=== PATIENT | female | born 1940 | race Caucasian/White ===

== ENCOUNTER → 2016-03-21 13:58 | Outpatient (CLI) | payer MEDICARE ==
[2016-02-14 12:13] VITALS: BMI 45.6
[~2016-03-21 13:58] MED LIST: ACETAMINOPHEN PO; ACTOS15 MG PO; AUGMENTIN 875-11 TAB PO; AVANDIA2 MG PO; BOUDREAUXS113 GM TP; BUMEX2 MG PO; CALTRATE-600600 MG PO; CARDIZEM CD240 MG PO; CELEBREX200 MG PO; CIPRO500 MG PO; COLACE100 MG PO; DIOVAN320 MG PO; DIOVAN80 MG PO; FLUTICASONE PRO16 GM NASAL; FLUTICASONE PRO16 GM NS; GARLIC1 CAP PO; GLIPIZIDE10 MG PO; GLUCOTROL XL 1010 MG PO; HUMALOG 30100 UNITS/ SC; K-TAB10 MEQ PO; LANOXIN250 MCG PO; LASIX40 MG PO; LEVAQUIN750 MG PO; LORTAB 7.5/5001 TA1 PO; MICRO-K10 MEQ PO; MIRALAX17 GM PO; NEURONTIN 300300 MG PO; NORCO 7.5-3251 EACH PO; NORCO 7.5/325 T1 TA1 PO; OMNICEF300 MG PO; PRADAXA150 MG PO; ROBAXIN500 MG PO; ROCEPHIN 2 GM/D52 G1 IV; SALINE NASAL SP45 ML NASAL; SALINE NASAL SP45 ML NS; TUMS500 MG PO; VOLTAREN100 GM TOPICAL; ZOCOR20 MG PO
[2016-03-21 14:11] LABS: APPEARANCE CLEAR (CLEAR); BILIRUBIN NEGATIVE (NEGATIVE); COLOR YELLOW (YELLOW); GLUCOSE NEGATIVE (NEGATIVE); KETONE NEGATIVE (NEGATIVE); LEUKOCYTE ESTERASE NEGATIVE (NEGATIVE); NITRITE NEGATIVE (NEGATIVE); PROTEIN NEGATIVE (NEGATIVE); UROBILINOGEN NORMAL (NORMAL)
== END | disposition home or self-care (01) ==
LOC: D.LABREF 13:58
PROVIDERS: Family Medicine
DX: N39.0 Urinary tract infection, site not specified (principal)

== ENCOUNTER → 2016-07-11 20:51 | Outpatient (CLI) | payer MEDICARE ==
[2016-02-14 12:13] VITALS: BMI 45.6
[~2016-07-11 20:51] MED LIST changes: +BACTRIM 400-801 TAB PO; +NYSTATIN ORAL SU5 ML PO
[2016-07-11 20:59] LABS: BASOPHILS 0.4 % (0-2); EOSINOPHILS 0.9 % (0-7); HEMOGLOBIN 13.3 g/dL (12-16); IMMATURE GRANULOCYTES 0.1 % (0-5); MCH 29.9 pg (26.0-34.0); MCHC 32.4 g/dL (31.0-37.0); MCV 92.1 fL (80.0-100.0); MEAN PLATELET VOLUME 10.5 fL (7.4-10.4); MONOCYTES 5.9 % (2-11); NEUTROPHILS 78.7 % (40-80); PLATELET COUNT 231 10x3/uL (130-400); RBC 4.45 10x6/uL (4.00-5.40); RDW 15.7 % (11.5-14.5); WBC 8.1 10x3/uL (4.8-10.8)
[2016-07-11 21:19] LABS: ALBUMIN 2.9 g/dL (3.4-5.0); ANION GAP 16.2 mmol/L (8-16); BILIRUBIN - TOTAL 0.59 mg/dL (0.2-1.3); CALCIUM 9.3 mg/dL (8.5-10.1); CARBON DIOXIDE 21.8 mmol/L (21.0-32.0)
[2016-07-11 21:27] LABS: CREATININE - SERUM 2.2 mg/dL (0.6-1.3)
== END | disposition home or self-care (01) ==
LOC: D.LABREF 20:51
PROVIDERS: Family Medicine
DX: I50.9 Heart failure, unspecified (principal)

== ENCOUNTER 2016-07-12 10:07 | Inpatient (IN) | payer MEDICARE ==
[~2016-07-12] VITALS: Ht 167.6 cm; Wt 120.8 kg
[~2016-07-12 10:07] MED LIST changes: -BACTRIM 400-801 TAB PO; -NYSTATIN ORAL SU5 ML PO
[2016-07-12 10:49] LABS: BASOPHILS 0.1 % (0-2); EOSINOPHILS 0.5 % (0-7); HEMATOCRIT 42.8 % (36.0-48.0); HEMOGLOBIN 13.7 g/dL (12-16); IMMATURE GRANULOCYTES 0.3 % (0-5); LYMPHOCYTES 10.6 % (15-50); MCH 29.3 pg (26.0-34.0); MCV 91.5 fL (80.0-100.0); MEAN PLATELET VOLUME 10.1 fL (7.4-10.4); MONOCYTES 6.7 % (2-11); NEUTROPHILS 81.8 % (40-80); PLATELET COUNT 205 10x3/uL (130-400); RBC 4.68 10x6/uL (4.00-5.40); RDW 15.7 % (11.5-14.5); WBC 7.7 10x3/uL (4.8-10.8)
[2016-07-12 11:26] LABS: BILIRUBIN - TOTAL 0.77 mg/dL (0.2-1.3); CALCIUM 8.9 mg/dL (8.5-10.1); CARBON DIOXIDE 20.6 mmol/L (21.0-32.0); PROTEIN - SERUM 8.6 g/dL (6.4-8.2)
[2016-07-12 11:35] LABS: CREATININE - SERUM 3.7 mg/dL (0.6-1.3)
[2016-07-12 11:36] LABS: ANION GAP 16.5 mmol/L (8-16); POTASSIUM - SERUM 7.1 mmol/L (3.5-5.1)
--- NOTE | 2016-07-12 14:10 | NUR ---
ARRIVE TO ROOM VIA STRETCHER FROM ER. ALERT AND ORIENTED X4. ACCOMPANIED BY FAMILY AND ER STAFF. LT FA IV INFUSING NS @ 50mL/HR PER ORDER. BILATERAL DIABETIC ULCERS LOWER EXTREMITIES. TRANSFER TO BED FROM STRETCHER MINIMAL ASSIST/STANDBY ASSIST. CONTINUE PLAN OF CARE AND ADMISSION PROCESS. REFUSE SCDs.
[2016-07-12] MEDS ORDERED: NYSTATIN ORAL SU5 ML PO (14:25)
[2016-07-12] MEDS ORDERED: BACTRIM 400-801 TAB PO (14:26)
[2016-07-12 16:00] VITALS: BP 112/57
[2016-07-12 17:52] VITALS: BP 112/57; BMI 43.2
--- NOTE | 2016-07-12 20:20 | NUR ---
DR. RAVI CALLED TO CHECK ON PTS K+. I HAVE ENTERED AN ORDER TO RECHECK PER DR. RAVI. IF K+ IS > THAN 5.5, I AM TO ADMINISTER ANOTHER 30GRAMS OF KAYEXELATE AND NOTIFY THE NURSE PRACTITIONER FEDERAL APPELLATE LAW CLERK. WILL CONTINUE TO MONITOR CLOSELY.
[2016-07-12 20:28] VITALS: BP 121/59
[2016-07-12 23:54] VITALS: BP 145/68
--- NOTE | 2016-07-13 00:10 | NUR ---
PT FINALLY DID HAVE A SMALL WATERY BM. WILL CONTINUE TO MONITOR CLOSELY.
--- NOTE | 2016-07-13 00:18 | NUR ---
NURSING ROUNDS 21:00 - PT LYING IN BED, EYES CLOSED, RESPIRATIONS EVEN AND UNLABORED. PT EASILY ROUSABLE TO VERBAL STIMULI, BUT REMAINED GROGGY AND IMMEDIATELY WENT BACK TO SLEEP. APPROXIMATELY 1 1/2-2 HOURS LATER, PT DID WAKE, NEEDING BEDSIDE COMMODE AND ASSISTANCE TRANSFERRING. PT DID HAVE A WATERY BM. PT STATED SHE HAD NOT EATEN ANYTHING FOR THE LAST DAY AND A HALF, SO AFTER ENCOURAGEMENT, SHE DID AGREE TO EAT SOME CHICKEN NOODLE SOUP. PT DENIES ANY OTHER NEEDS. CONTINUE TO MONITOR CLOSELY.
[2016-07-13 04:05] VITALS: BP 118/50
--- NOTE | 2016-07-13 05:12 | NUR ---
PT HAS NOT SLEPT WELL AGAIN THIS SHIFT. PT STATES SHE IS RESTLESS AND CANNOT GET COMFORTABLE. PT EATING CHOCOLATE PUDDING FOR HOOKER LASTER SNACK, PRN TRAMADOL GIVEN PER PT REQUEST. CONTINUE TO MONITOR CLOSELY. BED LOW, CALL LIGHT IN REACH, SIDE RAILS X 2, HOB 30 DEGREES.
--- NOTE | 2016-07-13 05:16 | NUR ---
PT LYING IN BED, EYES CLOSED, LOUD SNORING. PT IS EASILY ROUSABLE TO VERBAL STIMULI. CONTINUE TO MONITOR CLOSELY. BED LOW, CALL LIGHT IN REACH, SIDE RAILS X 2, HOB 30 DEGREES.
--- NOTE | 2016-07-13 07:00 | NUR ---
RECEIVED REPORT FROM PHLEBOTOMY SUPPORT TECH NURSE, BASHIR CARRERA. PT IN BED, SLEEPING, EASY TO AROUSE. CALL LIGHT IN REACH, NAD NOTED, WILL CONTINUE TO MONITOR.
[2016-07-13 07:35] LABS: BASOPHILS 0.3 % (0-2); EOSINOPHILS 0.6 % (0-7); HEMATOCRIT 38.9 % (36.0-48.0); HEMOGLOBIN 12.6 g/dL (12-16); IMMATURE GRANULOCYTES 0.9 % (0-5); LYMPHOCYTES 9.5 % (15-50); MCH 29.4 pg (26.0-34.0); MCHC 32.4 g/dL (31.0-37.0); MCV 90.7 fL (80.0-100.0); MEAN PLATELET VOLUME 10.1 fL (7.4-10.4); MONOCYTES 9.8 % (2-11); NEUTROPHILS 78.9 % (40-80); PLATELET COUNT 178 10x3/uL (130-400); RBC 4.29 10x6/uL (4.00-5.40); RDW 15.4 % (11.5-14.5)
[2016-07-13 08:12] LABS: ANION GAP 12.9 mmol/L (8-16); CALCIUM 8.8 mg/dL (8.5-10.1); CARBON DIOXIDE 24.3 mmol/L (21.0-32.0)
[2016-07-13 08:16] VITALS: BP 143/59
[2016-07-13 08:16] LABS: CREATININE - SERUM 2.4 mg/dL (0.6-1.3); POTASSIUM - SERUM 5.2 mmol/L (3.5-5.1)
--- NOTE | 2016-07-13 09:08 | NUR ---
CALLED PHARMACY AND SPOKE WITH CARMEN LIANG HIM THAT I NEED ANOTHER BOTTLE OF KAYEXELATE.
--- NOTE | 2016-07-13 09:38 | NUR ---
ADMINISTERED MORNING MEDICATIONS, HELPED SYRUP BLENDER TO GIVE PT A BED BATH, BED LINEN CHANGED. PT DENIES ANY NEEDS AT THIS TIME. FAMILY AT BEDSIDE, CALL LIGHT IN REACH, NAD NOTED, WILL CONTINUE TO MONITOR.
[2016-07-13 11:51] VITALS: BP 156/75
--- NOTE | 2016-07-13 11:55 | NUR ---
BLOOD SUGAR OF 171, GAVE 2 UNITS OF HUMALOG PER SLIDING SCALE. PT ALSO CLEANED UP FROM INCONT EPISODE. PT DENIES ANY NEEDS AT THIS TIME. CALL LIGHT IN REACH, NAD NOTED, WILL CONTINUE TO MONITOR.
[2016-07-13 14:23] VITALS: Ht 167.6 cm; Wt 120.8 kg
--- NOTE | 2016-07-13 16:10 | NUR ---
BLOOD SUGAR OF 148, NO COVERAGE NEEDED PER SLIDING SCALE. PT DENIES ANY NEEDS AT THIS TIME. CALL LIGHT IN REACH, NAD NOTED, WILL CONTINUE TO MONITOR.
[2016-07-13 16:42] VITALS: BP 142/61
--- NOTE | 2016-07-13 20:20 | NUR ---
RESTING IN BED WITH NO DISTRESS. NS @ 50ML/HR INFUSING TO LFA. SR PER TELEMETRY. CLEAN AND DRY. CHECKED FREQUENTLY DUE TO INCONTINENCE.CPOC. CALL LIGHT IN REACH.
[2016-07-13 20:29] VITALS: BP 120/59
--- NOTE | 2016-07-13 22:52 | NUR ---
PT RESTING. C/O LEG PAIN, BOTH LEGS HAVE DRESSINGS FROM BELOW KNEE TO ANKLE. PT STATES HOME HEALTH PROVIDES WOUND CARE EVERY 3RD DAY. DAY NURSE HAS PUT IN CONSULT FOR ART INSTRUCTOR TO SEE PATIENT IN AM. HS MEDS GIVEN. FSBS 165, 2UNITS OF HUMALOG GIVEN. PT WANTING PAIN MEDS, BUT DID NOT CONTINUE IT ON ADMIT. WILL MONITOR.
[2016-07-14] VITALS (7 sets, daily range): BP systolic 136–155; BP diastolic 57–76
[2016-07-14 06:49] LABS: BASOPHILS 0.3 % (0-2); EOSINOPHILS 1.1 % (0-7); HEMATOCRIT 38.6 % (36.0-48.0); HEMOGLOBIN 12.4 g/dL (12-16); IMMATURE GRANULOCYTES 0.3 % (0-5); LYMPHOCYTES 14.2 % (15-50); MCH 29.5 pg (26.0-34.0); MCHC 32.1 g/dL (31.0-37.0); MCV 91.7 fL (80.0-100.0); MEAN PLATELET VOLUME 9.9 fL (7.4-10.4); MONOCYTES 11.1 % (2-11); PLATELET COUNT 198 10x3/uL (130-400); RBC 4.21 10x6/uL (4.00-5.40); RDW 15.5 % (11.5-14.5); WBC 6.5 10x3/uL (4.8-10.8)
[2016-07-14 07:12] LABS: ANION GAP 11.9 mmol/L (8-16); CALCIUM 8.6 mg/dL (8.5-10.1); CARBON DIOXIDE 26.7 mmol/L (21.0-32.0)
[2016-07-14 07:18] LABS: CREATININE - SERUM 1.1 mg/dL (0.6-1.3); POTASSIUM - SERUM 3.6 mmol/L (3.5-5.1)
--- NOTE | 2016-07-14 07:50 | NUR ---
AM ROUNDS - PT APPEARS TO BE SLEEPING ON BACK WITH EQUAL AND NON LABORED BREATHS. LEFT FA, NS AT 50CC/HR. MONITOR SHOWS CONTROLLED AFIB, HR 71. WILL CONTINUE TO MONITOR
--- NOTE | 2016-07-14 10:20 | NUR ---
Wound Care consult: Pt has long history of venous stasis ulcers. Currently she is being treated at the wound clinic in [place] (once/month) and by home health for dressing changes. Bilateral lower extremities are red and edematous with open areas. Mild odor noted. Cleansed well and patted dry. Covered open areas with Adaptic, covered with ABD pads and secured with kerlix. Recommend daily dressing changes at this time. Will continue to monitor.
--- NOTE | 2016-07-14 14:59 | NUR ---
Rehab Note- Acute Rehab Prescreen order received. Awaiting Physical therapy order & screen. Spoke with JASSON Ramirez. Will follow the patient at this time. Thank you for this referral! Yadira Ball RN Clinical Liaison, [facility] Rehab/[place]
--- NOTE | 2016-07-14 16:32 | NUR ---
SCD - DUE TO PT HAVING BLE WOUNDS WITH DRESSINGS, SCDs NOT APPROPRIATE AT THIS TIME.
--- NOTE | 2016-07-14 20:22 | NUR ---
RESTING IN BED. ALERT/ORIENTED. NS @ 50ML/HR INFUSING TO LFA. O2 @ 2L/NC WITH NONLABORED RESPIRATIONS. CAF PER TELEMETRY. 4+ PITTING EDEMA TO BILATERAL LOWER EXTREMITIES WITH NEW DRESSINGS TO BOTH LEGS PER WOUND CARE NURSE. SEE COMPLETED SHIFT ASSESSMENT. CPOC.
--- NOTE | 2016-07-14 21:06 | NUR ---
HS MEDS GIVEN. PAIN MED GIVEN PER REQUEST. FSBS 210, SLIDING SCALE ADMINISTERED. CPOC.
[2016-07-15] VITALS: BP 189/74
[2016-07-15 04:00] VITALS: BP 145/72
[2016-07-15 06:26] LABS: BASOPHILS 0.5 % (0-2); EOSINOPHILS 2.9 % (0-7); HEMATOCRIT 36.4 % (36.0-48.0); HEMOGLOBIN 11.8 g/dL (12-16); IMMATURE GRANULOCYTES 0.4 % (0-5); LYMPHOCYTES 21.1 % (15-50); MCH 29.6 pg (26.0-34.0); MCHC 32.4 g/dL (31.0-37.0); MCV 91.2 fL (80.0-100.0); MEAN PLATELET VOLUME 9.3 fL (7.4-10.4); MONOCYTES 10.2 % (2-11); NEUTROPHILS 64.9 % (40-80); PLATELET COUNT 165 10x3/uL (130-400); RBC 3.99 10x6/uL (4.00-5.40); RDW 15.6 % (11.5-14.5); WBC 5.6 10x3/uL (4.8-10.8)
[2016-07-15 06:46] LABS: ANION GAP 12.6 mmol/L (8-16); CALCIUM 8.2 mg/dL (8.5-10.1); CARBON DIOXIDE 25.7 mmol/L (21.0-32.0); CREATININE - SERUM 0.8 mg/dL (0.6-1.3); POTASSIUM - SERUM 3.3 mmol/L (3.5-5.1)
[2016-07-15 08:26] VITALS: BP 182/74
--- NOTE | 2016-07-15 10:01 | NUR ---
PT SITTING UP IN BEDSIDE CHAIR RESTING QUIELTLY. PT C/O GENERALIZED ACHING ALL OVER REQUESTING AND PROVIDED WITH PRN PAIN MEDICATION. PT DENIES ANY FURTHER NEEDS AT THIS TIME. CL IN REACH. WILL CTM.
--- NOTE | 2016-07-15 11:03 | NUR ---
Visited with the patient and she feels she will benefit from continued therapy in the IRF. She meets criteria and will be accepted today if the physician agrees. The CM James Oliveros has been made aware. Rosio Brown RN Clinical Liaison, Rehab
--- NOTE | 2016-07-15 11:24 | NUR ---
Patient Name: SOFIA PEREZ Admission Status: ER Accout number: [id number] Admission Date: 07-12-2016 : 1940 Admission Diagnosis:ACUTE KIDNEY FAILURE, UNSPECIFIED Attending: LG Current LOS: 3 Anticipated DC Date: 07-15-2016 Planned Disposition: Inpatient Rehab Primary Insurance: MEDICARE A & B PLANNED EXTERNAL PROVIDER: [facility] Discharge Planning Comments: * Is the patient Alert and Oriented? Yes 0 * How many steps to enter\exit or inside your home? RAMP 0 * PCP DR. REYNA 0 * Pharmacy [facility]. 0 * Preadmission Environment Home Alone 0 * ADLs Independent 0 * Equipment Bedside Commode Oxygen Shower Chair Walker Wheelchair 0 * Other Equipment HOME AND PORTABLE OXYGEN UNKNOWN MEDICAL EQUIPMENT PROVIDER 0 * List name and contact numbers for known caregivers / representatives who currently or will assist patient after discharge: BRYON STEEL, DTR, LUCI STEEL, SON, 0 * Community resources currently utilized Home Health 0 * Please name any agencies selected above. [employer] 0 * Additional services required to return to the preadmission environment? Yes * Can the patient safely return to the preadmission environment? Yes 0 * Has this patient been hospitalized within the prior 30 days at any hospital? No 0 CM RECEIVED ORDER FOR INPATIENT REHAB PRESCREENING, MET WITH PT IN ROOM TO DISCUSS DISCHARGE PLANNING AND NEEDS. PT REPORTS LIVING AT HOME INDEPENDENTLY AND ALONE, HER SON LIVES NEXT DOOR ON THE PROPERTY. PT HAS REPORTS HAVING ALL NEEDED MEDICAL EQUIPMENT AND CANNOT REMEMBER THE NAME OF HER PROVIDER. PT HAS [employer]. CM DISCUSSED AVAILABILITY OF HOME HEALTH, REHAB SERVICES AND MEDICAL EQUIPMENT. PT REPORTS BEING WEAK AND WANTS REHAB AT [place], IS FAMILIAR SHE HAS BEEN THERE IN THE PAST. PT REPORTS HER SON WILL PICK HER UP FOR DISCHARGE HOME. IMPORTANT MESSAGE FROM MEDICARE PROVIDED AND EXPLAINED. CM SPOKE TO EMELI OF [facility] WHO HAS EVALUATED PT AND WILL ACCEPT PT TODAY IF MEDICALLY STABLE. PT NOTIFIED WHO IS IN AGREEMENT WITH DISCHARGE PLAN TO INPATIENT REHAB. FOR DISCHARGE TO INPATIENT REHAB, NOTIFY [facility]. Manager Concrete: Nestor Oliveros
--- NOTE | 2016-07-15 11:56 | NUR ---
FSBS 382 PT STATES "IM NEVER THAT HIGH" RECHECKED R/T PT CONCERNS AND FS ON SAME HAND BUT DIFFERENT FINGER 197. WILL COVER WITH SS INSULIN PER THE LOWER NUMBER R/T PTS TRENDS NEVER THAT HIGH. PT REC'D 2 UNITS. PT SITTING UP IN BEDSIDE CHAIR RESTING QUIETLY. DENIES ANY CURRENT PAIN OR FURTHER NEEDS. CL IN REACH. WILL CPOC.
[2016-07-15 12:38] VITALS: BP 156/69
--- NOTE | 2016-07-15 14:59 | NUR ---
CALLED REPORT TO NEIL CASAS FROM INPATIENT REHAB. PT IS COLLECTING BELONGINGS AND READY TO GO DOWN TO REHAB UNIT. WILL BE TRANSFERRED TO [facility] SHORTLY. NO FURTHER NEEDS AT THIS TIME.
--- NOTE | 2016-07-15 15:16 | NUR ---
Patient Name: SOFIA PEREZ Encounter No: [id number] : 1940 Primary Insurance: MEDICARE A & B Anticipated DC Date: 07-15-2016 Planned Disposition: Inpatient Rehab External Planned Provider: [facility] DCP follow-up note: CM SPOKE TO EMELI OF INPATIENT REHAB, THEY PLAN TO ACCEPT PT TODAY, ROOM 1114-A, FOR REHAB. PT NOTIFIED, IN AGREEMENT WITH DISCHARGE TO INPATIENT REHAB. SOLAR RESOURCE ASSESSOR NURSE NOTIFIED. NURSE REPORT TO BE CALLED TO INPATIENT REHAB FOR DISCHARGE. Nestor Oliveros, CASE MANAGEMENT
--- NOTE | 2016-07-15 15:55 | NUR ---
DISCHARGE PAPERS SIGNED AND BELONGINGS COLLECTED. TANK REFINISHER ASSISTING TO TRANSFER TO REHAB. NO FURTHER NEEDS AT THIS TIME.
== END 2016-07-15 16:16 | DRG 683 ==
LOC: D.ER 10:07 → D.M2 13:12
PROVIDERS: Emergency Medicine; ADMIT Family Medicine
DX: N17.9 Acute kidney failure, unspecified (principal); Z68.41 Body mass index [BMI] 40.0-44.9, adult; E87.5 Hyperkalemia; E11.9 Type 2 diabetes mellitus without complications; I10 Essential (primary) hypertension; E78.5 Hyperlipidemia, unspecified; K21.9 Gastro-esophageal reflux disease without esophagitis; R06.81 Apnea, not elsewhere classified; I48.91 Unspecified atrial fibrillation; E66.01 Morbid (severe) obesity due to excess calories; M19.90 Unspecified osteoarthritis, unspecified site; Z86.718 Personal history of other venous thrombosis and embolism

== ENCOUNTER 2016-07-15 16:23 | Inpatient (IN) | payer MEDICARE ==
[~2016-07-15] VITALS: Ht 167.6 cm; Wt 122.5 kg
[~2016-07-15 16:23] MED LIST changes: +BACTRIM 400-801 TAB PO; +NYSTATIN ORAL SU5 ML PO
--- NOTE | 2016-07-15 16:30 | NUR ---
PT ARRIVED TO UNIT VIA ACCOMPANIED BY HOSPITAL STAFF AND FAMILY. PT IS A&OX4. PT HAS DRESSING TO BILAT LE'S DUE TO WEEPING EDEMA. PT IS ON O2@2. PT IS A MIN TRANSFER FROM TO BED. PT DENIES NEEDS.
[2016-07-15 18:05] VITALS: BP 122/58; BMI 43.7
--- NOTE | 2016-07-15 18:15 | NUR ---
PT EATING DINNER, DENIES NEEDS.
--- NOTE | 2016-07-15 19:25 | NUR ---
PT SITTING ON SIDE OF BED. ALERT & ORIENTED. LEFT FA FLUSHES EASILY, SALINE LOC. O2 @ 2L VIA N/C. MIN. ASSIST. WEEPING EDEMA LE. BED IN LOWES TPOSITION AND CALL LIGHT WITHIN REACH.
--- NOTE | 2016-07-15 19:30 | NUR ---
REMOVED OLD DRESSING FROM LE. CLEANSE BILATERAL LOWER LEGS WITH WOUND CLEANSER AND PATTED DRY WITH 4X4'S. COVERED ALL OPEN AREAS WITH ADAPTIC THEN WITH ABD PADS. SECURED WITH KERLIX AND PAPER TAPE. PT TOLERATED PROCEDURE WELL.
[2016-07-15 22:11] VITALS: BP 122/68
--- NOTE | 2016-07-15 23:30 | NUR ---
PT IN BED WITH HOB UP FOR COMFORT. EYES CLOSED. CHEST RISING AND FALLING. 02 @ 2L VIA N/C. BED IN LOWEST POSITION AND CALL LIGHT WITHIN REACH.
--- NOTE | 2016-07-16 04:10 | NUR ---
RESTING IN BED, EYES CLOSED.
[2016-07-16 07:15] LABS: BASOPHILS 0.5 % (0-2); EOSINOPHILS 3.7 % (0-7); HEMATOCRIT 38.2 % (36.0-48.0); HEMOGLOBIN 12.3 g/dL (12-16); IMMATURE GRANULOCYTES 0.3 % (0-5); LYMPHOCYTES 16.1 % (15-50); MCH 29.9 pg (26.0-34.0); MCHC 32.2 g/dL (31.0-37.0); MCV 92.7 fL (80.0-100.0); MEAN PLATELET VOLUME 10.4 fL (7.4-10.4); MONOCYTES 9.2 % (2-11); NEUTROPHILS 70.2 % (40-80); PLATELET COUNT 170 10x3/uL (130-400); RBC 4.12 10x6/uL (4.00-5.40); RDW 15.7 % (11.5-14.5); WBC 6.5 10x3/uL (4.8-10.8)
[2016-07-16 07:50] LABS: ANION GAP 8.5 mmol/L (8-16); CALCIUM 8.4 mg/dL (8.5-10.1); CARBON DIOXIDE 29.1 mmol/L (21.0-32.0); CREATININE - SERUM 0.9 mg/dL (0.6-1.3); POTASSIUM - SERUM 3.6 mmol/L (3.5-5.1)
--- NOTE | 2016-07-16 08:13 | NUR ---
SITTING UP EATING BREAKFAST CALL LIGHT IN REACH
--- NOTE | 2016-07-16 08:29 | NUR ---
PT RESTING IN BED WITH EYES OPEN CALL LIGHT IN REACH NO PROBLEMS WILL MONITER
[2016-07-16 08:59] VITALS: BP 123/56
[2016-07-16 14:02] VITALS: Ht 167.6 cm; Wt 122.5 kg
--- NOTE | 2016-07-16 16:35 | NUR ---
PATIENT ADMITTED TO REHAB FROM ACUTE FLOOR. IS HER PCP. SHE USES [facility] ON [address]. DME AT HOME IS BSC, O2, WALKER, WHEELCHAIR. SHE IS WITH [facility]. SHE IS OF [place]. WILL CONTINUE TO FOLLOW WITH PATIENT UNTIL DISCHARGED.
--- NOTE | 2016-07-16 18:07 | NUR ---
PT RESTING IN BED WITH EYES OPEN CALL LIGHT IN REACH NO PROBLEMS WILL MONITER
[2016-07-16 19:00] VITALS: BP 132/53
--- NOTE | 2016-07-16 20:00 | NUR ---
PT IN BED WITH HOB UP FOR COMFORT. WATCHING TV. ALERT & ORIENTED. LEFT FA SALINE LOC. O2 @ 2L VIA N/C. MIN. ASSIST. WEEPING EDEMA BILATERAL LOWER LEGS. FSBS. BED IN LOWEST POSITION AND CALL LIGHT WITHIN REACH.
--- NOTE | 2016-07-16 21:17 | NUR ---
LEFT FA INFILTRATED. DC'D IV. PT TOLERATED PROCEDURE WELL.
--- NOTE | 2016-07-17 00:55 | NUR ---
RESTING IN BED, EYES CLOSED. AUDIBLE RESPIRATIONS ARE UNLABORED.
--- NOTE | 2016-07-17 04:53 | NUR ---
PT LYING IN BED. EYES CLOSED. BED IN LOWEST POSITION AND CALL LIGHT WITHIN REACH.
--- NOTE | 2016-07-17 08:15 | NUR ---
PT IN BED EATING BREAKFAST TOLERATING WELL WILL MONITER
--- NOTE | 2016-07-17 15:00 | NUR ---
IN BED WITH FEET UP.CL IN REACH.
--- NOTE | 2016-07-17 17:11 | NUR ---
PT RESTING IN BED WITH EYES OPEN CALL LIGHT IN REACH NO PROBLEMS WILL MONITER
[2016-07-17 20:00] VITALS: BP 154/49
--- NOTE | 2016-07-17 20:00 | NUR ---
PT SITTING ON SIDE OF BED. ALERT & ORIENTED. O2 @ 2L VIA N/C. STAND BY ASSIST. W/C. WEEPING EDEMA BILATERAL LOWER LEGS. FSBS BIDAC. PT HAS NO COMPLAINTS AT THIS TIME. BED IN LOWEST POSITION AND CALL LIGHT WITHIN REACH.
--- NOTE | 2016-07-18 | NUR ---
PT LYING IN BED. EYES CLOSED. CHEST RISNING AND FALLING. BED IN LOWEST POSITION AND CALL LIGHT WITHIN REACH.
--- NOTE | 2016-07-18 00:40 | NUR ---
RESTING QUIETLY IN BED, EYES CLOSED.
--- NOTE | 2016-07-18 01:00 | NUR ---
PT FINISHED WITH LUNCH, DENIES NEEDS.
--- NOTE | 2016-07-18 02:50 | NUR ---
PT ASSISTED TO BR. PT BACK IN BED AND DENIES NEEDS. WCTM.
--- NOTE | 2016-07-18 08:59 | NUR ---
PT AM MEDS ADMINISTERED. PT EATING BREAKFAST, DENIES NEEDS.
[2016-07-18 09:01] VITALS: BP 132/53
--- NOTE | 2016-07-18 11:00 | NUR ---
PT SHOWER GIVEN. NEW DRESSINGS APPLIED TO BILAT LE'S. PT RESTING IN BED WAITING FOR LUNCH.
--- NOTE | 2016-07-18 13:00 | NUR ---
PT FINISHED WITH LUNCH, DENIES NEEDS.
--- NOTE | 2016-07-18 14:50 | NUR ---
PT ASSISTED TO BR. PT BACK IN BED AND DENIES NEEDS. WCTM.
[2016-07-18 20:00] VITALS: BP 128/86
--- NOTE | 2016-07-18 20:00 | NUR ---
PT LYING IN BED. WATCHING TV. BED IN LOWEST POSITION AND CALL LIGHT WITHIN REACH.
--- NOTE | 2016-07-19 | NUR ---
PT LYING IN BED. EYES CLOSED. CHEST RISING AND FALLING. 02 @ 2L. BED IN LOWEST POSITION AND CALL LIGHT WITHINREACH.
--- NOTE | 2016-07-19 02:20 | NUR ---
PT LYING IN BED. WATCHING TV. BED IN LOWEST POSITION AND CALL LIGHT WITHIN REACH.
[2016-07-19 06:40] LABS: BASOPHILS 0.5 % (0-2); EOSINOPHILS 4.4 % (0-7); HEMATOCRIT 35.6 % (36.0-48.0); HEMOGLOBIN 11.3 g/dL (12-16); IMMATURE GRANULOCYTES 0.2 % (0-5); LYMPHOCYTES 23.7 % (15-50); MCH 29.2 pg (26.0-34.0); MCHC 31.7 g/dL (31.0-37.0); MEAN PLATELET VOLUME 9.5 fL (7.4-10.4); MONOCYTES 11.2 % (2-11); PLATELET COUNT 161 10x3/uL (130-400); RBC 3.87 10x6/uL (4.00-5.40); RDW 15.6 % (11.5-14.5); WBC 4.1 10x3/uL (4.8-10.8)
[2016-07-19 06:55] LABS: CALC OSMOLALITY 285 mosm/kg (275-300); CALCIUM 8.5 mg/dL (8.5-10.1); CARBON DIOXIDE 27.9 mmol/L (21.0-32.0); CHLORIDE - SERUM 106 mmol/L (98-107); CREATININE - SERUM 0.6 mg/dL (0.6-1.3); GLUCOSE 144 mg/dL (74-106); POTASSIUM - SERUM 3.5 mmol/L (3.5-5.1); SODIUM 142 mmol/L (136-145); UREA NITROGEN 13 mg/dL (7-18); eGFR NON AFRICAN AMERICAN > 90 mL/min (90-120)
[2016-07-19 09:09] VITALS: BP 134/71
--- NOTE | 2016-07-19 10:25 | NUR ---
MORNING MEDICATION GIVEN, PT TOLERATED WELL, WILL CONTINUE TO MONITOR, PT IN THERAPY.
--- NOTE | 2016-07-19 15:43 | NUR ---
PT SITTING UP IN WHEELCHAIR WATCHING TV, PT STATES NO NEEDS AT THIS TIME, WILL CONTINUE TO MONITOR, CALL LIGHT WITHIN REACH.
--- NOTE | 2016-07-19 17:29 | NUR ---
PT SITTING UP AT BEDSIDE, WATCHING TV, VISITING WITH OTHER PT IN ROOM. PT STATES NO NEEDS AT THIS TIME, WILL CONTINUE TO MONITOR, CALL LIGHT WITHIN REACH.
--- NOTE | 2016-07-19 19:40 | NUR ---
PT SIT IN BED AND WATCH TV.
--- NOTE | 2016-07-19 19:50 | NUR ---
PT LYING SUPINE POSITION IN BED, DENIES ANY NEEDS, RESPIRATIONS REGULAR AND UNLABORED.
[2016-07-19 20:08] VITALS: BP 130/78
--- NOTE | 2016-07-19 21:10 | NUR ---
NEW DRESSINGS APPLIED TO BILAT LEGS.
--- NOTE | 2016-07-19 22:32 | NUR ---
ASSISTED PT TO BATHROOM.
--- NOTE | 2016-07-20 04:29 | NUR ---
ASSISTED PT TO BATHROOM.
[2016-07-20 08:00] VITALS: BP 132/62
--- NOTE | 2016-07-20 08:15 | NUR ---
PT RESTING IN BED WITH EYES OPEN CALL LIGHT IN REACH NO PROBLEMS WILL MONITER
--- NOTE | 2016-07-20 13:25 | NUR ---
Nutrition Follow Up: Chart reviewed. Pt is eating 100% meal avg on a diabetic [employer] soft diet. +BM 07/19/16. Wt stable. Labs reviewed - Glucose elevated. Meds noted inlcuding Glipizide. Pt with excellent po intake at this time. Rec continue current diet. RD following.
--- NOTE | 2016-07-20 14:28 | NUR ---
PT UP IN WHEELCHAIR IN ROOM WATCHING TV CALL LIGHT IN REACH WILL ANIRUDH
--- NOTE | 2016-07-20 18:48 | NUR ---
RESTING QUIETLY IN BED CALL LIGHT IN REACH
--- NOTE | 2016-07-20 19:43 | NUR ---
PT RECEIVED UP IN WHEELCHAIR NEEDING ASSISTANCE TO BATHROOM. DRESSINGS TO BILATERAL LOWER EXTREMETIES. NO CONCERNS MADE KNOWN AT THIS TIME. CALL LIGHT IN REACH. WILL CONTINUE TO OBSERVE.
[2016-07-20 21:39] VITALS: BP 141/60
--- NOTE | 2016-07-20 22:54 | NUR ---
PT IN BED WITH EYES CLOSED AND CHEST RISING. RECEIVED MEDICATIONS PER MAR WITHOUT DIFFICULTY. DRESSINGS CHANGED PER ORDERS TO BILATERAL LOWER EXTREMITIES, TOLERATED WELL. NO OTHER NEEDS OR CONCERNS MADE KNOWN. CALL LIGHT IN REACH. WILL CONTINUE TO OBSERVE.
--- NOTE | 2016-07-21 02:08 | NUR ---
PT IN BED WITH EYES CLOSED AND CHEST RISING. NO CONCERNS NOTED AT THIS TIME. CALL LIGHT IN REACH. WILL CONTINUE TO OBSERVE.
--- NOTE | 2016-07-21 04:51 | NUR ---
PT IN BED WITH EYES CLOSED AND CHEST RISING. NO SIGN/SYMPTOMS OF DISTRESS NOTED. CALL LIGHT IN REACH. WILL CONTINUE TO OBSERVE.
[2016-07-21 06:10] LABS: BASOPHILS 0.5 % (0-2); EOSINOPHILS 3.5 % (0-7); HEMATOCRIT 34.6 % (36.0-48.0); IMMATURE GRANULOCYTES 0.2 % (0-5); LYMPHOCYTES 23.7 % (15-50); MCH 29.3 pg (26.0-34.0); MCHC 31.8 g/dL (31.0-37.0); MEAN PLATELET VOLUME 9.6 fL (7.4-10.4); MONOCYTES 10.5 % (2-11); NEUTROPHILS 61.6 % (40-80); PLATELET COUNT 143 10x3/uL (130-400); RBC 3.76 10x6/uL (4.00-5.40); RDW 15.8 % (11.5-14.5); WBC 4.3 10x3/uL (4.8-10.8)
[2016-07-21 06:32] LABS: CALC OSMOLALITY 281 mosm/kg (275-300); CALCIUM 8.6 mg/dL (8.5-10.1); CARBON DIOXIDE 28.4 mmol/L (21.0-32.0); CHLORIDE - SERUM 104 mmol/L (98-107); CREATININE - SERUM 0.7 mg/dL (0.6-1.3); GLUCOSE 147 mg/dL (74-106); POTASSIUM - SERUM 3.6 mmol/L (3.5-5.1); SODIUM 139 mmol/L (136-145); UREA NITROGEN 14 mg/dL (7-18); eGFR NON AFRICAN AMERICAN 86 mL/min (90-120)
--- NOTE | 2016-07-21 07:26 | NUR ---
PT RESTING IN BED WITH EYES OPEN CALL LIGHT IN REACH NO PROBLEMS WILL MONITER
[2016-07-21 08:17] VITALS: BP 134/60
--- NOTE | 2016-07-21 11:34 | NUR ---
IN THERAPY.DENIES NEEDS.
--- NOTE | 2016-07-21 13:33 | NUR ---
PT RESTING IN BED WITH EYES OPEN CALL LIGHT IN REACH NO PROBLEMS WILL MONITER
--- NOTE | 2016-07-21 16:58 | NUR ---
CARE TEAM MEETING: TENATIVE DISCHARGE DATE IS 07/28/16. PLANS ARE FOR HER TO RETURN HOME. DR. REYNA IS HER PCP, SHE USES [facility] [address] AND IS PHARMACY OF CHOICE. SHE HAS O2, SHOWER CHAIR, WALKER AND WHEELCHAIR AT HOME. WILL CONTINUE TO FOLLOW WITH PATIENT
--- NOTE | 2016-07-21 17:39 | NUR ---
PT RESTING IN BED WITH EYES OPEN CALL LIGHT IN REACH NO PROBLEMS WILL MONITER
[2016-07-21 19:07] VITALS: BP 131/59
--- NOTE | 2016-07-21 19:31 | NUR ---
PT RECEIVED IN ROOM UP IN WHEELCHAIR AT BEDSIDE VISITING WITH FAMILY. DRESSINGS INTACT WITH DRAINAGE NOTED. SCHEDULED TO BE CHANGED THIS SHIFT. NO OTHER NEEDS MADE KNOWN. CALL LIGHT IN REACH. WILL CONTINUE TO OBSERVE.
--- NOTE | 2016-07-21 22:50 | NUR ---
PT IN BED WITH EYE OPEN. RECEIVED MEDICATIONS PER MAR WITHOUT DIFFICULTY. DRESSINGS TO BILATERAL LOWER LEGS CHANGED PER ORDER. NO OTHER NEEDS OR CONCERNS NOTED AT THIS TIME. CALL LIGHT IN REACH.
--- NOTE | 2016-07-22 02:20 | NUR ---
PT IN BED WITH EYES CLOSED AND CHEST RISING. NO SIGN/SYMPTOMS OF DISTRESS NOTED. CALL LIGHT IN REACH.
--- NOTE | 2016-07-22 07:25 | NUR ---
AWAKE.ASSESSMENT COMPLETED,NO SIGNS OF ACUTE DISTRESS.DRESSING INTACT TO LOWER EXTREMITIES BILAT.CL IN EASY REACH,BED IN LOW POSITION.
[2016-07-22 11:36] VITALS: BP 133/74
--- NOTE | 2016-07-22 12:07 | RHP ---
PATIENT: SOFIA PEREZ MEDICAL RECORD: [id number] ACCOUNT: [id number] LOCATION:[id number] : [birth year] ADMISSION DATE: 07/15/16 REHABILITATION HISTORY AND PHYSICAL EXAMINATION POST ADMISSION PHYSICIAN EXAMINATION DATE OF ADMISSION: 07/15/2016 ADMITTING DIAGNOSES: Uremic myopathy. HISTORY OF PRESENT ILLNESS: The patient is an elderly female who presents secondary to uremic myopathy. She was admitted to the hospital on July 12. She has a history of hypertension, diabetes, AFib, peripheral vascular disease, and CHF. She is being treated for UTI. Labs showed hyperkalemia, so she was sent to the ED for further evaluation. Her potassium was 7.1, BUN and creatinine of 76 and 3.7. She reports that she was just not eating much. She had vomited once and had been falling a lot due to weakness in her legs. She was sleepy and lethargic on admission. She has venous stasis ulcers on both lower extremities, 4+ weeping edema. She has been receiving H&H for dressing changes and was seen in wound care clinic monthly. Prior to the admit, she was living alone. She was able to perform most of her ADLs and ambulate without assistance until recently, she began to have falls. Currently, she is [id number] assist for ADLs and mobility. She has weakness in her legs and increased pain due to stasis ulcer. She was fatigued. 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 She is wearing her O2 at 2 L continuously. She usually wears it only at bedtime, definitely needs inpatient rehab if she has any hope of returning back to her home or to her prior level of functioning. COMORBIDITIES: In this patient include hyperkalemia, renal failure, hypertension, chronic kidney disease, diabetes, morbid obesity, CHF, sleep apnea, fatigue, dizziness, acute mental status changes, UTI, frequent falls and venous stasis ulcers. PAST MEDICAL HISTORY: Significant for diabetes, hypertension, morbid obesity, DVT, AFib, cellulitis, venous insufficiency, hyperlipidemia, sleep apnea, osteoarthritis, gastroesophageal reflux disease, cataracts, CHF, peripheral vascular disease and O2 dependence. PAST SURGICAL HISTORY: Includes hysterectomy, bilateral tubal ligation, IVC filter, right foot surgery, stents in bilateral lower extremities and rectal surgery. ALLERGIES: ASPIRIN, AMLODIPINE, ADHESIVE TAPE, LIPITOR, INVOKANA, METFORMIN, JANUMET, AND ACTOS. CURRENT MEDICATIONS: Include glipizide 10 mg b.i.d., Colace 100 mg daily, diltiazem 240 mg daily, nystatin 5 cc q.a.c. and q.h.s., [place] 7.5/325 as needed, Neurontin 300 q.h.s., Pradaxa 150 mg b.i.d., Tylenol 325 mg q.4 hours p.r.n., Tums 1000 mg q.4 hours as needed, polyethylene glycol 17 g in 8 ounces of water daily. HABITS: No alcohol or tobacco use. FAMILY HISTORY: Noncontributory. HISTORY AND PHYSICAL [id number] SOFIA PEREZ SOCIAL HISTORY: The patient plans to return back home at her prior level of functioning or better if possible. REVIEW OF SYSTEMS: GENERAL: Does complain of weakness and fatigue. HEENT: Denies cold, cough, or congestion. CARDIOVASCULAR: Denies any chest pain. LUNGS: Does complain of shortness of breath especially with activity. PHYSICAL EXAMINATION: VITAL SIGNS: Stable. She is afebrile. GENERAL: A morbidly-obese female, in no acute distress, alert upon exam. HEENT: Normocephalic, atraumatic. Mucosa moist. NECK: Supple. No lymphadenopathy. LUNGS: Clear at this time. HEART: Irregular rate and rhythm. ABDOMEN: Benign. EXTREMITIES: Does have numerous changes consistent with stasis dermatitis/ulcers with discoloration of the skin and skin changes noted. NEUROLOGIC: Seems intact. LABORATORY DATA: Her white count 6.5, H&H of 12 and 38 and platelet count was noted to be 170. Her sodium is 141, potassium 3.6, BUN and creatinine of 20 and 0.9, blood sugar is noted to be 161. ASSESSMENT: This is a 76-year-old female patient admitted to rehab with a working diagnosis of uremic myopathy complicated by numerous other medical problems. The patient has potential to make improvement. We instituted the following multidisciplinary therapies including, but not limited to physical, occupational, respiratory, speech, nutritional services, prosthetics and orthotics. Given her complex condition and risk for more complications, rehabilitation services cannot be provided at a lower level of care such as a senior care facility. PLAN: 1. Admit to [facility] rehab for intensive inpatient therapy to include the following disciplines: A. Physical therapy to improve gait, all transfer skills and bed mobility to a modified independent level. B. Occupational therapy to improve activities of daily living to a modified independent level. C. Case management to assist with discharge planning and placement options. D. Nutrition to assist with nutritional needs. E. Rehabilitation nursing to assist in monitoring the patient's underlying medical conditions and to assist with any type of bowel or bladder management. 2. The patient's current medication and medical care will be continued. 3. The patient will be placed on standard fall precautions. 4. The patient's estimated length of stay is approximately 7-10 days. 5. Discuss this patient during care team staff meeting this week. TRANSINT:[id number] Voice Confirmation ID: [id number] DOCUMENT ID: [id number] RAAD notes whether there has been none or any medical/functional change since admission: HISTORY AND PHYSICAL [id number] SOFIA PEREZ attests patient continues to be appropriate for IRF: - POLLY HERNANDEZ MD at 1207 CC: [id number] DICTATION DATE: 07/16/16 0844 ELECTRIC LOCOMOTIVE FIRER/FIREMAN: 07/16/16 1012 ADM IN [facility] [address] [id number]
[2016-07-22 20:10] VITALS: BP 132/52
--- NOTE | 2016-07-22 23:05 | NUR ---
PT. IN BED WITH HOB UP FOR COMFORT LYING ON HER RIGHT SIDE. EYES CLOSED AND RESP. DEEP AND EVEN. CALL LIGHT WITHIN REACH.
--- NOTE | 2016-07-23 03:02 | NUR ---
PT. IN BED WITH HOB UP FOR COMFORT WITH EYES CLOSED AND RESP. EVEN. CALL LIGHT WITHIN REACH.
[2016-07-23 07:13] LABS: BASOPHILS 0.5 % (0-2); EOSINOPHILS 2.8 % (0-7); HEMATOCRIT 36.3 % (36.0-48.0); HEMOGLOBIN 11.4 g/dL (12-16); IMMATURE GRANULOCYTES 0.2 % (0-5); LYMPHOCYTES 20.6 % (15-50); MCH 29.2 pg (26.0-34.0); MCHC 31.4 g/dL (31.0-37.0); MCV 92.8 fL (80.0-100.0); MEAN PLATELET VOLUME 9.7 fL (7.4-10.4); MONOCYTES 9.6 % (2-11); NEUTROPHILS 66.3 % (40-80); PLATELET COUNT 137 10x3/uL (130-400); RBC 3.91 10x6/uL (4.00-5.40); RDW 15.9 % (11.5-14.5); WBC 4.3 10x3/uL (4.8-10.8)
[2016-07-23 07:28] LABS: CALC OSMOLALITY 281 mosm/kg (275-300); CALCIUM 8.9 mg/dL (8.5-10.1); CARBON DIOXIDE 29.4 mmol/L (21.0-32.0); CHLORIDE - SERUM 104 mmol/L (98-107); CREATININE - SERUM 0.7 mg/dL (0.6-1.3); GLUCOSE 134 mg/dL (74-106); POTASSIUM - SERUM 3.9 mmol/L (3.5-5.1); SODIUM 140 mmol/L (136-145); UREA NITROGEN 14 mg/dL (7-18); eGFR NON AFRICAN AMERICAN 86 mL/min (90-120)
--- NOTE | 2016-07-23 07:43 | NUR ---
RESTING QUIETLY IN BED CALL LIGHT IN REACH
--- NOTE | 2016-07-23 10:00 | NUR ---
DRESSING CHANGED TO RIGHT LOWER LEG. LARGE AMOUNT OF CLEAR DRAINAGE.
[2016-07-23 11:17] VITALS: BP 130/45
--- NOTE | 2016-07-23 12:00 | NUR ---
PATIENT SITTING UP IN WHEELCHAIR AT BEDSIDE TO EAT LUNCH. VOICES NO NEEDS AT THIS TIME
--- NOTE | 2016-07-23 14:32 | NUR ---
PATIENT IS ALERT/ORIENT X4. OXYGEN ON AT 2L PER N/C. STAND BY ASST WITH TRANSFERS. USING CALL LIGHT FOR NEEDS
--- NOTE | 2016-07-23 17:00 | NUR ---
GLUCOSE LEVEL 231. ORAL GLIPIZED GIVEN
--- NOTE | 2016-07-23 19:23 | NUR ---
PT RECIEVED IN WHEELCHAIR WATCHING TV. COMPLAINS OF PAIN TO BILATERAL LOWER EXTREMITIES 6/10 WITH PRN UNAVAILABLE AT THIS TIME. NO OTHER NEEDS MADE KNOWN. CALL LIGHT IN REACH. WILL CONTINUE TO OBSERVE.
--- NOTE | 2016-07-24 01:26 | NUR ---
PT IN BED WITH EYES CLOSED AND CHEST RISING. NO CONCERNS NOTED AT THIS TIME. CALL LIGHT IN REACH. WILL CONTINUE TO OBSERVE.
[2016-07-24 02:42] VITALS: BP 128/55
--- NOTE | 2016-07-24 03:30 | NUR ---
PT IN BED WITH EYES CLOSED AND CHEST RISING. NO CONCERNS NOTED. CALL LIGHT IN REACH. WILL CONTINUE TO OBSERVE.
--- NOTE | 2016-07-24 08:10 | NUR ---
PT UP EATING BREAKFAST. DENIES NEEDS.
--- NOTE | 2016-07-24 10:00 | NUR ---
PT IN THERAPY. TOLERATING WELL.
--- NOTE | 2016-07-24 12:15 | NUR ---
PT UP IN WC EATING LUNCH. DENIES NEEDS.
[2016-07-24 14:38] VITALS: BP 134/69
--- NOTE | 2016-07-24 15:39 | NUR ---
PT SHOWERED. BED LINENS CHANGED. DRESSINGS TO BILAT LE'S CHANGED. WCTM.
--- NOTE | 2016-07-24 17:08 | NUR ---
PT FSBS 179. GLUCOTROL GIVEN. FAMILY AT BEDSIDE. WCTM.
--- NOTE | 2016-07-24 18:32 | NUR ---
RESTING QUIETLY IN BED CALL LIGHT IN REACH
[2016-07-24 19:00] VITALS: BP 128/63
--- NOTE | 2016-07-24 19:15 | NUR ---
PT RECEIVED UP IN WHEELCHAIR WITH COMPLAINTS OF PAIN TO BILATERAL LOWER EXTREMITIES. PRN PAIN MEDICATION GIVEN. NO OTHER CONCERNS OR NEEDS MADE KNOWN AT THIS TIME. CALL IN REACH.
--- NOTE | 2016-07-25 00:38 | NUR ---
PT IN BED WITH EYES CLOSED AND CHEST RISING AT THIS TIME. HS MEDICATIONS RECEIVED WITHOUT DIFFICULTY. DRESSING CHANGED TO LEGS. RIGHT SIDE SATURATED. NO OTHER CONCERNS MADE KNOWN. CALL LIGHT IN REACH. WILL CONTINUE TO OBSERVE.
--- NOTE | 2016-07-25 04:34 | NUR ---
PT IN BED WITH EYES CLOSED AND CHEST RISING. NO SIGN/SYMPTOMS OF DISTRESS NOTED. CALL LIGHT IN REACH.
[2016-07-25 08:00] VITALS: BP 133/53
--- NOTE | 2016-07-25 08:32 | NUR ---
SITTING UP EATING BREAKFAST DENIES NEEDS CALL LIGHT IN REACH
--- NOTE | 2016-07-25 09:02 | NUR ---
PATIENT ALERT/OREINT X4. HELPED INTO BATHROOM STANDBY ASST WITH WHEELCHAIR. CALL LIGHT WITHIN REACH. VOICES NO NEEDS AT THIS TIME. OXYGEN ON AT 3L PER N/C
--- NOTE | 2016-07-25 12:25 | NUR ---
BILATETERAL LOWER EXTREMIEITY DRESSING CHANGED. STASIS ULCER. THREE PLUS PITTING EDEMA. LARGE AMOUNT OF WEEPING FROM RIGHT LEG
--- NOTE | 2016-07-25 15:22 | NUR ---
DAUGHTER INTO VISIT. REQUESTED TO COME TO CARE PLAN MEETING ON NDS. REQUESTED TO TALK WITH CIGARETTE EXAMINER. NOTE LEFT WITH Thais JOHANSEN CIGARETTE EXAMINER.
--- NOTE | 2016-07-25 15:31 | NUR ---
PATIENT RESTING IN BED AFTER SITTING UP IN WHEELCHAIR MOST OF THE MORNING.
--- NOTE | 2016-07-25 17:00 | NUR ---
GLUCOSE LEVEL 182. ORAL MEDICATION GIVEN
--- NOTE | 2016-07-25 19:30 | NUR ---
PT RECEIVED IN WHEELCHAIR AT BEDSIDE. NO CONCERNS OR COMPLAINTS NOTED AT THIS TIME. STANDBY ASSIST OFFERED TO RESTROOM AND TO BED. CALL LIGHT IN REACH. WILL CONTINUE TO OBSERVE.
--- NOTE | 2016-07-25 23:39 | NUR ---
PT IN BED WITH EYES CLOSED AND CHEST RISING. RECEIVED HS MEDICATIONS WITH PRN PAIN MEDICATION PER MAR WITHOUT DIFFICULTY. DRESSINGS TO BILATERAL LOWER LEGS CHANGED PER ORDERS, RIGHT SIDE BANDAGING SATURATED WITH SEROSANGUINEOUS DRAINAGE. MODERATE DRAINAGE NOTED TO LEFT SIDE. NO BLEEDING NOTED. CALL LIGHT IN REACH. WILL CONTINUE TO OBSERVE.
[2016-07-26 01:31] VITALS: BP 138/74
--- NOTE | 2016-07-26 03:42 | NUR ---
PT IN BED WITH EYES CLOSED AND CHEST RISING. NO CONCERNS NOTED AT THIS TIME. CALL LIGHT IN REACH.
--- NOTE | 2016-07-26 06:40 | NUR ---
PT IN BED WITH EYES OPEN. RECEIVED AM MEDICATION WITHOUT DIFFICULTY. NO CONCERNS NOTED AT THIS TIME. CALL LIGHT IN REACH.
[2016-07-26 07:34] LABS: BASOPHILS 0.4 % (0-2); EOSINOPHILS 2.6 % (0-7); HEMATOCRIT 36.7 % (36.0-48.0); HEMOGLOBIN 11.6 g/dL (12-16); IMMATURE GRANULOCYTES 0.2 % (0-5); LYMPHOCYTES 22.7 % (15-50); MCH 29.7 pg (26.0-34.0); MCHC 31.6 g/dL (31.0-37.0); MCV 94.1 fL (80.0-100.0); MEAN PLATELET VOLUME 9.9 fL (7.4-10.4); MONOCYTES 8.3 % (2-11); NEUTROPHILS 65.8 % (40-80); PLATELET COUNT 141 10x3/uL (130-400); RDW 16.3 % (11.5-14.5); WBC 4.6 10x3/uL (4.8-10.8)
[2016-07-26 07:50] LABS: CALC OSMOLALITY 280 mosm/kg (275-300); CALCIUM 9.1 mg/dL (8.5-10.1); CARBON DIOXIDE 31.4 mmol/L (21.0-32.0); CHLORIDE - SERUM 103 mmol/L (98-107); CREATININE - SERUM 0.7 mg/dL (0.6-1.3); GLUCOSE 133 mg/dL (74-106); POTASSIUM - SERUM 3.8 mmol/L (3.5-5.1); SODIUM 140 mmol/L (136-145); UREA NITROGEN 12 mg/dL (7-18); eGFR NON AFRICAN AMERICAN 86 mL/min (90-120)
--- NOTE | 2016-07-26 08:16 | NUR ---
SITTING UP EATING BREAKFAST DENIES NEEDS CALL LIGHT IN REACH
--- NOTE | 2016-07-26 09:57 | NUR ---
PATIENT HELPED IN SHOWER BY CHILD CARE TEACHER. DRESSINGS TO BILATERAL LEGS DONE BY THIS NURSE. WOUND NURSE CALLED IN REGARDS TO RIGHT LOWER LEG DRESSING.
[2016-07-26 12:20] VITALS: BP 138/69
--- NOTE | 2016-07-26 13:12 | NUR ---
PATIENT HELPED INTO BATHROOM. STAFF WHEELS WHEELCHAIR INTO BATHROOM. PATIENT IS A STANDBY ASST FROM WHEELCHAIR ONTO TOILET.
--- NOTE | 2016-07-26 16:43 | NUR ---
PT RECEIVED UP IN WHEELCHAIR AT BEDSIDE WATCHING TV. REQUEST PRN PAIN MEDICATION FOR 6/10 PAIN TO BILATERAL LOWER EXTREMITIES WHEN AVAILABLE. RIGHT LOWER EXTREMITY BANDAGING MOIST FROM LEG WEEPING WITH 2100 DRESSING CHANGE SCHEDULED. NO OTHER CONCERNS NOTED. CALL LIGHT IN REACH.
--- NOTE | 2016-07-26 17:43 | NUR ---
GLUCOSE LEVEL 228. ORAL MEDICATIONS GIVEN
[2016-07-26 19:24] VITALS: BP 133/56
--- NOTE | 2016-07-27 00:08 | NUR ---
PT IN BED WITH EYES CLOSED AND CHEST RISING. NO CONCERNS NOTED. CALL LIGHT IN REACH.
--- NOTE | 2016-07-27 03:28 | NUR ---
PT IN BED WITH EYES CLOSED AND CHEST RISING. NO CONCERNS NOTED AT THIS TIME. CALL LIGHT IN REACH.
--- NOTE | 2016-07-27 08:10 | NUR ---
INTRODUCED SELF TO PT, PT STATES NO NEW NEEDS AT THIS TIME, WILL CONTINUE TO MONITOR, CALL LIGHT WITHIN REACH.
--- NOTE | 2016-07-27 10:14 | NUR ---
PT SITTING AT BEDSIDE, PT STATES NO NEW NEEDS AT THIS TIME, WILL CONTINUE TO MONITOR, CALL LIGHT WITHIN REACH.
[2016-07-27 10:33] VITALS: BP 110/64
--- NOTE | 2016-07-27 11:47 | NUR ---
PT IN PT.
--- NOTE | 2016-07-27 13:52 | NUR ---
PT IN PT.
--- NOTE | 2016-07-27 15:26 | NUR ---
NUTRITION MONITORING & EVAL CHART REVIEWED. TOLERATING [facility] SOFT ADA DIET. 100% INTAKE MEALS. RD FOLLOWING
--- NOTE | 2016-07-27 16:54 | NUR ---
CHANGED DRSG ON RIGHT LEG, WEEPING, SATURATED GAUZE, PT TOLERATED WELL, WILL CONTINUE TO MONITOR, CALL LIGHT WITHIN REACH.
--- NOTE | 2016-07-27 17:49 | NUR ---
SITTING UP IN WC.DENIES NEEDS.
--- NOTE | 2016-07-27 20:00 | NUR ---
PT IN W/C. WATCHING TV. ALERT & ORIENTED. NO IV. 02 @2L WHEN IN BED. FSBS BIDAC. PT STATES SHE HAS PAIN LEVEL OF 5/10 IN HER LEGS. CALL LIGHT WITHIN REACH.
[2016-07-27 20:09] VITALS: BP 136/58
--- NOTE | 2016-07-28 | NUR ---
PT LYING IN BED. EYES CLOSED. CHEST RISING AND FALLING. BED IN LOWEST POSITION AND CALL LIGHT WITHIN REACH.
--- NOTE | 2016-07-28 00:20 | NUR ---
RESTING IN BED, EYES CLOSED. NO APPARENT DISTRESS.
--- NOTE | 2016-07-28 04:00 | NUR ---
PT LYING IN BED. RESTING QUIETLY. BED IN LOWEST POSITION AND CALL LIGHT WITHIN REACH.
--- NOTE | 2016-07-28 05:24 | NUR ---
PT RIGHT LOWER LEG DRESSING CHANGED. WEEPED THROUGH DREESSING. NEW DRESSING DONE ORDERED.
--- NOTE | 2016-07-28 08:00 | NUR ---
SITTING UP ON SIDE OF BED WITH BREAKFAST.CL IN REACH.
[2016-07-28 09:27] VITALS: BP 156/72
--- NOTE | 2016-07-28 09:28 | NUR ---
PATIENT IS ALERT/ORIENT X4. CALL LIGHT WITHIN REACH. VOICES NO NEEDS AT THIS TIME. OXYGEN ON AT 2L PER N/C. DR Doe HERNANDEZ INTO SEE PATIENT. NEW ORDERS RECEIVED FOR DISCHARGE TODAY.
--- NOTE | 2016-07-28 12:32 | NUR ---
DISCHARGE INSTRUCTIONS GONE OVER WITH PATIENT. PATIENT STATES SHE HAS ALL MEDICATIONS ORDERED AT DISCHARGE AT HOME.
--- NOTE | 2016-07-28 13:19 | NUR ---
PATIENTS DAUGHTER HERE TO TAKE PATIENT HOME. PATIENTS BELONGINGS GIVEN TO DAUGHTER PUT IN CAR. [facility]
--- NOTE | 2016-07-28 15:29 | NUR ---
PATIENT DISCHARGING HOME TODAY, [facility] WILL RESUME CARE OF PATIENT , PATIENT HAS BSC, WALKER, WHEELCHAIR AT HOME. NO NEW DME NEEDED AT THIS TIME. SR. REYNA 08/06/16 @ 11:00. PATIENT CHOICE FORM FOR HOME HEALTH AND [facility] FORM SIGNED, EXPLAINED AND FILED IN CHART. ORDERS HAVE BEEN FAXED WITH CONFORMATION RECIEVED
== END 2016-07-28 13:24 | disposition home health service (06) | DRG 92 ==
LOC: D.REHAB 16:23
PROVIDERS: ADMIT Emergency Medicine
DX: G72.89 Other specified myopathies (principal); I13.0 Hypertensive heart and chronic kidney disease with heart failure and stage 1 through stage 4 chronic kidney disease, or unspecified chronic kidney disease; N39.0 Urinary tract infection, site not specified; Z68.41 Body mass index [BMI] 40.0-44.9, adult; N17.9 Acute kidney failure, unspecified; E87.5 Hyperkalemia; E11.22 Type 2 diabetes mellitus with diabetic chronic kidney disease; N18.9 Chronic kidney disease, unspecified; I50.9 Heart failure, unspecified; E66.01 Morbid (severe) obesity due to excess calories; I48.2 Chronic atrial fibrillation; G47.30 Sleep apnea, unspecified; R53.83 Other fatigue; R42 Dizziness and giddiness; R41.82 Altered mental status, unspecified; I83.009 Varicose veins of unspecified lower extremity with ulcer of unspecified site; K21.9 Gastro-esophageal reflux disease without esophagitis

== ENCOUNTER 2016-08-23 11:14 | Inpatient (IN) | payer MEDICARE ==
[~2016-08-23] VITALS: Ht 167.6 cm; Wt 116.1 kg
--- NOTE | ~2016-08-23 | EC ---
PATIENT:SOFIA PEREZ DATE OF SERVICE: 08/23/16 SEX: F MEDICAL RECORD: [id number] DATE OF : [birth year] LOCATION:D.M2 D.210 AGE OF PATIENT: 76 ADMISSION DATE: 08/23/16 REFERRING PHYSICIAN: INTERPRETING PHYSICIAN: RAMIRO EGAN MD ECHOCARDIOGRAM REPORT ECHO CHARGES 4 ECHO COMPLETE CLINICAL DIAGNOSIS: ELEVATED ENZYMES ECHOCARDIOGRAPHIC MEASUREMENTS (adult normal given) AC root (d.<3.7cm) 2.7 LV Septum d (<1.2 cm> 1.2 Valve Excursion 1.9 LV Septum (systole) 1.6 Left Atria (s.<4.0cm> 4.0 LVPW d(<1.2cm) 1.2 RV (d.<2.3cm) 3.1 LVPW (sytole) 1.9 LV diastole(<5.6CM) 4.8 MV E-F(>70mm/sec) LV systole 2.8 LVOT Diameter 1.6 MV exc.(>10mm) Est.ejection fraction (50-75%) Pericardial Effusion N DOPPLER: LVIT A E 152 LA RVSP 48.0 LVOT 108 AOP1/2T Asc. Ao 212 RVOT 55.0 RA PA 135 AV Gradient Peak 18.0 AV Mean 7.6 AV Area 1.1 MV Gradient Peak 13.0 MV Mean 3.5 MV Area COMMENTS: Assembler Gold Frame: Pearl MONTIELOE Meat Molder:2 Dr. Goodrich TAPE# PACS TWO-DIMENSIONAL ECHOCARDIOGRAM WITH DOPPLER 1. Left ventricular chamber size is within normal limits. Left ventricular systolic function is normal. Overall ejection fraction is estimated at 45-50 percent. 2. Left atrium is within normal limits at 4.0 centimeters. Right atrium and right ventricular chamber sizes are moderately dilated. 3. Valvular structures have normal structure and motion. 4. Doppler interrogation reveals moderate mitral regurgitation, moderate tricuspid regurgitation; no other valvular insufficiency or stenosis. Pulmonary artery systolic pressure is elevated estimated at 45 millimeters of mercury. ECHOCARDIOGRAM REPORT [id number] SOFIA PEREZ 5. No evidence of pericardial effusion or left ventricular thrombus. RAMIRO EGAN MD CC: [id number] DICTATION DATE: 08/27/162345 HEDIS COORDINATOR: JELLI 08/27/16 234 ADM IN [address] [address]
[2016-08-23 12:15] LABS: HEMATOCRIT 44.5 % (36.0-48.0); HEMOGLOBIN 14.8 g/dL (12-16); MCH 30.5 pg (26.0-34.0); MCHC 33.3 g/dL (31.0-37.0); MCV 91.6 fL (80.0-100.0); MEAN PLATELET VOLUME 10.5 fL (7.4-10.4); PLATELET COUNT 237 10x3/uL (130-400); RBC 4.86 10x6/uL (4.00-5.40); RDW 15.2 % (11.5-14.5); WBC 26.4 10x3/uL (4.8-10.8)
[2016-08-23 12:35] LABS: INR 2.76 (0.85-1.17); PROTIME 29.3 SECONDS (11.6-15.0)
[2016-08-23 12:36] LABS: APTT 79.7 SECONDS (22.8-39.4); LYMPHOCYTES 6 % (15-50); MONOCYTES 2 % (2-11); NEUTROPHILS 88 % (40-80); PLATELET ESTIMATE NORMAL
[2016-08-23 12:42] LABS: APPEARANCE TURBID (CLEAR); BILIRUBIN NEGATIVE (NEGATIVE); COLOR DK YELLOW (YELLOW); GLUCOSE NEGATIVE (NEGATIVE); KETONE NEGATIVE (NEGATIVE); LEUKOCYTE ESTERASE 2+ (NEGATIVE); NITRITE NEGATIVE (NEGATIVE); PROTEIN 2+ mg/dL (NEGATIVE); SPECIFIC GRAVITY 1.025 (1.005-1.020); UROBILINOGEN NORMAL (NORMAL)
[2016-08-23 12:45] LABS: UDS - AMPHET NEGATIVE QUAL (NEGATIVE); UDS - BARB NEGATIVE QUAL (NEGATIVE); UDS - BENZO NEGATIVE QUAL (NEGATIVE); UDS - COCAINE NEGATIVE QUAL (NEGATIVE); UDS - METH NEGATIVE QUAL (NEGATIVE); UDS - OPIATE POSITIVE QUAL (NEGATIVE); UDS - PCP NEGATIVE QUAL (NEGATIVE); UDS - THC NEGATIVE QUAL (NEGATIVE)
[2016-08-23 12:47] LABS: BACTERIA MANY /hpf (NONE SEEN); RED CELLS - URINE 0-5 /hpf (0-5); WHITE CELLS - URINE >50 /hpf (0-5)
[2016-08-23 12:49] LABS: ALBUMIN 2.5 g/dL (3.4-5.0); ALKALINE PHOSPHATASE 219 U/L (46-116); ALT (SGPT) 40 U/L (10-68); CALCIUM 9.7 mg/dL (8.5-10.1); CARBON DIOXIDE 22.2 mmol/L (21.0-32.0); CHLORIDE - SERUM 94 mmol/L (98-107); CREATININE - SERUM 2.5 mg/dL (0.6-1.3); MAGNESIUM - SERUM 2.3 mg/dL (1.8-2.4); PROTEIN - SERUM 8.9 g/dL (6.4-8.2); SODIUM 123 mmol/L (136-145); TROPONIN-I < 0.017 ng/mL (0.000-0.060); UREA NITROGEN 59 mg/dL (7-18); eGFR NON AFRICAN AMERICAN 20 mL/min (90-120)
[2016-08-23 12:51] LABS: CALC OSMOLALITY 275 mosm/kg (275-300); CREATINE KINASE 1694 UL (21-215); GLUCOSE 304 mg/dL (74-106)
[2016-08-23 12:52] LABS: CKMB 4.6 U/L (0.0-3.6)
[2016-08-23 12:56] LABS: KETONE - SERUM NEGATIVE (NEGATIVE)
[2016-08-23] MEDS ORDERED: NYSTATIN ORAL SU5 ML PO (16:20)
[2016-08-23] MEDS ORDERED: VOLTAREN100 GM (16:21)
[2016-08-23 16:22] VITALS: BP 112/59; BMI 43.6
--- NOTE | 2016-08-23 16:22 | NUR ---
WOUND CARE CONSULT: RIGHT LE. VENOUS ULCERS SURROUNDING RLE. CLEANSED WITH WOUND SILK SCREENER AND APPLIED ADAPTIC THEN MAXOR[employer] AG. COVERED WITH 4X4S AND SECURED WITH KERLIX. WOUND IS RED, BUMPY, WET. LARGE SEROUS DRAINAGE WITH MUSTY ODOR. WOUND CARE WILL MONITOR.
[2016-08-23 17:11] VITALS: BP 112/59
--- NOTE | 2016-08-23 18:54 | NUR ---
PT IS IN BED AND APPEARS TO BE SLEEPING WITH EQUAL AND NON LABORED BREATHING. WILL CONTINUE TO MONITOR
--- NOTE | 2016-08-23 20:10 | NUR ---
PT REST IN BED EYE OPEN, DENIES NEEDS.
[2016-08-23 21:25] VITALS: BP 107/83
--- NOTE | 2016-08-24 00:40 | NUR ---
BLUEPRINT ENGINEER AT BEDSIDE FOR VS. NEEDS ADDRESSED AT THIS TIME. CALL LIGHT IN REACH. WILL CONT TO MONITOR.
[2016-08-24 01:00] VITALS: BP 108/52
--- NOTE | 2016-08-24 02:05 | NUR ---
PT REST IN BED WITH EYE CLOSE, CALL LIGHT WITHIN REACH.
[2016-08-24 04:00] VITALS: BP 114/54
[2016-08-24 05:57] LABS: BASOPHILS 0.1 % (0-2); EOSINOPHILS 0 % (0-7); HEMATOCRIT 38.7 % (36.0-48.0); HEMOGLOBIN 12.7 g/dL (12-16); IMMATURE GRANULOCYTES 0.4 % (0-5); LYMPHOCYTES 3.4 % (15-50); MCHC 32.8 g/dL (31.0-37.0); MCV 91.5 fL (80.0-100.0); MONOCYTES 6.1 % (2-11); RBC 4.23 10x6/uL (4.00-5.40); RDW 15.6 % (11.5-14.5)
[2016-08-24 06:57] LABS: PLATELET COUNT 183 10x3/uL (130-400); WBC 18.7 10x3/uL (4.8-10.8)
[2016-08-24 07:17] LABS: ALBUMIN 1.9 g/dL (3.4-5.0); ALKALINE PHOSPHATASE 159 U/L (46-116); ALT (SGPT) 38 U/L (10-68); CALC OSMOLALITY 276 mosm/kg (275-300); CALCIUM 8.9 mg/dL (8.5-10.1); CARBON DIOXIDE 21.7 mmol/L (21.0-32.0); CHLORIDE - SERUM 103 mmol/L (98-107); CKMB 9.2 U/L (0.0-3.6); CREATININE - SERUM 1.3 mg/dL (0.6-1.3); GLUCOSE 84 mg/dL (74-106); POTASSIUM - SERUM 5.4 mmol/L (3.5-5.1); PROTEIN - SERUM 7.2 g/dL (6.4-8.2); SODIUM 133 mmol/L (136-145); THYROID STIMULATING HORMONE 1.63 uIU/mL (0.36-3.74); TROPONIN-I < 0.017 ng/mL (0.000-0.060); UREA NITROGEN 46 mg/dL (7-18); eGFR NON AFRICAN AMERICAN 42 mL/min (90-120)
[2016-08-24 07:55] LABS: CREATINE KINASE 2588 UL (21-215)
[2016-08-24 08:00] VITALS: BP 122/46
--- NOTE | 2016-08-24 08:30 | NUR ---
PATIENT RESTING QUIETLY WITH EYES CLOSED. RESPIRATIONS ARE DEEP AND EVEN, NO SIGNS OF RESPIRATORY DIFFICULTY.
--- NOTE | 2016-08-24 10:15 | NUR ---
DAUGHTER BRYON CALLED TO ENQUIRE OF PATIENT'S WELL BEING. REPORTED HER RESTING AND LIMITED INTERACTION. SHE REQUESTS PHONE CALL WITH ANY SIGNIFICANT CHANGES OF CONDITION. CELL #[phone]
--- NOTE | 2016-08-24 11:14 | NUR ---
PATIENT IS RESTING QIETLY WITH EYES CLOSED. RESPIRATIONS ARE DEEP AND EVEN. NO SIGNS OF DIFFICULTY.
--- NOTE | 2016-08-24 11:25 | NUR ---
IVF CHANGED. SHE IS AWAKE AND INTERACTIVE. SEEMS ORIENTED AT THIS TIME AND ANXIOUS FOR HER HOME MEDICATIONS.
[2016-08-24 12:00] VITALS: BP 120/53
[2016-08-24 12:23] VITALS: Ht 167.6 cm; Wt 116.1 kg
[2016-08-24 16:00] VITALS: BP 133/62
--- NOTE | 2016-08-24 17:25 | NUR ---
Patient Name: SOFIA PEREZ Admission Status: ER Accout number: [id number] Admission Date: 08-23-2016 : 1940 Admission Diagnosis: Attending: HAYLEE Current LOS: 1 Anticipated DC Date: Planned Disposition: Home Primary Insurance: MEDICARE A & B Discharge Planning Comments: CM MET WITH PATIENT TO DISCUSS DISCHARGE PLANNING/NEEDS. PATIENT STATED THAT SHE LIVES ALONE BUT HER DAUGHTER CHECKS ON HER. SHE STATED SHE WAS INDEPENDENT WITH HER ADL'S, BUT DOES HAVE A NURSE FROM [facility] THAT COMES TO SEE HER 1-2 TIMES A WEEK. SHE STATED THAT HER DAUGHTER BRYON LOVING, [phone], WILL BE HER TRANSPORTATION HOME AT DISCHARGE. SHE HAS MULTIPLE PIECES OF MEDICAL EQUIPMENT AT HOME AND DENIES NEED FOR ANY ADDITIONAL. HER PLAND IS TO RETURN HOME AND RESUME [facility]. CM WILL CONTINUE TO FOLLOW AND ASSIST NEEDED. Box Truck Owner Operator: Mady Altman Is the patient Alert and Oriented? Yes * How many steps to enter\exit or inside your home? 0 * PCP DR REYNA * Pharmacy [facility] [address] [facility] * Preadmission Environment Home Alone * ADLs Independent * Equipment Cane Glucom[facility] Hospital Bed Oxygen Rolling Walker Shower Chair Wheelchair * List name and contact numbers for known caregivers / representatives who currently or will assist patient after discharge: BRYON STEEL, DAUGHTER, * Community resources currently utilized Home Health * Please name any agencies selected above. [facility] NEED[facility] * Additional services required to return to the preadmission environment? No * Can the patient safely return to the preadmission environment? Yes * Has this patient been hospitalized within the prior 30 days at any hospital? Yes
--- NOTE | 2016-08-24 19:05 | NUR ---
ALERT/AWAKE DENIES PAIN OR ANY NEEDS. IV IN L FA INTACT WITH NS INFUSING AT 100ML/HR. TELEMETRY LEADS IN PLACE. HAS CALL LIGHT IN REACH.
[2016-08-24 20:47] VITALS: BP 110/50
--- NOTE | 2016-08-24 22:00 | NUR ---
ADMIN NORCO PO PER REQUEST FOR C/O PAIN LEVEL 8 ON NUMBER SCALE OF NECK, SHOULDER, BACK AND COCCYX. REPOSITIONED TO RIGHT SIDE WITH PILLOW TO HER BACK.
--- NOTE | 2016-08-25 00:30 | NUR ---
DID NOT WANT HER BLOOD SUGAR CHECKED. DENIES ANY NEEDS. RATES PAIN LEVEL AT 4.
[2016-08-25 01:13] VITALS: BP 100/42
--- NOTE | 2016-08-25 03:39 | NUR ---
FORM SETTER STEEL PAN FORMS'S PRESENT IN ROOM GIVING A BATH. NO OTHER NEEDS VOICED.
[2016-08-25 05:14] LABS: BASOPHILS 0.1 % (0-2); EOSINOPHILS 0.6 % (0-7); HEMATOCRIT 37.8 % (36.0-48.0); HEMOGLOBIN 12.3 g/dL (12-16); IMMATURE GRANULOCYTES 0.3 % (0-5); LYMPHOCYTES 6.9 % (15-50); MCH 29.7 pg (26.0-34.0); MCHC 32.5 g/dL (31.0-37.0); MCV 91.3 fL (80.0-100.0); MEAN PLATELET VOLUME 9.8 fL (7.4-10.4); MONOCYTES 5.4 % (2-11); NEUTROPHILS 86.7 % (40-80); PLATELET COUNT 176 10x3/uL (130-400); RBC 4.14 10x6/uL (4.00-5.40); RDW 15.7 % (11.5-14.5)
[2016-08-25 05:16] LABS: WBC 11.8 10x3/uL (4.8-10.8)
[2016-08-25 05:40] LABS: ALBUMIN 1.7 g/dL (3.4-5.0); BILIRUBIN - TOTAL 0.44 mg/dL (0.2-1.3); CARBON DIOXIDE 21.5 mmol/L (21.0-32.0); PROTEIN - SERUM 6.6 g/dL (6.4-8.2)
[2016-08-25 05:49] VITALS: BP 104/48
[2016-08-25 05:56] LABS: ANION GAP 12.6 mmol/L (8-16); CALCIUM 8.5 mg/dL (8.5-10.1); CREATININE - SERUM 0.8 mg/dL (0.6-1.3); POTASSIUM - SERUM 4.1 mmol/L (3.5-5.1)
--- NOTE | 2016-08-25 07:57 | NUR ---
AM ROUNDS - PT IS AWAKE IN BED. IV TO LEFT FA, NS AT 100CC/HR. 3L O2 VIA NC. MONITOR SHOWING CONT. AF, HR 84. PT HAS A YELLOW BAND ON. BED AT LOWEST POSITION, SIDE RAILS UP X2, CALL PRIEST IN USE/REACH. PT HAS NO FUTHER NEEDS AT THIS TIME. WILL CONTINUE TO MONITOR
[2016-08-25 08:00] VITALS: BP 108/58
--- NOTE | 2016-08-25 09:37 | NUR ---
Patient Name: SOFIA PEREZ Encounter No: [id number] : 1940 Primary Insurance: MEDICARE A & B Anticipated DC Date: Planned Disposition: Home WITH HOME HEALTH External [facility] Provider[facility] DCP follow-up note: CM CALLED [facility], , SPOKE TO PAYTON WHO VERFIED PT IS ACTIVE WITH HOME HEALTH AND ON HOLD. FOR DISCHARGE, NOTIFY [facility] FOR RESUMPTION OF CARE AT [phone], FAX DISCHARGE INFORMATION TO [phone]. Nestor Oliveros, CASE MANAGEMENT
[2016-08-25 12:46] VITALS: BP 104/54
--- NOTE | 2016-08-25 12:58 | NUR ---
ROCEPHIN FOUND HANGING AND NOT INFUSED OR SPIKED FROM POSSIBLE AM DOSE. HUNG AND CALLED PHARMACY TO ADJUST TIME.
[2016-08-25 15:58] VITALS: BP 110/55
--- NOTE | 2016-08-25 18:17 | NUR ---
PT IN BED. DINNER COMPLETE. NO NEEDS AT THIS TIME. WILL CONTINUE TO MONITOR
[2016-08-25 19:00] VITALS: BP 115/53
--- NOTE | 2016-08-25 19:49 | NUR ---
PT LAYING IN BED WATVHING TV. HOB 10. NS AT 100ML INFUSING TO LEFT WRIST IV. NO REDNESS DRESSING CLEAN DRY AND PATENT. OXYGEN 2.5L NC. PT DENIES ANY NEEDS. NO S/S OF DISTRESS. PT ASKS WHEN PAIN PILL IS DUE. WILL CHECK ON THAT HORACIO. NO OTHER NEEDS WILL CONTINUE TO MONITOR
--- NOTE | 2016-08-25 19:54 | NUR ---
PT C/O IV BURNING. SWELLING IS NOTED ON DISTAL SIDE OF WRIST. . INFUSION STOPPED TO CHECK IV. WILL CONTINUE TO MONITOR
[2016-08-26] VITALS: BP 114/61
--- NOTE | 2016-08-26 00:59 | NUR ---
PT IN BED RESTING. RESPIRATIONS EVEN AND UNLABORED. NO S/S OF DISTRESS. WILL CONTINUE TO MONITOR
--- NOTE | 2016-08-26 02:56 | NUR ---
PT ASLEEP LAYING ON BACK HOB 20. RESPIRATIONS EVEN AND UNLABORED. NO S/S OF DISTRESS. WILL CONTINUE TO MONITOR
[2016-08-26 04:00] VITALS: BP 130/60
[2016-08-26 05:14] LABS: BASOPHILS 0.5 % (0-2); EOSINOPHILS 1.6 % (0-7); HEMATOCRIT 35.4 % (36.0-48.0); HEMOGLOBIN 11.2 g/dL (12-16); IMMATURE GRANULOCYTES 0.7 % (0-5); LYMPHOCYTES 12.5 % (15-50); MCH 29.2 pg (26.0-34.0); MCHC 31.6 g/dL (31.0-37.0); MCV 92.4 fL (80.0-100.0); MEAN PLATELET VOLUME 10.1 fL (7.4-10.4); MONOCYTES 6.3 % (2-11); NEUTROPHILS 78.4 % (40-80); PLATELET COUNT 174 10x3/uL (130-400); RBC 3.83 10x6/uL (4.00-5.40); RDW 15.9 % (11.5-14.5); WBC 8.3 10x3/uL (4.8-10.8)
--- NOTE | 2016-08-26 05:27 | NUR ---
PT RESTING IN BED C/O PAIN IN LEGS 09/06. NORCO GIVEN. PT DENIES ANY OTHER NEEDS. NO S/S OF DISTRESS WILL CONTINUE TO MONITOR
[2016-08-26 05:44] LABS: ALBUMIN 1.9 g/dL (3.4-5.0); ALKALINE PHOSPHATASE 134 U/L (46-116); ALT (SGPT) 44 U/L (10-68); CALC OSMOLALITY 270 mosm/kg (275-300); CALCIUM 8.2 mg/dL (8.5-10.1); CARBON DIOXIDE 23.3 mmol/L (21.0-32.0); CHLORIDE - SERUM 104 mmol/L (98-107); CREATININE - SERUM 0.7 mg/dL (0.6-1.3); GLUCOSE 91 mg/dL (74-106); POTASSIUM - SERUM 4.3 mmol/L (3.5-5.1); PROTEIN - SERUM 6.2 g/dL (6.4-8.2); SODIUM 135 mmol/L (136-145); eGFR NON AFRICAN AMERICAN 86 mL/min (90-120)
[2016-08-26 05:45] LABS: UREA NITROGEN 16 mg/dL (7-18)
[2016-08-26 07:54] VITALS: BP 138/59
--- NOTE | 2016-08-26 08:34 | NUR ---
ASSESSMENT DONE. DEIES NEEDS.
--- NOTE | 2016-08-26 09:31 | NUR ---
RESP UL ON . IV PATENT. TITUS NEEDS AT THIS TIME. WILL MONITOR.
[2016-08-26 12:20] VITALS: BP 134/65
--- NOTE | 2016-08-26 14:02 | NUR ---
Nutrition follow-up: Diet: ADA consistent CHO PO intake ~50% of meals Labs reviewed +BM Wt: 223# RDN following.
[2016-08-26 15:50] VITALS: BP 124/52
[2016-08-26 16:20] LABS: CKMB 1.5 U/L (0.0-3.6); CREATINE KINASE 378 UL (21-215)
[2016-08-26 16:21] LABS: TROPONIN-I < 0.017 ng/mL (0.000-0.060)
--- NOTE | 2016-08-26 16:56 | NUR ---
WITHOUT CHANGES OR DISTRESS NOTED AT THIS TIME. DENIES NEEDS.
--- NOTE | 2016-08-26 19:39 | NUR ---
AWAKE ALERT ORIENTED X 4. DENIES PAIN OR ANY NEEDS. ON 02 AT 3L/NC. RR SHALLOW EVEN U/L. IV IN RT FA INTACT WITH NS INFUSING AT 50ML/HR. BILATERAL LOWER LEGS RED WITH SWELLING NOTED. DRSG ON RT LOWER LEG C/D/I. PLAN OF CARE NOTED.
[2016-08-26 20:09] LABS: CKMB 1.4 U/L (0.0-3.6); CREATINE KINASE 343 UL (21-215)
[2016-08-26 20:14] LABS: TROPONIN-I < 0.017 ng/mL (0.000-0.060)
[2016-08-26 20:40] VITALS: BP 112/49
--- NOTE | 2016-08-26 20:40 | NUR ---
ADMIN SCHED MEDS AND NORCO PO FOR C/O RT LEG PAIN LEVEL 8 ON NUMBER SCALE, DESCRIBED THROBBING/BURNING. REPOSITIONED UP IN BED WITH CHIEF FISHERY DIVISION ASSISTING. NO OTHER NEEDS VOICED.
[2016-08-27 00:03] VITALS: BP 119/56
--- NOTE | 2016-08-27 00:30 | NUR ---
ADMIN NORCO PO PER REQUEST FOR C/O LOWER LEG PAIN.
[2016-08-27 02:05] LABS: CREATINE KINASE 299 UL (21-215); TROPONIN-I < 0.017 ng/mL (0.000-0.060)
--- NOTE | 2016-08-27 03:50 | NUR ---
SKELP PROCESSOR TAKING VS. REQUESTED BEDPAN TO VOID. NO OTHER NEEDS VOICED.
[2016-08-27 04:17] VITALS: BP 120/56
[2016-08-27 06:25] LABS: BASOPHILS 0.5 % (0-2); EOSINOPHILS 2.3 % (0-7); HEMATOCRIT 37.5 % (36.0-48.0); IMMATURE GRANULOCYTES 0.2 % (0-5); LYMPHOCYTES 14.4 % (15-50); MCH 29.6 pg (26.0-34.0); MCV 92.4 fL (80.0-100.0); MEAN PLATELET VOLUME 9.4 fL (7.4-10.4); MONOCYTES 7.7 % (2-11); NEUTROPHILS 74.9 % (40-80); PLATELET COUNT 181 10x3/uL (130-400); RBC 4.06 10x6/uL (4.00-5.40); RDW 15.6 % (11.5-14.5)
[2016-08-27 06:29] LABS: WBC 6.1 10x3/uL (4.8-10.8)
[2016-08-27 06:51] LABS: ALBUMIN 1.9 g/dL (3.4-5.0); ANION GAP 11.5 mmol/L (8-16); BILIRUBIN - TOTAL 0.48 mg/dL (0.2-1.3); CALCIUM 8.8 mg/dL (8.5-10.1); CREATININE - SERUM 0.8 mg/dL (0.6-1.3); POTASSIUM - SERUM 4.5 mmol/L (3.5-5.1); PROTEIN - SERUM 7.1 g/dL (6.4-8.2)
--- NOTE | 2016-08-27 07:39 | NUR ---
AM ROUNDS - PT IS AWAKE IN BED. YELLOW BAND ON. IV TO RIGHT FA, NS @ 50CC/HR. O2 AT 3L VIA NC. PT C/O 09/06 PAIN TO BLE. SIDE RAILS UP X3. BED AT LOWEST POSITION. CALL BEL IN USE/REACH. WILL CONTINUE TO MONITOR
[2016-08-27 08:20] VITALS: BP 139/66
--- NOTE | 2016-08-27 09:50 | NUR ---
MORNING MEDICATION GIVEN. PT TOLERATED WELL. NO NEEDS AT THIS TIME. WILL CONTINUE TO MONITOR
[2016-08-27 12:31] VITALS: BP 122/53
[2016-08-27 16:40] VITALS: BP 132/69; BP 133/46
--- NOTE | 2016-08-27 17:01 | NUR ---
Patient Name: SOFIA PEREZ Encounter No: [id number] : 1940 Primary Insurance: MEDICARE A & B Anticipated DC Date: 08-28-2016 Planned Disposition: Home WITH HOME HEALTH External Planned Provider: [facility] DCP follow-up note: CM SPOKE TO PT IN ROOM WHO REPORTS PLAN TO DISCHARGE HOME WITH [facility] RESUMPT[facility]. IMPORTANT MESSAGE FROM [employer]IC[employer] PROVIDED AND EXPLAINED. CM CALLED [facility], NOTIFIED PAYTON THAT PT MAY DISCHARGE HOME OVER WEEKEND. [facility] CAN RESUME HOME HEALTH OVER WEEKEND IF NEEDED. FOR DISCHARGE, NOTIFY [facility] FOR RESUMPTION OF CARE AT [phone], FAX DISCHARGE INFORMATION TO [phone]. Nestor Oliveros, CASE MANAGEMENT
--- NOTE | 2016-08-27 17:05 | NUR ---
IV TO RIGHT FA IS SORE AND SWOLLEN. IV FLUIDS STOPED AND TRYING TO GET A NEW IV PLACED.
--- NOTE | 2016-08-27 17:27 | NUR ---
IV REMOVED TO RIGHT FA, CATH TIP INTACT. NEW IV PLACED IN LOWER RIGHT FA.
[2016-08-27 20:00] VITALS: BP 155/83
--- NOTE | 2016-08-28 03:34 | NUR ---
REST QUIETLY IN BED WITH EYE CLOSE, CALL LIGHT WITHIN REACH.
[2016-08-28 04:00] VITALS: BP 164/78
[2016-08-28 05:19] LABS: BASOPHILS 1.3 % (0-2); EOSINOPHILS 2.2 % (0-7); HEMATOCRIT 38.5 % (36.0-48.0); HEMOGLOBIN 12.1 g/dL (12-16); IMMATURE GRANULOCYTES 0.4 % (0-5); LYMPHOCYTES 17.4 % (15-50); MCHC 31.4 g/dL (31.0-37.0); MEAN PLATELET VOLUME 10.7 fL (7.4-10.4); MONOCYTES 10.6 % (2-11); NEUTROPHILS 68.1 % (40-80); PLATELET COUNT 151 10x3/uL (130-400); RBC 4.04 10x6/uL (4.00-5.40); RDW 16.1 % (11.5-14.5); WBC 5.4 10x3/uL (4.8-10.8)
[2016-08-28 05:22] LABS: MCV 95.3 fL (80.0-100.0)
[2016-08-28 06:35] LABS: ALBUMIN 1.9 g/dL (3.4-5.0); ALKALINE PHOSPHATASE 124 U/L (46-116); ALT (SGPT) 37 U/L (10-68); CALC OSMOLALITY 276 mosm/kg (275-300); CALCIUM 8.1 mg/dL (8.5-10.1); CARBON DIOXIDE 24.9 mmol/L (21.0-32.0); CHLORIDE - SERUM 106 mmol/L (98-107); CREATININE - SERUM 0.6 mg/dL (0.6-1.3); GLUCOSE 129 mg/dL (74-106); PROTEIN - SERUM 6.1 g/dL (6.4-8.2); SODIUM 138 mmol/L (136-145); UREA NITROGEN 10 mg/dL (7-18); eGFR NON AFRICAN AMERICAN > 90 mL/min (90-120)
--- NOTE | 2016-08-28 07:19 | NUR ---
AM ROUNDS- PT IN BED, EYES CLOSED, O2 OFF NOSE, REPOSITIONED NC ON NOSE. BED LOW AND LOCKED, BED RAILS X2, CALL LIGHT IN REACH, NAD NOTED, WILL CONTINUE TO MONITOR.
[2016-08-28 08:00] VITALS: BP 115/63
--- NOTE | 2016-08-28 09:33 | NUR ---
ADMINISTERED AM MEDS. AND PROVIDED DRESSING CHANGE TO RT LOWER LEG. PT TOLERATED PROCEDURE WELL. DENIES ANY NEEDS AT THIS TIME. CALL LIGHT IN REACH, NAD NOTED, WILL CONTINUE TO MONITOR.
--- NOTE | 2016-08-28 10:54 | NUR ---
NORCO 7.5MG GIVEN FOR PAIN LEVELO F8/10. PT UP TO CHAIR AT THIS TIME. DENIES ANY OTHER NEEDS. CALL LIGHT IN REACH, NAD NOTED, WILL CONTINUE TO MONITOR.
[2016-08-28 12:00] VITALS: BP 153/82
--- NOTE | 2016-08-28 15:19 | NUR ---
CALLED PHARMACY AND SPOKE WITH AFSANEH INFORMED HER THAT I NEED DOXYCLICINE FOR PT.
--- NOTE | 2016-08-28 15:26 | NUR ---
ADMINISTERED NORCO 7.5MG FOR PAIN LEVEL OF 8/10. DOXYCICLINE HUNG AT THIS TIME. REMOVED BEDPAN. PT IN BED, DENIES ANY OTHER NEEDS AT THIS TIME. CALL LIGHT IN REACH, NAD NOTED, WILL CONTINUE TO MONITOR.
[2016-08-28 15:43] VITALS: BP 115/44
--- NOTE | 2016-08-28 16:15 | NUR ---
BLOOD SUGAR OF 161, 4 UNITS OF HUMULIN GIVEN PER S/S. PT IN BED, DENIES ANY NEEDS AT THIS TIME. CALL LIGHT IN REACH, NAD NOTED, WILL CONTINUE TO MONITOR.
[2016-08-28 20:00] VITALS: BP 118/57
[2016-08-29 04:00] VITALS: BP 123/65
[2016-08-29 06:27] LABS: BASOPHILS 0.7 % (0-2); EOSINOPHILS 2.6 % (0-7); HEMATOCRIT 34.1 % (36.0-48.0); HEMOGLOBIN 10.8 g/dL (12-16); IMMATURE GRANULOCYTES 0.7 % (0-5); LYMPHOCYTES 17.7 % (15-50); MCH 29.3 pg (26.0-34.0); MCHC 31.7 g/dL (31.0-37.0); MEAN PLATELET VOLUME 9.4 fL (7.4-10.4); MONOCYTES 9.7 % (2-11); NEUTROPHILS 68.6 % (40-80); RBC 3.68 10x6/uL (4.00-5.40); RDW 15.9 % (11.5-14.5); WBC 5.4 10x3/uL (4.8-10.8)
[2016-08-29 06:34] LABS: MCV 92.7 fL (80.0-100.0); PLATELET COUNT 191 10x3/uL (130-400)
[2016-08-29 06:48] LABS: ALBUMIN 1.7 g/dL (3.4-5.0); ALKALINE PHOSPHATASE 110 U/L (46-116); ALT (SGPT) 35 U/L (10-68); BILIRUBIN - TOTAL 0.58 mg/dL (0.2-1.3); CALC OSMOLALITY 274 mosm/kg (275-300); CALCIUM 8.3 mg/dL (8.5-10.1); CARBON DIOXIDE 25.5 mmol/L (21.0-32.0); CHLORIDE - SERUM 106 mmol/L (98-107); CREATININE - SERUM 0.5 mg/dL (0.6-1.3); GLUCOSE 119 mg/dL (74-106); POTASSIUM - SERUM 3.9 mmol/L (3.5-5.1); PROTEIN - SERUM 6.3 g/dL (6.4-8.2); SODIUM 138 mmol/L (136-145); UREA NITROGEN 8 mg/dL (7-18); eGFR NON AFRICAN AMERICAN > 90 mL/min (90-120)
--- NOTE | 2016-08-29 07:31 | NUR ---
AM ROUNDING DONE. PATIENT AROUSES EASILY WHEN WALKING INTO THE ROOM. ON 3L PER NC. RIGHT INNER FA SEEN WITH NS INFUSING AT 50 CC/HR. ON HEART MONITOR SHOWING CAR, HR 81. BILATERAL LOWER LEGS ARE UP ON PILLOWS, RIGHT LOWER LEG IS SEEN WITH A DRY SKYE DRESSING. ON EP, LAB VALUES ARE WNL. PATIENT REPORTS THAT SHE USES THE BEDPAN TO VOID. WILL MONITOR.
[2016-08-29 08:09] VITALS: BP 151/74
--- NOTE | 2016-08-29 08:46 | NUR ---
AM MEDS GIVEN ALONG WITH A PAIN PILL FOR LEG PAIN 09/06. DRESSING CHANGED ORDERED. TOELRATED WELL.
--- NOTE | 2016-08-29 11:56 | NUR ---
Rehab Prescreening Consult recieved and the chart has been reviewed. She is an excellent IRF candidate with history of living alone and being independent prior to admit to the hospital. The PT notes indicate she has only sat up and there has been no attempt to ambulate. If she is able to ambulate and feels she can tolerate 3 hrs of therapy 5 days a week she will be accepted to rehab when the physician feels she is medically stable for discharge to rehab. Thank you for the referral. Rosio Brown RN Clinical Liaison, Rehab
[2016-08-29 12:00] VITALS: BP 111/50
--- NOTE | 2016-08-29 13:53 | NUR ---
PATIENT WANTING RIGHT FOOT WRAPPED FOR COMFORT. WRAPPED IN SKYE. NORCO GIVEN FOR LEG PAIN 09/06.
--- NOTE | 2016-08-29 14:36 | NUR ---
IF IS STARTING TO LEAK. WILL ATTEMPT AT RE-SITING. IV REMOVED WITH CATH TIP INTACT.
--- NOTE | 2016-08-29 15:06 | NUR ---
IV RE-SITED TO RIGHT HAND PER Analia ALARCON RN X 1 STICK WITH 22 G.
--- NOTE | 2016-08-29 16:57 | NUR ---
IV INFUSING TO RIGHT HAND WITHOUT ANY PROBLEMS AT THIS TIME OF INFILTRATION OR LEAKING. NO INSULIN GIVEN PER SLIDING SCALE OF BLOOD SUGAR OF 141. WILL CONTINUE TO MONITOR IV SITE AND NEEDS.
--- NOTE | 2016-08-29 18:39 | NUR ---
COMPLAINTS OF LEG PAIN 09/06, NORCO GIVEN ORDERED.
[2016-08-29 20:00] VITALS: BP 125/57
--- NOTE | 2016-08-29 20:50 | NUR ---
REC'D. IN BED. SUPINE POSITION HOB UP 30 DEGREES.02 3L NC.MONITOR SHOWING CAF. DRSG DRY AND INTACT WITH GROSS EXTERNAL ROTATION OBSERVED.4+ EDEMA.RT.FOOT,BROWNINISH DISCOLORATION WILL CONTINUE TO MONITOR FOR ANY CHGES NEUROVASCULAR STATUS AND FOLLOW CURRENT PLAN OF CARE. C/O RT. FOOT BEING HYPERSENSITIVE WHEN TOUCHED .
[2016-08-30 04:00] VITALS: BP 114/611
[2016-08-30 06:36] LABS: MAGNESIUM - SERUM 1.3 mg/dL (1.8-2.4); PHOSPHOROUS 2.9 mg/dL (2.5-4.9); POTASSIUM - SERUM 3.6 mmol/L (3.5-5.1)
--- NOTE | 2016-08-30 07:22 | NUR ---
AM ROUNDS- PT IN BED, REPOSITIONED PT IN BED, SHOW HOST AT BEDSIDE TO DO VITALS. BED LOW AND WHEELS LOCKED. BEDSIDE RAILS X2, CALL LIGHT IN REACH, RT HAND INFUISING NS AT 100. CALL LIGHT IN REACH, NAD NOTED, WILL CONTINUE TO MONITOR.
--- NOTE | 2016-08-30 09:02 | NUR ---
ADMINISTERED MORNING MEDS, ALSO GAVE NORCO 7.5MG FOR PAIN LEVEL OF 8/10. PT IN BED, DENIES ANY OTHER NEEDS AT THIS TIME. CALL LIGHT IN REACH, CLARENCE GOMEZOEWilly, WILL CONTINUE TO MONITOR.
[2016-08-30 09:13] VITALS: BP 147/72
--- NOTE | 2016-08-30 10:55 | NUR ---
BLOOD SUGAR OF 138, NO COVERAGE NEEDED PER S/S. PT UP TO CHAIR, DENIES ANY NEEDS AT THIS TIME. CALL LIGHT IN REACH, NAD NOTED, WILL CONTINUE TO MONITOR.
[2016-08-30 11:59] VITALS: BP 132/66
[2016-08-30] MEDS ORDERED: HUMULIN R100 U/ML SC (12:24)
[2016-08-30] MEDS ORDERED: VIBRAMYCIN 100100 M1 IV (12:28)
--- NOTE | 2016-08-30 13:23 | NUR ---
AMINISTERED NORCO 7.5MG FOR PAIN LEVEL OF 7/10. PT UP TO CHAIR, READY TO GET BACK IN BED, WILL LET TRUONG WITH PHYSICAL THERAPY KNOW. PT DENIES ANY NEEDS AT THIS TIME.C ALL LIGHT IN REACH, NAD NOTED, WILL CONTINUE TO MONITOR.
--- NOTE | 2016-08-30 13:36 | NUR ---
Patient Name: SOFIA PEREZ Encounter No: [id number] : 1940 Primary Insurance: MEDICARE A & B Anticipated DC Date: 08-30-2016 Planned Disposition: INPATIENT REHAB External Planned Provider: [facility] INPATIENT REHAB DCP follow-up note: CM SPOKE TO EMELI OF INPATIENT REHAB, THEY PLAN TO ACCEPT PT TODAY FOR REHAB. CM MET WITH PT WHO REPORTS SPEAKING TO HER DOCTOR REGARDING INPATIENT REHAB AND KNOWS SHE NEEDS IT BEFORE GOING HOME WITH HOME HEALTH. PT IN AGREEMENT WITH DISCHARGE TO INPATIENT REHAB. IMPORTANT MESSAGE FROM MEDICARE PROVIDED AND EXPLAINED. JHOANA DURAN AND ACCOUNT SUPPORT ANALYST NURSE NOTIFIED. [facility] INPATIENT REHAB TO CONTACT MED 2 NURSE WITH ROOM NUMBER WHEN READY TO ACCEPT PT AND NURSE REPORT. Nestor Oliveros, CASE MANAGEMENT
--- NOTE | 2016-08-30 16:01 | NUR ---
CALLED REHAB AND GAVE REPORT TO CRESENCIO.
--- NOTE | 2016-08-30 16:31 | NUR ---
DRESSING CHANGE PROVIDED TO RIGHT LOWER LEG. PT TOLERATED PROCEDURE WELL, DENIES ANY NEEDS AT THIS TIME. PT WANTS TO WAIT UNTIL AFTER DINNER TO GO DOWN TO REHAB. NAD NOTED, CALL LIGHT IN REACH, WILL CONTINUE TO MONITOR.
[2016-08-30 16:38] VITALS: BP 126/69
--- NOTE | 2016-08-30 17:28 | NUR ---
PROVIDED VERBAL AND WRITTEN DISCHAGE INSTRUCTIONS TO PT, PT VERBALIZED UNDERSTANDING REGARDING TEACHING. PT DENIES ANY NEEDS AT THIS TIME. IVPB DOXYCICLINE INFUSING AT THIS TIME WHEN DONE WILL TAKE PT DOWN TO REHAB.
--- NOTE | 2016-08-30 17:50 | NUR ---
NORCO 7.5MG GIVEN FOR PAIN LEVEL OF 8/10. PT IN BED, DENIES ANY NEEDS, WILL CONTINUE TO MONITOR.
--- NOTE | 2016-08-30 18:31 | NUR ---
PT TRANSFERED TO DIALYIS VIA WHEELCHAIR, NAD NOTED.
== END 2016-08-30 18:31 | DRG 872 ==
LOC: D.ER 11:14 → D.M2 15:25
PROVIDERS: Emergency Medicine; ADMIT Family Medicine
DX: A41.9 Sepsis, unspecified organism (principal); L03.116 Cellulitis of left lower limb; L03.115 Cellulitis of right lower limb; N39.0 Urinary tract infection, site not specified; N17.9 Acute kidney failure, unspecified; Z68.41 Body mass index [BMI] 40.0-44.9, adult; E87.1 Hypo-osmolality and hyponatremia; W05.0XXA Fall from non-moving wheelchair, initial encounter; B96.20 Unspecified Escherichia coli [E. coli] as the cause of diseases classified elsewhere; I11.0 Hypertensive heart disease with heart failure; I50.9 Heart failure, unspecified; E87.5 Hyperkalemia; Z86.718 Personal history of other venous thrombosis and embolism; I87.2 Venous insufficiency (chronic) (peripheral); E66.01 Morbid (severe) obesity due to excess calories; G47.33 Obstructive sleep apnea (adult) (pediatric); I25.10 Atherosclerotic heart disease of native coronary artery without angina pectoris; I48.91 Unspecified atrial fibrillation; E11.40 Type 2 diabetes mellitus with diabetic neuropathy, unspecified; E11.65 Type 2 diabetes mellitus with hyperglycemia

== ENCOUNTER 2016-08-30 15:21 | Inpatient (IN) | payer MEDICARE ==
[~2016-08-30] VITALS: Ht 167.6 cm; Wt 133.4 kg
[~2016-08-30 15:21] MED LIST changes: +HUMULIN R100 U/ML SC; +VIBRAMYCIN 100100 M1 IV; +VOLTAREN100 GM
[2016-08-30 22:20] VITALS: BP 136/61; BMI 47.5
[2016-08-31 06:55] LABS: BASOPHILS 0.7 % (0-2); EOSINOPHILS 4.5 % (0-7); HEMOGLOBIN 11.3 g/dL (12-16); IMMATURE GRANULOCYTES 0.5 % (0-5); LYMPHOCYTES 19.9 % (15-50); MCH 29.5 pg (26.0-34.0); MCHC 31.4 g/dL (31.0-37.0); MEAN PLATELET VOLUME 9.8 fL (7.4-10.4); MONOCYTES 12.8 % (2-11); NEUTROPHILS 61.6 % (40-80); PLATELET COUNT 192 10x3/uL (130-400); RBC 3.83 10x6/uL (4.00-5.40); RDW 16.1 % (11.5-14.5); WBC 4.2 10x3/uL (4.8-10.8)
[2016-08-31 07:06] LABS: CALC OSMOLALITY 277 mosm/kg (275-300); CALCIUM 8.5 mg/dL (8.5-10.1); CARBON DIOXIDE 27.9 mmol/L (21.0-32.0); CHLORIDE - SERUM 105 mmol/L (98-107); CREATININE - SERUM 0.6 mg/dL (0.6-1.3); GLUCOSE 121 mg/dL (74-106); POTASSIUM - SERUM 3.5 mmol/L (3.5-5.1); SODIUM 140 mmol/L (136-145); UREA NITROGEN 8 mg/dL (7-18); eGFR NON AFRICAN AMERICAN > 90 mL/min (90-120)
--- NOTE | 2016-08-31 07:13 | NUR ---
RESTING QUIETLY IN BED WITH EYES CLOSED. CALL LIGHT IN REACH
[2016-08-31 08:48] VITALS: BP 140/65
--- NOTE | 2016-08-31 10:19 | NUR ---
PATIENT ALERT/ORIENT. USING CALL LIGHT FOR NEEDS. WOUND NURSE CONSULT PUT IN FOR RIGHT LEG VS ULCER. LARGE AMOUNT OF WEEPING.
--- NOTE | 2016-08-31 11:55 | NUR ---
GLUCOSE LEVEL 284. TEN UNITS OF SLIDING SCALE INSULIN GIVEN
--- NOTE | 2016-08-31 14:37 | NUR ---
OCCUPATIONAL THERAPIST ASST PATIENT WITH SHOWER. DRESSING TO BILATERAL LEGS DONE PER ORDER
--- NOTE | 2016-08-31 16:55 | NUR ---
GLUCOSE LEVEL 158. FOUR UNITS OF SLIDING SCALE INSULIN GIVEN
--- NOTE | 2016-08-31 17:25 | NUR ---
PRN NORCO GIVEN FOR BILATERAL LOWER LEG PAIN.
--- NOTE | 2016-08-31 19:15 | NUR ---
UP IN WHEEL CHAIR WITH FAMILY AT BED SIDE.ALERT AND ORIENTED TO PERSON, PLACE, TIME AND SITUATION. dRESSINGS TO BILATERAL LEGS. CLEAN, DRY AND INTACT. DENIES ANY PAIN AT THIS TIME.
--- NOTE | 2016-08-31 20:10 | NUR ---
UP IN WHEEL CHAIR WATCHING TV.ATTEMPTS TO EDUCATE ON NEED TO LAY DOWN TO REDUCE SWELLING.VOICED UNDERSTANDING AND STATED NOT READY TO GO TO BED AND LAYING DOWN DOES'NT HELP. ASSISTED OT TOILET EARLIER WITH SMALL BOWEL MOVEMENT. ASSISTED WITH CHANGING INTO GOWN.
--- NOTE | 2016-08-31 21:00 | NUR ---
uP IN BED AQT THIS TIME. COMPLAINS OF BILATERAL LEG PAIN AND REQUESTED PAIN MEDICATION.MEDICATION GIVEN PER ORDERS. STATED RELIEF.
[2016-08-31 21:42] VITALS: BP 119/60
--- NOTE | 2016-08-31 22:10 | NUR ---
RESTING IN BED AT THIS TIME. NO SIGNS OR SYMPTOMS OF DISTRESS OBSERVED. CALL LIGHT AND OVERBED TABLE IN REACH.
--- NOTE | 2016-09-01 01:08 | NUR ---
ASSISTED TO BATHROOM. CONTINENT OF BOWEL. WEARS BRIEF AND PAD. PAD SATURATED WITH URINE AND CHANGED PER PATIENT. ALBLE TO TRANSFER TO TOILET AND BED WITH ASSIST. HEAD OF BED ELEVATED FOR COMFORT. DRESSINGS TO BILATERAL LEGS. CLEAN,DRY AND INTACT. BED ALARM ON.
--- NOTE | 2016-09-01 02:15 | NUR ---
RESTING IN BED WITH EYES CLOSED.NO SIGNS OR SYMPTOMS OF DISTRESS OBSERVEED. EASILY AROUSES WITH VERBAL STIMULI. DENIES ANY PAIN AT THIS TIME.
--- NOTE | 2016-09-01 04:27 | NUR ---
ASSISTED TO TOILET. ABLE TO TRANSFERFER WITH MOD ASSIST. COMPLAINS OF LEG PAIN AT 6 AND REQUESTED PAIN MEDICATION. DESCRIBES PAIN STABBING AND ACHING. BILATERAL LOWER EXTREMITIES REDDENED AND EDEMATOUS.RIGHT ANKLE TURNS INWARD WHEN STANDING. STATES "THATS FROM WHEN I BROKE MY ANKLE AND IT'S STILL NOT HEALED". DENIES ANY PAIN UPON STANDING AND TRANSFERING. SKIN IS REDDENED TO BOTH FEET AND DRY AND SCALEY.
--- NOTE | 2016-09-01 06:30 | NUR ---
AWAKE AND ALERT AT THIS TIME. DOES NOT WANT TO GET DRESSED NOW. ASSISTED TO TOILET AND BACK TO BED. DENIES ANY PAIN AT THIS TIME.
[2016-09-01 07:12] LABS: BASOPHILS 0.5 % (0-2); EOSINOPHILS 4.1 % (0-7); HEMATOCRIT 33.6 % (36.0-48.0); HEMOGLOBIN 10.6 g/dL (12-16); IMMATURE GRANULOCYTES 0.3 % (0-5); LYMPHOCYTES 20.2 % (15-50); MCH 29.2 pg (26.0-34.0); MCHC 31.5 g/dL (31.0-37.0); MCV 92.6 fL (80.0-100.0); MEAN PLATELET VOLUME 9.1 fL (7.4-10.4); MONOCYTES 11.5 % (2-11); NEUTROPHILS 63.4 % (40-80); PLATELET COUNT 188 10x3/uL (130-400); RBC 3.63 10x6/uL (4.00-5.40); RDW 16.1 % (11.5-14.5); WBC 3.9 10x3/uL (4.8-10.8)
[2016-09-01 07:21] LABS: CALC OSMOLALITY 278 mosm/kg (275-300); CALCIUM 8.5 mg/dL (8.5-10.1); CARBON DIOXIDE 28.1 mmol/L (21.0-32.0); CHLORIDE - SERUM 105 mmol/L (98-107); CREATININE - SERUM 0.7 mg/dL (0.6-1.3); GLUCOSE 118 mg/dL (74-106); POTASSIUM - SERUM 3.6 mmol/L (3.5-5.1); SODIUM 140 mmol/L (136-145); UREA NITROGEN 10 mg/dL (7-18); eGFR NON AFRICAN AMERICAN 86 mL/min (90-120)
--- NOTE | 2016-09-01 08:00 | NUR ---
PATIENT IS ALERT/ORIENT. SITTING UP IN BED TO EAT BREAKFAST. DRESSING TO BILATERAL LEGS DRY AND INTACT. CALL LIGHT WITHIN REACH. VOICES NO NEEDS
[2016-09-01 08:09] VITALS: BP 122/53
--- NOTE | 2016-09-01 09:30 | NUR ---
PATIENT GIVEN PRN NORCO FOR BILATERAL LEG PAIN PER REQUEST.
[2016-09-01 10:18] VITALS: Ht 167.6 cm; Wt 133.4 kg
--- NOTE | 2016-09-01 12:00 | NUR ---
GLUCOSE LEVEL 100. NO SLIDING SCALE INSULIN GIVEN
--- NOTE | 2016-09-01 14:40 | NUR ---
PATIENT GIVEN PRN NORCO FOR BILATERAL LEG PAIN PER PATIENT REQUEST.
--- NOTE | 2016-09-01 14:53 | NUR ---
WOUND CARE NURSE CALLED IN REGARDS TO BILATERAL LOWER EXTREMITIES. STATES SHE WILL BE DOWN TO EVALUATE.
--- NOTE | 2016-09-01 15:17 | NUR ---
RESTING QUIETLY.CL IN REACH.
--- NOTE | 2016-09-01 16:54 | NUR ---
GULCOSE LEVEL 132. NO SLIDING SCALE INSULIN GIVEN. DRESSING TO BILATERAL LOWER LEGS DONE PER ORDER. WOUND NURSE HAS NOT BEEN DOWN TO SEE PATIENT
--- NOTE | 2016-09-01 19:31 | NUR ---
UP IN WHEELCHAI. PLEASANT AND TALKATIVE. DRESSINGS TO LOWER EXTREMITIES BILATERALLY.DRESSING CLEAN,DRY AND INTACT. LOWER EXTREMITIES AND FEET REMAIN RAGINI AND SWOLLEN. DENIES ANY PAIN AT THIS TIME.
--- NOTE | 2016-09-01 20:25 | NUR ---
UP IN WHEEL CHAIR AT THIS TIME. ALERT AND ORIENTED X4. ABLE TO VOICE NEEDS. COMPLAINS OF LEG PAIN BILATERL AT 7. REQUESTED MEDICATION. MEDS GIVEN PER ORDERS. WILL REASSESS.
--- NOTE | 2016-09-01 21:15 | NUR ---
ASSISTED TO TOILET AND THEN TO BED. BED RAILS UP X2. CALL LIGHT IN REACH.
--- NOTE | 2016-09-01 22:00 | NUR ---
RESTING IN BED WITH EYES CLOSED AND SNORING. BED RAILS UP X2. CALL LIGHT AND BED SIDE TABLE IN REACH.
[2016-09-02] VITALS: BP 116/49
--- NOTE | 2016-09-02 | NUR ---
RESTING IN BED WITH EYES CLOSED. NO SIGNS OR SYMPTOMS OF DISTRESS OBSERVED. C/L IN REACH.
--- NOTE | 2016-09-02 02:08 | NUR ---
RESTING IN BED WITH EYES CLOSED. NO SIGNS OF DISTRESS OBSERVED.
--- NOTE | 2016-09-02 04:08 | NUR ---
RESTING IN BED WITH EYES CLOSED. CALL LIGHT IN REACH.
--- NOTE | 2016-09-02 06:17 | NUR ---
ASSISTED TO TOILET. DID NOT WANT TO GET DRESSED AT THIS TIME. ASSISTED BACK TO BED. CALL LIGHT IN REACH.
--- NOTE | 2016-09-02 07:27 | NUR ---
SITTING UP IN BED.DENIES NEEDS
[2016-09-02 08:36] VITALS: BP 121/60
--- NOTE | 2016-09-02 11:44 | NUR ---
WOUND CARE CONSULT: PT HAS CHRONIC OPEN AREAS ON RIGHT LOWER EXTREMITY. THE ENTIRE AREA IS RED, BUMPY, SHINY AND MOIST. EDEMA IS NOTED. MODERATE SEROUS DRAINAGE. RECOMMEND SILVADENE CREAM BE APPLIED TO LOWER LEG, COVERED WITH 4X4S AND SECURED WITH KERLIX. WOUND CARE WILL CONTINUE MONITORING.
--- NOTE | 2016-09-02 11:56 | NUR ---
SITTING UP IN WC READY FOR LUNCH.
--- NOTE | 2016-09-02 15:35 | NUR ---
SITTING UP IN CHAIR.CL IN REACH.
--- NOTE | 2016-09-02 19:50 | NUR ---
PT. IN BED WITH HOB UP FOR COMFORT AFTER JUST RETURNING FROM THE BR. PT. STATES SHE PASSES SOME STOOL EACH TIME SHE URINATES. ASSESSMENT COMPLETED. DRESSING TO RLE DRY AND INTACT. PT. REQUESTING PAIN MED WITH NIGHT TIME MEDS FOR HER LEGS/FEET. CALL LIGHT WITHIN REACH.
[2016-09-02 20:49] VITALS: BP 127/58
--- NOTE | 2016-09-02 23:22 | NUR ---
PT. IN BED WITH HOB UP FOR COMFORT WITH EYES CLOSED AND RESP. DEEP AND EVEN. CALL LIGHT WITHIN REACH.
--- NOTE | 2016-09-03 03:17 | NUR ---
PT. IN BED WITH HOB UP FOR COMFORT WITH EYES CLOSED AND RESP. DEEP AND EVEN. CALL LIGHT WITHIN REACH.
[2016-09-03 06:53] LABS: CALC OSMOLALITY 278 mosm/kg (275-300); CALCIUM 8.6 mg/dL (8.5-10.1); CARBON DIOXIDE 28.6 mmol/L (21.0-32.0); CHLORIDE - SERUM 105 mmol/L (98-107); CREATININE - SERUM 0.6 mg/dL (0.6-1.3); GLUCOSE 72 mg/dL (74-106); POTASSIUM - SERUM 3.8 mmol/L (3.5-5.1); SODIUM 141 mmol/L (136-145); UREA NITROGEN 11 mg/dL (7-18); eGFR NON AFRICAN AMERICAN > 90 mL/min (90-120)
[2016-09-03 06:59] LABS: BASOPHILS 0.5 % (0-2); EOSINOPHILS 2.8 % (0-7); HEMATOCRIT 39.5 % (36.0-48.0); HEMOGLOBIN 12.1 g/dL (12-16); IMMATURE GRANULOCYTES 0.2 % (0-5); LYMPHOCYTES 21.6 % (15-50); MCH 28.5 pg (26.0-34.0); MCHC 30.6 g/dL (31.0-37.0); MCV 93.2 fL (80.0-100.0); MEAN PLATELET VOLUME 9.7 fL (7.4-10.4); MONOCYTES 9.3 % (2-11); NEUTROPHILS 65.6 % (40-80); PLATELET COUNT 195 10x3/uL (130-400); RBC 4.24 10x6/uL (4.00-5.40); RDW 16.1 % (11.5-14.5); WBC 4.3 10x3/uL (4.8-10.8)
--- NOTE | 2016-09-03 08:15 | NUR ---
PT RESTING IN BED WITH EYES OPEN CALL LIGHT IN REACH NO PROBLEMS WILL MONITER
[2016-09-03 08:52] VITALS: BP 142/79
--- NOTE | 2016-09-03 10:37 | NUR ---
SITTING UP IN CHAIR.CL IN REACH.
--- NOTE | 2016-09-03 15:49 | NUR ---
PT RESTING IN BED WITH EYES OPEN CALL LIGHT IN REACH NO PROBLEMS WILL MONITER
[2016-09-03 19:06] VITALS: BP 118/56
--- NOTE | 2016-09-03 19:35 | NUR ---
ASSISTED PT TO BATHROOM, PT NEEDS ASSISTANCE WITH DONNING SHOES. PT SBA WITH BED TO W/C TO TOILET TRANSFERS. PT USES BARIATRIC BEDSIDE COMMODE OVER TOILET WHICH FACILITATES BALANCE. PT IS ALERT & ORIENTED AND CONVERSIVE.
--- NOTE | 2016-09-03 21:10 | NUR ---
ASSISTED PT TO BATHROOM AND BACK TO BED.
--- NOTE | 2016-09-03 23:50 | NUR ---
ASSISTED PT TO BATHROOM AND BACK TO BED.
--- NOTE | 2016-09-04 07:30 | NUR ---
ASSISTED TO RESTROOM WITH STANDBY ASSIST. INSTRUCTED PT TO PULL CALL CORD WHEN READY. PT VERBALIZED UNDERSTANDING.
--- NOTE | 2016-09-04 07:46 | NUR ---
RESTING QUIETLY IN BED. EYES CLOSED. CALL LIGHT IN REACH
[2016-09-04 08:00] VITALS: BP 146/74
--- NOTE | 2016-09-04 10:34 | NUR ---
SITTING UP IN WHEELCHAIR WORKING CROSSWORD PUZZLES. DENIES ANY NEEDS AT THIS TIME. WILL CONTINUE TO MONITOR.
--- NOTE | 2016-09-04 13:29 | NUR ---
LYING IN BED RESTING QUIETLY. DENIES ANY NEEDS AT THIS TIME. WILL CONTINUE TO MONITOR CALL LIGHT IN REACH.
--- NOTE | 2016-09-04 16:01 | NUR ---
SITTING UP IN WHEELCHAIR WORKING CROSSWInnomiNet. C/O BLE PAIN 10/07 ADMINISTERED NORCO 7.5MG. WILL CONTINUE TO MONITOR. CALL LIGHT IN REACH
--- NOTE | 2016-09-04 19:35 | NUR ---
PT ASSISTED TO BR. PT BACK IN BED AND DENIES FURTHER NEEDS. WCTM. BED LOW. CL IN REACH.
--- NOTE | 2016-09-04 21:55 | NUR ---
PT REQ AND REC'D PRN PAIN MEDICATION WITH HS MEDS. PT DENIES FURTHER NEEDS. WCTM. BED LOW. CL IN REACH.
--- NOTE | 2016-09-05 01:12 | NUR ---
PT RESTING, EYES CLOSED. BED LOW. CLIN REACH.
--- NOTE | 2016-09-05 03:55 | NUR ---
PT RESTING, EYES CLOSED. BED LOW. C DAISHA REACH.
--- NOTE | 2016-09-05 07:32 | NUR ---
SITTING UP IN WHEELCHAIR READING NEWSPAPER. DENIES NEEDS. WILL CONTINUE TO MONITOR. CALL LIGHT IN REACH.
[2016-09-05 08:00] VITALS: BP 144/69
--- NOTE | 2016-09-05 08:20 | NUR ---
SITTING UP IN BED EATING BREAKFAST. CALL LIGHT IN REACH.
--- NOTE | 2016-09-05 10:01 | NUR ---
LYING IN BED EYES CLOSED RESTING QUIETLY. CALL LIGHT IN REACH. WILL CONTINUE TO MONITOR.
--- NOTE | 2016-09-05 11:50 | NUR ---
ASSISTED TO RESTROOM AND BACK TO ROOM WITH STANDBY ASSIST. DENIES ANY OTHER NEEDS AT THIS TIME. CALL LIGHT IN REACH. WILL CONTINUE TO MONITOR.
--- NOTE | 2016-09-05 14:45 | NUR ---
SITTING UP IN BED C/O PAIN IN LEGS 10/07. ADMINISTERED NORCO 7.5MG. CALL LIGHT IN REACH. WILL CONTINUE TO MONITOR.
--- NOTE | 2016-09-05 17:04 | NUR ---
SITTING UP IN W/C EATING DINNER. DENIES ANY NEEDS. CALL LIGHT IN REACH
--- NOTE | 2016-09-05 19:30 | NUR ---
PT HAS VISITORS IN ROOM, PT SITTING UP IN CHAIR. NO S/S OF ACUTE DISTRESS.
[2016-09-05 19:46] VITALS: BP 116/55
--- NOTE | 2016-09-06 00:30 | NUR ---
ASSISTED PT TO BATHROOM, PT STATED SHE HADN'T BEEN ASLEEP SHE IS WORRIED ABOUT HER REQUEST FOR LASIX AND INTERUPTING THERAPY. PT STATES WHEN SHE TAKES LASIX SHE HAS TO BE CLOSE TO BATHROOM. REVIEWED POTENTIAL SOLUTIONS WITH PATIENT, LEFT NOTE FOR PHYSCIAN.
--- NOTE | 2016-09-06 02:14 | NUR ---
PT RESTING QUIELTY, EYES OPEN, NO S/S OR ACUTE DISTRESS.
[2016-09-06 06:25] LABS: BASOPHILS 0.8 % (0-2); EOSINOPHILS 2.6 % (0-7); HEMATOCRIT 34.7 % (36.0-48.0); HEMOGLOBIN 10.8 g/dL (12-16); IMMATURE GRANULOCYTES 0.3 % (0-5); LYMPHOCYTES 23.9 % (15-50); MCH 29.2 pg (26.0-34.0); MCHC 31.1 g/dL (31.0-37.0); MCV 93.8 fL (80.0-100.0); MEAN PLATELET VOLUME 9.8 fL (7.4-10.4); MONOCYTES 9.6 % (2-11); NEUTROPHILS 62.8 % (40-80); PLATELET COUNT 211 10x3/uL (130-400); RDW 16.1 % (11.5-14.5); WBC 3.9 10x3/uL (4.8-10.8)
[2016-09-06 06:41] LABS: CALC OSMOLALITY 276 mosm/kg (275-300); CALCIUM 8.7 mg/dL (8.5-10.1); CARBON DIOXIDE 30.9 mmol/L (21.0-32.0); CHLORIDE - SERUM 104 mmol/L (98-107); CREATININE - SERUM 0.5 mg/dL (0.6-1.3); POTASSIUM - SERUM 3.5 mmol/L (3.5-5.1); SODIUM 141 mmol/L (136-145); UREA NITROGEN 8 mg/dL (7-18); eGFR NON AFRICAN AMERICAN > 90 mL/min (90-120)
[2016-09-06 06:47] LABS: GLUCOSE 70 mg/dL (74-106)
--- NOTE | 2016-09-06 06:54 | NUR ---
PT SITTING UP IN W/C WAITING FOR BREAKFAST, RESPIRATIONS REGULAR AND UNLABORED. TOLERATED SHOWER AND DRESSING CHANGE WITHOUT INCIDENT.
--- NOTE | 2016-09-06 15:29 | NUR ---
PT RESTING IN BED WITH EYES OPEN CALL LIGHT IN REACH WILL MONITER
--- NOTE | 2016-09-06 17:55 | NUR ---
PT UP IN WHEELCHAIR CALL LIGHT IN REACH PT EATING SUPPER TOLERATING WELL
--- NOTE | 2016-09-06 19:05 | NUR ---
SITTING UP IN W/C AT BEDSIDE. DAUGHTER VISITING. DENIES NEEDS.
[2016-09-06 21:10] VITALS: BP 121/63
--- NOTE | 2016-09-06 21:10 | NUR ---
ASSESSMENT AND HS MEDS COMPLETE AFTER ASSISTING PATIENT TO BR TO URINATE AND CHANGE POISE PAD. C/O PAIN LEVEL OF 7/10 IN BILAT LEGS. GAVE HER NORCO 7.5/325 X1 TAB PO.
--- NOTE | 2016-09-06 22:25 | NUR ---
RESTING QUIETLY IN BED, EYES CLOSED. FOB ELEVATED WITH LEGS HIGHER THAN HEART DUE TO 4+ EDEMA.
--- NOTE | 2016-09-07 00:10 | NUR ---
RESTING IN BED, EYES CLOSED. WAS UP TO BR COMMODE WITH ASSIST IN PAST 30 MINUTES.
--- NOTE | 2016-09-07 02:20 | NUR ---
RESTING QUIETLY IN BED, EYES CLOSED.
--- NOTE | 2016-09-07 06:32 | NUR ---
Nutrition Monitoring and Eval: Pt is eating 100% of meals on a diabetic mech soft diet. +BM. Meds an dlabs noted. Wound care note reviewed. Pt remains at low nutritional risk. RD following.
--- NOTE | 2016-09-07 08:00 | NUR ---
SITTING UP IN WC READY FOR BREAKFAST.CL IN REACH.
[2016-09-07 09:25] VITALS: BP 141/67
[2016-09-07 10:44] LABS: CALC OSMOLALITY 285 mosm/kg (275-300); CALCIUM 8.3 mg/dL (8.5-10.1); CARBON DIOXIDE 28.7 mmol/L (21.0-32.0); CHLORIDE - SERUM 106 mmol/L (98-107); CREATININE - SERUM 0.7 mg/dL (0.6-1.3); GLUCOSE 131 mg/dL (74-106); POTASSIUM - SERUM 3.6 mmol/L (3.5-5.1); SODIUM 143 mmol/L (136-145); UREA NITROGEN 9 mg/dL (7-18); eGFR NON AFRICAN AMERICAN 86 mL/min (90-120)
--- NOTE | 2016-09-07 18:21 | NUR ---
PT RESTING IN BED WITH EYES OPEN CALL LIGHT IN REACH WILL MONITER
[2016-09-07 19:05] VITALS: BP 102/59
--- NOTE | 2016-09-07 19:10 | NUR ---
ASSESSMENT PER FLOW SHEET, VS OBTAINED PER AUTO BODY PAINTER, DRESSINGS ON BOTH LEGS INTACT, PT DENIES PAIN AT THIS TIME, FRESH H20 SERVED
--- NOTE | 2016-09-07 20:20 | NUR ---
PT WATCHING TV, INFORMED PT THAT I WILL BRING MEDS IN AROUND 9PM, PT REQUESTS PAIN AT THAT TIME
--- NOTE | 2016-09-07 21:01 | NUR ---
ADM 2100 MEDS PO PER MD ORDERS, SEE EMAR, FSBS OBTAINED, SNACK PROVIDED, DENIES FURTHER NEEDS
--- NOTE | 2016-09-07 22:00 | NUR ---
PT UP TO BR PER AUDIT MACHINE OPERATOR, VIA WC
--- NOTE | 2016-09-07 23:18 | NUR ---
PT RESTING WITH EYES CLOSED, RESP QUIET, NO DISTRESS NOTED, LEFT UNDISTURBED AT THIS TIME
--- NOTE | 2016-09-08 00:05 | NUR ---
ROUNDS MADE, PT AWAKE, PT REPORTS NEEDING TO VOID, SHOE BOOTS PLACED ON, PT UP TO WC WITH ASSISTANCE, PT TO COMMODE, VOIDED BY SELF WITH NO DIFFICULTY, PT BACK TO BED, SHOE BOOTS REMOVED, PT POSITOINED SELF IN BED, SIDE RAILS X 2, CALL LIGHT IN REACH, BED IN LOW POSITION, BED ALARM ON AND WORKING PROPERLY, PT DENIES FURTHER NEEDS
--- NOTE | 2016-09-08 01:46 | NUR ---
PT DISPATCHER CHIEF OIL LIGHT, PT C/O LEG PAIN, ADM PAIN MED PO PER MD ORDERS, SEE EMAR, PT DENIES FURTHER NEEDS
--- NOTE | 2016-09-08 03:12 | NUR ---
PT DENTAL TECHNOLOGY ADVISOR LIGHT, SHOE BOOTS APPLIED, PT UP TO BR VIA WC, PT VOIDED BY SELF WITH NO DIFFICULTY, PT OFF COMMODE TO WC, PT BACK TO BED, SHOE BOOTS REMOVED, PT DENIES FURTHER NEEDS OR PAIN AT THIS TIME
--- NOTE | 2016-09-08 05:00 | NUR ---
PT RESTING WITH EYES CLOSED, RESP QUIET, NO DISTRESS NOTED, LEFT UNDISTURBED AT THIS TIME
[2016-09-08 06:23] LABS: BASOPHILS 0.8 % (0-2); EOSINOPHILS 3.4 % (0-7); HEMATOCRIT 31.9 % (36.0-48.0); IMMATURE GRANULOCYTES 0.3 % (0-5); LYMPHOCYTES 28.7 % (15-50); MCH 29.8 pg (26.0-34.0); MCHC 31.3 g/dL (31.0-37.0); MCV 94.9 fL (80.0-100.0); MEAN PLATELET VOLUME 9.7 fL (7.4-10.4); MONOCYTES 10.7 % (2-11); NEUTROPHILS 56.1 % (40-80); PLATELET COUNT 182 10x3/uL (130-400); RBC 3.36 10x6/uL (4.00-5.40); RDW 16.6 % (11.5-14.5); WBC 3.6 10x3/uL (4.8-10.8)
--- NOTE | 2016-09-08 06:28 | NUR ---
PT RESTING WITH EYES CLOSED, AROUSES TO SOFT VERBAL STIMULATION, FSBS OBTAINED, DRESSING CHANGE TO RIGHT LOWER LEG PER THIS RN AND OLGA, RN, APPLE JUICE SERVED FOR LOW BLOOD SUGAR, PT UP TO BR VIA WC, PT VOIDED BY SELF WITH NO DIFFICULTY, PT BACK TO BED, DENIES FURTHER NEEDS
[2016-09-08 06:54] LABS: CALC OSMOLALITY 279 mosm/kg (275-300); CALCIUM 8.2 mg/dL (8.5-10.1); CARBON DIOXIDE 27.7 mmol/L (21.0-32.0); CHLORIDE - SERUM 105 mmol/L (98-107); CREATININE - SERUM 0.7 mg/dL (0.6-1.3); SODIUM 142 mmol/L (136-145); UREA NITROGEN 9 mg/dL (7-18); eGFR NON AFRICAN AMERICAN 86 mL/min (90-120)
[2016-09-08 06:58] LABS: GLUCOSE 71 mg/dL (74-106)
--- NOTE | 2016-09-08 07:10 | NUR ---
SHIFT REPORT TO DAY SHIFT
[2016-09-08 08:00] VITALS: BP 105/77; BP 135/68
--- NOTE | 2016-09-08 08:00 | NUR ---
PATIENT ALERT/ORIENT. CALL LIGHT WITHIN REACH. VOICES NO NEEDS AT THIS TIME
--- NOTE | 2016-09-08 08:00 | NUR ---
EATING BREAKFAST.DENIES NEEDS
--- NOTE | 2016-09-08 10:31 | NUR ---
PATIENT IN REHAB ROOM, WORKING WITH PHYSICAL THERAPIST. DENIES ANY PAIN/DISC AT THIS TIME.
--- NOTE | 2016-09-08 11:55 | NUR ---
GLUCOSE LEVEL 89. NO SLIDING SCALE GIVEN.
--- NOTE | 2016-09-08 12:45 | NUR ---
PATIENT ATE 100% OF LUNCH.
--- NOTE | 2016-09-08 16:24 | NUR ---
SHOWER GIVEN WITH HELP FROM CAMPER ASSEMBLER. DRESSING TO RIGHT LOWER LEG CHANGED PER ORDER.
--- NOTE | 2016-09-08 16:52 | NUR ---
PATIENT ADMITTED TO REHAB FROM ACUTE FLOOR. HER PCP IS DR. REYNA AND SHE USES [facility]. HER DAUGHTER WILL ASSIT HER AT DISCHARGE, SHE HAS ALL DME NEEDED FOR HOME USE. TENATIVE DISCHARGE DATE IS 09/10/16. WILL CONTINUE TO FOLLOW WITH PATIENT UNTIL DISCHARGED
--- NOTE | 2016-09-08 17:00 | NUR ---
GLUCOSE LEVEL 106. NO SLDING SCALE INSULIN GIVEN
[2016-09-08 19:00] VITALS: BP 118/52
--- NOTE | 2016-09-08 20:05 | NUR ---
REST IN BED AND WATCH TV.
--- NOTE | 2016-09-09 00:41 | NUR ---
ASSISTED PT TO BATHROOM AND BACK TO BED.
--- NOTE | 2016-09-09 02:59 | NUR ---
ASSISTED PT TO BATHROOM AND BACK TO BED.
--- NOTE | 2016-09-09 03:24 | NUR ---
PT RESTING QUIETLY, PT NEEDS ASSIST WITH GETTING LEGS IN AND OUT OF BED.
--- NOTE | 2016-09-09 04:06 | NUR ---
REST QUIETLY IN BED, EYE CLOSE, BED LOW, CALL LIGHT WITHIN REACH.
[2016-09-09 08:44] VITALS: BP 130/69
--- NOTE | 2016-09-09 09:05 | NUR ---
PT AM MEDS ADMINISTERED. PT DENIES NEEDS. WCTM.
--- NOTE | 2016-09-09 17:06 | NUR ---
PT SITTING UP IN WC WAITING FOR DINNER. DENIES NEEDS. WCTM.
[2016-09-09 18:59] VITALS: BP 112/56
--- NOTE | 2016-09-09 19:30 | NUR ---
PT. IN BED WITH HOB UP FOR COMFORT AND HAS NO VOICED NEEDS AT THIS TIME. ASSESSMENT COMPLETED AND HER CALL LIGHT IS WITHIN REACH.
--- NOTE | 2016-09-09 23:15 | NUR ---
PT. IN BED WITH HOB UP FOR COMFORT WITH EYES CLOSED AND RESP. DEEP AND EVEN. CALL LIGHT WITHIN REACH. FOB ELEVATED TO HELP WITH EDEMA.
--- NOTE | 2016-09-10 03:12 | NUR ---
PT. IN BED WITH HOB UP FOR COMFORT WITH EYES CLOSED AND RESP. DEEP AND EVEN. CALL LIGHT WITHIN REACH.
[2016-09-10 08:05] VITALS: BP 152/74
[2016-09-10] MEDS ORDERED: NORCO 7.5/325 T1 TA1 PO (10:04)
--- NOTE | 2016-09-10 10:21 | NUR ---
PATIENT DISCHARGING HOME WITH FAMILY. [facility] WILL RESUME CARE OF PATIENT. NO NEW DME NEEDED AT THIS TIME, [facility] WILL SEE PATIENT AT HOME. DR. REYNA 09/24/16 @ 11:00. PATIENT CHOICE FORM FOR HOME HEALTH AND [employer] FORM SIGNED, EXPLAINED AND FILED IN CHART.ORDERS HAVE BEEN FAXED WITH CONFORMATION RECIEVED
--- NOTE | 2016-09-10 13:30 | NUR ---
PT LEFT VIA WC TO GO HOME WITH FAMILY. ALL PT MEDICATIONS CALLED IN TO [facility].
== END 2016-09-10 14:25 | disposition home health service (06) | DRG 871 ==
LOC: D.REHAB 15:21
PROVIDERS: ADMIT Emergency Medicine
DX: A41.9 Sepsis, unspecified organism (principal); I82.220 Acute embolism and thrombosis of inferior vena cava; L03.119 Cellulitis of unspecified part of limb; N17.9 Acute kidney failure, unspecified; Z68.41 Body mass index [BMI] 40.0-44.9, adult; R53.1 Weakness; Z91.81 History of falling; I48.91 Unspecified atrial fibrillation; G47.33 Obstructive sleep apnea (adult) (pediatric); I73.9 Peripheral vascular disease, unspecified; I11.0 Hypertensive heart disease with heart failure; I50.9 Heart failure, unspecified; Z86.718 Personal history of other venous thrombosis and embolism; E66.01 Morbid (severe) obesity due to excess calories; E87.5 Hyperkalemia; E11.65 Type 2 diabetes mellitus with hyperglycemia; Z99.81 Dependence on supplemental oxygen

== ENCOUNTER → 2016-10-16 14:55 | Outpatient (CLI) | payer MEDICARE ==
[2016-09-01 10:18] VITALS: BMI 47.4
== END | disposition home or self-care (01) ==
LOC: D.LABREF 14:55
PROVIDERS: Family Medicine
DX: E11.9 Type 2 diabetes mellitus without complications (principal)

== ENCOUNTER → 2016-10-27 17:04 | Outpatient (CLI) | payer MEDICARE ==
[2016-09-01 10:18] VITALS: BMI 47.4
== END | disposition home or self-care (01) ==
LOC: D.MAMMO 11:00
DX: Z12.31 Encounter for screening mammogram for malignant neoplasm of breast (principal)

== ENCOUNTER → 2016-11-19 16:37 | Outpatient (CLI) | payer MEDICARE ==
[2016-09-01 10:18] VITALS: BMI 47.4
== END | disposition home or self-care (01) ==
LOC: D.MAMMO 10:30
DX: R92.8 Other abnormal and inconclusive findings on diagnostic imaging of breast (principal)

== ENCOUNTER → 2016-12-16 20:01 | Outpatient (CLI) | payer MEDICARE ==
[2016-09-01 10:18] VITALS: BMI 47.4
[~2016-12-16 20:01] MED LIST changes: +BACTRIM DS TABL1 TAB PO; +FLORAJEN3 CAPS460 MG PO; +KEFLEX250 MG PO; +SILVADENE20 GM TOPICAL
[2016-12-16 20:44] LABS: APPEARANCE CLOUDY (CLEAR); BILIRUBIN NEGATIVE (NEGATIVE); COLOR YELLOW (YELLOW); GLUCOSE 50 mg/dL (NEGATIVE); KETONE NEGATIVE (NEGATIVE); NITRITE POSITIVE (NEGATIVE); PROTEIN TRACE mg/dL (NEGATIVE); UROBILINOGEN NORMAL (NORMAL)
[2016-12-16 20:54] LABS: BACTERIA MANY /hpf (NONE SEEN); EPITHELIAL CELLS 0-5 /hpf (0-5); HYALINE CAST OCC /lpf (NONE SEEN); MUCUS <1+ /lpf (NONE SEEN); RED CELLS - URINE 0-5 /hpf (0-5); WHITE CELLS - URINE >50 /hpf (0-5)
== END | disposition home or self-care (01) ==
LOC: D.LABREF 20:01
PROVIDERS: Family Medicine
DX: N39.0 Urinary tract infection, site not specified (principal); R30.0 Dysuria

== ENCOUNTER → 2017-01-05 14:11 | Outpatient (CLI) | payer MEDICARE ==
[2016-09-01 10:18] VITALS: BMI 47.4
[2017-01-05 14:28] LABS: BASOPHILS 0.2 % (0-2); EOSINOPHILS 0.6 % (0-7); HEMATOCRIT 43.3 % (36.0-48.0); HEMOGLOBIN 14.4 g/dL (12-16); IMMATURE GRANULOCYTES 0.2 % (0-5); LYMPHOCYTES 9.1 % (15-50); MCHC 33.3 g/dL (31.0-37.0); MCV 87.1 fL (80.0-100.0); MEAN PLATELET VOLUME 9.9 fL (7.4-10.4); MONOCYTES 7.8 % (2-11); NEUTROPHILS 82.1 % (40-80); RBC 4.97 10x6/uL (4.00-5.40); RDW 15.6 % (11.5-14.5); WBC 8.7 10x3/uL (4.8-10.8)
[2017-01-05 14:42] LABS: PLATELET COUNT 250 10x3/uL (130-400)
[2017-01-05 14:49] LABS: ALBUMIN 2.6 g/dL (3.4-5.0); ANION GAP 13.7 mmol/L (8-16); BILIRUBIN - TOTAL 1.1 mg/dL (0.2-1.3); CARBON DIOXIDE 27.1 mmol/L (21.0-32.0); CREATININE - SERUM 1.1 mg/dL (0.6-1.3); POTASSIUM - SERUM 5.8 mmol/L (3.5-5.1); PROTEIN - SERUM 9.3 g/dL (6.4-8.2); THYROID STIMULATING HORMONE 2.95 uIU/mL (0.36-3.74)
== END | disposition home or self-care (01) ==
LOC: D.LABREF 14:11
PROVIDERS: Family Medicine
DX: L65.9 Nonscarring hair loss, unspecified (principal)

== ENCOUNTER 2017-01-06 10:00 | Inpatient (IN) | payer MEDICARE ==
[~2017-01-06] VITALS: Ht 167.6 cm; Wt 136.1 kg
[~2017-01-06 10:00] MED LIST changes: -BACTRIM DS TABL1 TAB PO; -FLORAJEN3 CAPS460 MG PO; -KEFLEX250 MG PO; -SILVADENE20 GM TOPICAL
[2017-01-06 11:20] LABS: BASOPHILS 0.2 % (0-2); EOSINOPHILS 0.3 % (0-7); HEMATOCRIT 42.4 % (36.0-48.0); HEMOGLOBIN 14.2 g/dL (12-16); IMMATURE GRANULOCYTES 0.3 % (0-5); LYMPHOCYTES 7.8 % (15-50); MCHC 33.5 g/dL (31.0-37.0); MCV 86.7 fL (80.0-100.0); MEAN PLATELET VOLUME 9.6 fL (7.4-10.4); MONOCYTES 7.5 % (2-11); NEUTROPHILS 83.9 % (40-80); PLATELET COUNT 236 10x3/uL (130-400); RBC 4.89 10x6/uL (4.00-5.40); RDW 15.6 % (11.5-14.5); WBC 9.1 10x3/uL (4.8-10.8)
[2017-01-06 11:32] LABS: ALBUMIN 2.6 g/dL (3.4-5.0); BILIRUBIN - TOTAL 1.16 mg/dL (0.2-1.3); CALCIUM 10.3 mg/dL (8.5-10.1); CARBON DIOXIDE 24.9 mmol/L (21.0-32.0); CREATININE - SERUM 1.2 mg/dL (0.6-1.3); MAGNESIUM - SERUM 2.4 mg/dL (1.8-2.4); PROTEIN - SERUM 9.1 g/dL (6.4-8.2)
[2017-01-06 11:33] LABS: INR 1.51 (0.85-1.17); PROTIME 18.1 SECONDS (11.6-15.0)
[2017-01-06 11:34] LABS: ANION GAP 14.1 mmol/L (8-16)
[2017-01-06 12:35] LABS: APPEARANCE HAZY (CLEAR); BACTERIA FEW /hpf (NONE SEEN); BILIRUBIN NEGATIVE (NEGATIVE); COLOR YELLOW (YELLOW); EPITHELIAL CELLS 0-5 /hpf (0-5); GLUCOSE NEGATIVE (NEGATIVE); HYALINE CAST RARE /lpf (NONE SEEN); KETONE NEGATIVE (NEGATIVE); MUCUS <1+ /lpf (NONE SEEN); NITRITE NEGATIVE (NEGATIVE); PROTEIN NEGATIVE (NEGATIVE); UROBILINOGEN NORMAL (NORMAL); WHITE CELLS - URINE 0-5 /hpf (0-5)
--- NOTE | 2017-01-06 15:05 | NUR ---
PT TRANSFERRED TO ROOM BY ER STAFF, PT IS C/O FREEZING, TURNED UP HEAT IN ROOM, PT LEGS ARE WEEPING, BSC IN ROOM, NO OTHFR NEEDS AT THIS TIME
[2017-01-06 16:09] VITALS: BP 141/72; BMI 48.5
[2017-01-06] MEDS ORDERED: COLACE100 MG PO (16:18)
[2017-01-06 17:58] LABS: HEMOGLOBIN A1C 7.2 % (4.8-6.0)
[2017-01-06 20:00] VITALS: BP 111/63
--- NOTE | 2017-01-06 21:00 | NUR ---
RECEIVED CARE OF PT. PT LYING IN BED IN MID FOWLERS POSITION. CALL LIGHT AT SIDE. IV INFUSING PER ORDER. LEGS WRAPPED BY WOUND NURSE. REPORTS NO NEEDS AT THIS TIME.
[2017-01-07] VITALS: BP 110/66
[2017-01-07 04:00] VITALS: BP 110/62
--- NOTE | 2017-01-07 04:47 | NUR ---
ASSESSED, PT IS ASLEEP WITH O2 IN PLACE AND NO DISTRESS NOTED. RESPIRATIONS ARE EASY. THE BED IS LOW, RAILS UP X'S 2 WITH THE CALL LIGHTS AT HAND.
[2017-01-07 06:07] LABS: BASOPHILS 0.3 % (0-2); EOSINOPHILS 0.7 % (0-7); HEMATOCRIT 38.6 % (36.0-48.0); HEMOGLOBIN 12.5 g/dL (12-16); IMMATURE GRANULOCYTES 0.1 % (0-5); LYMPHOCYTES 12.5 % (15-50); MCH 28.2 pg (26.0-34.0); MCHC 32.4 g/dL (31.0-37.0); MCV 86.9 fL (80.0-100.0); MEAN PLATELET VOLUME 9.3 fL (7.4-10.4); MONOCYTES 11.8 % (2-11); NEUTROPHILS 74.6 % (40-80); PLATELET COUNT 207 10x3/uL (130-400); RBC 4.44 10x6/uL (4.00-5.40); RDW 15.6 % (11.5-14.5); WBC 6.9 10x3/uL (4.8-10.8)
[2017-01-07 06:49] LABS: ANION GAP 12.3 mmol/L (8-16); BILIRUBIN - TOTAL 0.75 mg/dL (0.2-1.3); CALCIUM 9.4 mg/dL (8.5-10.1); CARBON DIOXIDE 25.9 mmol/L (21.0-32.0); POTASSIUM - SERUM 5.2 mmol/L (3.5-5.1); PROTEIN - SERUM 7.4 g/dL (6.4-8.2)
[2017-01-07 08:11] VITALS: BP 126/64
--- NOTE | 2017-01-07 08:45 | NUR ---
LATE ENTRY: 01/06/17 1635 Arrived to MS unit with BLE dressings intact. Dressings were saturated with serous drainage. Removed dressings and noted right lower leg with open areas covering from ankles up to calf. Macerated skin, rough, edematous. Most tender area is lower calf. Left LE has an open area on calf that appears nearly healed. Cleansed with H20 (pt states SafClens stings) and patted dry. Covered Adaptic with silvadene cream and applied to both legs. Covered with 4x4s, ABD pads and secured with stockings. Wound care will continue following as needed.
--- NOTE | 2017-01-07 08:51 | NUR ---
PT SEEN AND ASSESSED. NO COMPLAINTS AT PRESENT. OXYGEN AT 2L PER NC. STATES WEARS ONLY AT VXOCJ-PRTUOIR-ITMAR ALARM ON AND ACTIVATED. BILAT LOWER LEGS WITH REDNESS-RIGHT OVER LEFT WORSE. DRESSINGS IN PLACE. CALL LIGHT IN REACH.
[2017-01-07 11:02] VITALS: Ht 167.6 cm; Wt 136.1 kg
[2017-01-07 13:48] VITALS: BP 141/84
[2017-01-07 16:03] VITALS: BP 124/74
[2017-01-07 17:47] LABS: ERYTHROCYTE SEDIMENTATION RATE 47 mm/hr (0-30)
[2017-01-07 20:00] VITALS: BP 123/62
[2017-01-08] VITALS: BP 104/56
--- NOTE | 2017-01-08 00:53 | NUR ---
PATIENT RESTING IN BED WITH EYES CLOSED AND NO VISIBLE SIGNS OF DISTRESS. BED IN THE LOWEST POSITION AND CALL LIGHT WITHIN REACH.
[2017-01-08 04:00] VITALS: BP 111/53
[2017-01-08 07:31] LABS: BASOPHILS 0.3 % (0-2); HEMATOCRIT 38.1 % (36.0-48.0); HEMOGLOBIN 12.6 g/dL (12-16); IMMATURE GRANULOCYTES 0.3 % (0-5); LYMPHOCYTES 9.9 % (15-50); MCH 28.8 pg (26.0-34.0); MCHC 33.1 g/dL (31.0-37.0); MEAN PLATELET VOLUME 9.1 fL (7.4-10.4); MONOCYTES 12.4 % (2-11); NEUTROPHILS 76.1 % (40-80); PLATELET COUNT 188 10x3/uL (130-400); RBC 4.38 10x6/uL (4.00-5.40); RDW 15.7 % (11.5-14.5); WBC 6.8 10x3/uL (4.8-10.8)
[2017-01-08 07:43] LABS: ALBUMIN 1.8 g/dL (3.4-5.0); ANION GAP 15.5 mmol/L (8-16); BILIRUBIN - TOTAL 0.78 mg/dL (0.2-1.3); CALCIUM 8.6 mg/dL (8.5-10.1); CARBON DIOXIDE 23.7 mmol/L (21.0-32.0); CREATININE - SERUM 0.9 mg/dL (0.6-1.3); PROTEIN - SERUM 7.1 g/dL (6.4-8.2)
[2017-01-08 07:44] LABS: POTASSIUM - SERUM 4.2 mmol/L (3.5-5.1)
[2017-01-08 08:24] VITALS: BP 126/69
[2017-01-08 12:46] VITALS: BP 119/56
[2017-01-08 15:49] VITALS: BP 104/54
--- NOTE | 2017-01-08 20:04 | NUR ---
PT REPORTS FEELING SOB AND REQUEST HER O2. BREATH SOUNDS CLEAR. SPO2 98%. POST O2 APPLICATION PT REPORTS EASING OF SYMPTOMS.
[2017-01-08 21:25] VITALS: BP 146/78
[2017-01-09 00:27] VITALS: BP 125/65
--- NOTE | 2017-01-09 01:18 | NUR ---
PATIENT RESTING IN BED WITH EYES CLOSED AND NO VISIBLE SIGNS OF DISTRESS. BED IN LOWEST POSITION AND CALL LIGHT WITHIN REACH.
[2017-01-09 05:53] VITALS: BP 125/73
[2017-01-09 06:12] LABS: BASOPHILS 0.4 % (0-2); EOSINOPHILS 2.5 % (0-7); HEMATOCRIT 35.6 % (36.0-48.0); HEMOGLOBIN 11.6 g/dL (12-16); IMMATURE GRANULOCYTES 0.2 % (0-5); LYMPHOCYTES 18.1 % (15-50); MCH 28.4 pg (26.0-34.0); MCHC 32.6 g/dL (31.0-37.0); MEAN PLATELET VOLUME 9.3 fL (7.4-10.4); MONOCYTES 11.1 % (2-11); NEUTROPHILS 67.7 % (40-80); PLATELET COUNT 178 10x3/uL (130-400); RBC 4.09 10x6/uL (4.00-5.40); RDW 15.8 % (11.5-14.5); WBC 5.2 10x3/uL (4.8-10.8)
[2017-01-09 06:39] LABS: ALBUMIN 1.8 g/dL (3.4-5.0); ANION GAP 11.9 mmol/L (8-16); BILIRUBIN - TOTAL 0.6 mg/dL (0.2-1.3); CALCIUM 8.1 mg/dL (8.5-10.1); CREATININE - SERUM 0.8 mg/dL (0.6-1.3); POTASSIUM - SERUM 3.9 mmol/L (3.5-5.1)
--- NOTE | 2017-01-09 07:30 | NUR ---
RECIEVED PT DURING WALKING ROUNDS. PT LAYING IN BED WITH COMPLAINTS OF PAIN OF A 7 ON A SCALE OF 1-10. PAIN MEDICATION TO BE GIVEN PER ORDER. ASSESSMENT DONE PER FLOWSHEET. BED IN LOW POSITION AND CALL LIGHT WITHIN REACH. WILL CONTINUE TO MONITOR.
[2017-01-09 07:44] VITALS: BP 111/61
[2017-01-09 12:25] VITALS: BP 129/70
[2017-01-09 16:09] VITALS: BP 114/67
--- NOTE | 2017-01-09 19:15 | NUR ---
RECEIVED CARE FROM DAY NURSE. PT ON RIGHT SIDE. EYES CLOSED. RESP EVEN AND UNLABORED. CALL LIGHT AT SIDE. IV INFUSING PER ORDER.
[2017-01-09 20:25] VITALS: BP 142/77
--- NOTE | 2017-01-10 00:05 | NUR ---
PATIENT IS AWAKE AND ALERT. RESPIRATIONS ARE EVEN AND UNLABORED, PATIENT IS RECIEVING OXYGEN VIA NASAL CANNULA AT 2L/MIN. PATIENT DENIES NEEDS AT THIS TIME. BED IN LOWEST POSITION, CALL LIGHT IN REACH. BED RIALS UP X'S 2.
[2017-01-10 00:40] VITALS: BP 142/80
[2017-01-10 05:07] VITALS: BP 109/59
[2017-01-10 06:44] LABS: BASOPHILS 0.4 % (0-2); EOSINOPHILS 3.4 % (0-7); HEMATOCRIT 36.8 % (36.0-48.0); HEMOGLOBIN 11.9 g/dL (12-16); IMMATURE GRANULOCYTES 0.6 % (0-5); LYMPHOCYTES 18.1 % (15-50); MCH 28.5 pg (26.0-34.0); MCHC 32.3 g/dL (31.0-37.0); MEAN PLATELET VOLUME 9.1 fL (7.4-10.4); MONOCYTES 11.2 % (2-11); NEUTROPHILS 66.3 % (40-80); PLATELET COUNT 190 10x3/uL (130-400); RBC 4.18 10x6/uL (4.00-5.40); RDW 15.8 % (11.5-14.5); WBC 5.1 10x3/uL (4.8-10.8)
[2017-01-10 06:57] LABS: ALBUMIN 1.8 g/dL (3.4-5.0); ALKALINE PHOSPHATASE 118 U/L (46-116); ALT (SGPT) 22 U/L (10-68); CALC OSMOLALITY 277 mosm/kg (275-300); CALCIUM 8.1 mg/dL (8.5-10.1); CARBON DIOXIDE 23.1 mmol/L (21.0-32.0); CHLORIDE - SERUM 107 mmol/L (98-107); CREATININE - SERUM 0.6 mg/dL (0.6-1.3); GLUCOSE 115 mg/dL (74-106); POTASSIUM - SERUM 4.2 mmol/L (3.5-5.1); PROTEIN - SERUM 6.3 g/dL (6.4-8.2); SODIUM 139 mmol/L (136-145); UREA NITROGEN 10 mg/dL (7-18); eGFR NON AFRICAN AMERICAN > 90 mL/min (90-120)
[2017-01-10 08:22] VITALS: BP 132/70
--- NOTE | 2017-01-10 10:08 | NUR ---
Rehab Note- Acute Rehab Prescreen order received. The patient has refused Physical therapy at times and has been noted per PT that the patient is likely at her PLOF at this time. Will have to be willing to participate in the required 3hrs of therapy per day for an acute rehab stay. Will follow at this time. Thank you for this referral! Yadira Ball RN Clinical Liaison, [facility] Rehab
[2017-01-10 13:02] VITALS: BP 132/64
--- NOTE | 2017-01-10 15:30 | NUR ---
NUTRITION F/U CHART REVIEWED, PT VISIT. TOLERATING ADA DIET WITH 75% INTAKE RECENT MEALS. WILL CONTINUE TO PROVIDE DIET, MONITOR PO INTAKE. RD FOLLOWING
[2017-01-10 16:21] VITALS: BP 131/70
[2017-01-10 20:21] VITALS: BP 134/66
--- NOTE | 2017-01-10 21:51 | NUR ---
BS 168. PT REFUSED HUMALOG AT THIS TIME STATED "I JUST ATE A SNACK SO I DO NOT NEED THE INSULIN." PRN MORPHINE ADMINISTERED AT THIS TIME FOR PAIN 09/06. CALL LIGHT IN REACH, WILL CONTINUE WITH PLAN OF CARE.
--- NOTE | 2017-01-11 02:00 | NUR ---
PRN MORPHINE ADMINISTERED AT THIS TIME FOR PAIN
[2017-01-11 03:50] VITALS: BP 187/94
[2017-01-11 05:39] LABS: BASOPHILS 0.5 % (0-2); EOSINOPHILS 4.1 % (0-7); HEMATOCRIT 35.3 % (36.0-48.0); HEMOGLOBIN 11.3 g/dL (12-16); IMMATURE GRANULOCYTES 0.5 % (0-5); LYMPHOCYTES 23.1 % (15-50); MCH 28.1 pg (26.0-34.0); MCV 87.8 fL (80.0-100.0); MEAN PLATELET VOLUME 9.1 fL (7.4-10.4); MONOCYTES 11.2 % (2-11); NEUTROPHILS 60.6 % (40-80); PLATELET COUNT 190 10x3/uL (130-400); RBC 4.02 10x6/uL (4.00-5.40); RDW 15.8 % (11.5-14.5); WBC 4.1 10x3/uL (4.8-10.8)
[2017-01-11 06:21] LABS: ALBUMIN 1.7 g/dL (3.4-5.0); ALKALINE PHOSPHATASE 100 U/L (46-116); ALT (SGPT) 22 U/L (10-68); BILIRUBIN - TOTAL 0.42 mg/dL (0.2-1.3); CALC OSMOLALITY 277 mosm/kg (275-300); CARBON DIOXIDE 24.1 mmol/L (21.0-32.0); CHLORIDE - SERUM 108 mmol/L (98-107); CREATININE - SERUM 0.7 mg/dL (0.6-1.3); GLUCOSE 92 mg/dL (74-106); POTASSIUM - SERUM 3.6 mmol/L (3.5-5.1); PROTEIN - SERUM 6.5 g/dL (6.4-8.2); SODIUM 140 mmol/L (136-145); UREA NITROGEN 9 mg/dL (7-18); eGFR NON AFRICAN AMERICAN 86 mL/min (90-120)
--- NOTE | 2017-01-11 06:26 | NUR ---
BS 94, NO COVERAGE NEEDED AT THIS TIME.
[2017-01-11 07:57] VITALS: BP 118/71
--- NOTE | 2017-01-11 10:03 | NUR ---
OT NOTE: PT PERFORMED VERY WELL TODAY. SHE REPORTS FEELING BETTER BUT CONT TO REPORT PAIN OF 6/10 IN R LE. PRACTICED BED MOB WITH CGA FOR SIT TO SUPINE, BUT INDEP WITH SUPINE TO SIT; ABLE TO PERFORM UE BATHING WITH SET UP; INDEP WITH FEEDING ; ABLE TO TOLERATE EDGE OF BED SITTING INDEP X 15 MIN WITHOUT UE SUPPORT. UE AND LE EXS TO IMPROVE STRENGTH AND FUNCTIONAL ENDURANCE. WILL CONT WITH CURRENT TMT PLAN. ABHILASH YBARRA, OTR/L
[2017-01-11 11:34] VITALS: BP 136/68
--- NOTE | 2017-01-11 12:43 | NUR ---
Rehab Note- Spoke with the patient about [facility] Acute Rehab, the patient has been here in the past. States she really just wants to go home but will speak with her daughter about possibly rehab. Continue to follow at this time. Yadira Ball RN Clinical Liaison, [facility] Rehab
[2017-01-11 15:55] VITALS: BP 105/60
--- NOTE | 2017-01-11 18:00 | NUR ---
PATIENT'S DRESSING TO HER RIGHT LEG IS SATURATED WITH DRAINAGE FROM WOUND. REMOVED THE ABD PADS, AND APPLIED 2 MORE ABD PADS. APPLIED A NEW STOCKING OVER THE ABD PADS TO KEEP THEM IN PLACE. CHANGED CHUCKS UNDER RIGHT LEG. PATIENT IS AWAKE, ALERT AND ORIENTED X'S 4. RESPIRATIONS ARE EVEN AND UNLABORED ON 2L/MIN OF OXYGEN VIA NASAL CANNULA. PATIENT DENIES NEEDS AT THIS TIME. HOB 45 DEGREES.
--- NOTE | 2017-01-11 19:26 | NUR ---
PT IS SITTING IN BED WATCHING TV, PT STATED LEGS ARE STILL HURTING PAIN MED NOT DUE UNTIL 2029, BED IS IN LOW POSITION, CALL LIGHT IN REACH. PTRT LEG DRESSING FOR NOW IS C,D I. WILL CONTINUE WITH CARE PLAN
[2017-01-11 20:00] VITALS: BP 139/71
[2017-01-12] VITALS: BP 129/66
[2017-01-12 04:00] VITALS: BP 126/70
--- NOTE | 2017-01-12 04:06 | NUR ---
PT. IN BED WITH HOB UP FOR COMFORT WITH EYES CLOSED AND RESP. EVEN. CALL LIGHT WITHIN REACH.
[2017-01-12 06:03] LABS: BASOPHILS 0.8 % (0-2); EOSINOPHILS 5.4 % (0-7); HEMATOCRIT 36.3 % (36.0-48.0); HEMOGLOBIN 11.5 g/dL (12-16); IMMATURE GRANULOCYTES 0.6 % (0-5); LYMPHOCYTES 24.3 % (15-50); MCH 27.9 pg (26.0-34.0); MCHC 31.7 g/dL (31.0-37.0); MCV 88.1 fL (80.0-100.0); MEAN PLATELET VOLUME 9.5 fL (7.4-10.4); MONOCYTES 10.7 % (2-11); NEUTROPHILS 58.2 % (40-80); PLATELET COUNT 181 10x3/uL (130-400); RBC 4.12 10x6/uL (4.00-5.40); WBC 3.5 10x3/uL (4.8-10.8)
[2017-01-12 06:19] LABS: ALBUMIN 1.7 g/dL (3.4-5.0); ALKALINE PHOSPHATASE 97 U/L (46-116); ALT (SGPT) 25 U/L (10-68); CALC OSMOLALITY 276 mosm/kg (275-300); CALCIUM 8.4 mg/dL (8.5-10.1); CHLORIDE - SERUM 108 mmol/L (98-107); CREATININE - SERUM 0.7 mg/dL (0.6-1.3); GLUCOSE 99 mg/dL (74-106); POTASSIUM - SERUM 3.5 mmol/L (3.5-5.1); PROTEIN - SERUM 6.4 g/dL (6.4-8.2); SODIUM 139 mmol/L (136-145); UREA NITROGEN 10 mg/dL (7-18); eGFR NON AFRICAN AMERICAN 86 mL/min (90-120)
[2017-01-12 09:32] VITALS: BP 126/75
--- NOTE | 2017-01-12 09:48 | NUR ---
PT SEEN. NO COMPLAINTS OF PAIN THIS AM. HOPING FOR DISCHARGE. LEFT LEG NO EDEMA OR CELLULITIS NOTED-RIGHT LOWER LEG NOTED WITH DRESSING IN PLACE AND 3+EDEMA NOTED FROM BELOW DRESSING TO TOES. FOOT WARM AND PINK. CALL LIGHT IN PLACE
[2017-01-12] MEDS ORDERED: SILVADENE20 GM TOPICAL (10:07)
[2017-01-12] MEDS ORDERED: BACTRIM DS TABL1 TAB PO (10:13)
[2017-01-12] MEDS ORDERED: FLORAJEN3 CAPS460 MG PO (10:13)
[2017-01-12 13:03] VITALS: BP 140/59
--- NOTE | 2017-01-12 13:43 | NUR ---
Patient Name: SOFIA PEREZ Admission Status: ER Accout number: [id number] Admission Date: 01-06-2017 : 1940 Admission Diagnosis:CELLULITIS OF RIGHT LOWER LIMB Attending: POLLY HERNANDEZ Current LOS: 6 Anticipated DC Date: 01-12-2017 Planned Disposition: Home with Home Health Primary Insurance: MEDICARE A & B Discharge Planning Comments: CM MET WITH PATIENT REGARDING D/C NEEDS AND PLANS. PATIENT IS BEING DISCHARGED TODAY AND WAS ACCEPTED TO IP REHAB. PATIENT DENIED IP REHAB AND STATED SHE IS USED TO BEING HOME AND HAS A WHEELCHAIR TO TRANSFER INTO. PATIENTS DAUGHTER HELPS HER AT TIMES SHE STATED. PATIENT HAS A WHEELCHAIR, WALKER, SHOWER CHAIR, BSC, OXYGEN AT HS, PORTABLE O2, AND GLUCOMETER. PATIENTS DAUGHTER WILL DRIVE HER HOME TODAY. PATIENT IS CURRENT WITH [facility]. CM WILL CONTINUE TO FOLLOW PATIENT WITH D/C NEEDS AND PLANS. PCP DR[facility] [address] [phone] BRYON (DAUGHTER) [phone] [employer]ueling Craftsman: Caitlin Mead Is the patient Alert and Oriented? Yes 0 * How many steps to enter\exit or inside your home? RAMP 0 * PCP DR. REYNA 0 * [facility] [address] 0 * Preadmission Environment Home with Family 0 * ADLs Independent 0 * Equipment Bedside Commode Glucometer Oxygen Shower Chair Walker Wheelchair 0 * Other Equipment PORTABLE O2 0 * List name and contact numbers for known caregivers / representatives who currently or will assist patient after discharge: BRYON (DAUGHTER) [phone] 0 * Community resources currently utilized Home Health 0 * Please name any agencies selected above. [facility] 0 * Additional services required to return to the preadmission environment? Yes 0 * Can the patient safely return to the preadmission environment? Yes 0 * Has this patient been hospitalized within the prior 30 days at any hospital? No 0 Grand Total: 0
--- NOTE | 2017-01-12 16:17 | NUR ---
L UPPER ARM MIDLINE DC'D WITH TIP INTACT. APPROXIMATELY 13CM. PRESSURE APPLIED FOR 5 MINUTES. SECURED WITH 4X4'S AND METAPORE TAP. SITTING UP IN CHAIR AT BEDSIDE AWAITING DAUGHTER TO ARRIVE. CALL LIGHT IN REACH.
[2017-01-12] MEDS ORDERED: KEFLEX250 MG PO (17:09)
--- NOTE | 2017-01-12 17:16 | NUR ---
DRESSING TO RLE CHANGED. SILVADENE CREAM, ADAPTIC, ABD PADS, KERLIX, AND STOCKING APPLIED. DISCHARGE INSTRUCTIONS DISCUSSED AT THIS TIME. NO QUESTIONS OR CONCERNS VOICED. SPOKE WITH BLAKE SERRANO, ABOUT CHANGING ABX. SHE DID AND CALLED IT IN. DAUGHTER AT BEDSIDE. ESCORTED OUT VIA WC.
== END 2017-01-12 17:38 | disposition home health service (06) | DRG 603 ==
LOC: D.ER 10:00 → D.MS 13:44
PROVIDERS: Emergency Medicine; Nurse Practitioner Family; Orthopaedic Surgery; ADMIT Emergency Medicine
PROC: 05HC33Z Insertion of Infusion Device into Left Basilic Vein, Percutaneous Approach (ICD-10-PCS; principal; 2017-01-06)
PROC: B54NZZA Ultrasonography of Left Upper Extremity Veins, Guidance (ICD-10-PCS; 2017-01-06)
DX: L03.115 Cellulitis of right lower limb (principal); E87.1 Hypo-osmolality and hyponatremia; N17.9 Acute kidney failure, unspecified; Z68.42 Body mass index [BMI] 45.0-49.9, adult; E87.5 Hyperkalemia; R53.1 Weakness; E66.01 Morbid (severe) obesity due to excess calories; E11.65 Type 2 diabetes mellitus with hyperglycemia; E11.40 Type 2 diabetes mellitus with diabetic neuropathy, unspecified; I25.10 Atherosclerotic heart disease of native coronary artery without angina pectoris; G47.33 Obstructive sleep apnea (adult) (pediatric); I73.9 Peripheral vascular disease, unspecified; I11.0 Hypertensive heart disease with heart failure; I50.9 Heart failure, unspecified; I48.2 Chronic atrial fibrillation; Z86.718 Personal history of other venous thrombosis and embolism; I87.2 Venous insufficiency (chronic) (peripheral)

== ENCOUNTER → 2017-03-08 15:13 | Outpatient (CLI) | payer MEDICARE ==
[2017-01-07 11:02] VITALS: BMI 48.4
[~2017-03-08 15:13] MED LIST changes: +BACTRIM DS TABL1 TAB PO; +FLORAJEN3 CAPS460 MG PO; +KEFLEX250 MG PO; +SILVADENE20 GM TOPICAL
[2017-03-08 15:42] LABS: ALBUMIN 2.5 g/dL (3.4-5.0); ANION GAP 13.9 mmol/L (8-16); BILIRUBIN - TOTAL 0.8 mg/dL (0.2-1.3); CALCIUM 9.2 mg/dL (8.5-10.1); CARBON DIOXIDE 24.5 mmol/L (21.0-32.0); POTASSIUM - SERUM 5.4 mmol/L (3.5-5.1); PROTEIN - SERUM 7.7 g/dL (6.4-8.2)
[2017-03-08 16:03] LABS: APPEARANCE CLEAR (CLEAR); BILIRUBIN NEGATIVE (NEGATIVE); COLOR YELLOW (YELLOW); GLUCOSE NEGATIVE (NEGATIVE); KETONE NEGATIVE (NEGATIVE); NITRITE NEGATIVE (NEGATIVE); PROTEIN NEGATIVE (NEGATIVE); SPECIFIC GRAVITY 1.025 (1.005-1.020); UROBILINOGEN NORMAL (NORMAL)
[2017-03-08 16:05] LABS: BACTERIA MANY /hpf (NONE SEEN); EPITHELIAL CELLS 0-5 /hpf (0-5); RED CELLS - URINE 0-5 /hpf (0-5); WHITE CELLS - URINE >50 /hpf (0-5)
== END | disposition home or self-care (01) ==
LOC: D.LABREF 15:13
PROVIDERS: Family Medicine
DX: R68.89 Other general symptoms and signs (principal)

== ENCOUNTER → 2017-03-22 11:33 | Outpatient (CLI) | payer MEDICARE ==
[2017-01-07 11:02] VITALS: BMI 48.4
[2017-03-22 14:19] LABS: APPEARANCE CLEAR (CLEAR); BILIRUBIN NEGATIVE (NEGATIVE); COLOR YELLOW (YELLOW); GLUCOSE NEGATIVE (NEGATIVE); KETONE NEGATIVE (NEGATIVE); NITRITE NEGATIVE (NEGATIVE); PROTEIN NEGATIVE (NEGATIVE); UROBILINOGEN NORMAL (NORMAL)
[2017-03-22 14:22] LABS: BACTERIA MODERATE /hpf (NONE SEEN); EPITHELIAL CELLS 0-5 /hpf (0-5); MUCUS <1+ /lpf (NONE SEEN); RED CELLS - URINE OCC /hpf (0-5); WHITE CELLS - URINE 0-5 /hpf (0-5)
[2017-03-28 17:11] LABS: AEROBE ID Final report (()); RESULT 1 Enterococcus faecium (())
== END | disposition home or self-care (01) ==
LOC: D.LABREF 11:33
PROVIDERS: Family Medicine
DX: N39.0 Urinary tract infection, site not specified (principal)

== ENCOUNTER → 2017-05-12 13:36 | Outpatient (CLI) | payer MEDICARE ==
[2017-01-07 11:02] VITALS: BMI 48.4
[~2017-05-12 13:36] MED LIST changes: +IPRAT-ALBUT 0.5-3 ML UPD; +LIPITOR40 MG PO; +MERREM 1 GM/NS 11 G1 IVPB; +PENICILLIN V P250 MG PO; +SODIUM BICARBO650 MG PO; +VANCOMYCIN 750750 MG IV
[2017-05-12 15:50] LABS: APPEARANCE CLEAR (CLEAR); BILIRUBIN NEGATIVE (NEGATIVE); COLOR YELLOW (YELLOW); GLUCOSE NEGATIVE (NEGATIVE); KETONE NEGATIVE (NEGATIVE); NITRITE NEGATIVE (NEGATIVE); PROTEIN NEGATIVE (NEGATIVE); SPECIFIC GRAVITY 1.015 (1.005-1.020); UROBILINOGEN NORMAL (NORMAL)
[2017-05-12 15:51] LABS: RED CELLS - URINE 0-5 /hpf (0-5); WHITE CELLS - URINE 25-50 /hpf (0-5)
[2017-05-12 15:52] LABS: BACTERIA MANY /hpf (NONE SEEN)
[2017-05-12 15:55] LABS: ANION GAP 12.4 mmol/L (8-16); CALCIUM 8.7 mg/dL (8.5-10.1); CARBON DIOXIDE 27.2 mmol/L (21.0-32.0); POTASSIUM - SERUM 3.6 mmol/L (3.5-5.1)
== END | disposition home or self-care (01) ==
LOC: D.LABREF 13:36
PROVIDERS: Orthopaedic Surgery
DX: N39.0 Urinary tract infection, site not specified (principal); R74.8 Abnormal levels of other serum enzymes

== ENCOUNTER → 2017-06-15 18:30 | Outpatient (CLI) | payer MEDICARE ==
[2017-01-07 11:02] VITALS: BMI 48.4
[~2017-06-15 18:30] MED LIST changes: +FLOMAX0.4 MG PO; +HYDROCODON-ACE1 EAC7 PO; +MAG-OXIDE400 MG PO
== END | disposition home or self-care (01) ==
LOC: D.LABREF 18:30
DX: N39.0 Urinary tract infection, site not specified (principal); R31.9 Hematuria, unspecified

== ENCOUNTER 2017-07-08 16:37 | Inpatient (IN) | payer MEDICARE ==
[~2017-07-08] VITALS: Ht 167.6 cm; Wt 122.5 kg
[~2017-07-08 16:37] MED LIST changes: -FLOMAX0.4 MG PO; -HYDROCODON-ACE1 EAC7 PO; -IPRAT-ALBUT 0.5-3 ML UPD; -LIPITOR40 MG PO; -MAG-OXIDE400 MG PO; -MERREM 1 GM/NS 11 G1 IVPB; -PENICILLIN V P250 MG PO; -SODIUM BICARBO650 MG PO; -VANCOMYCIN 750750 MG IV
[2017-07-08 17:45] LABS: BASOPHILS 0.1 % (0-2); EOSINOPHILS 0.1 % (0-7); HEMATOCRIT 37.1 % (36.0-48.0); HEMOGLOBIN 12.2 g/dL (12-16); IMMATURE GRANULOCYTES 0.3 % (0-5); LYMPHOCYTES 2.6 % (15-50); MCH 29.7 pg (26.0-34.0); MCHC 32.9 g/dL (31.0-37.0); MCV 90.3 fL (80.0-100.0); MEAN PLATELET VOLUME 9.5 fL (7.4-10.4); MONOCYTES 5.3 % (2-11); NEUTROPHILS 91.6 % (40-80); PLATELET COUNT 176 10x3/uL (130-400); RBC 4.11 10x6/uL (4.00-5.40); RDW 15.4 % (11.5-14.5); WBC 13.5 10x3/uL (4.8-10.8)
[2017-07-08 18:12] LABS: ALBUMIN 2.1 g/dL (3.4-5.0); ANION GAP 12.6 mmol/L (8-16); BILIRUBIN - TOTAL 1.25 mg/dL (0.2-1.3); CALCIUM 9.2 mg/dL (8.5-10.1); CARBON DIOXIDE 23.7 mmol/L (21.0-32.0); CREATININE - SERUM 1.6 mg/dL (0.6-1.3); POTASSIUM - SERUM 5.3 mmol/L (3.5-5.1); PROTEIN - SERUM 7.1 g/dL (6.4-8.2)
[2017-07-08 18:52] LABS: APPEARANCE CLEAR (CLEAR); BILIRUBIN NEGATIVE (NEGATIVE); COLOR DK YELLOW (YELLOW); EPITHELIAL CELLS 0-5 /hpf (0-5); GLUCOSE NEGATIVE (NEGATIVE); KETONE NEGATIVE (NEGATIVE); NITRITE POSITIVE (NEGATIVE); PROTEIN NEGATIVE (NEGATIVE); RED CELLS - URINE 0-5 /hpf (0-5); SPECIFIC GRAVITY 1.015 (1.005-1.020); UROBILINOGEN NORMAL (NORMAL)
[2017-07-08 18:53] LABS: BACTERIA MANY /hpf (NONE SEEN)
[2017-07-09 02:30] VITALS: BP 98/37; BMI 43.6
[2017-07-09] MEDS ORDERED: LIPITOR40 MG PO (03:14)
[2017-07-09] MEDS ORDERED: PENICILLIN V P250 MG PO (03:17)
[2017-07-09] MEDS ORDERED: SODIUM BICARBO650 MG PO (03:20)
[2017-07-09 04:01] VITALS: BP 92/38
[2017-07-09 07:11] LABS: BASOPHILS 0.1 % (0-2); EOSINOPHILS 0.2 % (0-7); HEMATOCRIT 34.5 % (36.0-48.0); HEMOGLOBIN 11.2 g/dL (12-16); IMMATURE GRANULOCYTES 0.3 % (0-5); LYMPHOCYTES 4.3 % (15-50); MCH 28.9 pg (26.0-34.0); MCHC 32.5 g/dL (31.0-37.0); MCV 88.9 fL (80.0-100.0); MEAN PLATELET VOLUME 9.3 fL (7.4-10.4); MONOCYTES 6.7 % (2-11); NEUTROPHILS 88.4 % (40-80); PLATELET COUNT 155 10x3/uL (130-400); RBC 3.88 10x6/uL (4.00-5.40); RDW 15.6 % (11.5-14.5); WBC 10.2 10x3/uL (4.8-10.8)
[2017-07-09 07:22] LABS: ANION GAP 13.1 mmol/L (8-16); CALCIUM 7.8 mg/dL (8.5-10.1); CARBON DIOXIDE 21.8 mmol/L (21.0-32.0); CREATININE - SERUM 1.3 mg/dL (0.6-1.3); MAGNESIUM - SERUM 2.1 mg/dL (1.8-2.4); POTASSIUM - SERUM 4.9 mmol/L (3.5-5.1)
[2017-07-09 08:31] VITALS: BP 98/40
[2017-07-09 10:34] VITALS: BMI 43.5
[2017-07-09 12:02] VITALS: Ht 167.6 cm; Wt 122.5 kg
[2017-07-09 12:32] VITALS: BP 104/54
[2017-07-09 16:13] VITALS: BP 109/59
[2017-07-09 22:35] VITALS: BP 115/49
[2017-07-10 05:26] LABS: BASOPHILS 0.2 % (0-2); EOSINOPHILS 2.8 % (0-7); HEMATOCRIT 32.7 % (36.0-48.0); HEMOGLOBIN 10.4 g/dL (12-16); IMMATURE GRANULOCYTES 0.2 % (0-5); LYMPHOCYTES 9.7 % (15-50); MCH 28.5 pg (26.0-34.0); MCHC 31.8 g/dL (31.0-37.0); MCV 89.6 fL (80.0-100.0); MEAN PLATELET VOLUME 9.5 fL (7.4-10.4); MONOCYTES 8.4 % (2-11); NEUTROPHILS 78.7 % (40-80); PLATELET COUNT 154 10x3/uL (130-400); RBC 3.65 10x6/uL (4.00-5.40); RDW 15.5 % (11.5-14.5)
[2017-07-10 05:30] LABS: WBC 5.5 10x3/uL (4.8-10.8)
[2017-07-10 05:55] LABS: ALBUMIN 1.7 g/dL (3.4-5.0); ANION GAP 12.9 mmol/L (8-16); BILIRUBIN - TOTAL 0.5 mg/dL (0.2-1.3); CALCIUM 8.3 mg/dL (8.5-10.1); CARBON DIOXIDE 22.4 mmol/L (21.0-32.0); CREATININE - SERUM 1.2 mg/dL (0.6-1.3); POTASSIUM - SERUM 4.3 mmol/L (3.5-5.1); PROTEIN - SERUM 6.1 g/dL (6.4-8.2)
[2017-07-10 07:10] VITALS: BP 89/40
[2017-07-10 08:02] VITALS: BP 121/59
[2017-07-10 12:14] VITALS: BP 105/54
[2017-07-10 15:42] VITALS: BP 104/44
[2017-07-10 20:43] VITALS: BP 110/57
[2017-07-11 00:10] VITALS: BP 115/54
[2017-07-11 05:12] VITALS: BP 122/70
[2017-07-11 06:04] LABS: BASOPHILS 0.4 % (0-2); EOSINOPHILS 3.8 % (0-7); HEMATOCRIT 32.3 % (36.0-48.0); HEMOGLOBIN 10.4 g/dL (12-16); IMMATURE GRANULOCYTES 0.2 % (0-5); LYMPHOCYTES 10.7 % (15-50); MCH 29.1 pg (26.0-34.0); MCHC 32.2 g/dL (31.0-37.0); MCV 90.5 fL (80.0-100.0); MEAN PLATELET VOLUME 9.5 fL (7.4-10.4); MONOCYTES 8.7 % (2-11); NEUTROPHILS 76.2 % (40-80); PLATELET COUNT 156 10x3/uL (130-400); RBC 3.57 10x6/uL (4.00-5.40); RDW 15.7 % (11.5-14.5); WBC 4.5 10x3/uL (4.8-10.8)
[2017-07-11 06:21] LABS: ALBUMIN 1.7 g/dL (3.4-5.0); ANION GAP 12.9 mmol/L (8-16); BILIRUBIN - TOTAL 0.46 mg/dL (0.2-1.3); CALCIUM 8.3 mg/dL (8.5-10.1); CARBON DIOXIDE 22.1 mmol/L (21.0-32.0); CREATININE - SERUM 0.8 mg/dL (0.6-1.3); PROTEIN - SERUM 6.1 g/dL (6.4-8.2)
[2017-07-11 09:49] VITALS: BP 105/47
[2017-07-11 14:56] VITALS: BP 111/53
[2017-07-11 17:32] VITALS: BP 119/58
[2017-07-11 20:38] VITALS: BP 116/60
[2017-07-12 04:06] VITALS: BP 126/78
[2017-07-12 06:06] LABS: BASOPHILS 0.8 % (0-2); EOSINOPHILS 5.2 % (0-7); HEMATOCRIT 32.5 % (36.0-48.0); HEMOGLOBIN 10.2 g/dL (12-16); IMMATURE GRANULOCYTES 0.2 % (0-5); MCH 28.5 pg (26.0-34.0); MCHC 31.4 g/dL (31.0-37.0); MCV 90.8 fL (80.0-100.0); MEAN PLATELET VOLUME 9.1 fL (7.4-10.4); NEUTROPHILS 73.8 % (40-80); PLATELET COUNT 157 10x3/uL (130-400); RBC 3.58 10x6/uL (4.00-5.40); RDW 15.6 % (11.5-14.5)
[2017-07-12 06:44] LABS: ALBUMIN 1.6 g/dL (3.4-5.0); ANION GAP 10.1 mmol/L (8-16); BILIRUBIN - TOTAL 0.5 mg/dL (0.2-1.3); CALCIUM 8.3 mg/dL (8.5-10.1); CARBON DIOXIDE 23.1 mmol/L (21.0-32.0); POTASSIUM - SERUM 4.2 mmol/L (3.5-5.1); PROTEIN - SERUM 5.9 g/dL (6.4-8.2)
[2017-07-12 09:02] VITALS: BP 107/62
[2017-07-12 13:15] VITALS: BP 143/82
[2017-07-12 17:08] VITALS: BP 125/69
[2017-07-12 22:24] VITALS: BP 131/66
[2017-07-13 06:01] VITALS: BP 123/69
[2017-07-13 07:12] LABS: ALBUMIN 1.7 g/dL (3.4-5.0); ANION GAP 12.9 mmol/L (8-16); BILIRUBIN - TOTAL 0.4 mg/dL (0.2-1.3); CALCIUM 8.7 mg/dL (8.5-10.1); CARBON DIOXIDE 21.4 mmol/L (21.0-32.0); CREATININE - SERUM 0.8 mg/dL (0.6-1.3); POTASSIUM - SERUM 4.3 mmol/L (3.5-5.1); PROTEIN - SERUM 6.1 g/dL (6.4-8.2)
[2017-07-13 07:27] LABS: BASOPHILS 0.6 % (0-2); EOSINOPHILS 4.4 % (0-7); HEMATOCRIT 33.1 % (36.0-48.0); HEMOGLOBIN 10.3 g/dL (12-16); IMMATURE GRANULOCYTES 0.2 % (0-5); LYMPHOCYTES 9.8 % (15-50); MCH 28.8 pg (26.0-34.0); MCHC 31.1 g/dL (31.0-37.0); MCV 92.5 fL (80.0-100.0); MEAN PLATELET VOLUME 9.4 fL (7.4-10.4); MONOCYTES 9.6 % (2-11); NEUTROPHILS 75.4 % (40-80); PLATELET COUNT 171 10x3/uL (130-400); RBC 3.58 10x6/uL (4.00-5.40); RDW 15.8 % (11.5-14.5); WBC 5.4 10x3/uL (4.8-10.8)
[2017-07-13 08:24] VITALS: BP 125/68
[2017-07-13 12:02] VITALS: BP 127/62
[2017-07-13 16:29] VITALS: BP 96/60
[2017-07-13 21:54] VITALS: BP 116/65
[2017-07-14 02:37] VITALS: BP 110/58
[2017-07-14 05:01] VITALS: BP 106/61
[2017-07-14 06:34] LABS: BASOPHILS 0.4 % (0-2); EOSINOPHILS 5.3 % (0-7); HEMATOCRIT 32.7 % (36.0-48.0); HEMOGLOBIN 10.3 g/dL (12-16); IMMATURE GRANULOCYTES 0.4 % (0-5); LYMPHOCYTES 11.3 % (15-50); MCH 28.9 pg (26.0-34.0); MCHC 31.5 g/dL (31.0-37.0); MCV 91.6 fL (80.0-100.0); MEAN PLATELET VOLUME 9.2 fL (7.4-10.4); MONOCYTES 8.2 % (2-11); NEUTROPHILS 74.4 % (40-80); PLATELET COUNT 174 10x3/uL (130-400); RBC 3.57 10x6/uL (4.00-5.40); RDW 15.9 % (11.5-14.5); WBC 4.9 10x3/uL (4.8-10.8)
[2017-07-14 06:57] LABS: ALBUMIN 1.7 g/dL (3.4-5.0); ANION GAP 11.3 mmol/L (8-16); BILIRUBIN - TOTAL 0.34 mg/dL (0.2-1.3); CALCIUM 8.4 mg/dL (8.5-10.1); CARBON DIOXIDE 23.9 mmol/L (21.0-32.0); CREATININE - SERUM 0.8 mg/dL (0.6-1.3); POTASSIUM - SERUM 4.2 mmol/L (3.5-5.1); PROTEIN - SERUM 6.1 g/dL (6.4-8.2)
[2017-07-14 09:02] VITALS: BP 108/62
[2017-07-14 13:57] VITALS: BP 129/52
[2017-07-14 17:20] VITALS: BP 113/61
[2017-07-14 21:15] VITALS: BP 148/73
[2017-07-15 04:08] VITALS: BP 111/70
[2017-07-15 06:28] LABS: ALBUMIN 1.7 g/dL (3.4-5.0); ANION GAP 11.2 mmol/L (8-16); BILIRUBIN - TOTAL 0.32 mg/dL (0.2-1.3); CALCIUM 8.3 mg/dL (8.5-10.1); CARBON DIOXIDE 23.8 mmol/L (21.0-32.0); CREATININE - SERUM 0.8 mg/dL (0.6-1.3); PROTEIN - SERUM 5.9 g/dL (6.4-8.2)
[2017-07-15 07:18] LABS: BASOPHILS 0.4 % (0-2); EOSINOPHILS 5.3 % (0-7); HEMATOCRIT 32.9 % (36.0-48.0); HEMOGLOBIN 10.2 g/dL (12-16); IMMATURE GRANULOCYTES 0.4 % (0-5); LYMPHOCYTES 10.1 % (15-50); MCH 28.4 pg (26.0-34.0); MCV 91.6 fL (80.0-100.0); MEAN PLATELET VOLUME 9.3 fL (7.4-10.4); MONOCYTES 9.1 % (2-11); NEUTROPHILS 74.7 % (40-80); PLATELET COUNT 186 10x3/uL (130-400); RBC 3.59 10x6/uL (4.00-5.40); RDW 15.8 % (11.5-14.5); WBC 4.7 10x3/uL (4.8-10.8)
[2017-07-15 09:30] VITALS: BP 113/50
[2017-07-15] MEDS ORDERED: IPRAT-ALBUT 0.5-3 ML UPD (10:29)
[2017-07-15] MEDS ORDERED: MERREM 1 GM/NS 11 G1 IVPB (10:29)
[2017-07-15] MEDS ORDERED: HUMALOG 30100 UNITS/ SC (10:30)
[2017-07-15] MEDS ORDERED: VANCOMYCIN 750750 MG IV (10:31)
[2017-07-15 13:03] VITALS: BP 123/70
== END 2017-07-15 14:33 | disposition short-term general hospital (02) | DRG 603 ==
LOC: D.ER 16:37 → D.MS 20:50
PROVIDERS: Emergency Medicine; Family Medicine
DX: L03.115 Cellulitis of right lower limb (principal); N39.0 Urinary tract infection, site not specified; Z68.41 Body mass index [BMI] 40.0-44.9, adult; E87.1 Hypo-osmolality and hyponatremia; N17.9 Acute kidney failure, unspecified; I87.2 Venous insufficiency (chronic) (peripheral); L03.116 Cellulitis of left lower limb; B96.20 Unspecified Escherichia coli [E. coli] as the cause of diseases classified elsewhere; E87.5 Hyperkalemia; E11.40 Type 2 diabetes mellitus with diabetic neuropathy, unspecified; E11.65 Type 2 diabetes mellitus with hyperglycemia; I50.9 Heart failure, unspecified; I48.91 Unspecified atrial fibrillation; E66.01 Morbid (severe) obesity due to excess calories; G47.33 Obstructive sleep apnea (adult) (pediatric); I95.9 Hypotension, unspecified; R53.1 Weakness; Z86.718 Personal history of other venous thrombosis and embolism; E11.610 Type 2 diabetes mellitus with diabetic neuropathic arthropathy

== ENCOUNTER 2017-08-06 11:15 | Emergency (ER) | payer MEDICARE ==
[~2017-08-06] VITALS: Ht 167.6 cm; Wt 125.0 kg
[~2017-08-06 11:15] MED LIST changes: +IPRAT-ALBUT 0.5-3 ML UPD; +LIPITOR40 MG PO; +MERREM 1 GM/NS 11 G1 IVPB; +PENICILLIN V P250 MG PO; +SODIUM BICARBO650 MG PO; +VANCOMYCIN 750750 MG IV
[2017-08-06 11:31] VITALS: Ht 167.6 cm; Wt 125.0 kg
[2017-08-06] MEDS ORDERED: LASIX40 MG PO (11:36)
[2017-08-06] MEDS ORDERED: MAG-OXIDE400 MG PO (11:37)
[2017-08-06] MEDS ORDERED: K-TAB10 MEQ PO (11:37)
[2017-08-06] MEDS ORDERED: FLOMAX0.4 MG PO (11:39)
[2017-08-06] MEDS ORDERED: HYDROCODON-ACE1 EAC7 PO (11:40)
[2017-08-06] MEDS ORDERED: PRADAXA150 MG PO (11:40)
[2017-08-06 12:47] LABS: BASOPHILS 0.4 % (0-2); EOSINOPHILS 6.3 % (0-7); HEMATOCRIT 35.3 % (36.0-48.0); HEMOGLOBIN 10.8 g/dL (12-16); IMMATURE GRANULOCYTES 0.2 % (0-5); LYMPHOCYTES 10.4 % (15-50); MCH 29.1 pg (26.0-34.0); MCHC 30.6 g/dL (31.0-37.0); MCV 95.1 fL (80.0-100.0); MEAN PLATELET VOLUME 10.3 fL (7.4-10.4); MONOCYTES 7.8 % (2-11); NEUTROPHILS 74.9 % (40-80); PLATELET COUNT 171 10x3/uL (130-400); RBC 3.71 10x6/uL (4.00-5.40); RDW 16.5 % (11.5-14.5); WBC 4.7 10x3/uL (4.8-10.8)
[2017-08-06 13:01] LABS: ALBUMIN 2.3 g/dL (3.4-5.0); ALKALINE PHOSPHATASE 113 U/L (46-116); ALT (SGPT) 14 U/L (10-68); CALC OSMOLALITY 287 mosm/kg (275-300); CALCIUM 8.7 mg/dL (8.5-10.1); CARBON DIOXIDE 32.6 mmol/L (21.0-32.0); CHLORIDE - SERUM 106 mmol/L (98-107); GLUCOSE 114 mg/dL (74-106); POTASSIUM - SERUM 4.2 mmol/L (3.5-5.1); PROTEIN - SERUM 7.1 g/dL (6.4-8.2); SODIUM 143 mmol/L (136-145); UREA NITROGEN 19 mg/dL (7-18); eGFR NON AFRICAN AMERICAN 57 mL/min (90-120)
[2017-08-06 13:09] LABS: PRO BNP 982 pg/mL (0-450); TROPONIN-I < 0.017 ng/mL (0.000-0.060)
[2017-08-06 16:53] VITALS: BP 144/096
== END 2017-08-06 16:55 | disposition home or self-care (01) ==
LOC: D.ER 11:15
PROVIDERS: Family Medicine
DX: R60.0 Localized edema (principal); I48.91 Unspecified atrial fibrillation; E11.9 Type 2 diabetes mellitus without complications; Z82.49 Family history of ischemic heart disease and other diseases of the circulatory system; Z86.79 Personal history of other diseases of the circulatory system; I87.012 Postthrombotic syndrome with ulcer of left lower extremity

== ENCOUNTER → 2017-08-08 16:49 | Outpatient (CLI) | payer MEDICARE ==
[2017-08-06 11:31] VITALS: BMI 44.5
[~2017-08-08 16:49] MED LIST changes: +FLOMAX0.4 MG PO; +HYDROCODON-ACE1 EAC7 PO; +MAG-OXIDE400 MG PO
[2017-08-08 17:02] LABS: BASOPHILS 0.5 % (0-2); EOSINOPHILS 4.6 % (0-7); HEMATOCRIT 35.7 % (36.0-48.0); HEMOGLOBIN 10.8 g/dL (12-16); LYMPHOCYTES 11.2 % (15-50); MCH 28.9 pg (26.0-34.0); MCHC 30.3 g/dL (31.0-37.0); MCV 95.5 fL (80.0-100.0); MEAN PLATELET VOLUME 10.6 fL (7.4-10.4); MONOCYTES 8.5 % (2-11); NEUTROPHILS 75.2 % (40-80); PLATELET COUNT 184 10x3/uL (130-400); RBC 3.74 10x6/uL (4.00-5.40); RDW 16.6 % (11.5-14.5); WBC 4.4 10x3/uL (4.8-10.8)
[2017-08-08 17:31] LABS: ALBUMIN 2.3 g/dL (3.4-5.0); ANION GAP 11.6 mmol/L (8-16); BILIRUBIN - TOTAL 0.6 mg/dL (0.2-1.3); CALCIUM 8.3 mg/dL (8.5-10.1); CARBON DIOXIDE 31.8 mmol/L (21.0-32.0); POTASSIUM - SERUM 3.4 mmol/L (3.5-5.1); PROTEIN - SERUM 7.1 g/dL (6.4-8.2)
== END | disposition home or self-care (01) ==
LOC: D.LABREF 16:49
PROVIDERS: Family Medicine
DX: E87.6 Hypokalemia (principal)

== ENCOUNTER → 2017-11-14 13:54 | Outpatient (CLI) | payer MEDICARE ==
[2017-08-06 11:31] VITALS: BMI 44.5
[2017-11-14 14:12] LABS: BASOPHILS 0.4 % (0-2); EOSINOPHILS 2.8 % (0-7); HEMOGLOBIN 12.3 g/dL (12-16); IMMATURE GRANULOCYTES 0.4 % (0-5); MCH 28.7 pg (26.0-34.0); MCHC 32.4 g/dL (31.0-37.0); MCV 88.6 fL (80.0-100.0); MEAN PLATELET VOLUME 10.1 fL (7.4-10.4); MONOCYTES 9.9 % (2-11); NEUTROPHILS 71.5 % (40-80); PLATELET COUNT 223 10x3/uL (130-400); RBC 4.29 10x6/uL (4.00-5.40); RDW 15.2 % (11.5-14.5); WBC 4.7 10x3/uL (4.8-10.8)
[2017-11-14 14:22] LABS: ANION GAP 15.3 mmol/L (8-16); CALCIUM 9.1 mg/dL (8.5-10.1); CARBON DIOXIDE 21.5 mmol/L (21.0-32.0); CREATININE - SERUM 1.1 mg/dL (0.6-1.3); PHOSPHOROUS 4.1 mg/dL (2.5-4.9); POTASSIUM - SERUM 4.8 mmol/L (3.5-5.1)
== END | disposition home or self-care (01) ==
LOC: D.LABREF 13:54
PROVIDERS: Family Medicine
DX: N39.0 Urinary tract infection, site not specified (principal)

== ENCOUNTER 2017-11-20 21:25 | Inpatient (IN) | payer MEDICARE ==
[~2017-11-20] VITALS: Ht 167.6 cm; Wt 129.1 kg
[2017-11-20 22:22] LABS: BASOPHILS 0.1 % (0-2); EOSINOPHILS 0 % (0-7); HEMATOCRIT 39.1 % (36.0-48.0); HEMOGLOBIN 13.1 g/dL (12-16); IMMATURE GRANULOCYTES 0.3 % (0-5); LYMPHOCYTES 1.5 % (15-50); MCH 28.8 pg (26.0-34.0); MCHC 33.5 g/dL (31.0-37.0); MCV 85.9 fL (80.0-100.0); MEAN PLATELET VOLUME 10.4 fL (7.4-10.4); MONOCYTES 2.7 % (2-11); NEUTROPHILS 95.4 % (40-80); PLATELET COUNT 180 10x3/uL (130-400); RBC 4.55 10x6/uL (4.00-5.40); RDW 15.4 % (11.5-14.5); WBC 19.8 10x3/uL (4.8-10.8)
[2017-11-20 22:41] LABS: ALBUMIN 2.7 g/dL (3.4-5.0); ANION GAP 16.3 mmol/L (8-16); BILIRUBIN - TOTAL 2.03 mg/dL (0.2-1.3); CALCIUM 9.1 mg/dL (8.5-10.1); CARBON DIOXIDE 20.9 mmol/L (21.0-32.0); CREATININE - SERUM 1.3 mg/dL (0.6-1.3); PROTEIN - SERUM 8.1 g/dL (6.4-8.2)
[2017-11-20 22:51] LABS: POTASSIUM - SERUM 6.2 mmol/L (3.5-5.1)
[2017-11-21 00:53] LABS: APPEARANCE HAZY (CLEAR); BACTERIA MANY /hpf (NONE SEEN); BILIRUBIN NEGATIVE (NEGATIVE); COLOR YELLOW (YELLOW); EPITHELIAL CELLS NSEEN /hpf (0-5); GLUCOSE 250 mg/dL (NEGATIVE); KETONE NEGATIVE (NEGATIVE); NITRITE POSITIVE (NEGATIVE); PROTEIN NEGATIVE (NEGATIVE); RED CELLS - URINE 0-5 /hpf (0-5); UROBILINOGEN NORMAL (NORMAL); WHITE CELLS - URINE 25-50 /hpf (0-5)
[2017-11-21 02:21] VITALS: BP 120/54; BMI 40.6
[2017-11-21 05:52] VITALS: BP 136/50
[2017-11-21 05:55] LABS: BASOPHILS 0.1 % (0-2); EOSINOPHILS 0 % (0-7); HEMATOCRIT 35.3 % (36.0-48.0); HEMOGLOBIN 11.5 g/dL (12-16); IMMATURE GRANULOCYTES 0.3 % (0-5); MCHC 32.6 g/dL (31.0-37.0); MCV 86.1 fL (80.0-100.0); MONOCYTES 5.2 % (2-11); NEUTROPHILS 90.4 % (40-80); PLATELET COUNT 160 10x3/uL (130-400); RDW 15.8 % (11.5-14.5); WBC 15.9 10x3/uL (4.8-10.8)
[2017-11-21 06:14] LABS: ANION GAP 16.7 mmol/L (8-16); CALCIUM 8.6 mg/dL (8.5-10.1); CARBON DIOXIDE 20.5 mmol/L (21.0-32.0); CREATININE - SERUM 1.1 mg/dL (0.6-1.3)
[2017-11-21 06:15] LABS: POTASSIUM - SERUM 5.2 mmol/L (3.5-5.1)
[2017-11-21 08:38] VITALS: BP 101/61
[2017-11-21 11:48] VITALS: BP 119/60
[2017-11-21 13:20] VITALS: Ht 167.6 cm; Wt 129.1 kg
[2017-11-21 15:56] VITALS: BP 108/52
[2017-11-21 21:53] VITALS: BP 103/44
[2017-11-22 00:59] VITALS: BP 113/47
[2017-11-22 05:28] LABS: BASOPHILS 0.1 % (0-2); EOSINOPHILS 0.9 % (0-7); HEMATOCRIT 32.5 % (36.0-48.0); HEMOGLOBIN 10.5 g/dL (12-16); IMMATURE GRANULOCYTES 0.2 % (0-5); LYMPHOCYTES 5.4 % (15-50); MCH 28.1 pg (26.0-34.0); MCHC 32.3 g/dL (31.0-37.0); MCV 86.9 fL (80.0-100.0); MEAN PLATELET VOLUME 10.2 fL (7.4-10.4); MONOCYTES 7.2 % (2-11); NEUTROPHILS 86.2 % (40-80); PLATELET COUNT 144 10x3/uL (130-400); RBC 3.74 10x6/uL (4.00-5.40)
[2017-11-22 05:47] LABS: ANION GAP 12.8 mmol/L (8-16); CARBON DIOXIDE 21.3 mmol/L (21.0-32.0); CREATININE - SERUM 1.1 mg/dL (0.6-1.3)
[2017-11-22 05:52] LABS: WBC 10.4 10x3/uL (4.8-10.8)
[2017-11-22 06:19] LABS: POTASSIUM - SERUM 4.1 mmol/L (3.5-5.1)
[2017-11-22 06:56] VITALS: BP 107/48
[2017-11-22 09:03] VITALS: BP 136/59
[2017-11-22 11:13] VITALS: BP 144/45
[2017-11-22 16:12] VITALS: BP 107/54
[2017-11-22 23:49] VITALS: BP 119/55
[2017-11-23 05:24] LABS: BASOPHILS 1.7 % (0-2); EOSINOPHILS 2.4 % (0-7); HEMATOCRIT 30.5 % (36.0-48.0); HEMOGLOBIN 10.1 g/dL (12-16); IMMATURE GRANULOCYTES 0.4 % (0-5); LYMPHOCYTES 10.2 % (15-50); MCH 28.5 pg (26.0-34.0); MCHC 33.1 g/dL (31.0-37.0); MCV 85.9 fL (80.0-100.0); MEAN PLATELET VOLUME 10.8 fL (7.4-10.4); NEUTROPHILS 76.3 % (40-80); PLATELET COUNT 150 10x3/uL (130-400); RBC 3.55 10x6/uL (4.00-5.40); RDW 16.1 % (11.5-14.5)
[2017-11-23 05:25] LABS: WBC 5.3 10x3/uL (4.8-10.8)
[2017-11-23 05:39] LABS: ANION GAP 13.8 mmol/L (8-16); CALCIUM 7.4 mg/dL (8.5-10.1); CARBON DIOXIDE 21.2 mmol/L (21.0-32.0)
[2017-11-23 05:45] LABS: CREATININE - SERUM 0.8 mg/dL (0.6-1.3)
[2017-11-23 07:09] VITALS: BP 109/59
[2017-11-23 09:00] VITALS: BP 137/64
[2017-11-23 12:12] VITALS: BP 123/64
[2017-11-23 16:37] VITALS: BP 120/61
[2017-11-23 21:18] VITALS: BP 118/55
[2017-11-24 02:45] VITALS: BP 126/60
[2017-11-24 04:00] VITALS: BP 134/55
[2017-11-24 05:21] LABS: BASOPHILS 0.7 % (0-2); EOSINOPHILS 3.5 % (0-7); HEMATOCRIT 32.1 % (36.0-48.0); HEMOGLOBIN 10.4 g/dL (12-16); LYMPHOCYTES 12.8 % (15-50); MCHC 32.4 g/dL (31.0-37.0); MCV 86.3 fL (80.0-100.0); MEAN PLATELET VOLUME 10.1 fL (7.4-10.4); MONOCYTES 11.1 % (2-11); NEUTROPHILS 71.9 % (40-80); PLATELET COUNT 171 10x3/uL (130-400); RBC 3.72 10x6/uL (4.00-5.40); RDW 16.1 % (11.5-14.5); WBC 4.3 10x3/uL (4.8-10.8)
[2017-11-24 05:49] LABS: ANION GAP 12.8 mmol/L (8-16); CARBON DIOXIDE 21.9 mmol/L (21.0-32.0); CREATININE - SERUM 0.8 mg/dL (0.6-1.3); POTASSIUM - SERUM 3.7 mmol/L (3.5-5.1)
[2017-11-24 08:36] VITALS: BP 142/68
[2017-11-24] MEDS ORDERED: VIBRAMYCIN 100100 MG PO (09:29)
[2017-11-24 11:41] VITALS: BP 126/59
[2017-11-24 15:48] VITALS: BP 124/62
== END 2017-11-24 16:15 | disposition home health service (06) | DRG 300 ==
LOC: D.ER 21:25 → D.M2 11-21 00:26
PROVIDERS: Family Medicine; Internal Medicine Nephrology
DX: I82.432 Acute embolism and thrombosis of left popliteal vein (principal); L03.115 Cellulitis of right lower limb; N17.9 Acute kidney failure, unspecified; N39.0 Urinary tract infection, site not specified; Z68.41 Body mass index [BMI] 40.0-44.9, adult; I82.442 Acute embolism and thrombosis of left tibial vein; E87.5 Hyperkalemia; E66.01 Morbid (severe) obesity due to excess calories; I48.91 Unspecified atrial fibrillation; I10 Essential (primary) hypertension; E78.5 Hyperlipidemia, unspecified; I25.10 Atherosclerotic heart disease of native coronary artery without angina pectoris; G47.33 Obstructive sleep apnea (adult) (pediatric); E11.51 Type 2 diabetes mellitus with diabetic peripheral angiopathy without gangrene; I87.8 Other specified disorders of veins; W05.0XXA Fall from non-moving wheelchair, initial encounter

== ENCOUNTER 2017-12-21 10:55 | Emergency (ER) | payer MEDICARE ==
[~2017-12-21] VITALS: Ht 167.6 cm; Wt 124.1 kg
[~2017-12-21 10:55] MED LIST changes: +VIBRAMYCIN 100100 MG PO
[2017-12-21 11:02] VITALS: Ht 167.6 cm; Wt 124.1 kg
[2017-12-21 11:51] LABS: BASOPHILS 0.2 % (0-2); EOSINOPHILS 1.1 % (0-7); HEMATOCRIT 39.1 % (36.0-48.0); HEMOGLOBIN 12.9 g/dL (12-16); IMMATURE GRANULOCYTES 0.2 % (0-5); LYMPHOCYTES 8.3 % (15-50); MCH 28.4 pg (26.0-34.0); MCV 86.1 fL (80.0-100.0); MEAN PLATELET VOLUME 9.9 fL (7.4-10.4); MONOCYTES 8.6 % (2-11); NEUTROPHILS 81.6 % (40-80); PLATELET COUNT 187 10x3/uL (130-400); RBC 4.54 10x6/uL (4.00-5.40); RDW 16.4 % (11.5-14.5); WBC 9.2 10x3/uL (4.8-10.8)
[2017-12-21 12:00] LABS: ANION GAP 15.3 mmol/L (8-16); BILIRUBIN - TOTAL 0.91 mg/dL (0.2-1.3); CALCIUM 9.1 mg/dL (8.5-10.1); CARBON DIOXIDE 22.4 mmol/L (21.0-32.0); CREATININE - SERUM 1.2 mg/dL (0.6-1.3); MAGNESIUM - SERUM 2.3 mg/dL (1.8-2.4); POTASSIUM - SERUM 4.7 mmol/L (3.5-5.1); PROTEIN - SERUM 8.3 g/dL (6.4-8.2)
[2017-12-21 12:15] LABS: ALBUMIN 2.6 g/dL (3.4-5.0)
[2017-12-21 13:17] LABS: APPEARANCE CLEAR (CLEAR); COLOR YELLOW (YELLOW); SPECIFIC GRAVITY 1.015 (1.005-1.020)
[2017-12-21 13:18] LABS: BILIRUBIN NEGATIVE (NEGATIVE); GLUCOSE NEGATIVE (NEGATIVE); KETONE NEGATIVE (NEGATIVE); NITRITE NEGATIVE (NEGATIVE); PROTEIN NEGATIVE (NEGATIVE); RED CELLS - URINE RARE /hpf (0-5); UROBILINOGEN NORMAL (NORMAL); WHITE CELLS - URINE 0-5 /hpf (0-5)
[2017-12-21 13:19] LABS: BACTERIA FEW /hpf (NONE SEEN); EPITHELIAL CELLS OCC /hpf (0-5)
[2017-12-21 15:10] VITALS: BP 128/68
== END 2017-12-21 15:11 | disposition home or self-care (01) ==
LOC: D.ER 10:55
PROVIDERS: Emergency Medicine
DX: E87.5 Hyperkalemia (principal); E11.9 Type 2 diabetes mellitus without complications; I10 Essential (primary) hypertension; I73.9 Peripheral vascular disease, unspecified

== ENCOUNTER 2017-12-29 05:15 | Inpatient (IN) | payer MEDICARE ==
[~2017-12-29] VITALS: Ht 167.6 cm; Wt 127.6 kg
--- NOTE | ~2017-12-29 | MORECARE ---
CASE MANAGEMENT DISCHARGE SUMMARY PATIENT: SOFIA PEREZ UNIT: [id number] ADM DATE: 12/29/17 AGE: 77 : 39 SEX: F ROOM/BED: D.2101 AUTHOR: PETER BELTRAN PHYSICIAN: REFERRING PHYSICIAN: ELEANOR SHAH MD DATE OF SERVICE: 01/02/18 Discharge Plan Patient Name: SOFIA PEREZ Facility: [facility]:[place] : 1940 Planned Disposition: Inpatient Rehab Anticipated Discharge Date: 01/02/18 Discharge Date: Expected LOS: 4 Initial Reviewer: [id number] Initial Review Date: 12/29/2017 Generated: 01/02/18 4:49 pm Comments DCP- Discharge Planning Updated by [email or web address]: Nestor Oliveros on 01/02/18 2:[address] Patient Name: SOFIA PEREZ Encounter No: [id number] : 1940 Primary Insurance: MEDICARE A & B Anticipated DC Date: 01-01-2018 Planned Disposition: Inpatient Rehab External Planned Provider: INPATIENT REHAB DCP follow-up note: CM SPOKE TO EMELI OF INPATIENT REHAB, THEY PLAN TO ACCEPT PT TODAY FOR REHAB IF PT IS STABLE. PT NOTIFIED, IN AGREEMENT WITH DISCHARGE TO INPATIENT REHAB. IMPORTANT MESSAGE FROM MEDICARE PROVIDED AND EXPLAINED. CM NOTIFIED BLAKE JOHNSON. WHEN DISCHARGE ORDER RECEIVED, NOTIFY INPATIENT REHAB. INPATIENT REHAB WILL THEN CONTACT [facility] NURSE WITH ROOM NUMBER WHEN READY TO ACCEPT PT AND NURSE REPORT. GEOVANNA German DCP- Discharge Planning Updated by [email or web address]: Nestor Oliveros on 12/30/17 10:[address] Patient Name: SOFIA PEREZ Encounter No: [id number] : 1940 Primary Insurance: MEDICARE A & B Anticipated DC Date: 01-01-2018 Planned Disposition: Inpatient Rehab External Planned Provider: INPATIENT REHAB DCP follow-up note: CM RECEIVED INPATIENT REHAB PRESCREENING ORDER, MET WITH PT IN ROOM, DISCUSSED REHAB OPTIONS, PROVIDERS AND LOCATIONS. PT REPORTS SHE HAS BEEN TO INPATIENT REHAB AT [place] IN THE PAST WITH GOOD RESULTS AND WOULD LIKE TO GO THERE AGAIN. PT STATES SHE HAS ONLY BEEN ABLE TO STAND WITH THERAPY UP UNTIL NOW AND WILL DO ALL THAT SHE CAN WITH THERAPY. IMPORTANT MESSAGE FROM MEDICARE PROVIDED AND EXPLAINED. CM WAITING COMPLETION OF INPATIENT REHAB PRESCREENING AND ADMISSION DETERMINATION FROM INPATIENT REHAB. Nestor Oliveros, CASE MANAGEMENT DCP- Discharge Planning Updated by [id number]: Sofia Benavides on 12/29/17 11:[address] Patient Name: SOFIA PEREZ Admission Status: ER Accout number: [id number] Admission Date: 12-29-2017 : 1940 Admission Diagnosis: Attending: ELEANOR SHAH Current LOS: 1 Anticipated DC Date: 01-01-2018 Planned Disposition: Home Primary Insurance: MEDICARE A & B Discharge Planning Comments: CM met with patient and her daughter, Vidhi, to complete initial dc planning assessment. CM educated patient on the CM role and verbal consent given by patient to complete assessment. Patient lives at home alone independently. She reports that she has [facility] prior to admission and also has house calls. At discharge patient plans to return home and feels this is a safe discharge. Patient denied known discharge needs at this time. CM will continue to follow and will assist as needed with dc plans/needs. See below for more assessment information. Bottle Capping Machine Operator: Sofia Benavides RN, [facility] DCPIA - Discharge Planning Initial Assessment Updated by [email or web address]: Sofia Benavides on 12/29/17 11:03 am * Is the patient Alert and Oriented? Yes * How many steps to enter\exit or inside your home? Ramp * PCP Dr. Chan * Pharmacy [facility] * Preadmission Environment Home Alone * ADLs Independent * Equipment Oxygen Tub Bench Walker Wheelchair * Other Equipment Wears O2 @ HS and when she lays down during the day. * List name and contact numbers for known caregivers / representatives who currently or will assist patient after discharge: mechelle Quezada - daughter- [phone] * Verbal permission to speak to the caregivers and representatives has been obtained from the patient. Yes * Community resources currently utilized Home Health * Please name any agencies selected above. Has [facility] * Additional services required to return to the preadmission environment? No * Can the patient safely return to the preadmission environment? Yes * Has this patient been hospitalized within the prior 30 days at any hospital? No Coverage Notice Reviewer: [email or web address] Zoe Oliveros Notice Issued Date-Time: 12/30/2017 10:35 Notice Type: IM Discharge Notice Notice Delivered To: Patient Relationship to Patient: Drug And Alcohol Treatment Specialist Name: Delivery Method: HAND - Hand Delivered Lima Days: Prior Verbal Notification: Recipient Understood Notice: Yes Recipient Signature: Yes Med Rec Note Co-signed by Attending: Coverage Notice Comment: Last DP export: 12/30/17 10:52 a Patient Name: SOFIA PEREZ Page 28946 at 1549 All edits/amendments must be made on the electronic document DICTATION DATE: 01/02/181548 SHIPPING AND RECEIVING COORDINATOR: RITU 01/02/181548 RPT#: [id number] DC DATE: STATUS: ADM IN [address] [place] [address] END OF REPORT
--- NOTE | ~2017-12-29 | MORECARE ---
CASE MANAGEMENT DISCHARGE SUMMARY PATIENT: SOFIA PEREZ UNIT: [id number] ADM DATE: 12/29/17 AGE: 77 : 39 SEX: F ROOM/BED: D.2101 AUTHOR: RUBY,DOC PHYSICIAN: REFERRING PHYSICIAN: ELEANOR SHAH MD DATE OF SERVICE: 12/29/17 Discharge Plan Patient Name: SOFIA PEREZ Facility: [facility]:[place] : 1940 Planned Disposition: Home Anticipated Discharge Date: 01/01/18 Discharge Date: Expected LOS: 3 Initial Reviewer: [email or web address] Initial Review Date: 12/29/2017 Generated: 12/29/17 12:08 pm DCP- Discharge Planning Updated by [id number]: Sofia Benavides on 12/29/17 10:[address] Patient Name: SOFIA PEREZ Admission Status: ER Accout number: [id number] Admission Date: 12-29-2017 : 1940 Admission Diagnosis: Attending: ELEANOR SHHA Current LOS: 1 Anticipated DC Date: 01-01-2018 Planned Disposition: Home Primary Insurance: MEDICARE A & B Discharge Planning Comments: CM met with patient and her daughter, Vidhi, to complete initial dc planning assessment. CM educated patient on the CM role and verbal consent given by patient to complete assessment. Patient lives at home alone independently. She reports that she has [facility] prior to admission and also has house calls. At discharge patient plans to return home and feels this is a safe discharge. Patient denied known discharge needs at this time. CM will continue to follow and will assist as needed with dc plans/needs. See below for more assessment information. Smt Technician: Sofia Benavides RN, [facility] DCPIA - Discharge Planning Initial Assessment Updated by [email or web address]: Sofia Benavides on 12/29/17 11:03 am * Is the patient Alert and Oriented? Yes * How many steps to enter\exit or inside your home? Ramp * PCP Dr. Chan * Pharmacy [facility] on [address] * Preadmission Environment Home Alone * ADLs Independent * Equipment Oxygen Tub Bench Walker Wheelchair * Other Equipment Wears O2 @ HS and when she lays down during the day. * List name and contact numbers for known caregivers / representatives who currently or will assist patient after discharge: mechelle Quezada - brandie- [phone] * Verbal permission to speak to the caregivers and representatives has been obtained from the patient. Yes * Community resources currently utilized Home Health * Please name any agencies selected above. Has [facility] * Additional services required to return to the preadmission environment? No * Can the patient safely return to the preadmission environment? Yes * Has this patient been hospitalized within the prior 30 days at any hospital? No Last DP export: 12/29/17 9:59 a Patient Name: SOFIA PEREZ Page 51868 at 1108 All edits/amendments must be made on the electronic document DICTATION DATE: 12/29/171106 SEARCH ENGINE MARKETING MANAGER: RITU 12/29/171106 RPT#: [id number] DC DATE: STATUS: ADM IN [facility] [address] [place] [address] END OF REPORT
--- NOTE | ~2017-12-29 | MORECARE ---
CASE MANAGEMENT DISCHARGE SUMMARY PATIENT: SOFIA PEREZ UNIT: [id number] ADM DATE: 12/29/17 AGE: 77 : 39 SEX: F ROOM/BED: D.2101 AUTHOR: PETER BELTRAN PHYSICIAN: REFERRING PHYSICIAN: ELEANOR SHAH MD DATE OF SERVICE: 12/30/17 Discharge Plan Patient Name: SOFIA PEREZ Facility: [facility]:[place] : 1940 Planned Disposition: Inpatient Rehab Anticipated Discharge Date: 01/01/18 Discharge Date: Expected LOS: 3 Initial Reviewer: [email or web address] Initial Review Date: 12/29/2017 Generated: 12/30/17 11:52 am Comments DCP- Discharge Planning Updated by [email or web address]: Nestor Oliveros on 12/30/17 9:[address] Patient Name: SOFIA PEREZ Encounter No: [id number] : 1940 Primary Insurance: MEDICARE A & B Anticipated DC Date: 01-01-2018 Planned Disposition: Inpatient Rehab External Planned Provider: [facility] INPATIENT REHAB DCP follow-up note: CM RECEIVED INPATIENT REHAB PRESCREENING ORDER, MET WITH PT IN ROOM, DISCUSSED REHAB OPTIONS, PROVIDERS AND LOCATIONS. PT REPORTS SHE HAS BEEN TO INPATIENT REHAB AT [place] IN THE PAST WITH GOOD RESULTS AND WOULD LIKE TO GO THERE AGAIN. PT STATES SHE HAS ONLY BEEN ABLE TO STAND WITH THERAPY UP UNTIL NOW AND WILL DO ALL THAT SHE CAN WITH THERAPY. IMPORTANT MESSAGE FROM MEDICARE PROVIDED AND EXPLAINED. CM WAITING COMPLETION OF INPATIENT REHAB PRESCREENING AND ADMISSION DETERMINATION FROM [facility] INPATIENT REHAB. GEOVANNA German DCP- Discharge Planning Updated by [email or web address]: Sofia Benavides on 12/29/17 10:[address] Patient Name: SOFIA PEREZ Admission Status: ER Accout number: [id number] Admission Date: 12-29-2017 : 1940 Admission Diagnosis: Attending: ELEANOR SHAH Current LOS: 1 Anticipated DC Date: 01-01-2018 Planned Disposition: Home Primary Insurance: MEDICARE A & B Discharge Planning Comments: CM met with patient and her daughter, Vidhi, to complete initial dc planning assessment. CM educated patient on the CM role and verbal consent given by patient to complete assessment. Patient lives at home alone independently. She reports that she has [facility] prior to admission and also has house calls. At discharge patient plans to return home and feels this is a safe discharge. Patient denied known discharge needs at this time. CM will continue to follow and will assist as needed with dc plans/needs. See below for more assessment information. Back Sizer: Sofia Benavides RN, [facility] DCPIA - Discharge Planning Initial Assessment Updated by [email or web address]: Sofia Benavides on 12/29/17 11:03 am * Is the patient Alert and Oriented? Yes * How many steps to enter\exit or inside your home? Ramp * PCP Dr. Chan * Pharmacy [facility] on [address]/[facility] * Preadmission Environment Home Alone * ADLs Independent * Equipment Oxygen Tub Bench Walker Wheelchair * Other Equipment Wears O2 @ HS and when she lays down during the day. * List name and contact numbers for known caregivers / representatives who currently or will assist patient after discharge: mechelle Quezada - [facility]- [phone] * Verbal permission to speak to the caregivers and representatives has been obtained from the patient. Yes * Community resources currently utilized Home Health * Please name any agencies selected above. Has [facility] * Additional services required to return to the preadmission environment? No * Can the patient safely return to the preadmission environment? Yes * Has this patient been hospitalized within the prior 30 days at any hospital? No Coverage Notice Reviewer: [email or web address] Zoe Oliveros Notice Issued Date-Time: 12/30/2017 10:35 Notice Type: IM Discharge Notice Notice Delivered To: Patient Relationship to Patient: Pig Casting Machine Operator Name: Delivery Method: HAND - Hand Delivered Lima Days: Prior Verbal Notification: Recipient Understood Notice: Yes Recipient Signature: Yes Med Rec Note Co-signed by Attending: Coverage Notice Comment: Last DP export: 12/30/17 9:42 a Patient Name: SOFIA PEREZ Page 78266 at 1052 All edits/amendments must be made on the electronic document DICTATION DATE: 12/30/17 1051 STATISTICAL MODELER: RITU 12/30/17 1051 RPT#: [id number] DC DATE: STATUS: ADM IN [facility] [address] [facility] [place] [address] END OF REPORT
--- NOTE | ~2017-12-29 | MORECARE ---
CASE MANAGEMENT DISCHARGE SUMMARY PATIENT: SOFIA PEREZ UNIT: [id number] ADM DATE: 12/29/17 AGE: 77 : 39 SEX: F ROOM/BED: D.2101 AUTHOR: RUBY,PETER PHYSICIAN: REFERRING PHYSICIAN: ELEANOR SHAH MD DATE OF SERVICE: 01/03/18 Discharge Plan Patient Name: SOFIA PEREZ Facility: [facility]:[place] : 1940 Planned Disposition: Inpatient Rehab Anticipated Discharge Date: 01/02/18 Discharge Date: 01/03/2018 Expected LOS: 4 Initial Reviewer: [id number] Initial Review Date: 12/29/2017 Generated: 01/03/18 8:56 am Comments DCP- Discharge Planning Updated by [email or web address]: Nestor Oliveros on 01/02/18 2:[address] Patient Name: SOFIA PEREZ Encounter No: [id number] : 1940 Primary Insurance: MEDICARE A & B Anticipated DC Date: 01-01-2018 Planned Disposition: Inpatient Rehab External Planned Provider: [facility] INPATIENT REH[facility] DCP follow-up note: CM SPOKE TO EMELI OF [facility] INPATIENT REH[facility], THEY PLAN TO ACCEPT PT TODAY FOR REHAB IF PT IS STABLE. PT NOTIFIED, IN AGREEMENT WITH DISCHARGE TO INPATIENT REHAB. IMPORTANT MESSAGE FROM MEDICARE PROVIDED AND EXPLAINED. CM NOTIFIED BLAKE JOHNSON. WHEN DISCHARGE ORDER RECEIVED, NOTIFY [facility] INPATIENT REH[facility]. [facility] INPATIENT REH[facility] WILL THEN CONTACT [facility] NURSE WITH ROOM NUMBER WHEN READY TO ACCEPT PT AND NURSE REPORT. Nestor Oliveros, CASE MANAGEMENT DCP- Discharge Planning Updated by [id number]: Nestor Oliveros on 12/30/17 10:[address] Patient Name: SOFIA PEREZ Encounter No: [id number] : 1940 Primary Insurance: MEDICARE A & B Anticipated DC Date: 01-01-2018 Planned Disposition: Inpatient Rehab External Planned Provider: [facility] INPATIENT REH[facility] DCP follow-up note: CM RECEIVED INPATIENT REHAB PRESCREENING ORDER, MET WITH PT IN ROOM, DISCUSSED REHAB OPTIONS, PROVIDERS AND LOCATIONS. PT REPORTS SHE HAS BEEN TO INPATIENT REHAB AT [place] IN THE PAST WITH GOOD RESULTS AND WOULD LIKE TO GO THERE AGAIN. PT STATES SHE HAS ONLY BEEN ABLE TO STAND WITH THERAPY UP UNTIL NOW AND WILL DO ALL THAT SHE CAN WITH THERAPY. IMPORTANT MESSAGE FROM MEDICARE PROVIDED AND EXPLAINED. CM WAITING COMPLETION OF INPATIENT REHAB PRESCREENING AND ADMISSION DETERMINATION FROM [facility] INPATIENT RE[facility]. Nestor Oliveros, CASE MANAGEMENT DCP- Discharge Planning Updated by [email or web address]: Sofia Benavides on 12/29/17 11:[address] Patient Name: SOFIA PEREZ Admission Status: ER Accout number: [id number] Admission Date: 12-29-2017 : 1940 Admission Diagnosis: Attending: ELEANOR SHAH Current LOS: 1 Anticipated DC Date: 01-01-2018 Planned Disposition: Home Primary Insurance: MEDICARE A & B Discharge Planning Comments: CM met with patient and her daughter, Vidhi, to complete initial dc planning assessment. CM educated patient on the CM role and verbal consent given by patient to complete assessment. Patient lives at home alone independently. She reports that she has [employer] prior to admission and also has house calls. At discharge patient plans to return home and feels this is a safe discharge. Patient denied known discharge needs at this time. CM will continue to follow and will assist as needed with dc plans/needs. See below for more assessment information. Merchandiser Seasonal: Sofia Benavides RN, [facility] DCPIA - Discharge Planning Initial Assessment Updated by [email or web address]: Sofia Benavides on 12/29/17 11:03 am * Is the patient Alert and Oriented? Yes * How many steps to enter\exit or inside your home? Ramp * PCP Dr. Chan * Pharmacy [facility] * Preadmission Environment Home Alone * ADLs Independent * Equipment Oxygen Tub Bench Walker Wheelchair * Other Equipment Wears O2 @ HS and when she lays down during the day. * List name and contact numbers for known caregivers / representatives who currently or will assist patient after discharge: mechelle Quezada - daughter- [phone] * Verbal permission to speak to the caregivers and representatives has been obtained from the patient. Yes * Community resources currently utilized Home Health * Please name any agencies selected above. Has [employer] * Additional services required to return to the preadmission environment? No * Can the patient safely return to the preadmission environment? Yes * Has this patient been hospitalized within the prior 30 days at any hospital? No Coverage Notice Reviewer: [id number] - Nestor Oliveros Notice Issued Date-Time: 12/30/2017 10:35 Notice Type: IM Discharge Notice Notice Delivered To: Patient Relationship to Patient: Deployment Technician Name: Delivery Method: HAND - Hand Delivered Lima Days: Prior Verbal Notification: Recipient Understood Notice: Yes Recipient Signature: Yes Med Rec Note Co-signed by Attending: Coverage Notice Comment: Last DP export: 01/02/18 2:49 p Patient Name: SOFIA PEREZ Page 71000 at 0756 All edits/amendments must be made on the electronic document DICTATION DATE: 01/03/18 075 CREAM CHEESE MAKER: RITU 01/03/18 0756 RPT#: [id number] DC DATE:01/03/18 STATUS: DIS IN [facility] [address] [place] [address] END OF REPORT
--- NOTE | ~2017-12-29 | MORECARE ---
CASE MANAGEMENT DISCHARGE SUMMARY PATIENT: SOFIA PEREZ UNIT: [id number] ADM DATE: 12/29/17 AGE: 77 : 39 SEX: F ROOM/BED: D.2101 AUTHOR: RUBY,DOC PHYSICIAN: REFERRING PHYSICIAN: ELEANOR SHAH MD DATE OF SERVICE: 12/30/17 Discharge Plan Patient Name: SOFIA PEREZ Facility: [facility]:[place] : 1940 Planned Disposition: Inpatient Rehab Anticipated Discharge Date: 01/01/18 Discharge Date: Expected LOS: 3 Initial Reviewer: [email or web address] Initial Review Date: 12/29/2017 Generated: 12/30/17 11:42 am DCP- Discharge Planning Updated by [email or web address]: Sofia Benavides on 12/29/17 10:[address] Patient Name: SOFIA PEREZ Admission Status: ER Accout number: [id number] Admission Date: 12-29-2017 : 1940 Admission Diagnosis: Attending: ELEANOR SHAH Current LOS: 1 Anticipated DC Date: 01-01-2018 Planned Disposition: Home Primary Insurance: MEDICARE A & B Discharge Planning Comments: CM met with patient and her daughter, Vidhi, to complete initial dc planning assessment. CM educated patient on the CM role and verbal consent given by patient to complete assessment. Patient lives at home alone independently. She reports that she has [facility] prior to admission and also has house calls. At discharge patient plans to return home and feels this is a safe discharge. Patient denied known discharge needs at this time. CM will continue to follow and will assist as needed with dc plans/needs. See below for more assessment information. Information Systems Auditor: Sofia Benavides RN, [facility] DCPIA - Discharge Planning Initial Assessment Updated by [email or web address]: Sofia Benavides on 12/29/17 11:03 am * Is the patient Alert and Oriented? Yes * How many steps to enter\exit or inside your home? Ramp * PCP Dr. Chan * Pharmacy [facility] [address]/[facility] * Preadmission Environment Home Alone * ADLs Independent * Equipment Oxygen Tub Bench Walker Wheelchair * Other Equipment Wears O2 @ HS and when she lays down during the day. * List name and contact numbers for known caregivers / representatives who currently or will assist patient after discharge: mechelle Quezada - brandie- [phone] * Verbal permission to speak to the caregivers and representatives has been obtained from the patient. Yes * Community resources currently utilized Home Health * Please name any agencies selected above. Has [facility] * Additional services required to return to the preadmission environment? No * Can the patient safely return to the preadmission environment? Yes * Has this patient been hospitalized within the prior 30 days at any hospital? No Coverage Notice Reviewer: [id number] Zoe Oliveros Notice Issued Date-Time: 12/30/2017 10:35 Notice Type: IM Discharge Notice Notice Delivered To: Patient Relationship to Patient: Gas Distribution Supervisor Name: Delivery Method: HAND - Hand Delivered Lima Days: Prior Verbal Notification: Recipient Understood Notice: Yes Recipient Signature: Yes Med Rec Note Co-signed by Attending: Coverage Notice Comment: Last DP export: 12/29/17 10:08 a Patient Name: SOFIA PEREZ Page 37403 at 1043 All edits/amendments must be made on the electronic document DICTATION DATE: 12/30/17 1042 WAREHOUSE ENGINEER: RITU 12/30/17 1042 RPT#: [id number] DC DATE: STATUS: ADM IN [facility] [address] [place] [address] END OF REPORT
--- NOTE | ~2017-12-29 | MORECARE ---
CASE MANAGEMENT DISCHARGE SUMMARY PATIENT: SOFIA PEREZ UNIT: [id number] ADM DATE: 12/29/17 AGE: 77 : 39 SEX: F ROOM/BED: D.2101 AUTHOR: PETER BELTRAN PHYSICIAN: REFERRING PHYSICIAN: ELEANOR SHAH MD DATE OF SERVICE: 12/29/17 Discharge Plan Patient Name: SOFIA PEREZ Facility: [facility]:[place] : 1940 Planned Disposition: Home Anticipated Discharge Date: 01/01/18 Discharge Date: Expected LOS: 3 Initial Reviewer: [email or web address] Initial Review Date: 12/29/2017 Generated: 12/29/17 11:59 am Patient Name: SOFIA PEREZ Page 96540 at 1059 All edits/amendments must be made on the electronic document DICTATION DATE: 12/29/17 1059 GALLEY STRIPPER: RITU 12/29/17 1059 RPT#: [id number] DC DATE: STATUS: ADM IN [facility] [address] [place] [address] END OF REPORT
[2017-12-29 06:18] VITALS: BP 104/47
[2017-12-29 06:41] LABS: BASOPHILS 0.1 % (0-2); EOSINOPHILS 0 % (0-7); HEMATOCRIT 37.3 % (36.0-48.0); HEMOGLOBIN 12.5 g/dL (12-16); IMMATURE GRANULOCYTES 0.5 % (0-5); LYMPHOCYTES 1.7 % (15-50); MCH 28.8 pg (26.0-34.0); MCHC 33.5 g/dL (31.0-37.0); MCV 85.9 fL (80.0-100.0); MEAN PLATELET VOLUME 9.8 fL (7.4-10.4); NEUTROPHILS 94.7 % (40-80); PLATELET COUNT 223 10x3/uL (130-400); RBC 4.34 10x6/uL (4.00-5.40); RDW 16.9 % (11.5-14.5); WBC 28.3 10x3/uL (4.8-10.8)
[2017-12-29 06:42] LABS: ALBUMIN 2.3 g/dL (3.4-5.0); ANION GAP 17.1 mmol/L (8-16); BILIRUBIN - TOTAL 1.85 mg/dL (0.2-1.3); CALCIUM 8.9 mg/dL (8.5-10.1); CREATININE - SERUM 2.2 mg/dL (0.6-1.3); MAGNESIUM - SERUM 2.1 mg/dL (1.8-2.4); PROTEIN - SERUM 8.4 g/dL (6.4-8.2); THYROID STIMULATING HORMONE 1.63 uIU/mL (0.36-3.74)
[2017-12-29 06:49] LABS: POTASSIUM - SERUM 6.1 mmol/L (3.5-5.1)
[2017-12-29 07:40] LABS: APPEARANCE HAZY (CLEAR); BILIRUBIN NEGATIVE (NEGATIVE); COLOR DK YELLOW (YELLOW); GLUCOSE NEGATIVE (NEGATIVE); KETONE NEGATIVE (NEGATIVE); NITRITE NEGATIVE (NEGATIVE); PROTEIN NEGATIVE (NEGATIVE); SPECIFIC GRAVITY 1.025 (1.005-1.020); UROBILINOGEN NORMAL (NORMAL)
[2017-12-29 07:41] LABS: BACTERIA FEW /hpf (NONE SEEN); EPITHELIAL CELLS 0-5 /hpf (0-5); RED CELLS - URINE 0-5 /hpf (0-5); YEAST >1+ WITH HYPHAE /hpf (NONE SEEN)
[2017-12-29 07:42] LABS: MUCUS <1+ /lpf (NONE SEEN)
[2017-12-29 08:42] VITALS: BP 105/53
[2017-12-29 12:00] VITALS: BP 100/53
[2017-12-29 14:24] VITALS: BP 100/53; BMI 44.0
[2017-12-29 15:32] VITALS: BP 105/55
[2017-12-29 20:41] VITALS: BP 100/55
[2017-12-30] VITALS (10 sets, daily range): BP systolic 73–120; BP diastolic 46–63; Ht 167.6 cm; Wt 127.6 kg
[2017-12-30 04:31] LABS: BASOPHILS 0.1 % (0-2); EOSINOPHILS 0.2 % (0-7); HEMATOCRIT 32.3 % (36.0-48.0); HEMOGLOBIN 10.5 g/dL (12-16); IMMATURE GRANULOCYTES 0.3 % (0-5); LYMPHOCYTES 3.5 % (15-50); MCH 28.2 pg (26.0-34.0); MCHC 32.5 g/dL (31.0-37.0); MCV 86.8 fL (80.0-100.0); MEAN PLATELET VOLUME 9.8 fL (7.4-10.4); MONOCYTES 4.2 % (2-11); NEUTROPHILS 91.7 % (40-80); PLATELET COUNT 165 10x3/uL (130-400); RBC 3.72 10x6/uL (4.00-5.40); RDW 16.8 % (11.5-14.5)
[2017-12-30 04:36] LABS: BILIRUBIN - TOTAL 0.69 mg/dL (0.2-1.3); CALCIUM 8.6 mg/dL (8.5-10.1); CARBON DIOXIDE 23.2 mmol/L (21.0-32.0); PROTEIN - SERUM 6.4 g/dL (6.4-8.2)
[2017-12-30 04:39] LABS: ALBUMIN 1.6 g/dL (3.4-5.0); ANION GAP 12.4 mmol/L (8-16); CREATININE - SERUM 1.4 mg/dL (0.6-1.3); POTASSIUM - SERUM 4.6 mmol/L (3.5-5.1)
[2017-12-31 01:42] VITALS: BP 101/57
[2017-12-31 05:12] LABS: BASOPHILS 0.1 % (0-2); EOSINOPHILS 1.4 % (0-7); HEMATOCRIT 31.5 % (36.0-48.0); IMMATURE GRANULOCYTES 0.2 % (0-5); MCH 27.9 pg (26.0-34.0); MCHC 31.7 g/dL (31.0-37.0); MCV 87.7 fL (80.0-100.0); MEAN PLATELET VOLUME 9.5 fL (7.4-10.4); MONOCYTES 7.5 % (2-11); NEUTROPHILS 83.8 % (40-80); PLATELET COUNT 177 10x3/uL (130-400); RBC 3.59 10x6/uL (4.00-5.40)
[2017-12-31 05:13] LABS: WBC 9.2 10x3/uL (4.8-10.8)
[2017-12-31 05:36] LABS: ALBUMIN 1.5 g/dL (3.4-5.0); BILIRUBIN - TOTAL 0.42 mg/dL (0.2-1.3); CALCIUM 8.1 mg/dL (8.5-10.1); PROTEIN - SERUM 6.2 g/dL (6.4-8.2)
[2017-12-31 05:39] LABS: ANION GAP 8.3 mmol/L (8-16); CARBON DIOXIDE 29.8 mmol/L (21.0-32.0); CREATININE - SERUM 0.9 mg/dL (0.6-1.3); POTASSIUM - SERUM 3.1 mmol/L (3.5-5.1)
[2017-12-31 06:34] VITALS: BP 19/61
[2017-12-31 07:53] VITALS: BP 134/80
[2017-12-31 10:58] VITALS: BP 99/56
[2017-12-31 16:03] VITALS: BP 102/57
[2017-12-31 20:37] VITALS: BP 110/63
[2018-01-01 01:17] VITALS: BP 100/49
[2018-01-01 04:47] LABS: BASOPHILS 0.4 % (0-2); EOSINOPHILS 2.8 % (0-7); HEMATOCRIT 30.8 % (36.0-48.0); HEMOGLOBIN 9.8 g/dL (12-16); IMMATURE GRANULOCYTES 0.4 % (0-5); MCH 28.1 pg (26.0-34.0); MCHC 31.8 g/dL (31.0-37.0); MCV 88.3 fL (80.0-100.0); MEAN PLATELET VOLUME 9.2 fL (7.4-10.4); MONOCYTES 8.3 % (2-11); NEUTROPHILS 74.1 % (40-80); PLATELET COUNT 191 10x3/uL (130-400); RBC 3.49 10x6/uL (4.00-5.40); RDW 17.3 % (11.5-14.5); WBC 4.9 10x3/uL (4.8-10.8)
[2018-01-01 05:03] LABS: ALBUMIN 1.5 g/dL (3.4-5.0); ANION GAP 11.8 mmol/L (8-16); BILIRUBIN - TOTAL 0.3 mg/dL (0.2-1.3); CARBON DIOXIDE 27.8 mmol/L (21.0-32.0); CREATININE - SERUM 0.9 mg/dL (0.6-1.3); MAGNESIUM - SERUM 1.9 mg/dL (1.8-2.4); POTASSIUM - SERUM 3.6 mmol/L (3.5-5.1); PROTEIN - SERUM 6.2 g/dL (6.4-8.2)
[2018-01-01 06:21] VITALS: BP 111/60
[2018-01-01 07:59] VITALS: BP 105/59
[2018-01-01 12:06] VITALS: BP 110/61
[2018-01-01 15:58] VITALS: BP 105/77
[2018-01-01 20:23] VITALS: BP 132/65
[2018-01-02 01:46] VITALS: BP 107/59
[2018-01-02 05:58] LABS: BASOPHILS 0.6 % (0-2); EOSINOPHILS 2.9 % (0-7); HEMATOCRIT 30.3 % (36.0-48.0); HEMOGLOBIN 9.3 g/dL (12-16); LYMPHOCYTES 11.3 % (15-50); MCH 27.7 pg (26.0-34.0); MCHC 30.7 g/dL (31.0-37.0); MCV 90.2 fL (80.0-100.0); MEAN PLATELET VOLUME 9.4 fL (7.4-10.4); MONOCYTES 10.9 % (2-11); NEUTROPHILS 73.3 % (40-80); PLATELET COUNT 201 10x3/uL (130-400); RBC 3.36 10x6/uL (4.00-5.40); RDW 17.3 % (11.5-14.5); WBC 4.9 10x3/uL (4.8-10.8)
[2018-01-02 06:15] LABS: ALBUMIN 1.4 g/dL (3.4-5.0); ALKALINE PHOSPHATASE 87 U/L (46-116); ALT (SGPT) 8 U/L (10-68); BILIRUBIN - TOTAL 0.31 mg/dL (0.2-1.3); CALC OSMOLALITY 283 mosm/kg (275-300); CALCIUM 7.7 mg/dL (8.5-10.1); CARBON DIOXIDE 30.6 mmol/L (21.0-32.0); CHLORIDE - SERUM 105 mmol/L (98-107); CREATININE - SERUM 0.7 mg/dL (0.6-1.3); GLUCOSE 123 mg/dL (74-106); MAGNESIUM - SERUM 1.6 mg/dL (1.8-2.4); POTASSIUM - SERUM 3.7 mmol/L (3.5-5.1); SODIUM 141 mmol/L (136-145); eGFR NON AFRICAN AMERICAN 86 mL/min (90-120)
[2018-01-02 06:16] LABS: UREA NITROGEN 18 mg/dL (7-18)
[2018-01-02 06:45] VITALS: BP 103/51
[2018-01-02 08:42] VITALS: BP 116/69
[2018-01-02 12:21] VITALS: BP 117/61
[2018-01-02 16:54] VITALS: BP 120/64
[2018-01-02 21:01] VITALS: BP 113/60
== END 2018-01-03 01:05 | DRG 871 ==
LOC: D.ER 05:15 → D.EDHOLD 06:43 → D.M2 06:43 → D.SDCHOLD 01-02 17:15 → D.M2 01-02 17:16
PROVIDERS: Emergency Medicine; Family Medicine
DX: A41.52 Sepsis due to Pseudomonas (principal); R53.2 Functional quadriplegia; Z68.41 Body mass index [BMI] 40.0-44.9, adult; N17.9 Acute kidney failure, unspecified; L03.115 Cellulitis of right lower limb; J96.11 Chronic respiratory failure with hypoxia; E11.65 Type 2 diabetes mellitus with hyperglycemia; E11.40 Type 2 diabetes mellitus with diabetic neuropathy, unspecified; E11.51 Type 2 diabetes mellitus with diabetic peripheral angiopathy without gangrene; I11.0 Hypertensive heart disease with heart failure; I50.9 Heart failure, unspecified; I48.91 Unspecified atrial fibrillation; I25.10 Atherosclerotic heart disease of native coronary artery without angina pectoris; G47.33 Obstructive sleep apnea (adult) (pediatric); E66.01 Morbid (severe) obesity due to excess calories; E83.42 Hypomagnesemia; E78.5 Hyperlipidemia, unspecified; I87.8 Other specified disorders of veins; Z95.5 Presence of coronary angioplasty implant and graft

== ENCOUNTER 2018-01-02 17:59 | Inpatient (IN) | payer MEDICARE, MEDICAID ==
[~2018-01-02] VITALS: Ht 167.6 cm; Wt 132.4 kg
--- NOTE | ~2018-01-02 | RHP ---
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 HISTORY OF PRESENT ILLNESS: The patient is a 77-year-old female patient admitted to the rehab with disuse myopathy. She has got pretty severe cellulitis to both lower extremities, which has been chronic in origin. She has had multiple hospitalizations, nonweightbearing status to her right leg, got a pretty extensive past medical history for hypertension, hyperlipidemia, coronary artery disease, AFib, peripheral vascular disease, venous stasis ulcers secondary to her habitus. She has got obstructive sleep apnea and wears chronic O2. She lives at home alone and is basically wheelchair bound. She has chronic cellulitis and venous stasis changes in both lower extremities. She was admitted to the acute care hospital with complaints of cough. She was admitted with weakness, leukocytosis, chronic lower extremity edema and right lower extremity wound and diabetes with hyperglycemia. During her hospital course she was placed on IV antibiotics. She had Accu-Chek, she had prophylaxis for any type of GI or also DVT problems. Physical therapy, occupational therapy and speech therapy were all consulted. She did have a blood culture that did grow up a gram-negative elizabeth. She is placed on Ancef for this. Prior to this, she lived at home independently. She reports that [facility] was actually seeing her along with [facility] home calls. She will require intensive inpatient therapy to get back to her prior level of functioning and hopefully return to independent living. BARRIERS TO DISCHARGE: At this time are; self-care deficit, telemetry, at this time inability to transfer independently, living alone, the fact that she is on IV antibiotics and wound care she will also require intensive medical management of her current conditions and comorbidities to achieve these goals. COMORBIDITIES: In this patient include; diabetes, morbid obesity, hypertension, atrial fibrillation, cellulitis, leukocytosis, renal insufficiency, hyperkalemia, peripheral vascular disease, home O2 dependence and sleep apnea, stasis dermatitis, incontinence and arthritis. PAST MEDICAL HISTORY: Significant for neuropathy and weakness, cataracts, got a history of coronary artery disease, diabetes, atrial fib, peripheral vascular disease, obesity, obstructive sleep apnea, arthritis. PAST SURGICAL HISTORY: Includes hysterectomy. She has had IVC filter placed. She has had a hysterectomy, bilateral salpingo-oophorectomy. She has had surgery to her lower legs. She has had an iliac and left IVC stents placed, varicose vein removal. ALLERGIES: ADHESIVE TAPE, ASPIRIN, AMLODIPINE, LIPITOR, INVOKANA, METFORMIN, ACTOS AND JANUMET. CURRENT MEDICATIONS: She is on a glucose replacement protocol. She is on HISTORY AND PHYSICAL [id number] ANASOFIA Floranex 460 mg daily; insulin, low resistant sliding scale; Silvadene to apply topically; polyethylene glycol 17 grams in 8 ounces of water daily; Beaumont 5/325 one tab every 4 hours p.r.n.; Neurontin 300 mg at bedtime; furosemide 40 mg daily; Vibramycin 100 mg b.i.d.; Colace 200 mg daily p.r.n. constipation; Diltiazem 240 mg daily; Pradaxa 150 mg b.i.d.; Tums 1000 mg every 4 hours p.r.n. and Lipitor 40 mg at bedtime. HABITS: No alcohol or tobacco use. FAMILY HISTORY: Noncontributory. SOCIAL HISTORY: The patient hopes to return back home and get back to some type of independent living status, once again she was wheelchair bound when she came in. REVIEW OF SYSTEMS: GENERAL: Does complain of weakness and fatigue. HEENT: Denies cold, cough, or congestion. CARDIOVASCULAR: Denies chest pain. PHYSICAL EXAMINATION: VITAL SIGNS: Stable, afebrile. GENERAL: A morbidly obese female, in no distress upon exam. HEENT: Normocephalic and atraumatic. Mucosa moist. NECK: Supple. No lymphadenopathy. LUNGS: Clear in upper johnson. HEART: Irregular rate and rhythm. ABDOMEN: Benign, nontender, nondistended. She is noted to be morbidly obese. EXTREMITIES: She does have changes consistent with venous stasis and peripheral vascular disease with noted discoloration of the skin. NEUROLOGIC: She does have noted weakness. LABORATORY DATA: White count is 4.2, H&H of 9.7 and 31.3 and platelet count is noted to be 214. Her sodium is 142, potassium 3.8, BUN and creatinine of 13 and 0.6 and blood sugar is noted to be 106. ASSESSMENT: This is a 77-year-old female patient admitted to rehab with a working diagnosis of disuse myopathy. The patient has potential to make improvement. We instituted the following multidisciplinary therapies including, but not limited to physical, occupational, respiratory, speech, nutritional services, prosthetics and orthotics. Given her complex medical condition and risks for more complications, rehabilitation services cannot be provided at a low level of care such as [facility] facility. PLAN: 1. Admit to [facility] for intensive inpatient therapy to include the following disciplines: A. Physical therapy to improve gait, all transfer skills and bed mobility to a modified independent level. B. Occupational therapy to a modified independent level. C. Case management to assist with discharge planning and placement options. D. Nutrition to assist with nutritional needs. E. Rehabilitation nursing to assist in monitoring the patient's underlying medical conditions and to assist with any type of bowel or bladder management. 2. The patient's current medication and medical care will be continued. HISTORY AND PHYSICAL [id number] SOFIA PEREZ 3. The patient will be placed on standard fall precautions. 4. We will manage her blood sugars and treatment closely. 5. I feel like she has a pretty good prognosis on making it back home, back to her prior level of functioning. 6. We will discuss this patient during care team staff meeting tomorrow. TRANSINT:[id number] Voice Confirmation ID: [id number] DOCUMENT ID: [id number] RAAD notes whether there has been none or any medical/functional change since admission: - No change since preadmission screen. RAAD attests patient continues to be appropriate for IRF: - Continues to be appropriate. POLLY HERNANDEZ MD at 1404 CC: [id number] DICTATION DATE: 01/03/18 0845 SENIOR ENTERPRISE ARCHITECT: 01/03/18 1046 ADM IN [facility] [address] [place] [address]
[2018-01-03 01:26] VITALS: BP 116/55; BMI 47.2
[2018-01-03 07:48] LABS: BASOPHILS 0.5 % (0-2); EOSINOPHILS 3.6 % (0-7); HEMATOCRIT 31.3 % (36.0-48.0); HEMOGLOBIN 9.7 g/dL (12-16); IMMATURE GRANULOCYTES 1.7 % (0-5); LYMPHOCYTES 15.6 % (15-50); MCH 28.1 pg (26.0-34.0); MCV 90.7 fL (80.0-100.0); MEAN PLATELET VOLUME 9.4 fL (7.4-10.4); MONOCYTES 10.7 % (2-11); NEUTROPHILS 67.9 % (40-80); PLATELET COUNT 214 10x3/uL (130-400); RBC 3.45 10x6/uL (4.00-5.40); RDW 17.6 % (11.5-14.5); WBC 4.2 10x3/uL (4.8-10.8)
[2018-01-03 07:56] LABS: CALC OSMOLALITY 282 mosm/kg (275-300); CALCIUM 8.2 mg/dL (8.5-10.1); CARBON DIOXIDE 28.7 mmol/L (21.0-32.0); CHLORIDE - SERUM 106 mmol/L (98-107); CREATININE - SERUM 0.6 mg/dL (0.6-1.3); GLUCOSE 106 mg/dL (74-106); POTASSIUM - SERUM 3.8 mmol/L (3.5-5.1); SODIUM 142 mmol/L (136-145); eGFR NON AFRICAN AMERICAN > 90 mL/min (90-120)
[2018-01-03 07:59] LABS: UREA NITROGEN 13 mg/dL (7-18)
[2018-01-03 08:26] VITALS: BP 113/59
[2018-01-03 13:37] VITALS: Ht 167.6 cm; Wt 132.4 kg
[2018-01-03 19:00] VITALS: BP 105/48
[2018-01-04 07:11] LABS: CALCIUM 8.6 mg/dL (8.5-10.1); CARBON DIOXIDE 27.9 mmol/L (21.0-32.0); CREATININE - SERUM 0.8 mg/dL (0.6-1.3); POTASSIUM - SERUM 3.9 mmol/L (3.5-5.1)
[2018-01-04 07:50] LABS: BASOPHILS 0.4 % (0-2); EOSINOPHILS 2.9 % (0-7); HEMATOCRIT 33.4 % (36.0-48.0); HEMOGLOBIN 10.3 g/dL (12-16); IMMATURE GRANULOCYTES 1.1 % (0-5); LYMPHOCYTES 15.2 % (15-50); MCH 28.1 pg (26.0-34.0); MCHC 30.8 g/dL (31.0-37.0); MCV 91.3 fL (80.0-100.0); MEAN PLATELET VOLUME 9.6 fL (7.4-10.4); MONOCYTES 9.6 % (2-11); NEUTROPHILS 70.8 % (40-80); PLATELET COUNT 238 10x3/uL (130-400); RBC 3.66 10x6/uL (4.00-5.40); RDW 17.5 % (11.5-14.5)
[2018-01-04 07:55] LABS: WBC 5.5 10x3/uL (4.8-10.8)
[2018-01-04 08:00] VITALS: BP 108/61
[2018-01-04 19:00] VITALS: BP 118/54
[2018-01-05 08:00] VITALS: BP 117/62
[2018-01-05 20:40] VITALS: BP 111/54
[2018-01-06 08:02] VITALS: BP 101/53
[2018-01-06 08:08] LABS: BASOPHILS 0.8 % (0-2); EOSINOPHILS 5.8 % (0-7); HEMATOCRIT 29.7 % (36.0-48.0); HEMOGLOBIN 9.1 g/dL (12-16); IMMATURE GRANULOCYTES 0.8 % (0-5); MCH 27.7 pg (26.0-34.0); MCHC 30.6 g/dL (31.0-37.0); MCV 90.5 fL (80.0-100.0); MEAN PLATELET VOLUME 9.2 fL (7.4-10.4); MONOCYTES 10.2 % (2-11); NEUTROPHILS 69.4 % (40-80); PLATELET COUNT 212 10x3/uL (130-400); RBC 3.28 10x6/uL (4.00-5.40); RDW 17.3 % (11.5-14.5); WBC 3.6 10x3/uL (4.8-10.8)
[2018-01-06 08:12] LABS: ANION GAP 9.3 mmol/L (8-16); CALCIUM 7.7 mg/dL (8.5-10.1); CARBON DIOXIDE 31.1 mmol/L (21.0-32.0); CREATININE - SERUM 0.8 mg/dL (0.6-1.3); POTASSIUM - SERUM 3.4 mmol/L (3.5-5.1)
[2018-01-06 19:02] VITALS: BP 114/56
[2018-01-07 07:58] VITALS: BP 116/63
[2018-01-08 08:57] VITALS: BP 110/52
[2018-01-08 20:00] VITALS: BP 114/48
[2018-01-09 06:30] LABS: BASOPHILS 0.4 % (0-2); EOSINOPHILS 2.2 % (0-7); HEMATOCRIT 28.6 % (36.0-48.0); IMMATURE GRANULOCYTES 0.2 % (0-5); LYMPHOCYTES 12.2 % (15-50); MCH 28.3 pg (26.0-34.0); MCHC 31.5 g/dL (31.0-37.0); MCV 89.9 fL (80.0-100.0); MEAN PLATELET VOLUME 9.5 fL (7.4-10.4); MONOCYTES 8.3 % (2-11); NEUTROPHILS 76.7 % (40-80); PLATELET COUNT 198 10x3/uL (130-400); RBC 3.18 10x6/uL (4.00-5.40); RDW 17.7 % (11.5-14.5); WBC 5.1 10x3/uL (4.8-10.8)
[2018-01-09 06:48] LABS: CALCIUM 8.2 mg/dL (8.5-10.1); CARBON DIOXIDE 30.5 mmol/L (21.0-32.0); CREATININE - SERUM 0.8 mg/dL (0.6-1.3); POTASSIUM - SERUM 3.5 mmol/L (3.5-5.1)
[2018-01-09 08:00] VITALS: BP 104/50
[2018-01-09 21:57] VITALS: BP 121/52
[2018-01-10 08:14] VITALS: BP 107/54
[2018-01-10 19:00] VITALS: BP 100/42
[2018-01-11 06:14] LABS: BASOPHILS 0.6 % (0-2); EOSINOPHILS 1.7 % (0-7); HEMATOCRIT 27.4 % (36.0-48.0); HEMOGLOBIN 8.6 g/dL (12-16); IMMATURE GRANULOCYTES 0.2 % (0-5); LYMPHOCYTES 7.5 % (15-50); MCH 28.7 pg (26.0-34.0); MCHC 31.4 g/dL (31.0-37.0); MCV 91.3 fL (80.0-100.0); MEAN PLATELET VOLUME 9.6 fL (7.4-10.4); MONOCYTES 7.7 % (2-11); NEUTROPHILS 82.3 % (40-80); PLATELET COUNT 187 10x3/uL (130-400)
[2018-01-11 06:34] LABS: WBC 6.4 10x3/uL (4.8-10.8)
[2018-01-11 06:36] LABS: ANION GAP 9.2 mmol/L (8-16); CALCIUM 7.9 mg/dL (8.5-10.1); CARBON DIOXIDE 30.4 mmol/L (21.0-32.0); CREATININE - SERUM 0.9 mg/dL (0.6-1.3); POTASSIUM - SERUM 3.6 mmol/L (3.5-5.1)
[2018-01-11 08:15] VITALS: BP 100/47
[2018-01-11 19:00] VITALS: BP 105/48
[2018-01-12 08:06] VITALS: BP 97/53
[2018-01-12 19:09] VITALS: BP 106/54
[2018-01-13 06:26] LABS: BASOPHILS 0.7 % (0-2); EOSINOPHILS 3.1 % (0-7); HEMATOCRIT 30.4 % (36.0-48.0); HEMOGLOBIN 9.3 g/dL (12-16); IMMATURE GRANULOCYTES 0.2 % (0-5); LYMPHOCYTES 14.9 % (15-50); MCH 28.1 pg (26.0-34.0); MCHC 30.6 g/dL (31.0-37.0); MCV 91.8 fL (80.0-100.0); MEAN PLATELET VOLUME 9.8 fL (7.4-10.4); MONOCYTES 9.4 % (2-11); NEUTROPHILS 71.7 % (40-80); PLATELET COUNT 207 10x3/uL (130-400); RBC 3.31 10x6/uL (4.00-5.40); RDW 18.4 % (11.5-14.5); WBC 4.2 10x3/uL (4.8-10.8)
[2018-01-13 06:40] LABS: ANION GAP 11.9 mmol/L (8-16); CALCIUM 8.2 mg/dL (8.5-10.1); CARBON DIOXIDE 28.9 mmol/L (21.0-32.0); CREATININE - SERUM 0.9 mg/dL (0.6-1.3); POTASSIUM - SERUM 3.8 mmol/L (3.5-5.1)
[2018-01-13 08:19] VITALS: BP 115/45
[2018-01-13 19:00] VITALS: BP 111/48
[2018-01-14 08:22] VITALS: BP 111/55
[2018-01-14 21:04] VITALS: BP 100/52
[2018-01-15 09:00] VITALS: BP 115/57
[2018-01-15 19:32] VITALS: BP 105/47
[2018-01-16 06:18] LABS: BASOPHILS 1.6 % (0-2); EOSINOPHILS 4.5 % (0-7); HEMATOCRIT 28.9 % (36.0-48.0); HEMOGLOBIN 8.7 g/dL (12-16); IMMATURE GRANULOCYTES 0.3 % (0-5); LYMPHOCYTES 15.6 % (15-50); MCH 27.9 pg (26.0-34.0); MCHC 30.1 g/dL (31.0-37.0); MCV 92.6 fL (80.0-100.0); MEAN PLATELET VOLUME 10.5 fL (7.4-10.4); MONOCYTES 11.1 % (2-11); NEUTROPHILS 66.9 % (40-80); PLATELET COUNT 180 10x3/uL (130-400); RBC 3.12 10x6/uL (4.00-5.40); RDW 18.4 % (11.5-14.5); WBC 3.1 10x3/uL (4.8-10.8)
[2018-01-16 06:38] LABS: ANION GAP 9.7 mmol/L (8-16); CALCIUM 8.2 mg/dL (8.5-10.1); CARBON DIOXIDE 30.6 mmol/L (21.0-32.0); CREATININE - SERUM 0.8 mg/dL (0.6-1.3); POTASSIUM - SERUM 3.3 mmol/L (3.5-5.1)
[2018-01-16 07:50] VITALS: BP 108/54
[2018-01-16 19:35] VITALS: BP 103/43
[2018-01-17 07:50] VITALS: BP 109/49
[2018-01-17 19:25] VITALS: BP 99/34
[2018-01-18 06:42] LABS: EOSINOPHILS 3.3 % (0-7); HEMATOCRIT 28.2 % (36.0-48.0); HEMOGLOBIN 8.6 g/dL (12-16); LYMPHOCYTES 12.1 % (15-50); MCH 28.4 pg (26.0-34.0); MCHC 30.5 g/dL (31.0-37.0); MCV 93.1 fL (80.0-100.0); MEAN PLATELET VOLUME 10.3 fL (7.4-10.4); MONOCYTES 11.8 % (2-11); NEUTROPHILS 71.8 % (40-80); PLATELET COUNT 172 10x3/uL (130-400); RBC 3.03 10x6/uL (4.00-5.40); RDW 18.4 % (11.5-14.5); WBC 3.1 10x3/uL (4.8-10.8)
[2018-01-18 07:02] LABS: CALCIUM 8.2 mg/dL (8.5-10.1); CARBON DIOXIDE 32.4 mmol/L (21.0-32.0); CREATININE - SERUM 0.8 mg/dL (0.6-1.3); POTASSIUM - SERUM 3.4 mmol/L (3.5-5.1)
[2018-01-18 08:38] VITALS: BP 113/44
[2018-01-18 19:00] VITALS: BP 124/50
[2018-01-19 08:12] VITALS: BP 109/47
[2018-01-19] MEDS ORDERED: CLEOCIN HCL300 MG PO (14:30)
[2018-01-20 06:53] LABS: BASOPHILS 0.9 % (0-2); EOSINOPHILS 4.3 % (0-7); HEMATOCRIT 29.9 % (36.0-48.0); LYMPHOCYTES 16.8 % (15-50); MCH 28.1 pg (26.0-34.0); MCHC 30.1 g/dL (31.0-37.0); MCV 93.4 fL (80.0-100.0); MEAN PLATELET VOLUME 10.4 fL (7.4-10.4); MONOCYTES 13.1 % (2-11); NEUTROPHILS 64.9 % (40-80); PLATELET COUNT 178 10x3/uL (130-400); RDW 18.3 % (11.5-14.5); WBC 3.3 10x3/uL (4.8-10.8)
[2018-01-20 07:09] LABS: ANION GAP 8.9 mmol/L (8-16); CALCIUM 8.4 mg/dL (8.5-10.1); CARBON DIOXIDE 32.2 mmol/L (21.0-32.0); POTASSIUM - SERUM 4.1 mmol/L (3.5-5.1)
[2018-01-20 07:51] VITALS: BP 102/50
== END 2018-01-20 12:22 | disposition home health service (06) | DRG 92 ==
LOC: D.REHAB 17:59
PROVIDERS: Emergency Medicine
DX: G72.89 Other specified myopathies (principal); L03.116 Cellulitis of left lower limb; L03.115 Cellulitis of right lower limb; Z68.42 Body mass index [BMI] 45.0-49.9, adult; E11.9 Type 2 diabetes mellitus without complications; E66.01 Morbid (severe) obesity due to excess calories; I10 Essential (primary) hypertension; I48.91 Unspecified atrial fibrillation; N28.9 Disorder of kidney and ureter, unspecified; E87.5 Hyperkalemia; I73.9 Peripheral vascular disease, unspecified; Z99.81 Dependence on supplemental oxygen; G47.30 Sleep apnea, unspecified; R32 Unspecified urinary incontinence; M19.90 Unspecified osteoarthritis, unspecified site; I87.2 Venous insufficiency (chronic) (peripheral); D72.829 Elevated white blood cell count, unspecified; E11.22 Type 2 diabetes mellitus with diabetic chronic kidney disease; E11.65 Type 2 diabetes mellitus with hyperglycemia; R13.12 Dysphagia, oropharyngeal phase; I50.9 Heart failure, unspecified; R53.1 Weakness; E78.5 Hyperlipidemia, unspecified

== ENCOUNTER 2018-02-09 22:01 | Inpatient (IN) | payer MEDICARE ==
[~2018-02-09] VITALS: Ht 167.6 cm; Wt 140.4 kg
--- NOTE | ~2018-02-09 | MORECARE ---
CASE MANAGEMENT DISCHARGE SUMMARY PATIENT: SOFIA PEREZ UNIT: [id number] ADM DATE: 02/10/18 AGE: 77 : 39 SEX: F ROOM/BED: D.2206 AUTHOR: PETER BELTRAN PHYSICIAN: REFERRING PHYSICIAN: ELEANOR SHAH MD DATE OF SERVICE: 02/23/18 Discharge Plan Patient Name: SOFIA PEREZ Facility: [facility]:[place] : 1940 Planned Disposition: Home with Home Health Anticipated Discharge Date: Discharge Date: 02/22/2018 Expected LOS: 0 Initial Reviewer: [email or web address] Initial Review Date: 02/10/2018 Generated: 02/23/18 1:30 pm Comments DCP- Discharge Planning Updated by [email or web address]: Viky Blanco on 02/22/18 12:[address] I informed patient that I did not reach her on her home phone. She asked me to call her cell #[phone]. I called cell and reach answering machine and informed her that her mother was going to inpatient rehab today. DCP- Discharge Planning Updated by [email or web address]: Viky Blanco on 02/22/18 12:[address] Received order for discharge. She is in agreement to go to inpatient rehab. I attempted to cll her daughter with no answer and no answering machine. CM will continue to follow and assist with discharge planning/needs. DCP- Discharge Planning Updated by [email or web address]: Yolanda Vences on 02/13/18 2:[address] Patient Name: SOFIA PEREZ Admission Status: ER Accout number: [id number] Admission Date: 02-10-2018 : 1940 Admission Diagnosis:CELLULITIS, UNSPECIFIED Attending: ELEANOR SHAH Current LOS: 3 Anticipated DC Date: Planned Disposition: Home with Home Health Primary Insurance: MEDICARE A & B Discharge Planning Comments: CM met with patient to assess discharge planning needs. Patient lives independently at home and plans to return there when discharged. Her daughter will be the one to drive her home. Her grandson will stay with her on the weekend. She is current with [facility] who was doing dressing changes on her on legs. She has home o2 that she wears, tub bench, walker, and wheelchair at home . There is a ramp to enter in her home. CM will continue to follow and assist with DC planning needs. Roll Tender: Yolanda Vences DCPIA - Discharge Planning Initial Assessment Updated by [email or web address]: Yolanda Vences on 02/13/18 3:07 pm * Is the patient Alert and Oriented? Yes * How many steps to enter\exit or inside your home? RAMP * PCP AXEL * Pharmacy [facility] * Preadmission Environment Home Alone * ADLs Independent * Equipment Oxygen Rolling Walker Shower Chair Tub Bench Walker * List name and contact numbers for known caregivers / representatives who currently or will assist patient after discharge: BRYON STEEL [phone] * Verbal permission to speak to the caregivers and representatives has been obtained from the patient. Yes * Community resources currently utilized Home Health * Please name any agencies selected above. [facility] * Additional services required to return to the preadmission environment? No * Can the patient safely return to the preadmission environment? Yes * Has this patient been hospitalized within the prior 30 days at any hospital? Yes Coverage Notice Reviewer: [email or web address] Zoe Blanco Notice Issued Date-Time: 02/22/2018 13:20 Notice Type: IM Discharge Notice Notice Delivered To: Patient Relationship to Patient: Self Cd Mixer Helper Name: Delivery Method: HAND - Hand Delivered Lima Days: Prior Verbal Notification: Recipient Understood Notice: Yes Recipient Signature: Yes Med Rec Note Co-signed by Attending: Coverage Notice Comment: IMM explained, signed, copy given, original placed in MR Last DP export: 02/22/18 12:33 Patient Name: SOFIA PEREZ Page 53688 at 1231 All edits/amendments must be made on the electronic document DICTATION DATE: 02/23/18 1230 MAIL ORDER BILLER: RITU 02/23/18 1230 RPT#: [id number] DC DATE:02/22/18 STATUS: DIS IN [facility] [address] [place] [address] END OF REPORT
--- NOTE | ~2018-02-09 | MORECARE ---
CASE MANAGEMENT DISCHARGE SUMMARY PATIENT: SOFIA PEREZ UNIT: [id number] ADM DATE: 02/10/18 AGE: 77 : 39 SEX: F ROOM/BED: D.2206 AUTHOR: PETER BELTRAN PHYSICIAN: REFERRING PHYSICIAN: ELEANOR SHAH MD DATE OF SERVICE: 02/10/18 Discharge Plan Patient Name: SOFIA PEREZ Facility: [facility]:[place] : 1940 Planned Disposition: Anticipated Discharge Date: Discharge Date: Expected LOS: Initial Reviewer: [email or web address] Initial Review Date: 02/10/2018 Generated: 02/10/18 2:40 pm Patient Name: SOFIA PEREZ Page 04837 at 1340 All edits/amendments must be made on the electronic document DICTATION DATE: 02/10/181338 DERMATOLOGIST AND DERMATOPATHOLOGIST: RITU 02/10/18 133 RPT#: [id number] DC DATE: STATUS: ADM IN [facility] [address] [place] [address] END OF REPORT
--- NOTE | ~2018-02-09 | MORECARE ---
CASE MANAGEMENT DISCHARGE SUMMARY PATIENT: SOFIA PEREZ UNIT: [id number] ADM DATE: 02/10/18 AGE: 77 : 39 SEX: F ROOM/BED: D.2206 AUTHOR: PETER BELTRAN PHYSICIAN: REFERRING PHYSICIAN: ELEANOR SHAH MD DATE OF SERVICE: 02/22/18 Discharge Plan Patient Name: SOFIA PEREZ Facility: [facility]:[place] : 1940 Planned Disposition: Home with Home Health Anticipated Discharge Date: Discharge Date: Expected LOS: Initial Reviewer: [email or web address] Initial Review Date: 02/10/2018 Generated: 02/22/18 2:33 pm Comments DCP- Discharge Planning Updated by [email or web address]: Viky Blanco on 02/22/18 12:[address] I informed patient that I did not reach her on her home phone. She asked me to call her cell #[phone]. I called cell and reach answering machine and informed her that her mother was going to inpatient rehab today. DCP- Discharge Planning Updated by [email or web address]: Viky Blanco on 02/22/18 12:[address] Received order for discharge. She is in agreement to go to inpatient rehab. I attempted to cll her daughter with no answer and no answering machine. CM will continue to follow and assist with discharge planning/needs. DCP- Discharge Planning Updated by [email or web address]: Yolanda Vences on 02/13/18 2:[address] Patient Name: SOFIA PEREZ Admission Status: ER Accout number: [id number] Admission Date: 02-10-2018 : 1940 Admission Diagnosis:CELLULITIS, UNSPECIFIED Attending: ELEANOR SHAH Current LOS: 3 Anticipated DC Date: Planned Disposition: Home with Home Health Primary Insurance: MEDICARE A & B Discharge Planning Comments: CM met with patient to assess discharge planning needs. Patient lives independently at home and plans to return there when discharged. Her daughter will be the one to drive her home. Her grandson will stay with her on the weekend. She is current with [facility] who was doing dressing changes on her on legs. She has home o2 that she wears, tub bench, walker, and wheelchair at home . There is a ramp to enter in her home. CM will continue to follow and assist with DC planning needs. Ux Engineer: Yolanda Vences DCPIA - Discharge Planning Initial Assessment Updated by [email or web address]: Yolanda Venecs on 02/13/18 3:07 pm * Is the patient Alert and Oriented? Yes * How many steps to enter\exit or inside your home? RAMP * PCP AXEL * Pharmacy [facility] * Preadmission Environment Home Alone * ADLs Independent * Equipment Oxygen Rolling Walker Shower Chair Tub Bench Walker * List name and contact numbers for known caregivers / representatives who currently or will assist patient after discharge: BRYON STEEL [phone] * Verbal permission to speak to the caregivers and representatives has been obtained from the patient. Yes * Community resources currently utilized Home Health * Please name any agencies selected above. [facility] * Additional services required to return to the preadmission environment? No * Can the patient safely return to the preadmission environment? Yes * Has this patient been hospitalized within the prior 30 days at any hospital? Yes Coverage Notice Reviewer: [id number] Zoe Blanco Notice Issued Date-Time: 02/22/2018 13:20 Notice Type: IM Discharge Notice Notice Delivered To: Patient Relationship to Patient: Self Biological Inspector Name: Delivery Method: HAND - Hand Delivered Lima Days: Prior Verbal Notification: Recipient Understood Notice: Yes Recipient Signature: Yes Med Rec Note Co-signed by Attending: Coverage Notice Comment: IMM explained, signed, copy given, original placed in MR Last DP export: 02/22/18 12:26 Patient Name: SOFIA PEREZ Page 99407 at 1333 All edits/amendments must be made on the electronic document DICTATION DATE: 02/22/18 1332 CORK FLOOR INSTALLER: RITU 02/22/18 1332 RPT#: [id number] DC DATE: STATUS: ADM IN [facility] [address] [place] [address] END OF REPORT
--- NOTE | ~2018-02-09 | MORECARE ---
CASE MANAGEMENT DISCHARGE SUMMARY PATIENT: SOFIA PEREZ UNIT: [id number] ADM DATE: 02/10/18 AGE: 77 : 39 SEX: F ROOM/BED: D.2206 AUTHOR: RUBY,DOC PHYSICIAN: REFERRING PHYSICIAN: ELEANOR SHAH MD DATE OF SERVICE: 02/13/18 Discharge Plan Patient Name: SOFIA PEREZ Facility: [facility]:[place] : 1940 Planned Disposition: Home with Home Health Anticipated Discharge Date: Discharge Date: Expected LOS: Initial Reviewer: [email or web address] Initial Review Date: 02/10/2018 Generated: 02/13/18 4:17 pm Comments DCP- Discharge Planning Updated by [email or web address]: Yolanda Vences on 02/13/18 2:[address] Patient Name: SOFIA PEREZ Admission Status: ER Accout number: [id number] Admission Date: 02-10-2018 : 1940 Admission Diagnosis:CELLULITIS, UNSPECIFIED Attending: ELEANOR SHAH Current LOS: 3 Anticipated DC Date: Planned Disposition: Home with Home Health Primary Insurance: MEDICARE A & B Discharge Planning Comments: CM met with patient to assess discharge planning needs. Patient lives independently at home and plans to return there when discharged. Her daughter will be the one to drive her home. Her grandson will stay with her on the weekend. She is current with [facility] who was doing dressing changes on her on legs. She has home o2 that she wears, tub bench, walker, and wheelchair at home . There is a ramp to enter in her home. CM will continue to follow and assist with DC planning needs. Tankerman: Yolanda Vences DCPIA - Discharge Planning Initial Assessment Updated by [email or web address]: Yolanda Vences on 02/13/18 3:07 pm * Is the patient Alert and Oriented? Yes * How many steps to enter\exit or inside your home? RAMP * PCP AXEL * Pharmacy [facility] * Preadmission Environment Home Alone * ADLs Independent * Equipment Oxygen Rolling Walker Shower Chair Tub Bench Walker * List name and contact numbers for known caregivers / representatives who currently or will assist patient after discharge: BRYON STEEL [phone] * Verbal permission to speak to the caregivers and representatives has been obtained from the patient. Yes * Community resources currently utilized Home Health * Please name any agencies selected above. [facility] * Additional services required to return to the preadmission environment? No * Can the patient safely return to the preadmission environment? Yes * Has this patient been hospitalized within the prior 30 days at any hospital? Yes Last DP export: 02/10/18 12:40 Patient Name: SOFIA PEREZ Page 02223 at 1517 All edits/amendments must be made on the electronic document DICTATION DATE: 02/13/181515 WELD INSPECTOR: RITU 02/13/181515 RPT#: [id number] DC DATE: STATUS: ADM IN [facility] [address] [place] [address] END OF REPORT
--- NOTE | ~2018-02-09 | MORECARE ---
CASE MANAGEMENT DISCHARGE SUMMARY PATIENT: SOFIA PEREZ UNIT: [id number] ADM DATE: 02/10/18 AGE: 77 : 39 SEX: F ROOM/BED: D.2206 AUTHOR: RUBY,DOC PHYSICIAN: REFERRING PHYSICIAN: ELEANOR SHAH MD DATE OF SERVICE: 02/22/18 Discharge Plan Patient Name: SOFIA PEREZ Facility: [facility]:[place] : 1940 Planned Disposition: Home with Home Health Anticipated Discharge Date: Discharge Date: Expected LOS: Initial Reviewer: [email or web address] Initial Review Date: 02/10/2018 Generated: 02/22/18 2:26 pm Comments DCP- Discharge Planning Updated by [email or web address]: Viky Blanco on 02/22/18 12:[address] Received order for discharge. She is in agreement to go to inpatient rehab. I attempted to cll her daughter with no answer and no answering machine. CM will continue to follow and assist with discharge planning/needs. DCP- Discharge Planning Updated by [email or web address]: Yolanda Vences on 02/13/18 2:[address] Patient Name: SOFIA PEREZ Admission Status: ER Accout number: [id number] Admission Date: 02-10-2018 : 1940 Admission Diagnosis:CELLULITIS, UNSPECIFIED Attending: ELEANOR SHAH Current LOS: 3 Anticipated DC Date: Planned Disposition: Home with Home Health Primary Insurance: MEDICARE A & B Discharge Planning Comments: CM met with patient to assess discharge planning needs. Patient lives independently at home and plans to return there when discharged. Her daughter will be the one to drive her home. Her grandson will stay with her on the weekend. She is current with [facility] who was doing dressing changes on her on legs. She has home o2 that she wears, tub bench, walker, and wheelchair at home . There is a ramp to enter in her home. CM will continue to follow and assist with DC planning needs. Clasp Machine Operator: Yolanda Vences DCPIA - Discharge Planning Initial Assessment Updated by [email or web address]: Yolanda Vences on 02/13/18 3:07 pm * Is the patient Alert and Oriented? Yes * How many steps to enter\exit or inside your home? RAMP * PCP AXEL * Pharmacy [facility] * Preadmission Environment Home Alone * ADLs Independent * Equipment Oxygen Rolling Walker Shower Chair Tub Bench Walker * List name and contact numbers for known caregivers / representatives who currently or will assist patient after discharge: BRYON STEEL [phone] * Verbal permission to speak to the caregivers and representatives has been obtained from the patient. Yes * Community resources currently utilized Home Health * Please name any agencies selected above. [facility] * Additional services required to return to the preadmission environment? No * Can the patient safely return to the preadmission environment? Yes * Has this patient been hospitalized within the prior 30 days at any hospital? Yes Coverage Notice Reviewer: [email or web address] Zoe Blanco Notice Issued Date-Time: 02/22/2018 13:20 Notice Type: IM Discharge Notice Notice Delivered To: Patient Relationship to Patient: Self Rock Mason Name: Delivery Method: HAND - Hand Delivered Lima Days: Prior Verbal Notification: Recipient Understood Notice: Yes Recipient Signature: Yes Med Rec Note Co-signed by Attending: Coverage Notice Comment: IMM explained, signed, copy given, original placed in MR Last DP export: 02/13/18 2:17 Patient Name: SOFIA PEREZ Page 49568 at 1326 All edits/amendments must be made on the electronic document DICTATION DATE: 02/22/18 1325 BLAST FURNACE SUPERVISOR: RITU 02/22/18 1325 RPT#: [id number] DC DATE: STATUS: ADM IN [facility] [address] [place] [address] END OF REPORT
[~2018-02-09 22:01] MED LIST changes: +CLEOCIN HCL300 MG PO
[2018-02-09 23:13] LABS: BASOPHILS 0.9 % (0-2); EOSINOPHILS 8.3 % (0-7); HEMOGLOBIN 9.9 g/dL (12-16); IMMATURE GRANULOCYTES 0.2 % (0-5); LYMPHOCYTES 13.9 % (15-50); MCH 27.9 pg (26.0-34.0); MCHC 30.9 g/dL (31.0-37.0); MCV 90.1 fL (80.0-100.0); MEAN PLATELET VOLUME 9.7 fL (7.4-10.4); MONOCYTES 12.4 % (2-11); NEUTROPHILS 64.3 % (40-80); PLATELET COUNT 144 10x3/uL (130-400); RBC 3.55 10x6/uL (4.00-5.40); RDW 16.9 % (11.5-14.5); WBC 4.6 10x3/uL (4.8-10.8)
[2018-02-09 23:20] LABS: ALBUMIN 2.1 g/dL (3.4-5.0); ALKALINE PHOSPHATASE 104 U/L (46-116); ALT (SGPT) 8 U/L (10-68); BILIRUBIN - TOTAL 0.76 mg/dL (0.2-1.3); CALC OSMOLALITY 281 mosm/kg (275-300); CALCIUM 8.1 mg/dL (8.5-10.1); CARBON DIOXIDE 27.7 mmol/L (21.0-32.0); CHLORIDE - SERUM 102 mmol/L (98-107); CREATININE - SERUM 1.1 mg/dL (0.6-1.3); GLUCOSE 141 mg/dL (74-106); POTASSIUM - SERUM 4.2 mmol/L (3.5-5.1); SODIUM 139 mmol/L (136-145); UREA NITROGEN 19 mg/dL (7-18); eGFR NON AFRICAN AMERICAN 51 mL/min (90-120)
[2018-02-09 23:32] LABS: CKMB 0.3 U/L (0.0-3.6); CREATINE KINASE 48 UL (21-215); PRO BNP 714 pg/mL (0-450)
[2018-02-09 23:33] LABS: TROPONIN-I < 0.017 ng/mL (0.000-0.060)
[2018-02-10 00:14] LABS: APPEARANCE HAZY (CLEAR); BACTERIA MANY /hpf (NONE SEEN); BILIRUBIN NEGATIVE (NEGATIVE); COLOR YELLOW (YELLOW); EPITHELIAL CELLS NSEEN /hpf (0-5); GLUCOSE NEGATIVE (NEGATIVE); KETONE NEGATIVE (NEGATIVE); NITRITE POSITIVE (NEGATIVE); PROTEIN NEGATIVE (NEGATIVE); RED CELLS - URINE RARE /hpf (0-5); SPECIFIC GRAVITY 1.015 (1.005-1.020); UROBILINOGEN NORMAL (NORMAL); WHITE CELLS - URINE 25-50 /hpf (0-5)
[2018-02-10 05:35] VITALS: BP 117/61
[2018-02-10 07:09] VITALS: BP 112/56
[2018-02-10 08:34] LABS: BASOPHILS 0.8 % (0-2); EOSINOPHILS 8.6 % (0-7); HEMATOCRIT 32.2 % (36.0-48.0); HEMOGLOBIN 9.8 g/dL (12-16); LYMPHOCYTES 16.9 % (15-50); MCH 27.8 pg (26.0-34.0); MCHC 30.4 g/dL (31.0-37.0); MCV 91.2 fL (80.0-100.0); MEAN PLATELET VOLUME 9.7 fL (7.4-10.4); MONOCYTES 12.5 % (2-11); NEUTROPHILS 61.2 % (40-80); PLATELET COUNT 161 10x3/uL (130-400); RBC 3.53 10x6/uL (4.00-5.40); WBC 3.9 10x3/uL (4.8-10.8)
[2018-02-10 08:44] VITALS: BP 96/54
[2018-02-10 09:11] LABS: ANION GAP 12.6 mmol/L (8-16); BILIRUBIN - TOTAL 0.79 mg/dL (0.2-1.3); CALCIUM 7.8 mg/dL (8.5-10.1); CARBON DIOXIDE 29.5 mmol/L (21.0-32.0); CREATININE - SERUM 1.1 mg/dL (0.6-1.3); PROTEIN - SERUM 6.8 g/dL (6.4-8.2)
[2018-02-10 09:19] LABS: POTASSIUM - SERUM 3.1 mmol/L (3.5-5.1)
[2018-02-10 13:27] VITALS: BP 110/58; BMI 44.1
[2018-02-10 20:00] VITALS: BP 111/55
[2018-02-11] VITALS: BP 111/50
[2018-02-11 04:00] VITALS: BP 100/53
[2018-02-11 06:26] LABS: BASOPHILS 1.1 % (0-2); EOSINOPHILS 7.9 % (0-7); HEMATOCRIT 30.7 % (36.0-48.0); HEMOGLOBIN 9.3 g/dL (12-16); IMMATURE GRANULOCYTES 0.2 % (0-5); LYMPHOCYTES 15.1 % (15-50); MCH 28.1 pg (26.0-34.0); MCHC 30.3 g/dL (31.0-37.0); MCV 92.7 fL (80.0-100.0); MEAN PLATELET VOLUME 10.4 fL (7.4-10.4); MONOCYTES 12.8 % (2-11); NEUTROPHILS 62.9 % (40-80); PLATELET COUNT 156 10x3/uL (130-400); RBC 3.31 10x6/uL (4.00-5.40); WBC 4.5 10x3/uL (4.8-10.8)
[2018-02-11 06:50] LABS: ALBUMIN 1.9 g/dL (3.4-5.0); ANION GAP 11.4 mmol/L (8-16); BILIRUBIN - TOTAL 0.63 mg/dL (0.2-1.3); CARBON DIOXIDE 28.6 mmol/L (21.0-32.0); CREATININE - SERUM 1.2 mg/dL (0.6-1.3); PROTEIN - SERUM 6.7 g/dL (6.4-8.2)
[2018-02-11 08:36] VITALS: BP 122/57
[2018-02-11 08:59] VITALS: BMI 49.9
[2018-02-11 13:15] VITALS: BP 138/62
[2018-02-11 16:44] VITALS: BP 109/53
[2018-02-11 20:00] VITALS: BP 122/54
[2018-02-12] VITALS (7 sets, daily range): BP systolic 110–136; BP diastolic 45–62
[2018-02-12 06:09] LABS: BASOPHILS 0.8 % (0-2); HEMATOCRIT 30.3 % (36.0-48.0); HEMOGLOBIN 9.2 g/dL (12-16); LYMPHOCYTES 16.3 % (15-50); MCHC 30.4 g/dL (31.0-37.0); MCV 92.4 fL (80.0-100.0); MEAN PLATELET VOLUME 9.8 fL (7.4-10.4); MONOCYTES 14.1 % (2-11); NEUTROPHILS 59.8 % (40-80); PLATELET COUNT 129 10x3/uL (130-400); RBC 3.28 10x6/uL (4.00-5.40); RDW 16.8 % (11.5-14.5)
[2018-02-12 06:49] LABS: ALBUMIN 1.8 g/dL (3.4-5.0); ANION GAP 10.7 mmol/L (8-16); BILIRUBIN - TOTAL 0.64 mg/dL (0.2-1.3); CALCIUM 7.9 mg/dL (8.5-10.1); CARBON DIOXIDE 30.1 mmol/L (21.0-32.0); CREATININE - SERUM 1.2 mg/dL (0.6-1.3); POTASSIUM - SERUM 3.8 mmol/L (3.5-5.1); PROTEIN - SERUM 6.6 g/dL (6.4-8.2)
[2018-02-13 04:00] VITALS: BP 113/63
[2018-02-13 04:40] LABS: BASOPHILS 0.7 % (0-2); EOSINOPHILS 7.9 % (0-7); HEMATOCRIT 29.9 % (36.0-48.0); LYMPHOCYTES 14.5 % (15-50); MCH 27.8 pg (26.0-34.0); MCHC 30.1 g/dL (31.0-37.0); MCV 92.3 fL (80.0-100.0); MEAN PLATELET VOLUME 10.1 fL (7.4-10.4); MONOCYTES 11.2 % (2-11); NEUTROPHILS 65.7 % (40-80); PLATELET COUNT 138 10x3/uL (130-400); RBC 3.24 10x6/uL (4.00-5.40); RDW 16.8 % (11.5-14.5); WBC 4.5 10x3/uL (4.8-10.8)
[2018-02-13 05:03] LABS: ALBUMIN 1.8 g/dL (3.4-5.0); ANION GAP 10.8 mmol/L (8-16); BILIRUBIN - TOTAL 0.57 mg/dL (0.2-1.3); CREATININE - SERUM 1.1 mg/dL (0.6-1.3); POTASSIUM - SERUM 3.8 mmol/L (3.5-5.1); PROTEIN - SERUM 6.5 g/dL (6.4-8.2)
[2018-02-13 08:42] VITALS: BP 129/62
[2018-02-13 12:25] VITALS: BP 114/50
[2018-02-13 16:27] VITALS: BP 121/63
[2018-02-13 20:00] VITALS: BP 114/51
[2018-02-14 05:00] VITALS: BP 109/58
[2018-02-14 06:04] LABS: BASOPHILS 1.6 % (0-2); EOSINOPHILS 6.7 % (0-7); HEMOGLOBIN 8.9 g/dL (12-16); LYMPHOCYTES 13.2 % (15-50); MCH 27.9 pg (26.0-34.0); MCHC 30.7 g/dL (31.0-37.0); MCV 90.9 fL (80.0-100.0); MEAN PLATELET VOLUME 10.3 fL (7.4-10.4); NEUTROPHILS 67.5 % (40-80); PLATELET COUNT 149 10x3/uL (130-400); RBC 3.19 10x6/uL (4.00-5.40); RDW 16.9 % (11.5-14.5); WBC 4.5 10x3/uL (4.8-10.8)
[2018-02-14 06:24] LABS: ALBUMIN 1.9 g/dL (3.4-5.0); ANION GAP 10.5 mmol/L (8-16); BILIRUBIN - TOTAL 0.54 mg/dL (0.2-1.3); CALCIUM 8.2 mg/dL (8.5-10.1); POTASSIUM - SERUM 3.5 mmol/L (3.5-5.1); PROTEIN - SERUM 6.7 g/dL (6.4-8.2)
[2018-02-14 08:21] VITALS: BP 113/48
[2018-02-14 12:28] VITALS: BP 128/50
[2018-02-14 16:50] VITALS: BP 112/55
[2018-02-14 20:00] VITALS: BP 91/45
[2018-02-15] VITALS: BP 103/46
[2018-02-15 04:00] VITALS: BP 120/60
[2018-02-15 04:53] LABS: BASOPHILS 0.7 % (0-2); EOSINOPHILS 7.4 % (0-7); HEMATOCRIT 28.9 % (36.0-48.0); HEMOGLOBIN 8.8 g/dL (12-16); LYMPHOCYTES 11.4 % (15-50); MCH 27.7 pg (26.0-34.0); MCHC 30.4 g/dL (31.0-37.0); MCV 90.9 fL (80.0-100.0); MEAN PLATELET VOLUME 10.5 fL (7.4-10.4); MONOCYTES 10.7 % (2-11); NEUTROPHILS 69.8 % (40-80); PLATELET COUNT 145 10x3/uL (130-400); RBC 3.18 10x6/uL (4.00-5.40); RDW 16.7 % (11.5-14.5); WBC 4.3 10x3/uL (4.8-10.8)
[2018-02-15 05:20] LABS: ALBUMIN 1.8 g/dL (3.4-5.0); ANION GAP 10.5 mmol/L (8-16); BILIRUBIN - TOTAL 0.68 mg/dL (0.2-1.3); CALCIUM 8.2 mg/dL (8.5-10.1); CARBON DIOXIDE 30.7 mmol/L (21.0-32.0); CREATININE - SERUM 0.9 mg/dL (0.6-1.3); POTASSIUM - SERUM 3.2 mmol/L (3.5-5.1); PROTEIN - SERUM 6.7 g/dL (6.4-8.2)
[2018-02-15 08:34] VITALS: BP 116/77
[2018-02-15 12:46] VITALS: BP 117/53
[2018-02-15 16:37] VITALS: Ht 167.6 cm; Wt 140.4 kg
[2018-02-15 16:45] VITALS: BP 121/61
[2018-02-15 20:00] VITALS: BP 130/61
[2018-02-16] VITALS (7 sets, daily range): BP systolic 105–125; BP diastolic 53–67
[2018-02-16 09:29] LABS: BASOPHILS 0.8 % (0-2); EOSINOPHILS 10.5 % (0-7); HEMATOCRIT 30.9 % (36.0-48.0); HEMOGLOBIN 9.4 g/dL (12-16); IMMATURE GRANULOCYTES 0.3 % (0-5); LYMPHOCYTES 10.2 % (15-50); MCH 27.8 pg (26.0-34.0); MCHC 30.4 g/dL (31.0-37.0); MCV 91.4 fL (80.0-100.0); MEAN PLATELET VOLUME 10.4 fL (7.4-10.4); NEUTROPHILS 67.2 % (40-80); PLATELET COUNT 139 10x3/uL (130-400); RBC 3.38 10x6/uL (4.00-5.40); RDW 16.8 % (11.5-14.5); WBC 3.9 10x3/uL (4.8-10.8)
[2018-02-16 09:36] LABS: ANION GAP 12.9 mmol/L (8-16); CALCIUM 8.3 mg/dL (8.5-10.1); CARBON DIOXIDE 27.7 mmol/L (21.0-32.0); CREATININE - SERUM 0.9 mg/dL (0.6-1.3); POTASSIUM - SERUM 3.6 mmol/L (3.5-5.1)
[2018-02-17] VITALS (8 sets, daily range): BP systolic 102–118; BP diastolic 54–62
[2018-02-17 05:16] LABS: BASOPHILS 0.9 % (0-2); EOSINOPHILS 10.5 % (0-7); HEMATOCRIT 29.6 % (36.0-48.0); HEMOGLOBIN 8.9 g/dL (12-16); LYMPHOCYTES 10.5 % (15-50); MCH 27.6 pg (26.0-34.0); MCHC 30.1 g/dL (31.0-37.0); MCV 91.6 fL (80.0-100.0); MEAN PLATELET VOLUME 10.4 fL (7.4-10.4); MONOCYTES 12.6 % (2-11); NEUTROPHILS 65.5 % (40-80); PLATELET COUNT 140 10x3/uL (130-400); RBC 3.23 10x6/uL (4.00-5.40); RDW 16.8 % (11.5-14.5); WBC 4.3 10x3/uL (4.8-10.8)
[2018-02-17 05:47] LABS: ANION GAP 10.9 mmol/L (8-16); CALCIUM 8.4 mg/dL (8.5-10.1); CARBON DIOXIDE 29.4 mmol/L (21.0-32.0); CREATININE - SERUM 0.9 mg/dL (0.6-1.3); POTASSIUM - SERUM 3.3 mmol/L (3.5-5.1)
[2018-02-18] VITALS: BP 96/45
[2018-02-18 04:00] VITALS: BP 102/57
[2018-02-18 07:09] LABS: BASOPHILS 0.5 % (0-2); EOSINOPHILS 8.7 % (0-7); HEMATOCRIT 30.4 % (36.0-48.0); HEMOGLOBIN 9.2 g/dL (12-16); LYMPHOCYTES 11.3 % (15-50); MCHC 30.3 g/dL (31.0-37.0); MCV 92.4 fL (80.0-100.0); MEAN PLATELET VOLUME 10.4 fL (7.4-10.4); MONOCYTES 14.2 % (2-11); NEUTROPHILS 65.3 % (40-80); PLATELET COUNT 133 10x3/uL (130-400); RBC 3.29 10x6/uL (4.00-5.40); RDW 16.9 % (11.5-14.5); WBC 3.8 10x3/uL (4.8-10.8)
[2018-02-18 07:13] LABS: ANION GAP 7.6 mmol/L (8-16); CALCIUM 8.6 mg/dL (8.5-10.1); CARBON DIOXIDE 31.2 mmol/L (21.0-32.0)
[2018-02-18 07:15] LABS: POTASSIUM - SERUM 4.8 mmol/L (3.5-5.1)
[2018-02-18 08:30] VITALS: BP 106/64
[2018-02-18 14:15] VITALS: BP 95/50
[2018-02-18 16:00] VITALS: BP 102/51
[2018-02-18 19:47] VITALS: BP 104/51
[2018-02-19] VITALS: BP 105/49; BP 94/48
[2018-02-19 04:02] VITALS: BP 105/59
[2018-02-19 06:06] LABS: EOSINOPHILS 7.6 % (0-7); HEMATOCRIT 29.3 % (36.0-48.0); HEMOGLOBIN 8.8 g/dL (12-16); IMMATURE GRANULOCYTES 0.2 % (0-5); LYMPHOCYTES 9.6 % (15-50); MCH 27.8 pg (26.0-34.0); MCV 92.4 fL (80.0-100.0); MEAN PLATELET VOLUME 10.8 fL (7.4-10.4); MONOCYTES 9.3 % (2-11); NEUTROPHILS 72.3 % (40-80); PLATELET COUNT 148 10x3/uL (130-400); RBC 3.17 10x6/uL (4.00-5.40); RDW 16.8 % (11.5-14.5); WBC 4.1 10x3/uL (4.8-10.8)
[2018-02-19 06:24] LABS: ANION GAP 11.6 mmol/L (8-16); CALCIUM 8.2 mg/dL (8.5-10.1); CARBON DIOXIDE 28.9 mmol/L (21.0-32.0); POTASSIUM - SERUM 4.5 mmol/L (3.5-5.1)
[2018-02-19 06:25] LABS: CREATININE - SERUM 1.3 mg/dL (0.6-1.3)
[2018-02-19 09:03] VITALS: BP 120/65
[2018-02-19 12:30] VITALS: BP 110/60
[2018-02-19 17:15] VITALS: BP 119/64
[2018-02-19 20:00] VITALS: BP 119/51
[2018-02-20 04:00] VITALS: BP 110/59
[2018-02-20 05:08] LABS: BASOPHILS 0.6 % (0-2); EOSINOPHILS 8.2 % (0-7); HEMATOCRIT 29.5 % (36.0-48.0); HEMOGLOBIN 8.7 g/dL (12-16); IMMATURE GRANULOCYTES 0.3 % (0-5); MCH 27.1 pg (26.0-34.0); MCHC 29.5 g/dL (31.0-37.0); MCV 91.9 fL (80.0-100.0); MEAN PLATELET VOLUME 11.2 fL (7.4-10.4); MONOCYTES 8.2 % (2-11); NEUTROPHILS 69.7 % (40-80); PLATELET COUNT 147 10x3/uL (130-400); RBC 3.21 10x6/uL (4.00-5.40); RDW 16.6 % (11.5-14.5); WBC 3.3 10x3/uL (4.8-10.8)
[2018-02-20 05:38] LABS: ANION GAP 10.6 mmol/L (8-16); CALCIUM 8.5 mg/dL (8.5-10.1); CARBON DIOXIDE 30.5 mmol/L (21.0-32.0); CREATININE - SERUM 1.1 mg/dL (0.6-1.3); POTASSIUM - SERUM 4.1 mmol/L (3.5-5.1)
[2018-02-20 08:25] VITALS: BP 101/51
[2018-02-20 16:00] VITALS: BP 96/50
[2018-02-20 20:03] VITALS: BP 104/51
[2018-02-21] VITALS (7 sets, daily range): BP systolic 100–123; BP diastolic 47–65
[2018-02-21 06:09] LABS: BASOPHILS 0.8 % (0-2); EOSINOPHILS 7.2 % (0-7); HEMATOCRIT 29.3 % (36.0-48.0); HEMOGLOBIN 8.9 g/dL (12-16); LYMPHOCYTES 10.9 % (15-50); MCH 27.7 pg (26.0-34.0); MCHC 30.4 g/dL (31.0-37.0); MCV 91.3 fL (80.0-100.0); MEAN PLATELET VOLUME 10.7 fL (7.4-10.4); MONOCYTES 13.3 % (2-11); NEUTROPHILS 67.8 % (40-80); PLATELET COUNT 140 10x3/uL (130-400); RBC 3.21 10x6/uL (4.00-5.40); RDW 16.8 % (11.5-14.5); WBC 3.8 10x3/uL (4.8-10.8)
[2018-02-21 06:37] LABS: ANION GAP 11.7 mmol/L (8-16); CALCIUM 8.7 mg/dL (8.5-10.1); CARBON DIOXIDE 29.8 mmol/L (21.0-32.0); POTASSIUM - SERUM 3.5 mmol/L (3.5-5.1)
[2018-02-22 04:20] LABS: BASOPHILS 0.6 % (0-2); HEMATOCRIT 29.5 % (36.0-48.0); HEMOGLOBIN 8.8 g/dL (12-16); IMMATURE GRANULOCYTES 0.3 % (0-5); LYMPHOCYTES 14.6 % (15-50); MCH 27.3 pg (26.0-34.0); MCHC 29.8 g/dL (31.0-37.0); MCV 91.6 fL (80.0-100.0); MEAN PLATELET VOLUME 10.7 fL (7.4-10.4); MONOCYTES 13.3 % (2-11); NEUTROPHILS 65.2 % (40-80); PLATELET COUNT 145 10x3/uL (130-400); RBC 3.22 10x6/uL (4.00-5.40); RDW 16.7 % (11.5-14.5); WBC 3.2 10x3/uL (4.8-10.8)
[2018-02-22 04:33] LABS: ALBUMIN 1.9 g/dL (3.4-5.0); ANION GAP 9.2 mmol/L (8-16); BILIRUBIN - TOTAL 0.58 mg/dL (0.2-1.3); CALCIUM 8.2 mg/dL (8.5-10.1); CARBON DIOXIDE 32.2 mmol/L (21.0-32.0); POTASSIUM - SERUM 3.4 mmol/L (3.5-5.1); PROTEIN - SERUM 6.8 g/dL (6.4-8.2)
[2018-02-22 08:17] VITALS: BP 116/48
[2018-02-22] MEDS ORDERED: XOPENEX 1.1.25 MG/3 UPD (11:35)
[2018-02-22] MEDS ORDERED: PROTONIX40 MG PO (11:36)
[2018-02-22] MEDS ORDERED: TESSALON PERLE100 MG PO (11:36)
[2018-02-22] MEDS ORDERED: ONDANSETRON4 MG/2 M3 IV (11:36)
[2018-02-22] MEDS ORDERED: HUMALOG 30100 UNITS/ SC (11:36)
[2018-02-22] MEDS ORDERED: MUCINEX600 MG PO (11:36)
[2018-02-22] MEDS ORDERED: TUMS PO (11:36)
[2018-02-22] MEDS ORDERED: NYSTATIN1 PWD TOPICAL (11:37)
[2018-02-22 12:30] VITALS: BP 113/64
[2018-02-22] MEDS ORDERED: NORCO 7.5/325 T1 TA1 PO (15:55)
[2018-02-22 16:20] VITALS: BP 128/52
== END 2018-02-22 21:17 | DRG 592 ==
LOC: D.ER 22:01 → D.EDHOLD 02-10 01:53 → D.MS 02-10 01:53
PROVIDERS: Emergency Medicine; Family Medicine; Internal Medicine Nephrology
PROC: 0HDMXZZ Extraction of Right Foot Skin, External Approach (ICD-10-PCS; principal; 2018-02-13)
DX: L97.911 Non-pressure chronic ulcer of unspecified part of right lower leg limited to breakdown of skin (principal); J18.9 Pneumonia, unspecified organism; L03.90 Cellulitis, unspecified; Z68.41 Body mass index [BMI] 40.0-44.9, adult; J96.11 Chronic respiratory failure with hypoxia; N39.0 Urinary tract infection, site not specified; I83.219 Varicose veins of right lower extremity with both ulcer of unspecified site and inflammation; I11.0 Hypertensive heart disease with heart failure; R06.02 Shortness of breath; I50.9 Heart failure, unspecified; I48.91 Unspecified atrial fibrillation; I25.10 Atherosclerotic heart disease of native coronary artery without angina pectoris; E66.01 Morbid (severe) obesity due to excess calories; E87.6 Hypokalemia; E86.0 Dehydration; N28.9 Disorder of kidney and ureter, unspecified

== ENCOUNTER 2018-02-22 17:09 | Inpatient (IN) | payer MEDICARE ==
[~2018-02-22] VITALS: Ht 167.6 cm; Wt 123.8 kg
[~2018-02-22 17:09] MED LIST changes: +MUCINEX600 MG PO; +NYSTATIN1 PWD TOPICAL; +ONDANSETRON4 MG/2 M3 IV; +PROTONIX40 MG PO; +TESSALON PERLE100 MG PO; +TUMS PO; +XOPENEX 1.1.25 MG/3 UPD
[2018-02-22 22:52] VITALS: BP 135/60; BMI 44.1
[2018-02-22 23:55] LABS: APPEARANCE CLOUDY (CLEAR); BILIRUBIN NEGATIVE (NEGATIVE); COLOR YELLOW (YELLOW); GLUCOSE NEGATIVE (NEGATIVE); KETONE NEGATIVE (NEGATIVE); NITRITE NEGATIVE (NEGATIVE); PROTEIN 2+ mg/dL (NEGATIVE); SPECIFIC GRAVITY 1.015 (1.005-1.020); UROBILINOGEN NORMAL (NORMAL)
[2018-02-22 23:56] LABS: BACTERIA FEW /hpf (NONE SEEN); EPITHELIAL CELLS 0-5 /hpf (0-5); RED CELLS - URINE 0-5 /hpf (0-5); YEAST >1+ WITH HYPHAE /hpf (NONE SEEN)
--- NOTE | 2018-02-23 01:08 | NUR ---
PT IS HERE FOR REHAB AND SERVICES OF DR HERNANDEZ. AWAKE AND ALERT. RESPIRATIONS UNLABORED. O2/2L ON PER NASAL CANNULA. AWAKE AND ALERT. ORIENTED X 4. SALINE LOCKS X 3 NOTED PATENT TO LEFT ARM, LEFT AC, AND RIGHT CHEST AREA. PATIENT STATES SHE DOES NOT WANT THEM REMOVED BEAUSE "I AM A HARD STICK" I TOLD HER WE WOULD CLARIFY WITH DR HERNANDEZ. DRESSINGS INTACT TO BILATERAL LOWER EXTREMITIES. VIVAR PATENT. UA SPECIMEN SENT TO LAB. ORIENTED TO ROOM AND CALL LIGHT. SAFETY MEASURES IN PLACE.
--- NOTE | 2018-02-23 02:27 | NUR ---
BETSY-CARE AND VIVAR CARE GIVEN. CALMOSEPTINE APPLIED TO BETSY-AREA. TURNED AND REPOSITIONED.
[2018-02-23 07:06] LABS: BASOPHILS 0.5 % (0-2); EOSINOPHILS 6.5 % (0-7); HEMATOCRIT 29.5 % (36.0-48.0); HEMOGLOBIN 8.9 g/dL (12-16); LYMPHOCYTES 12.1 % (15-50); MCH 27.3 pg (26.0-34.0); MCHC 30.2 g/dL (31.0-37.0); MCV 90.5 fL (80.0-100.0); MEAN PLATELET VOLUME 10.9 fL (7.4-10.4); MONOCYTES 13.7 % (2-11); NEUTROPHILS 67.2 % (40-80); PLATELET COUNT 143 10x3/uL (130-400); RBC 3.26 10x6/uL (4.00-5.40); RDW 16.9 % (11.5-14.5); WBC 3.9 10x3/uL (4.8-10.8)
[2018-02-23 07:17] LABS: ANION GAP 12.1 mmol/L (8-16); CALCIUM 8.7 mg/dL (8.5-10.1); CARBON DIOXIDE 30.7 mmol/L (21.0-32.0); POTASSIUM - SERUM 3.8 mmol/L (3.5-5.1)
[2018-02-23 08:00] VITALS: BP 130/77
--- NOTE | 2018-02-23 08:04 | NUR ---
SITTING UP IN BED EATING BREAKFAST. CALL LIGHT IN REACH
[2018-02-23 15:04] VITALS: Ht 167.6 cm; Wt 123.8 kg
--- NOTE | 2018-02-23 15:04 | RHP ---
PATIENT: SOFIA PEREZ MEDICAL RECORD: [id number] ACCOUNT: [id number] LOC[facility] : 38 ADMISSION DATE: 02/22/18 REHABILITATION HISTORY AND PHYSICAL EXAMINATION POST ADMISSION PHYSICIAN EXAMINATION DATE OF ADMISSION: 02/22/2018 ADMITTING DIAGNOSES: Debility and urinary tract infection with Klebsiella pneumoniae. HISTORY OF PRESENT ILLNESS: The patient is a female patient, we have had in rehab numerous times, mainly for cellulitis and debility. She came in to the Emergency Room complaining of extremity pain and swelling. She also had dyspnea with exertion, body aches, chills and dysuria. She was seen and evaluated and found to have a pretty severe UTI with Klebsiella pneumoniae. She had a cardiology consult during her stay, podiatry consult during her acute hospital stay. She still continued to be in poor health with poor venous supply to her lower extremities. She goes to the wound clinic in [place], had been having some procedures recommended for wound care. She has recently been on IV antibiotics during her stay. She was recently in our acute rehab, which we have had numerous times and discharged back home at her prior level of functioning. She is ambulatory for short distances with a rolling walker and also uses a wheelchair at home, moderately independent to independent with ADLs. She and her daughter are active in her care. She has been on a TECHNICAL PHOTOGRAPHER for pain management. She is currently receiving treatment for bilateral lower extremity. She is having pain. She does have a Campos catheter at this time requiring oxygen at times. She is on telemetry, impaired mobility, weakness, high fall risk, has self-care deficits. These are all barriers to her discharge at this time. She is setup max assist with her ADLs and max assist to total assist for mobility. She plans to return home hopefully at her prior level of functioning or better. COMORBIDITIES: In this patient include peripheral vascular disease, chronic cellulitis, chronic bilateral venous stasis ulcers, UTI with Klebsiella pneumonia, hypertension, hyperlipidemia, AFib, peripheral vascular disease, obstructive sleep apnea, chronic hypoxic respiratory failure, [id number] obesity and stasis dermatitis. PAST MEDICAL HISTORY: Significant for neuropathy, weakness, cataracts, diabetes, O2 dependent, sleep apnea, stasis ulcers, AFib, coronary artery disease and peripheral vascular disease. PAST SURGICAL HISTORY: Includes IVC filter placement, hysterectomy, bilateral salpingo-oophorectomy. She has had a tib-fib fracture, rectal surgery, iliac stents. ALLERGIES: ASPIRIN, ADHESIVE TAPE, NORVASC, INVOKANA, JANUMET AND ACTOS. CURRENT MEDICATIONS: Include Calmoseptine as needed; Protonix 40 mg daily; furosemide 40 mg daily; diltiazem 240 daily; polyethylene glycol 17 grams in 8 ounces of water daily; Zofran 4 mg every 4 hours p.r.n.; Nystatin powder to apply b.i.d.; Xopenex 1.25 mg every 8 hours; she is on [place] 7.5 one tab every 4 hours p.r.n.; Mucinex 1200 mg b.i.d.; Neurontin 300 mg at bedtime; Colace 200 mg at bedtime p.r.n.; Pradaxa 150 mg b.i.d.; Tessalon Perles 100 mg t.i.d. p.r.n., Lipitor 40 mg at bedtime; calcium carbonate 1000 mg every 4 hours as needed for HISTORY AND PHYSICAL [id number] SOFIA PEREZ indigestion. HABITS: No alcohol or tobacco use. FAMILY HISTORY: Noncontributory. SOCIAL HISTORY: The patient hopes to return back home with her daughter and get back to her prior level of functioning. REVIEW OF SYSTEMS: GENERAL: Does complain of weakness and fatigue. HEENT: Denies cold, cough, or congestion. CARDIOVASCULAR: Denies chest pain. PHYSICAL EXAMINATION: VITAL SIGNS: Stable, afebrile. GENERAL: A morbidly obese female, in no acute distress, alert upon exam. HEENT: Normocephalic and atraumatic. Mucosa moist. NECK: Supple. No lymphadenopathy. LUNGS: Clear in upper [place]. She has decreased breath sounds in both bases. HEART: Irregular rate and rhythm. ABDOMEN: Benign. EXTREMITIES: Does have changes consistent with peripheral vascular disease with discoloration below the knees of both of her legs. She has stasis dermatitis noted also. NEUROLOGIC: She does have proximal muscle weakness. LABORATORY DATA: White count is 3.9, H&H of 8.9 and 29.5 and platelet count was 143. Her sodium is 144, potassium 3.8, BUN and creatinine of 20 and 1.0, and blood sugar is noted to be 96. Her admit UA did show some protein. She did have a little bit of blood, has 2+ leukocyte esterase and 5-10 white blood cells. ASSESSMENT: This is a 77-year-old female patient admitted to the rehab working diagnosis of debility and urinary tract infection. The patient has potential to make improvement. We instituted the following multidisciplinary therapies include, but not limited to physical, occupational, respiratory, speech, nutritional services, prosthetics and orthotics. Given her complex medical condition and risk for more complications, rehabilitation services cannot be provided at a low level of care such as skilled nurse facility. PLAN: 1. Admit to [facility] rehab for intensive inpatient therapy to include the following disciplines: A. Physical therapy to improve gait, all transfer skills and bed mobility to a modified independent level. B. Occupational therapy to a modified independent level. C. Case management to assist with discharge planning and placement options. D. Nutrition to assist with nutritional needs. E. Rehabilitation nursing to assist in monitoring the patient's underlying medical condition and to assist with any type of bowel or bladder management. 2. The patient's current medication and medical care will be continued. 3. The patient will be placed on standard fall precautions. 4. I will put her on some Macrodantin for her urinary tract infection. 5. I will follow up in the a.m. HISTORY AND PHYSICAL [id number] SOFIA PEREZ TRANSINT:[id number] Voice Confirmation ID: [id number] DOCUMENT ID: [id number] RAAD notes whether there has been none or any medical/functional change since admission: - No change since prescreen. RAAD attests patient continues to be appropriate for IRF: - Continues to be appropriate. POLLY HERNANDEZ MD at 1504 CC: [id number] DICTATION DATE: 02/23/18 1022 BUSINESS ACCOUNT MANAGER: 02/23/18 1117 ADM IN [facility] [address] [place] [address]
--- NOTE | 2018-02-23 16:06 | NUR ---
OT GIVING PT A BEDBATH
--- NOTE | 2018-02-23 17:28 | NUR ---
LAYING IN BED. FAMILY AT BEDSIDE VISITING WITH HER. IS WEAK AND TIRES EASILY
--- NOTE | 2018-02-23 19:38 | NUR ---
RESTING IN BED WITH NO DISTRESS NOTED. DRESSINGS INTACT TO BLE. VIVAR PATENT. O2/2L ON PER NASAL CAMNNULA. CALL LIGHT REACH.
[2018-02-23 20:23] VITALS: BP 114/64
--- NOTE | 2018-02-24 01:27 | NUR ---
RESTING IN BED WITH NO DISTRESS NOTED. RESPIRATIONS UNLABORED.
--- NOTE | 2018-02-24 04:32 | NUR ---
SALINE LOCKS IN LEFT AC, LUPPER ARM, AND RIGHT CHEST DC'D WITH CANNULAS INTACT.
--- NOTE | 2018-02-24 07:05 | NUR ---
RESTING QUIETLY IN BED. CALL LIGHT IN REACH. BED IN LOWEST POSITION.
[2018-02-24 08:00] VITALS: BP 122/55
--- NOTE | 2018-02-24 21:52 | NUR ---
PT AWAKE FLUIDS AND CALL LIGHT WITHIN REACH
--- NOTE | 2018-02-25 01:20 | NUR ---
PT ASLEEP AT THIS TIME EARLIER ASKED CO WORKER TO HELP WITH PT DRESSING CHANGE, BLE CLEANED DRIED, TX COMPLETED,NEW DRSG APPLIED, FLUIDS AND CALL LIGHT WITHIN REACH
--- NOTE | 2018-02-25 05:05 | NUR ---
PT ASLEEP NO NEEDS NOTED FLUIDS AND CALL LIGHT WITHIN REACH
[2018-02-25 08:03] VITALS: BP 143/51
--- NOTE | 2018-02-25 08:48 | NUR ---
REPOSITIONED IN BED. NO CHANGE IN ASSESSMENT. NO DISTRESS.
--- NOTE | 2018-02-25 08:49 | NUR ---
NO CHANGE IN ASSESSMENT. PAIN MED GIVEN THIS AM FOR LEG PAIN. IN THERAPY AT THIS TIME.
--- NOTE | 2018-02-25 08:49 | NUR ---
REQUESTED MERY X2 REQUESTS THIS AM. WILL GIVE WHEN IT IS BROUGHT TO UNIT.
--- NOTE | 2018-02-25 10:52 | NUR ---
IN THERAPY PARTICIPATING.
--- NOTE | 2018-02-25 12:33 | NUR ---
BED BATH GIVEN. PATIENT WASHED FACE, ARMS, UNDER ARMS, UNDER BREAST AND ABD FOLDS AND ATTEMPTED BETSY AREA. I BATHED THE REST OF HER AND APPLIED CALMOSEPTINE TO EBTSY AREA AND BUTTOCKS.
--- NOTE | 2018-02-25 14:05 | NUR ---
RESTING WO C/O PAIN. VISITOR AT BS.
--- NOTE | 2018-02-25 16:18 | NUR ---
NO CHANGE IN ASSESSMENT. C/L IN REACH.
[2018-02-25 19:40] VITALS: BP 109/43
--- NOTE | 2018-02-25 19:46 | NUR ---
RESTING IN BED WITH RESPIRATIONS UNLABORED BUT O2 SATUIRATION 90% ON 2 L PER NASAL CANNULA. INSTRUCTED TO TAKE SOME DEEP BREATHS. OXYGEN INCRESED TO 3L PER NOW. WILL CONTINUE TO ASSESS. CB PATENT. DENIES PAIN. CALL LIGHT IN REACH.
--- NOTE | 2018-02-26 00:53 | NUR ---
RESTING IN BED WITH RESPIRATIONS UNLABORED. NO DISTRESS NOTED. CALL LIGHT IN REACH.
--- NOTE | 2018-02-26 04:45 | NUR ---
RESTING IN BED. RESPIRATIONS UNLABORED. CB PATENT. NO CHANGE IN CONDITION NOTED.
--- NOTE | 2018-02-26 06:07 | NUR ---
RESTING IN BED WITH NO DISTRESS NOTED. RELIVED FROM PAIN. DRESSINGS INTACT TO BLE.
--- NOTE | 2018-02-26 08:30 | NUR ---
PT AM MEDS ADMINSITERED. PT DENIES NEEDS. WCTM.
[2018-02-26 09:09] VITALS: BP 110/46
--- NOTE | 2018-02-26 16:15 | NUR ---
PT VIVAR CATHETER LEAKING AND UNABLE TO BE FLUSHED. VIVAR CATHETER DC'D TIP INTACT. WCTM.
--- NOTE | 2018-02-26 16:15 | NUR ---
PT VIVAR CATHETER LEAKING AND UNABLE TO BE FLUSHED. VIVAR CATHETER DC'D PER PROTOCOL, TIP INTACT. WCTM.
--- NOTE | 2018-02-26 19:19 | NUR ---
PATIENT IS RESTING IN HER BED. SHE DENIES ANY NEEDS. BED IS DOWN L0W WITH SIDE RAILS UP X2. CALL LIGHT IS IN REACH.
--- NOTE | 2018-02-26 21:38 | NUR ---
DRESSING CHANGED DONE IN BOTH LOWER LEGS FOR PT.
[2018-02-26 23:35] VITALS: BP 126/76
--- NOTE | 2018-02-27 02:03 | NUR ---
PT C/O PAIN IN LOWER LEGS AND BACK, A LEVEL OF 7, PAIN MED GIVEN.
[2018-02-27 06:05] LABS: BASOPHILS 0.5 % (0-2); EOSINOPHILS 8.8 % (0-7); HEMOGLOBIN 8.6 g/dL (12-16); IMMATURE GRANULOCYTES 0.3 % (0-5); LYMPHOCYTES 13.3 % (15-50); MCH 26.8 pg (26.0-34.0); MCHC 29.7 g/dL (31.0-37.0); MCV 90.3 fL (80.0-100.0); MEAN PLATELET VOLUME 10.7 fL (7.4-10.4); MONOCYTES 13.3 % (2-11); NEUTROPHILS 63.8 % (40-80); PLATELET COUNT 156 10x3/uL (130-400); RBC 3.21 10x6/uL (4.00-5.40); RDW 16.7 % (11.5-14.5); WBC 3.8 10x3/uL (4.8-10.8)
[2018-02-27 06:22] LABS: ANION GAP 11.1 mmol/L (8-16); CALCIUM 8.4 mg/dL (8.5-10.1); CARBON DIOXIDE 30.1 mmol/L (21.0-32.0); POTASSIUM - SERUM 3.2 mmol/L (3.5-5.1)
--- NOTE | 2018-02-27 07:25 | NUR ---
RESTING WO DISTRESS. RESP EVEN AND UNLABORED.
[2018-02-27 08:22] VITALS: BP 111/56
--- NOTE | 2018-02-27 09:59 | NUR ---
BED BATH GIVEN PER NURSING.
--- NOTE | 2018-02-27 12:45 | NUR ---
PARTICIPATED IN THERAPY THIS AM.
--- NOTE | 2018-02-27 18:05 | NUR ---
NO CHANGE IN ASSESSMENT. RESTING AT THIS TIME.
--- NOTE | 2018-02-27 19:00 | NUR ---
PT AWAKE PLACED ON BEDPAN, SMALL AMOUNT OF URINE NOTED, COMPLETE BED CHANGE NEEDED AND DONE, FLUIDS AND CALL LIGHT WITHIN REACH
--- NOTE | 2018-02-27 23:49 | NUR ---
PT ASLEEP NO NEEDS NOTED FLUIDS AND CALL LIGHT WITHIN REACH
--- NOTE | 2018-02-28 03:12 | NUR ---
PT ASLEEP NO NEEDS NOTED FLUIDS AND CALL LIGHT WITHIN REACH
--- NOTE | 2018-02-28 05:18 | NUR ---
RLE TX AND BANDAGE CHANGED PER ORDER, MORE OPEN AREAS THAN LAST Tuesday02/24/18, PLACING A WOUND CONSULT, FLUIDS AND CALL LIGHT WITHIN REACH
--- NOTE | 2018-02-28 07:47 | NUR ---
ACCIDENT URINE ON LINENS. CHANGED LINENS, PATIENT CLEANED UP PER STAFF X2. REPOSITIONED UP IN BED. NO CHANGE IN ASSESSMENT.
[2018-02-28 08:00] VITALS: BP 127/57
--- NOTE | 2018-02-28 12:12 | NUR ---
PARTICIPATING IN THERAPY THIS AM. NO DISTRESS NOTED. PAIN MED GIVEN THIS AM.
--- NOTE | 2018-02-28 18:02 | NUR ---
REPOSITIONED UP IN BED. FAMILY AT BS. NO CHANGE IN ASSESSMENT.
[2018-02-28 19:00] VITALS: BP 104/40
--- NOTE | 2018-02-28 19:19 | NUR ---
RESTING IN BED WITH RESPIRATIONS UNLABORED. NO DISTRESS NOTED. NO CURRENT C/O PAIN. CALL LIGHT IN REACH.
--- NOTE | 2018-03-01 01:17 | NUR ---
RESTING IN BED WITH RESPIRATIONS UNLABORED. NO DISTRESS NOTED. CALL LIGHT IN REACH.
--- NOTE | 2018-03-01 06:08 | NUR ---
RESTING IN BED WITH NO DISTRESS NOTED. NO CHANGES IN CONDITION THIS SHIFT.
[2018-03-01 07:06] LABS: BASOPHILS 0.9 % (0-2); EOSINOPHILS 11.2 % (0-7); HEMATOCRIT 30.3 % (36.0-48.0); HEMOGLOBIN 9.1 g/dL (12-16); MCH 27.4 pg (26.0-34.0); MCV 91.3 fL (80.0-100.0); MEAN PLATELET VOLUME 9.5 fL (7.4-10.4); MONOCYTES 11.8 % (2-11); NEUTROPHILS 61.1 % (40-80); PLATELET COUNT 151 10x3/uL (130-400); RBC 3.32 10x6/uL (4.00-5.40); RDW 16.8 % (11.5-14.5); WBC 3.5 10x3/uL (4.8-10.8)
[2018-03-01 07:14] LABS: ANION GAP 7.9 mmol/L (8-16); CALCIUM 8.6 mg/dL (8.5-10.1); CARBON DIOXIDE 32.3 mmol/L (21.0-32.0); POTASSIUM - SERUM 3.2 mmol/L (3.5-5.1)
--- NOTE | 2018-03-01 07:49 | NUR ---
PT REPOSITIONED AND IS SITTING UP IN BED FOR BREAKFAST, DENIES NEEDS. WCTM.
[2018-03-01 08:00] VITALS: BP 113/44
--- NOTE | 2018-03-01 09:00 | NUR ---
PT AM MEDS ADMINISTERED. PRN PAIN MEDICATION REQ AND REC'D AT THIS TIME. WCTM.
--- NOTE | 2018-03-01 13:31 | NUR ---
Nutrition Follow Up: Pt was in therapy at the time of RD visit. Interview deferred at this time. Diet: ADA PO Intake: 92% meal avg BM: 02/25/18 Labs reviewed Meds noted including Lasix Rec continue current diet. RD following.
[2018-03-01 19:52] VITALS: BP 102/49
--- NOTE | 2018-03-02 00:51 | NUR ---
LEG DRESSINGS CHANGED ORDERED. INCONTINENT CARE DONE. REPOSITIONED FOR COMFORT.
[2018-03-02 08:01] VITALS: BP 106/45
--- NOTE | 2018-03-02 10:45 | NUR ---
LAYING IN BED. MAX/TOTAL ASST WITH ALL TASKS. CALL LIGHT IN REACH
--- NOTE | 2018-03-02 15:05 | NUR ---
LAYING IN BED. IS INCONT OF STOOL. HAS WEAKNESS TO ALL EXTREMITIES. BLE ARE EDEMATOUS. DSG TO BLE NOTED. CALL LIGHT IN REACH
--- NOTE | 2018-03-02 19:51 | NUR ---
AWAKE AND ALERT. RESPIRATIONS UNLABORED. O2/2L ON PER NASAL CANNULA. DRESSING ITACT TO BILATERAL LOWER EXTREMITIES. REQUESTED BED PAIN. VOIDED AND HAD LARGE BM. CALL LIGHT IN REACH.
[2018-03-02 19:57] VITALS: BP 100/48
--- NOTE | 2018-03-03 02:17 | NUR ---
RESTING IN BED WITH NO DISTRESS NOTED. CALL LIGHT IN REACH.
[2018-03-03 08:35] LABS: EOSINOPHILS 6.8 % (0-7); HEMATOCRIT 28.7 % (36.0-48.0); HEMOGLOBIN 8.7 g/dL (12-16); LYMPHOCYTES 19.9 % (15-50); MCH 27.3 pg (26.0-34.0); MCHC 30.3 g/dL (31.0-37.0); MEAN PLATELET VOLUME 10.8 fL (7.4-10.4); MONOCYTES 9.1 % (2-11); NEUTROPHILS 63.2 % (40-80); PLATELET COUNT 150 10x3/uL (130-400); RBC 3.19 10x6/uL (4.00-5.40); WBC 3.1 10x3/uL (4.8-10.8)
[2018-03-03 08:55] LABS: ANION GAP 11.7 mmol/L (8-16); CALCIUM 8.1 mg/dL (8.5-10.1); CARBON DIOXIDE 30.4 mmol/L (21.0-32.0); CREATININE - SERUM 0.8 mg/dL (0.6-1.3); POTASSIUM - SERUM 3.1 mmol/L (3.5-5.1)
[2018-03-03 10:06] VITALS: BP 106/51
--- NOTE | 2018-03-03 11:19 | NUR ---
PATIENT ADMITTED TO REHAB FROM ACUTE FLOOR. DR. REYNA IS HER PCP. SHE IS A CLIENT OF [facility]. DME AT HOME IS A WALKER, WHEELCHAIR, TUB BENCH AND O2. DISCHARGE PLANS ARE FOR HER TO RETURN HOME IF SHE IS ABLE IF SHE WOULD LIKE TO GO TO [facility] AND REHAB. WILL CONTINUE TO FOLLOW WITH PATIENT.
[2018-03-03 19:45] VITALS: BP 104/41
--- NOTE | 2018-03-03 19:46 | NUR ---
AWAKE AND ALERT. SKIN WARM AND DRY. O2/3L ON PER NASAL CANNULA. NOTED SHORTNESS OF BREATH WITH EXERTION. DRESSINGS DRY AND INTACT TO BLE. NO DISTRESS NOTED. CALL LIGHT IN REACH.
--- NOTE | 2018-03-04 03:33 | NUR ---
RESTING IN BED, RESPIRATIONS LABORED. NO DISTRESS NOTED.
[2018-03-04 09:54] VITALS: BP 108/49
--- NOTE | 2018-03-04 10:01 | NUR ---
LAYING IN BED WATCHING TV. OXYGEN IN PLACE. IS SOB WITH MINIMAL EXERTION. MAX ASST WITH MOST TASKS. CALL LIGHT IN REACH. HEAD OF BED ELEVATED
--- NOTE | 2018-03-04 11:30 | NUR ---
PATIENTS DRESSINGS CHANGED ON BILATERAL LOWER LEGS. PATIENTS RIGHT LOWER LEG CLEANED AND IODINE SOAKED ADAPTIC REAPPLIED. ABD PADS ON BOTH SIDED FOLLOWED BY CURLIX AND CARY BANDAGE COVERING. PATIENT TOLERATED PROCEDURE. DENIES ANY FURTHER NEEDS AT THIS TIME.
--- NOTE | 2018-03-04 16:31 | NUR ---
LAYING ON BACK IN BED. MAX ASS TO PUT HER ON BEDPAN. INCONT OF URINE.
[2018-03-04 19:55] VITALS: BP 109/53
--- NOTE | 2018-03-04 19:55 | NUR ---
GREETED PATIENT AND INTRODUCED MYSELF HER NURSE FOR THE EVENING. ASSISTED PATIENT ONTO BED GONZALEZ. PATIENT STATED THAT HER LEGS AND FEET WHERE HURTING JUST A BIT, BUT THAT THEY ALWAYS HURT. CALL LIGHT IN REACH. BED IN LOWEST POSITION.
--- NOTE | 2018-03-04 20:05 | NUR ---
ASSISTED PATIENT FROM BEDPAN. PATIENT HAD CLEAR YELLOW URINE.
--- NOTE | 2018-03-04 21:30 | NUR ---
ASSISTED PATIENT ONTO BEDPAN. PATIENT STATED THAT SHE THOUGHT SHE COULD HAVE A BM. CALL LIGHT IN REACH.
--- NOTE | 2018-03-04 21:40 | NUR ---
ASSISTED PATIENT FROM BED GONZALEZ. PATIENT HAD SMALL SOFT FORMED BM. PATIENT CLEANED AND CAMO APPLIED TO RED AREAS OF BUTTOCKS. PATIENT REPOSITIONED IN BED AND CALL LIGHT IN REACH.
--- NOTE | 2018-03-04 23:30 | NUR ---
PATIENTS DRESSINGS CHANGED ON BILATERAL LOWER LEGS. PATIENTS RIGHT LOWER LEG CLEANED AND IODINE SOAKED ADAPTIC REAPPLIED. ABD PAD ON BOTH SIDES FOLLOWED BY CURLIX AND CARY BANDAGE COVERING. PATIENT TOLERATED PROCEDURE. DENIES ANY FURTHER NEEDS AT THIS TIME.
--- NOTE | 2018-03-05 00:20 | NUR ---
ANSWERED CALL LIGHT. PATIENT IS REQUESTING PAIN MEDICATION FOR PAIN IN BILATERAL FEET AND LEGS.
--- NOTE | 2018-03-05 00:25 | NUR ---
PRN NORCO ADMINISTERED FOR PAIN. WCTM.
--- NOTE | 2018-03-05 01:30 | NUR ---
PATIENT ASLEEP WITH EYES CLOSED LAYING IN SUPINE POSITION. HOB AT 30 DEGREES. RESPIRATIONS EVEN. NO SIGNS OF DISTRESS. CALL LIGHT IN REACH. BED IN LOWEST POSITION.
--- NOTE | 2018-03-05 03:00 | NUR ---
PATIENT ASLEEP WITH EYES CLOSED LAYING IN SUPINE POSITION. HOB AT 30 DEGREES. 02 AT 3L VIA NC IN USE. RESPIRATIONS EVEN. NO SIGNS OF DISTRESS. CALL LIGHT IN REACH. BED IN LOWEST POSITION.
--- NOTE | 2018-03-05 04:24 | NUR ---
PATIENT CLEANED OF INCONTINENT URINE AND CAMO APPLIED TO BUTTOCKS. PADS CHANGED AND PATIENT REPOSITIONED IN BED. CALL LIGHT IN REACH. BED IN LOWEST POSITION.
--- NOTE | 2018-03-05 10:42 | NUR ---
AWAKE BUT SLEEPY THIS MORNING. ATE 100% OF BREAKFAST. NO COMPLAINTS OF PAIN OR DISCOMFORT. SELEPING AT THIS TIME. WILL CONTINUE TO MONITOR.
[2018-03-05 11:07] VITALS: BP 109/44
--- NOTE | 2018-03-05 13:28 | NUR ---
C/O PAIN TO BACK AND WAS MEDIATED WITH PRN NORCO WITH GOOD RESULTS. ATE 100% OF LUNCH. HAD I LARGE INCONTIENT EPISODE OF URINE. UNABLE TO HELP TURN SELF. STATES SHE DOES NOT KNOW WHEN SHE HAS TO URINATE.
[2018-03-05 19:18] VITALS: BP 113/59
--- NOTE | 2018-03-05 19:18 | NUR ---
GREETED PATIENT AND INTRODUCED MY SELF. PATIENT STATED SHE HAS HAD TO TAKE PAIN MEDICATION TODAY DUE TO HER FEET AND LEGS HURTING. PATIENT STATED SHE HASNT FELT VERY GOOD ALL DAY. STEVE.
--- NOTE | 2018-03-05 21:37 | NUR ---
PUT FAN IN PATIENTS ROOM TO HELP CIRCULATE THE AIR PER PATIENTS REQUEST.
--- NOTE | 2018-03-05 23:00 | NUR ---
PATIENT CLEANED OF INCONTINENT URINE. PATIENT WAS GIVEN BED BATH INSTEAD OF SHOWER.
--- NOTE | 2018-03-06 02:22 | NUR ---
PATIENT ASLEEP WITH EYES CLOSED LAYING IN SUPINE POSITION. HOB AT 30 DEGREES. O2 AT 3L VIA NC. RESPIRATIONS EVEN. NO SIGNS OF DISTRESS. CALL LIGHT IN REACH.
--- NOTE | 2018-03-06 04:00 | NUR ---
PATIENTS FDRESSING CHANGED ON RIGHT LOWER LEG. LEG CLEANED AND IODINE SOAKED ADAPTIC APPLIED TO WOUNDS. ABD PADS ON PLACED ON BOTH SIDES TO COVER ADAPTIC FOLLOWED BY CURLIX AND CARY BANDAGE TO SECURE. PATIENT TOLERATED PROCEDURE. PATIENT CLEANED OF INCONTINENT URINE AND NEW PADS PLACED. PATIENT PULLED UP IN BED AND REPOSITIONED FOR COMFORT. CALL LIGHT IN REACH.
[2018-03-06 07:23] LABS: BASOPHILS 0.6 % (0-2); EOSINOPHILS 7.9 % (0-7); HEMATOCRIT 30.4 % (36.0-48.0); HEMOGLOBIN 8.9 g/dL (12-16); LYMPHOCYTES 13.5 % (15-50); MCH 26.7 pg (26.0-34.0); MCHC 29.3 g/dL (31.0-37.0); MCV 91.3 fL (80.0-100.0); MEAN PLATELET VOLUME 11.1 fL (7.4-10.4); MONOCYTES 10.9 % (2-11); NEUTROPHILS 67.1 % (40-80); RBC 3.33 10x6/uL (4.00-5.40); RDW 17.1 % (11.5-14.5); WBC 3.4 10x3/uL (4.8-10.8)
[2018-03-06 07:33] LABS: PLATELET COUNT 112 10x3/uL (130-400)
[2018-03-06 07:46] LABS: ANION GAP 11.5 mmol/L (8-16); CALCIUM 8.2 mg/dL (8.5-10.1); CARBON DIOXIDE 29.2 mmol/L (21.0-32.0); CREATININE - SERUM 0.8 mg/dL (0.6-1.3); POTASSIUM - SERUM 3.7 mmol/L (3.5-5.1)
[2018-03-06 07:58] VITALS: BP 102/34
--- NOTE | 2018-03-06 10:31 | NUR ---
LAYING ON BACK IN BED. NO S/S DISTRESS. OXYGEN IN PLACE. INCONT OF B/B. CALL LIGHT IN REACH
--- NOTE | 2018-03-06 12:30 | NUR ---
SITTING IN WC IN ROOM EATING LUNCH. ASKING FOR PAIN MEDS EARLY. STATES SHE IS TIRED ALREADY. OXYGEN IN PLACE. CALL LIGHT IN REACH
[2018-03-06 19:00] VITALS: BP 130/59
--- NOTE | 2018-03-06 19:28 | NUR ---
AWAKE AND ALERT TALKING WITH VISITORS. RESPIRATIONS UNLABORED WITH O2/3L PER NASAL CANNULA. DRESSINGS TO BILATERAL LOWER EXTREMITIES INTACT. NO DISTRESS NOTED.
--- NOTE | 2018-03-07 00:07 | NUR ---
INCONTINENT OF URINE. CLEANED AND REPOSITIONED. LEG DRESSINGS CHANGED EARLIER IN SHIFT AND ARE DRY AND INTACT. NO ACUTE DISTRESS NOTED.
[2018-03-07 08:00] VITALS: BP 118/51
--- NOTE | 2018-03-07 10:03 | NUR ---
Right leg continues to have chronic ulcers, however they have improved. Recommend continuing with the betadine soaked adaptic for treatment. Wound care will continue monitoring.
--- NOTE | 2018-03-07 14:16 | NUR ---
Nutrition Follow Up: RT in with pt at the time of RD visit. Interview deferred at this time. Diet: ADA PO Intake: 75% meal avg BM: 03/05/18 Labs reviewed Meds noted including Lasix Rec continue current diet. RD following.
--- NOTE | 2018-03-07 14:55 | NUR ---
SPOKE WITH PATIENT REGARDING DISCHARGE AND SHE WOULD LIKE A REFERRAL SENT TO [facility] FOR POSSIBLE ADMISSION. REFERRAL HAS BEEN FAXED
[2018-03-07 20:00] VITALS: BP 107/45
--- NOTE | 2018-03-07 20:07 | NUR ---
RESTING IN BED WITH NO DISTRESS NOTED. RESPIRATIONS UNLABORED. NO DISTRESS NOTED. STATES SHE HAD A GOOD DAY, HAD A SHOWER AND DID PHYSICAL THERAPY.
--- NOTE | 2018-03-08 01:35 | NUR ---
RESTING IN BED. INCONTINENCE CARE GIVEN AND REPOSITIONED FOR COMFORT.
--- NOTE | 2018-03-08 04:04 | NUR ---
RESTING IN BED. INCONTINENCE CARE GIVEN. LEGS NOTED RED AND EDEMATOUS UP TO MID THIGH. NO C/O PAIN. NOTED SHORNTESS OF BREATH WITH MINIMAL EXERTION. O2/3L ON PER NASAL CANNULA.
--- NOTE | 2018-03-08 06:15 | NUR ---
QUIET HOURS. BLOOD SUGAR 114. INCONTINENCE CARE GIVEN. REPOSITIONED FOR COMFORT.
[2018-03-08 08:00] VITALS: BP 104/53
--- NOTE | 2018-03-08 08:00 | NUR ---
SHIFT ASSMT COMPLETED.
[2018-03-08 09:37] LABS: BASOPHILS 0.8 % (0-2); EOSINOPHILS 7.8 % (0-7); HEMATOCRIT 29.4 % (36.0-48.0); HEMOGLOBIN 8.6 g/dL (12-16); LYMPHOCYTES 11.9 % (15-50); MCH 26.6 pg (26.0-34.0); MCHC 29.3 g/dL (31.0-37.0); MEAN PLATELET VOLUME 10.2 fL (7.4-10.4); MONOCYTES 10.1 % (2-11); NEUTROPHILS 69.4 % (40-80); RBC 3.23 10x6/uL (4.00-5.40); WBC 3.9 10x3/uL (4.8-10.8)
[2018-03-08 09:39] LABS: PLATELET COUNT 145 10x3/uL (130-400)
[2018-03-08 09:53] LABS: CALCIUM 8.2 mg/dL (8.5-10.1); CARBON DIOXIDE 33.7 mmol/L (21.0-32.0); CREATININE - SERUM 1.1 mg/dL (0.6-1.3); POTASSIUM - SERUM 3.7 mmol/L (3.5-5.1)
--- NOTE | 2018-03-08 11:23 | NUR ---
PATIENT HAS BEEN ACCEPTED TO [facility] AND WILL DISCHARGE THERE 03/09/18 AT 10:00 VIA FACILITY VAN.
--- NOTE | 2018-03-08 12:00 | NUR ---
EATING LUNCH.CL IN REACH.
--- NOTE | 2018-03-08 16:00 | NUR ---
REBECCA THERAPY.STATES FEELING BETTER.
[2018-03-08 19:00] VITALS: BP 120/35
--- NOTE | 2018-03-08 19:30 | NUR ---
GREETED PATIENT AND INTRODUCED MYSELF HAS HER NURSE FOR THE EVENING. PATIENT STATED THAT SHE IS FEELING SOME BETTER TODAY. DENIES ANY NEEDS AT THIS TIME. CALL LIGHT IN REACH. BED IN LOWEST POSITION.
--- NOTE | 2018-03-08 19:42 | NUR ---
GREETED PATIENT AND INTRODUCED MYSELF HER NURSE. PATIENT STATED THAT SHE IS FEELING BETTER TODAY AND THAT SHE SEEMS TO BE ABLE TO BREATH BETTER. STATES PAIN 6/10 BILATERAL LEGS AND FEET. WILL ADMINISTER PRN NORCO FOR PAIN. WCTM. CALL LIGHT IN REACH.
--- NOTE | 2018-03-09 00:30 | NUR ---
COMPLETED DRESSING CHANGES ON RIGHT AND LEFT LOWER LEGS. RIGHT LOWER LEG HAD 2 NEW FLUID FILLED BLISTERS INSIDE JUST BELOW KNEE. PATIENT CLEANED OF INCONTINENT URINE AND REPOSITIONED IN BED FOR COMFORT. CALL LIGHT IN REACH. BED IN LOWEST POSITION.
--- NOTE | 2018-03-09 02:00 | NUR ---
PATIENT ASLEEP WITH EYES CLOSED. HOB AT 35 DEGREES. O2 AT 3L VIA NC. RESPIRATIONS EVEN. NO SIGNS OF DISTRESS. CALL LIGHT IN REACH.
--- NOTE | 2018-03-09 03:55 | NUR ---
PATIENT ASLEEP WITH EYES CLOSED LAYING IN SUPINE POSITION. HOB AT 35 DEGREES. 02 AT 3L VIA NC. RESPIRATIONS EVEN. NO SIGNS OF DISTRESS. CALL LIGHT IN REACH. BED IN LOWEST POSITION.
[2018-03-09 08:00] VITALS: BP 112/54
--- NOTE | 2018-03-09 09:45 | NUR ---
DUE TO CHANGE IN MEDICAL CONDITION DISCHARGE TO [facility] HAS BEEN CANCELED . PATIENT DISCHARGING FROM REHAB AND ADMITTING TO ACUTE FLOOR TODAY.
--- NOTE | 2018-03-09 14:30 | NUR ---
MARY PT FROM REHAB. ADMIT TO ROOM [address] REPORT CALLED TO [facility]. PT AND ALL PERSONAL BELONGINGS SENT WITH PT.
== END 2018-03-09 14:30 | disposition short-term general hospital (02) | DRG 947 ==
LOC: D.REHAB 17:09
PROVIDERS: ADMIT Emergency Medicine
DX: R53.81 Other malaise (principal); R53.2 Functional quadriplegia; I50.33 Acute on chronic diastolic (congestive) heart failure; N39.0 Urinary tract infection, site not specified; J96.11 Chronic respiratory failure with hypoxia; L03.90 Cellulitis, unspecified; B96.1 Klebsiella pneumoniae [K. pneumoniae] as the cause of diseases classified elsewhere; I73.9 Peripheral vascular disease, unspecified; I83.009 Varicose veins of unspecified lower extremity with ulcer of unspecified site; E78.5 Hyperlipidemia, unspecified; I48.91 Unspecified atrial fibrillation; G47.33 Obstructive sleep apnea (adult) (pediatric); E66.9 Obesity, unspecified; E11.65 Type 2 diabetes mellitus with hyperglycemia; E86.0 Dehydration; E87.6 Hypokalemia; I11.0 Hypertensive heart disease with heart failure

== ENCOUNTER 2018-03-09 13:15 | Inpatient (IN) | payer MEDICARE ==
[~2018-03-09] VITALS: Ht 167.6 cm; Wt 162.3 kg
--- NOTE | 2018-03-09 14:20 | NUR ---
PT ARRIVED TO UNIT VIA BED. ALERT AND ORIENTED. O2 AT 3.5L VIA NC. NO IV. BED LOW. CL IN REACH.
--- NOTE | 2018-03-09 15:22 | NUR ---
LEFT FA 20G IV INSERTED ON X1 ATTEMPT.
[2018-03-09 15:54] VITALS: BP 127/67
--- NOTE | 2018-03-09 16:02 | NUR ---
QUICK START, MED REC, AND ADMISSION HISTORY COMPLETED. RN TO DO ADMISSION ASSESSMENT.
[2018-03-09 16:58] VITALS: BP 127/67; BMI 55.6
--- NOTE | 2018-03-09 17:47 | NUR ---
IN AND OUT CATH DONE TO COLLECT UA.
[2018-03-09 18:07] LABS: AMORPHOUS SEDIMENT <1+ /lpf (NONE SEEN); APPEARANCE CLEAR (CLEAR); BACTERIA FEW /hpf (NONE SEEN); BILIRUBIN NEGATIVE (NEGATIVE); COLOR YELLOW (YELLOW); EPITHELIAL CELLS 0-5 /hpf (0-5); GLUCOSE NEGATIVE (NEGATIVE); KETONE NEGATIVE (NEGATIVE); NITRITE POSITIVE (NEGATIVE); PROTEIN NEGATIVE (NEGATIVE); RED CELLS - URINE RARE /hpf (0-5); SPECIFIC GRAVITY 1.015 (1.005-1.020); UROBILINOGEN NORMAL (NORMAL); WHITE CELLS - URINE RARE /hpf (0-5)
--- NOTE | 2018-03-09 19:30 | NUR ---
RESUMING PATIENT CARE. PATIENT IS ALERT AND ORIENTED. RESPIRATIONS ARE EVEN AND UNLABORED. NO S/S OF DISTRESS. NO C/O PAIN. PATIENT EXPRESSED NO NEEDS AT THIS TIME. PATIENT BOARD UPDATED. CALL LIGHT WITHIN REACH. WILL CPOC.
[2018-03-09 19:42] LABS: BASOPHILS 0.3 % (0-2); EOSINOPHILS 5.6 % (0-7); HEMATOCRIT 27.2 % (36.0-48.0); HEMOGLOBIN 8.2 g/dL (12-16); IMMATURE GRANULOCYTES 0.3 % (0-5); LYMPHOCYTES 13.8 % (15-50); MCH 27.2 pg (26.0-34.0); MCHC 30.1 g/dL (31.0-37.0); MCV 90.1 fL (80.0-100.0); MEAN PLATELET VOLUME 10.5 fL (7.4-10.4); PLATELET COUNT 138 10x3/uL (130-400); RBC 3.02 10x6/uL (4.00-5.40); WBC 3.4 10x3/uL (4.8-10.8)
[2018-03-09 19:52] LABS: INR 1.71 (0.85-1.17); PROTIME 19.5 SECONDS (11.6-15.0)
[2018-03-09 20:00] VITALS: BP 138/60
[2018-03-09 20:05] LABS: ALBUMIN 2.1 g/dL (3.4-5.0); ANION GAP 9.4 mmol/L (8-16); BILIRUBIN - TOTAL 0.59 mg/dL (0.2-1.3); CALCIUM 8.2 mg/dL (8.5-10.1); CARBON DIOXIDE 33.5 mmol/L (21.0-32.0); CREATININE - SERUM 1.2 mg/dL (0.6-1.3); POTASSIUM - SERUM 3.9 mmol/L (3.5-5.1); PROTEIN - SERUM 6.6 g/dL (6.4-8.2)
[2018-03-10] VITALS: BP 106/30
[2018-03-10 04:00] VITALS: BP 106/65
[2018-03-10 06:32] LABS: BASOPHILS 0.6 % (0-2); EOSINOPHILS 7.1 % (0-7); HEMATOCRIT 27.6 % (36.0-48.0); HEMOGLOBIN 8.1 g/dL (12-16); IMMATURE GRANULOCYTES 0.3 % (0-5); LYMPHOCYTES 13.3 % (15-50); MCH 26.3 pg (26.0-34.0); MCHC 29.3 g/dL (31.0-37.0); MCV 89.6 fL (80.0-100.0); MEAN PLATELET VOLUME 10.5 fL (7.4-10.4); NEUTROPHILS 69.7 % (40-80); PLATELET COUNT 132 10x3/uL (130-400); RBC 3.08 10x6/uL (4.00-5.40); RDW 17.2 % (11.5-14.5); WBC 3.2 10x3/uL (4.8-10.8)
[2018-03-10 06:53] LABS: ANION GAP 8.1 mmol/L (8-16); CALCIUM 8.2 mg/dL (8.5-10.1); CARBON DIOXIDE 33.6 mmol/L (21.0-32.0); CREATININE - SERUM 1.1 mg/dL (0.6-1.3); POTASSIUM - SERUM 3.7 mmol/L (3.5-5.1)
[2018-03-10 07:52] VITALS: BP 130/50
--- NOTE | 2018-03-10 10:18 | NUR ---
RESTS IN BED WITH EYES CLOSED. RESP UL ON . CALL LIGHT IN REACH. WILL CONT. PLAN OF CARE.
[2018-03-10 12:20] VITALS: Ht 167.6 cm; Wt 162.3 kg
[2018-03-10 14:01] VITALS: BP 113/54
--- NOTE | 2018-03-10 19:40 | NUR ---
RESUMING PATIENT CARE. PATIENT IS ALERT AND ORIENTED. RESTING COMFORTABLY IN BED. RESPIRATIONS ARE EVEN AND UNLABORED. IV INFILTRATED. PATIENT EXPRESSED NO NEEDS AT THIS TIME. PATIENT BOARD UPDATED. CALL LIGHT WITHIN REACH. WILL CPOC.
[2018-03-10 20:00] VITALS: BP 109/48
[2018-03-11] VITALS: BP 112/57
[2018-03-11 04:00] VITALS: BP 113/40
--- NOTE | 2018-03-11 06:28 | NUR ---
RIGHT LEG DRESSING CHANGE COMPLETED.
--- NOTE | 2018-03-11 07:32 | NUR ---
PATIENT IS RESTING QUIETLY WITH EYES CLOSED. LIGHTS AND TV ON. SHE HAS A LARGE QUILT FROM HOME OVER HER.
[2018-03-11 08:33] VITALS: BP 121/52
[2018-03-11 11:57] VITALS: BP 105/48
--- NOTE | 2018-03-11 14:19 | NUR ---
RN ROUNDING DONE WITH PATIENT RESTING IN SITTING POSITION. HOB AT 30 DEGREES. GLASSES ARE ON. BILATERAL ARMS ARE SWOLLEN BUT EVEN. RIGHT AC PIV WITH NS INFUSING AT 5 CC/HR.
[2018-03-11 16:23] VITALS: BP 106/53
--- NOTE | 2018-03-11 19:27 | NUR ---
PT IN BED REQUESTS TO BE PUT ON BEDPAN. AID IN ROOM TO DO SO. PT DENIES FURTHER NEEDS AT THIS TIME.
[2018-03-11 21:33] VITALS: BP 84/40
[2018-03-12 01:19] VITALS: BP 100/41
--- NOTE | 2018-03-12 04:06 | NUR ---
PT RESTING IN BED WITH RESPS EVEN/NONLABORED. NO DISTRESS. MONITOR AND CPOC.
[2018-03-12 04:57] VITALS: BP 111/49
--- NOTE | 2018-03-12 07:30 | NUR ---
RECEIVED REPORT. LYING IN BED HOB ELEVATED ALERT AND ORIENTED X4. DENIES ANY NEEDS OR PAIN. RR EVEN AND UNLABORED. CALL LIGHT WITHIN REACH, FALL PRECAUTIONS IN PLACE.
[2018-03-12 08:32] VITALS: BP 102/49
[2018-03-12 12:21] VITALS: BP 108/46
--- NOTE | 2018-03-12 15:56 | NUR ---
ALERT AND ORIENTED X4. REPOSITION IN BED. GENERALIZED WEAKNESS. GENERALIZED EDEMA. DEANDRE ARENAS RESUME PLAN OF CARE.
[2018-03-12 16:31] VITALS: BP 104/44
--- NOTE | 2018-03-12 16:43 | NUR ---
ASSISTED TOYA PIZARRO WITH INCONTINENCE CARE OF URINE. COMPLETE LINEN CHANGE DONE. REPOSITIONED IN BED
--- NOTE | 2018-03-12 19:13 | NUR ---
RECIEVED UP IN BED WITH EYES CLOSED. EASILY AROUSES WITH VERBAL STIMULI. ALERT AND ORIENTED X4. RIGHT ARM THIRD SPACING FLUIDS, IV TO RIGHT AC SL.. +4 PITTING EDEMA TO BILATERL LOWER EXTREMITIES. ALSO, LOWER EXTREMITIES DISCOLORED AND DSGS INTACT. INCONT OF BLADDER. ATTEMPTS TO USE BEDPAN. DENIES ANY NEEDS AT THIS TIME. WILL CONT.POC.
[2018-03-12 21:00] VITALS: BP 118/42
[2018-03-13] VITALS (7 sets, daily range): BP systolic 105–131; BP diastolic 46–58
[2018-03-13 06:57] LABS: BASOPHILS 0.9 % (0-2); EOSINOPHILS 9.6 % (0-7); HEMATOCRIT 29.6 % (36.0-48.0); HEMOGLOBIN 9.1 g/dL (12-16); IMMATURE GRANULOCYTES 0.3 % (0-5); LYMPHOCYTES 14.5 % (15-50); MCH 26.3 pg (26.0-34.0); MCHC 30.7 g/dL (31.0-37.0); MCV 85.5 fL (80.0-100.0); MEAN PLATELET VOLUME 12.1 fL (7.4-10.4); MONOCYTES 11.1 % (2-11); NEUTROPHILS 63.6 % (40-80); RBC 3.46 10x6/uL (4.00-5.40); RDW 16.9 % (11.5-14.5); WBC 3.3 10x3/uL (4.8-10.8)
[2018-03-13 06:58] LABS: PLATELET COUNT 100 10x3/uL (130-400)
--- NOTE | 2018-03-13 09:49 | NUR ---
ASSESSMENT DONE. DENIES NEEDS.
--- NOTE | 2018-03-13 09:55 | NUR ---
RESTS WITH EYES CLOSED. RESP UL ON . CALL LIGHT IN REACH. WILL CONT. PLAN OF CARE.
[2018-03-13 10:30] LABS: ALBUMIN 2.3 g/dL (3.4-5.0); ANION GAP 9.4 mmol/L (8-16); CALCIUM 8.2 mg/dL (8.5-10.1); CARBON DIOXIDE 35.5 mmol/L (21.0-32.0); PROTEIN - SERUM 6.9 g/dL (6.4-8.2)
[2018-03-13 10:33] LABS: POTASSIUM - SERUM 2.9 mmol/L (3.5-5.1)
--- NOTE | 2018-03-13 11:52 | NUR ---
Pt has long history of ulcers on lower extremities. Both lower legs are discolored brown/purple, edematous and have a cobblestone appearance. The left leg has no ulcers at this time. The right leg has several open areas. Current treatment for right leg is daily cleansing and application of betadine soaked adaptic, covered with 4x4s, abd pads, kerlix and secured with nataly wrap. The ulcers and the right leg have improved since using this. Left leg is being cleansed daily/dried and lotion applied. Recommend: - continue with the same dressing changes - bridge heels to decrease risk of breakdown - turn/reposition off pressure points every 2 hours - pericare with each incontinent episode and the use of calmoseptine cream for any moisture related redness Wound care continues to monitor.
--- NOTE | 2018-03-13 17:13 | NUR ---
WITHOUT CHANGES OR DISTRESS NOTED AT THIS TIME. DENIES NEEDS,
[2018-03-13 20:18] LABS: % SATURATION 9 % (15-55); IRON 30 ug/dl (35-150); TOTAL IRON BIND CAPACITY 333 ug/dl (260-445); UNSAT IRON BIND CAPACITY 303 ug/dl (150-375)
[2018-03-13 20:29] LABS: MAGNESIUM - SERUM 1.6 mg/dL (1.8-2.4)
--- NOTE | 2018-03-14 03:21 | NUR ---
LYING IN BED, RESPIRATIONS EVEN AND UNLABORED. CALL LIGHT IN REACH, WILL CONTINUE WITH PLAN OF CARE.
[2018-03-14 03:55] VITALS: BP 109/43
[2018-03-14 05:44] LABS: BASOPHILS 0.6 % (0-2); EOSINOPHILS 7.9 % (0-7); HEMATOCRIT 27.8 % (36.0-48.0); HEMOGLOBIN 8.4 g/dL (12-16); IMMATURE GRANULOCYTES 0.3 % (0-5); LYMPHOCYTES 13.5 % (15-50); MCH 26.7 pg (26.0-34.0); MCHC 30.2 g/dL (31.0-37.0); MEAN PLATELET VOLUME 10.5 fL (7.4-10.4); MONOCYTES 12.3 % (2-11); NEUTROPHILS 65.4 % (40-80); RBC 3.15 10x6/uL (4.00-5.40); RDW 17.3 % (11.5-14.5); WBC 3.4 10x3/uL (4.8-10.8)
[2018-03-14 06:04] LABS: ANION GAP 6.7 mmol/L (8-16); BILIRUBIN - TOTAL 0.67 mg/dL (0.2-1.3); CALCIUM 8.1 mg/dL (8.5-10.1); CARBON DIOXIDE 34.8 mmol/L (21.0-32.0); MCV 88.3 fL (80.0-100.0); PLATELET COUNT 148 10x3/uL (130-400); POTASSIUM - SERUM 3.5 mmol/L (3.5-5.1); PROTEIN - SERUM 6.7 g/dL (6.4-8.2)
[2018-03-14 08:39] VITALS: BP 109/53
--- NOTE | 2018-03-14 09:28 | NUR ---
RESP UL ON . CALL LIGHT IN REACH. WILL CONT. PLAN OF CARE.
--- NOTE | 2018-03-14 10:38 | NUR ---
ASSESSMENT DONE. DENIES NEEDS
--- NOTE | 2018-03-14 10:58 | NUR ---
Rehab Note- Acute Inpatient Rehab prescreen order received. The patient was just in our acute inpatient rehab unit and was transferred back to the acute hosptial, she continues to have an acute work up, with elevated D-Dimer. Also has a pending PT Eval to assess the patient's functional level. Will continue to follow at this time. Thank you for this referral! Yadira Ball RN Clinical Liaison, [facility] Re[facility]
[2018-03-14 12:22] VITALS: BP 119/56
[2018-03-14 17:04] VITALS: BP 105/52
[2018-03-14 19:00] VITALS: BP 108/49
[2018-03-15] VITALS: BP 136/64
[2018-03-15 04:00] VITALS: BP 107/53
[2018-03-15 04:40] LABS: BASOPHILS 0.7 % (0-2); EOSINOPHILS 8.2 % (0-7); HEMATOCRIT 27.2 % (36.0-48.0); HEMOGLOBIN 8.2 g/dL (12-16); IMMATURE GRANULOCYTES 0.3 % (0-5); LYMPHOCYTES 12.3 % (15-50); MCH 26.5 pg (26.0-34.0); MCHC 30.1 g/dL (31.0-37.0); MCV 87.7 fL (80.0-100.0); MEAN PLATELET VOLUME 10.7 fL (7.4-10.4); MONOCYTES 11.6 % (2-11); NEUTROPHILS 66.9 % (40-80); PLATELET COUNT 135 10x3/uL (130-400); RDW 17.4 % (11.5-14.5); WBC 2.9 10x3/uL (4.8-10.8)
[2018-03-15 04:57] LABS: ANION GAP 8.1 mmol/L (8-16); BILIRUBIN - TOTAL 0.67 mg/dL (0.2-1.3); CARBON DIOXIDE 34.4 mmol/L (21.0-32.0); POTASSIUM - SERUM 3.5 mmol/L (3.5-5.1); PROTEIN - SERUM 6.7 g/dL (6.4-8.2)
[2018-03-15 08:08] VITALS: BP 122/66
--- NOTE | 2018-03-15 08:16 | NUR ---
ASSESSMENT DONE. DENIES NEEDS.
[2018-03-15 08:22] LABS: FOLATE (FOLIC ACID) - SERUM 7.8 ng/mL (>3.0)
[2018-03-15 11:08] VITALS: BP 118/73
--- NOTE | 2018-03-15 14:25 | NUR ---
Nutrition follow-up: Diet: ADA consistent CHO PO intake ~60% average of last 9 meals Labs reviewed pt wi th 4+ pitting edema to bilateral lower extremities Wt: 350# +BM RDN following.
[2018-03-15 15:37] VITALS: BP 115/58
--- NOTE | 2018-03-15 17:33 | NUR ---
WITHOUT CHANGES OR DISTRESS NOTED AT THIS TIME. DENIES NEEDS.
[2018-03-15 21:09] VITALS: BP 98/39
--- NOTE | 2018-03-15 23:37 | NUR ---
LYING IN BED WITH CALL LIGHT IN REACH. WILL CONTINUE TO MONITOR.
[2018-03-16] VITALS: BP 101/48
[2018-03-16 04:00] VITALS: BP 127/63
[2018-03-16 05:28] LABS: BASOPHILS 0.9 % (0-2); EOSINOPHILS 7.8 % (0-7); HEMATOCRIT 27.7 % (36.0-48.0); HEMOGLOBIN 8.4 g/dL (12-16); IMMATURE GRANULOCYTES 0.3 % (0-5); LYMPHOCYTES 12.4 % (15-50); MCH 26.6 pg (26.0-34.0); MCHC 30.3 g/dL (31.0-37.0); MCV 87.7 fL (80.0-100.0); MEAN PLATELET VOLUME 10.6 fL (7.4-10.4); MONOCYTES 12.7 % (2-11); NEUTROPHILS 65.9 % (40-80); PLATELET COUNT 140 10x3/uL (130-400); RBC 3.16 10x6/uL (4.00-5.40); RDW 17.4 % (11.5-14.5); WBC 3.2 10x3/uL (4.8-10.8)
[2018-03-16 05:52] LABS: ANION GAP 10.6 mmol/L (8-16); BILIRUBIN - TOTAL 0.51 mg/dL (0.2-1.3); CALCIUM 8.2 mg/dL (8.5-10.1); CARBON DIOXIDE 33.9 mmol/L (21.0-32.0); POTASSIUM - SERUM 3.5 mmol/L (3.5-5.1); PROTEIN - SERUM 6.7 g/dL (6.4-8.2)
[2018-03-16 07:49] VITALS: BP 126/72
--- NOTE | 2018-03-16 09:00 | NUR ---
PT RESTING IN BED. NO ACUTE DISTRESS NOTED. O2 @ 3.5L PER NC IN PLACE, O2 SAT 96%. SALINE LOC TO RIGHT AC INTACT, FLUSHES EASILY. NO C/O PAIN AT THIS PAIN. DRESSING TO RIGHT LOWER EXTREMITY C/D/I AT THIS TIME. DENIES FURTHER NEEDS AT THIS TIME. CL WITHIN REACH. ENCOURAGED TO CALL WITH NEEDS. CONTINUE POC.
[2018-03-16 11:00] VITALS: BP 131/62
--- NOTE | 2018-03-16 12:45 | NUR ---
DRESSING CHANGE TO RIGHT LOWER EXTREMITY. AREA CLEANED AND PAT DRIED. APPLIED ADAPTIC WITH BETADINE, COVERED WITH ABD'S. WRAPPED WITH KERLEX, THEN WRAPPED WITH CARY. PT REBECCA WELL.
--- NOTE | 2018-03-16 15:45 | NUR ---
REHAB PRESCREENING At this time, Ms. Bey is not ambulating with therapy. She would not be able to participate in the required 3 hours of therapy and does not meet admission criteria for acute inpatient rehab. Thank you for this referral! Hannah Mahmood, [facility] Rehab Logistics Clerk
[2018-03-16 17:02] VITALS: BP 110/48
--- NOTE | 2018-03-16 17:21 | MORECARE ---
CASE MANAGEMENT DISCHARGE SUMMARY PATIENT: SOFIA PEREZ UNIT: [id number] ADM DATE: 03/09/18 AGE: 78 : 39 SEX: F ROOM/BED: D.2128 AUTHOR: PETER BELTRAN PHYSICIAN: REFERRING PHYSICIAN: DEEJAY REYNA MD DATE OF SERVICE: 03/16/18 Discharge Plan Patient Name: SOFIA PEREZ [facility] [facility] 1940 Planned Disposition: Half-Way Facility Anticipated Discharge Date: 03/17/18 Discharge Date: Expected LOS: 8 Initial Reviewer: [id number] Initial Review Date: 03/16/2018 Generated: 03/16/18 6:20 pm External Providers External Provider: [facility] Next Contact Date: 03/17/2018 Service Request Date: Service Type: Resolution: Reviewer: Comments: Coverage Notice Reviewer: [id number] Oliveros Notice Issued Date-Time: 03/16/2018 14:25 Notice Type: Patient Choice Letter Notice Delivered To: Patient Relationship to Patient: Numberer And Wirer Name: Delivery Method: HAND - Hand Delivered Lima Days: Prior Verbal Notification: Recipient Understood Notice: Yes Recipient Signature: Yes Med Rec Note Co-signed by Attending: Coverage Notice Comment: IVETTE Reviewer: [id number] Oliveros Notice Issued Date-Time: 03/16/2018 14:25 Notice Type: IM Discharge Notice Notice Delivered To: Patient Relationship to Patient: Numberer And Wirer Name: Delivery Method: HAND - Hand Delivered Lima Days: Prior Verbal Notification: Recipient Understood Notice: Yes Recipient Signature: Yes Med Rec Note Co-signed by Attending: Coverage Notice Comment: Patient Name: SOFIA PEREZ Page [id number] at 1721 All edits/amendments must be made on the electronic document DICTATION DATE: 03/16/181719 DIRECTOR SKILLS: RITU 03/16/181719 RPT#: [id number] DC DATE: STATUS: ADM IN [facility] [address] [place] [address] END OF REPORT
--- NOTE | 2018-03-16 17:27 | MORECARE ---
CASE MANAGEMENT DISCHARGE SUMMARY PATIENT: SOFIA PEREZ UNIT: [id number] ADM DATE: 03/09/18 AGE: 78 : 39 SEX: F ROOM/BED: D.1636 AUTHOR: RUBY,DOC PHYSICIAN: REFERRING PHYSICIAN: DEEJAY REYNA MD DATE OF SERVICE: 03/16/18 Discharge Plan Patient Name: SOFIA PEREZ [facility] : 1940 Planned Disposition: Correction Facility Anticipated Discharge Date: 03/17/18 Discharge Date: Expected LOS: 8 Initial Reviewer: [email or web address] Initial Review Date: 03/16/2018 Generated: 03/16/18 6:27 pm DCPIA - Discharge Planning Initial Assessment Updated by [email or web address]: Nestor Oliveros on 03/16/18 5:24 pm * Is the patient Alert and Oriented? Yes * How many steps to enter\exit or inside your home? RAMP * PCP DR. REYNA * [facility]acy [facility]. * Preadmission Environment Acute Inpatient Rehab * Facility Name [facility] * ADLs Partial Dependent * Partial ADLs (Assistance needed) Ambulation Bathing Medication Management Transfers * Equipment Bedside Commode Cane Oxygen Shower Chair Tub Bench Walker * Other Equipment [employer] - MEDICAL EQUIPMENT PROVIDER * List name and contact numbers for known caregivers / representatives who currently or will assist patient after discharge: BRYON STEEL DTR, * Verbal permission to speak to the caregivers and representatives has been obtained from the patient. N/A * Community resources currently utilized None * Please name any agencies selected above. NONE * Additional services required to return to the preadmission environment? Yes * Can the patient safely return to the preadmission environment? Yes * Has this patient been hospitalized within the prior 30 days at any hospital? Yes Coverage Notice Reviewer: [id number] Zoe Oliveros Notice Issued Date-Time: 03/16/2018 14:25 Notice Type: Patient Choice Letter Notice Delivered To: Patient Relationship to Patient: Impregnator Operator Name: Delivery Method: HAND - Hand Delivered Lima Days: Prior Verbal Notification: Recipient Understood Notice: Yes Recipient Signature: Yes Med Rec Note Co-signed by Attending: Coverage Notice Comment: IVETTE Reviewer: [id number] Zoe Oliveros Notice Issued Date-Time: 03/16/2018 14:25 Notice Type: IM Discharge Notice Notice Delivered To: Patient Relationship to Patient: Impregnator Operator Name: Delivery Method: HAND - Hand Delivered Lima Days: Prior Verbal Notification: Recipient Understood Notice: Yes Recipient Signature: Yes Med Rec Note Co-signed by Attending: Coverage Notice Comment: Last DP export: 03/16/18 4:21 p Patient Name: SOFIA PEREZ Page 42697 at 1727 All edits/amendments must be made on the electronic document DICTATION DATE: 03/16/181726 AIRLINE MECHANIC: RITU 03/16/181726 RPT#: [id number] DC DATE: STATUS: ADM IN [facility] [address] [place] [address] END OF REPORT
--- NOTE | 2018-03-16 17:34 | MORECARE ---
CASE MANAGEMENT DISCHARGE SUMMARY PATIENT: SOFIA PEREZ UNIT: [id number] ADM DATE: 03/09/18 AGE: 78 : 39 SEX: F ROOM/BED: D.2386 AUTHOR: PETER BELTRAN PHYSICIAN: REFERRING PHYSICIAN: DEEJAY REYNA MD DATE OF SERVICE: 03/16/18 Discharge Plan Patient Name: SOFIA PEREZ Facility: [facility]:[place] : 1940 Planned Disposition: Usp Facility Anticipated Discharge Date: 03/17/18 Discharge Date: Expected LOS: 8 Initial Reviewer: [id number] Initial Review Date: 03/16/2018 Generated: 03/16/18 6:34 pm Comments DCP- Discharge Planning Updated by [email or web address]: Nestor Oliveros on 03/16/18 4:[address] Patient Name: SOFIA PEREZ Admission Status: Urgent Accout number: [id number] Admission Date: 03-09-2018 : 1940 Admission Diagnosis:CELLULITIS, UNSPECIFIED Attending: DEEJAY REYNA Current LOS: 7 Anticipated DC Date: 03-17-2018 Planned Disposition: Usp Facility Primary Insurance: MEDICARE A & B PLANNED EXTERNAL PROVIDER: [facility], MEDICARE REHAB BED Discharge Planning Comments: CM RECEIVED ORDER FOR REHAB. CM MET WITH PT IN ROOM TO DISCUSS DISCHARGE PLANNING AND NEEDS. PT REPORTS LIVING AT HOME INDEPENDENTLY AND ALONE. PT REPORTS HAVING ALL NEEDED MEDICAL EQUIPMENT AT HOME FROM [employer]. PT WAS USING [facility] BUT WAS MOST RECENTLY IN INPATIENT REHAB AT [place]. PT IS UNSURE IF SHE CAN GO BACK THERE, PT REPORTS "THEY" WERE GETTING READY TO SEND HER TO [facility] WHO ACCEPTED PT FOR REHAB. PT REPORTS THAT IF SHE CANNOT GET BACK INTO INPATIENT REHAB, SHE WANTS TO GO TO [facility] FOR REHAB. CHOICE SIGNED. IMPORTANT MESSAGE FROM MEDICARE PROVIDED AND EXPLAINED. CM SPOKE TO VICKY OF [facility], THEY WILL NOT ACCEPT PT IS TOO LOW FUNCTIONING AND DID NOT PROGRESS WITH THERAPY. CM FAXED REFERRAL INFORMATION TO [facility] AT [phone]. CM CALLED AND NOTIFIED SANDRA HUTTON [facility] OF REFERRAL FOR REHAB SERVICES; [phone]. WAITING ADMISSION DETERMINATION FROM [facility] FOR REHAB SERVICES. Strip Catcher: Nestor Oliveros DCPIA - Discharge Planning Initial Assessment Updated by IAN: Nestor Oliveros on 03/16/18 5:24 pm * Is the patient Alert and Oriented? Yes * How many steps to enter\\exit or inside your home? RAMP * PCP DR. REYNA * Pharmacy [facility]. * Preadmission Environment Acute Inpatient Rehab * Facility Name [facility] * ADLs Partial Dependent * Partial ADLs (Assistance needed) Ambulation Bathing Medication Management Transfers * Equipment Bedside Commode Cane Oxygen Shower Chair Tub Bench Walker * Other Equipment [employer] - MEDICAL EQUIPMENT PROVIDER * List name and contact numbers for known caregivers / representatives who currently or will assist patient after discharge: BRYON STEEL DTR, * Verbal permission to speak to the caregivers and representatives has been obtained from the patient. N/A * Community resources currently utilized None * Please name any agencies selected above. NONE * Additional services required to return to the preadmission environment? Yes * Can the patient safely return to the preadmission environment? Yes * Has this patient been hospitalized within the prior 30 days at any hospital? Yes Coverage Notice Reviewer: [id number] Zoe Oliveros Notice Issued Date-Time: 03/16/2018 14:25 Notice Type: Patient Choice Letter Notice Delivered To: Patient Relationship to Patient: Machine Operator Hay Stacker Name: Delivery Method: HAND - Hand Delivered Lima Days: Prior Verbal Notification: Recipient Understood Notice: Yes Recipient Signature: Yes Med Rec Note Co-signed by Attending: Coverage Notice Comment: IVETTE Reviewer: [id number] Zoe Oliveros Notice Issued Date-Time: 03/16/2018 14:25 Notice Type: IM Discharge Notice Notice Delivered To: Patient Relationship to Patient: Machine Operator Hay Stacker Name: Delivery Method: HAND - Hand Delivered Lima Days: Prior Verbal Notification: Recipient Understood Notice: Yes Recipient Signature: Yes Med Rec Note Co-signed by Attending: Coverage Notice Comment: Last DP export: 03/16/18 4:27 p Patient Name: SOFIA PEREZ Page [id number] at 1734 All edits/amendments must be made on the electronic document DICTATION DATE: 03/16/181733 MECHANICAL SUPERVISOR: RITU 03/16/181733 RPT#: [id number] DC DATE: STATUS: ADM IN [facility] [address] [facility] [place] [address] END OF REPORT
[2018-03-16 20:00] VITALS: BP 116/53
--- NOTE | 2018-03-16 20:08 | NUR ---
RECEIVED REPORT. LYING IN BED EYES CLOSED RESTING. RR EVEN AND UNLABORED. EASILY AROUSED WITH VERBAL STIMULI. DENIES ANY NEEDS OR PAIN. RIGHT AC IV NS @ KVO. CONTINUES ON 3.5L VIA NC. CALL LIGHT WITHIN REACH, FALL PRECAUTION IN PLACE
[2018-03-17] VITALS: BP 108/58
--- NOTE | 2018-03-17 00:21 | NUR ---
LYING IN BED HOB 45 DEGREES ALERT AND ORIENTED X4. DENIES ANY NEEDS C/O MILD DISCOMFORT GENERALIZED. CALL LIGHT WITHIN REACH, FALL PRECAUTIONS IN PLACE
--- NOTE | 2018-03-17 03:39 | NUR ---
lying in bed supine hob 30 degrees eyes closed resting. rr even and unlabored continues on 3.5l via nc. call light within reach
[2018-03-17 04:00] VITALS: BP 106/56
--- NOTE | 2018-03-17 04:34 | NUR ---
ENVIRONMENTAL SCIENTIST AT BEDSIDE TO OBTAIN VITALS, CALL LIGHT IN REACH. WILL CONTINUE WITH PLAN OF CARE.
--- NOTE | 2018-03-17 06:41 | NUR ---
LYING IN BED EYES CLOSED RESTING. RR EVEN AND UNLABORED. CALL LIGHT WITHIN REACH
--- NOTE | 2018-03-17 08:26 | NUR ---
RESUMING PT CARE, PT IS LAYING IN BED WITH EYES OPEN, ALERT AND ORIENTED. REFUSES TO TAKE MIRALAX THIS MORNING. CALL LIGHT IS IN REACH, WILL CONTINUE TO MONITOR AND FOLLOW PLAN OF CARE.
[2018-03-17 08:55] VITALS: BP 123/65
[2018-03-17] MEDS ORDERED: CLEOCIN HCL300 MG PO (09:14)
[2018-03-17] MEDS ORDERED: K-DUR20 MEQ PO (09:16)
--- NOTE | 2018-03-17 09:26 | MORECARE ---
CASE MANAGEMENT DISCHARGE SUMMARY PATIENT: SOFIA PEREZ UNIT: [id number] ADM DATE: 03/09/18 AGE: 78 : 39 SEX: F ROOM/BED: D.9541 AUTHOR: PETER BELTRAN PHYSICIAN: REFERRING PHYSICIAN: DEEJAY REYNA MD DATE OF SERVICE: 03/17/18 Discharge Plan Patient Name: SOFIA PEREZ Facility: [facility]:[place] : 1940 Planned Disposition: Fci Facility Anticipated Discharge Date: 03/17/18 Discharge Date: Expected LOS: 8 Initial Reviewer: [id number] Initial Review Date: 03/16/2018 Generated: 03/17/18 10:26 am Comments DCP- Discharge Planning Updated by [id number]: Nestor Oliveros on 03/16/18 4:[address] Patient Name: SOFIA PEREZ Admission Status: Urgent Accout number: [id number] Admission Date: 03-09-2018 : 1940 Admission Diagnosis:CELLULITIS, UNSPECIFIED Attending: DEEJAY REYNA Current LOS: 7 Anticipated DC Date: 03-17-2018 Planned Disposition: Fci Facility Primary Insurance: MEDICARE A & B PLANNED EXTERNAL PROVIDER: [facility], MEDICARE REHAB BED Discharge Planning Comments: CM RECEIVED ORDER FOR REHAB. CM MET WITH PT IN ROOM TO DISCUSS DISCHARGE PLANNING AND NEEDS. PT REPORTS LIVING AT HOME INDEPENDENTLY AND ALONE. PT REPORTS HAVING ALL NEEDED MEDICAL EQUIPMENT AT HOME FROM [employer]. PT WAS USING [facility] BUT WAS MOST RECENTLY IN INPATIENT REHAB AT [place]. PT IS UNSURE IF SHE CAN GO BACK THERE, PT REPORTS "THEY" WERE GETTING READY TO SEND HER TO [facility] WHO ACCEPTED PT FOR REHAB. PT REPORTS THAT IF SHE CANNOT GET BACK INTO INPATIENT REHAB, SHE WANTS TO GO TO [facility] FOR REHAB. CHOICE SIGNED. IMPORTANT MESSAGE FROM MEDICARE PROVIDED AND EXPLAINED. CM SPOKE TO VICKY OF [facility], THEY WILL NOT ACCEPT PT IS TOO LOW FUNCTIONING AND DID NOT PROGRESS WITH THERAPY. CM FAXED REFERRAL INFORMATION TO [facility] AT [phone]. CM CALLED AND NOTIFIED SANDRA HTUTON [facility] OF REFERRAL FOR REHAB SERVICES; [phone]. WAITING ADMISSION DETERMINATION FROM [facility] FOR REHAB SERVICES. Validation Leader: Nestor Oliveros DCPIA - Discharge Planning Initial Assessment Updated by IAN: Nestor Oliveros on 03/16/18 5:24 pm * Is the patient Alert and Oriented? Yes * How many steps to enter\\exit or inside your home? RAMP * PCP DR. REYNA * Pharmacy [facility]. * Preadmission Environment Acute Inpatient Rehab * Facility Name [facility] * ADLs Partial Dependent * Partial ADLs (Assistance needed) Ambulation Bathing Medication Management Transfers * Equipment Bedside Commode Cane Oxygen Shower Chair Tub Bench Walker * Other Equipment [employer] - MEDICAL EQUIPMENT PROVIDER * List name and contact numbers for known caregivers / representatives who currently or will assist patient after discharge: BRYON STEEL DTR, * Verbal permission to speak to the caregivers and representatives has been obtained from the patient. N/A * Community resources currently utilized None * Please name any agencies selected above. NONE * Additional services required to return to the preadmission environment? Yes * Can the patient safely return to the preadmission environment? Yes * Has this patient been hospitalized within the prior 30 days at any hospital? Yes Coverage Notice Reviewer: [id number] Zoe Oliveros Notice Issued Date-Time: 03/16/2018 14:25 Notice Type: Patient Choice Letter Notice Delivered To: Patient Relationship to Patient: Employee Communications Intern Name: Delivery Method: HAND - Hand Delivered Lima Days: Prior Verbal Notification: Recipient Understood Notice: Yes Recipient Signature: Yes Med Rec Note Co-signed by Attending: Coverage Notice Comment: IVETTE Reviewer: [id number] Zoe Oliveros Notice Issued Date-Time: 03/16/2018 14:25 Notice Type: IM Discharge Notice Notice Delivered To: Patient Relationship to Patient: Employee Communications Intern Name: Delivery Method: HAND - Hand Delivered Lima Days: Prior Verbal Notification: Recipient Understood Notice: Yes Recipient Signature: Yes Med Rec Note Co-signed by Attending: Coverage Notice Comment: Last DP export: 03/16/18 4:34 p Patient Name: SOFIA PEREZ Page 28472 at 0949 All edits/amendments must be made on the electronic document DICTATION DATE: 03/17/18924 MICRO COMPUTER DATA PROCESSOR: RITU 03/17/18924 RPT#: [id number] DC DATE: STATUS: ADM IN [facility] [address] [place] [address] END OF REPORT
--- NOTE | 2018-03-17 09:39 | MORECARE ---
CASE MANAGEMENT DISCHARGE SUMMARY PATIENT: SOFIA PEREZ UNIT: [id number] ADM DATE: 03/09/18 AGE: 78 : 39 SEX: F ROOM/BED: D.1863 AUTHOR: PETER BELTRAN PHYSICIAN: REFERRING PHYSICIAN: DEEJAY REYNA MD DATE OF SERVICE: 03/17/18 Discharge Plan Patient Name: SOFIA PEREZ Facility: [facility] : 1940 Planned Disposition: [facility] Facility Anticipated Discharge Date: 03/17/18 Discharge Date: Expected LOS: 8 Initial Reviewer: [email or web address] Initial Review Date: 03/16/2018 Generated: 03/17/18 10:38 am Comments DCP- Discharge Planning Updated by [id number]: Nestor Oliveros on 03/17/18 8:[address] Patient Name: SOFIA PEREZ Encounter No: [id number] : 1940 Primary Insurance: MEDICARE A & B Anticipated DC Date: 03-17-2018 Planned Disposition: [facility] Facility External Planned Provider: [facility], MEDICARE REHAB BED DCP follow-up note: CM RECEIVED CALL FROM [facility], SANDRA ADVISED THEY WILL ACCEPT FOR REHAB. PT NOTIFIED AND IN AGREEMENT WITH REHAB AT [facility]. CM NOTIFIED [facility]. FOR DISCHARGE, FAX DISCHARGE INFORMATION TO [facility] AT [phone]. NURSE REPORT TO BE CALLED TO [facility] AT [phone]. [facility] TO ARRANGE VAN TRANSPORTATION. GEOVANNA German DCP- Discharge Planning Updated by [id number]: Nestor Oliveros on 03/16/18 4:[address] Patient Name: SOFIA PEREZ Admission Status: Urgent Accout number: [id number] Admission Date: 03-09-2018 : 1940 Admission Diagnosis:CELLULITIS, UNSPECIFIED Attending: DEEJAY REYNA Current LOS: 7 Anticipated DC Date: 03-17-2018 Planned Disposition: [facility] Facility Primary Insurance: MEDICARE A & B PLANNED EXTERNAL PROVIDER: [facility], MEDICARE REHAB BED Discharge Planning Comments: CM RECEIVED ORDER FOR REHAB. CM MET WITH PT IN ROOM TO DISCUSS DISCHARGE PLANNING AND NEEDS. PT REPORTS LIVING AT HOME INDEPENDENTLY AND ALONE. PT REPORTS HAVING ALL NEEDED MEDICAL EQUIPMENT AT HOME FROM [employer]. PT WAS USING [email or web address] BUT WAS MOST RECENTLY IN INPATIENT REHAB AT [place]. PT IS UNSURE IF SHE CAN GO BACK THERE, PT REPORTS "THEY" WERE GETTING READY TO SEND HER TO [facility] WHO ACCEPTED PT FOR REHAB. PT REPORTS THAT IF SHE CANNOT GET BACK INTO INPATIENT REHAB, SHE WANTS TO GO TO [facility] FOR REHAB. CHOICE SIGNED. IMPORTANT MESSAGE FROM MEDICARE PROVIDED AND EXPLAINED. CM SPOKE TO VICKY OF [facility], THEY WILL NOT ACCEPT PT IS TOO LOW FUNCTIONING AND DID NOT PROGRESS WITH THERAPY. CM FAXED REFERRAL INFORMATION TO [facility] AT [phone]. CM CALLED AND NOTIFIED SANDRA OF [facility] OF REFERRAL FOR REHAB SERVICES; [phone]. CM WAITING ADMISSION DETERMINATION FROM [facility] FOR REHAB SERVICES. Procurement Professional: Nestor Oliveros DCPIA - Discharge Planning Initial Assessment Updated by [id number]: Nestor Oliveros on 03/16/18 5:24 pm * Is the patient Alert and Oriented? Yes * How many steps to enter\\exit or inside your home? RAMP * PCP DR. REYNA * Pharmacy [facility]. * Preadmission Environment Acute Inpatient Rehab * Facility Name [facility] * ADLs Partial Dependent * Partial ADLs (Assistance needed) Ambulation Bathing Medication Management Transfers * Equipment Bedside Commode Cane Oxygen Shower Chair Tub Bench Walker * Other Equipment [employer] - MEDICAL EQUIPMENT PROVIDER * List name and contact numbers for known caregivers / representatives who currently or will assist patient after discharge: BRYON STEEL DTR, * Verbal permission to speak to the caregivers and representatives has been obtained from the patient. N/A * Community resources currently utilized None * Please name any agencies selected above. NONE * Additional services required to return to the preadmission environment? Yes * Can the patient safely return to the preadmission environment? Yes * Has this patient been hospitalized within the prior 30 days at any hospital? Yes Coverage Notice Reviewer: [id number] - Nestor Oliveros Notice Issued Date-Time: 03/16/2018 14:25 Notice Type: Patient Choice Letter Notice Delivered To: Patient Relationship to Patient: General Forecaster Name: Delivery Method: HAND - Hand Delivered Lima Days: Prior Verbal Notification: Recipient Understood Notice: Yes Recipient Signature: Yes Med Rec Note Co-signed by Attending: Coverage Notice Comment: IVETTE Reviewer: [id number] Zoe Oliveros Notice Issued Date-Time: 03/16/2018 14:25 Notice Type: IM Discharge Notice Notice Delivered To: Patient Relationship to Patient: General Forecaster Name: Delivery Method: HAND - Hand Delivered Lima Days: Prior Verbal Notification: Recipient Understood Notice: Yes Recipient Signature: Yes Med Rec Note Co-signed by Attending: Coverage Notice Comment: Last DP export: 03/17/18 8:26 a Patient Name: SOFIA PEREZ Page 69564 at 0939 All edits/amendments must be made on the electronic document DICTATION DATE: 03/17/18937 OFFICER CAPTAIN: RITU 03/17/18937 RPT#: [id number] DC DATE: STATUS: ADM IN [facility] [address] [place] [address] END OF REPORT
[2018-03-17 09:46] LABS: BASOPHILS 1.2 % (0-2); EOSINOPHILS 8.9 % (0-7); HEMATOCRIT 29.7 % (36.0-48.0); HEMOGLOBIN 8.8 g/dL (12-16); LYMPHOCYTES 12.3 % (15-50); MCH 26.3 pg (26.0-34.0); MCHC 29.6 g/dL (31.0-37.0); MCV 88.9 fL (80.0-100.0); MONOCYTES 9.5 % (2-11); NEUTROPHILS 68.1 % (40-80); PLATELET COUNT 161 10x3/uL (130-400); RBC 3.34 10x6/uL (4.00-5.40); RDW 17.7 % (11.5-14.5); WBC 3.3 10x3/uL (4.8-10.8)
--- NOTE | 2018-03-17 10:01 | NUR ---
PT IS TO BE D/C TODAY TO REHAB UNIT, PER ORDER GIVE LAST DOSE OF ROCHEPHIN THEN MAY D/C. CALL LIGHT IN REACH, WILL CONTINUE TO MONITOR.
[2018-03-17 10:09] LABS: ALBUMIN 2.2 g/dL (3.4-5.0); ANION GAP 7.4 mmol/L (8-16); BILIRUBIN - TOTAL 0.63 mg/dL (0.2-1.3); CALCIUM 8.4 mg/dL (8.5-10.1); CARBON DIOXIDE 36.7 mmol/L (21.0-32.0); POTASSIUM - SERUM 3.1 mmol/L (3.5-5.1); PROTEIN - SERUM 7.1 g/dL (6.4-8.2)
--- NOTE | 2018-03-17 10:19 | NUR ---
UP IN CHAIR WITH CALL LIGHT IN REACH. IV PATENT. NO NEEDS VOICED. WILL MONITOR.
--- NOTE | 2018-03-17 10:47 | NUR ---
ROCEPHIN GIVEN EARLY PER ORDER, PT IS TO BED D/C AFTER DOSE IS FINISHED. CALL LIGHT IN REACH.
--- NOTE | 2018-03-17 10:56 | MORECARE ---
CASE MANAGEMENT DISCHARGE SUMMARY PATIENT: SOFIA PEREZ UNIT: [id number] ADM DATE: 03/09/18 AGE: 78 : 39 SEX: F ROOM/BED: D.4324 AUTHOR: RUBY,DOC PHYSICIAN: REFERRING PHYSICIAN: DEEJAY REYNA MD DATE OF SERVICE: 03/17/18 Discharge Plan Patient Name: SOFIA PEREZ Facility: [facility]:[place] : 1940 Planned Disposition: Detention Facility Anticipated Discharge Date: 03/17/18 Discharge Date: Expected LOS: 8 Initial Reviewer: [email or web address] Initial Review Date: 03/16/2018 Generated: 03/17/18 11:56 am Comments DCP- Discharge Planning Updated by [email or web address]: Nestor Oliveros on 03/17/18 9:[address] Patient Name: SOFIA PEREZ Encounter No: [id number] : 1940 Primary Insurance: MEDICARE A & B Anticipated DC Date: 03-17-2018 Planned Disposition: Detention Facility External Planned Provider: [facility], MEDICARE REHAB BED DCP follow-up note: CM RECEIVED CALL FROM [facility], SANDRA ADVISED THEY WILL ACCEPT FOR REHAB. PT NOTIFIED AND IN AGREEMENT WITH REHAB AT [facility]. CM NOTIFIED [facility]OHNSON. FOR DISCHARGE, FAX DISCHARGE INFORMATION TO [facility] AT [phone]. NURSE REPORT TO BE CALLED TO [facility] AT [phone]. [facility] TO ARRANGE VAN TRANSPORTATION. Nestor Oliveros CASE MANAGEMENT Appended by Nestor Oliveros on 03/17/2018 10:55 BILINGUAL LEGAL ASSISTANT: CM RECEIVED DISCHARGE, FAXED DISCHARGE INFORMATION TO [facility] AT [phone]. PATIENT AND PT'S DAUGHTER, IN ROOM, NOTIFIED. NURSE REPORT TO BE CALLED TO [facility] AT [phone]. [facility] TO ARRANGE VAN TRANSPORTATION FOR 1215 TODAY. GEOVANNA German DCP- Discharge Planning Updated by [id number]: Nestor Oliveros on 03/16/18 4:[address] Patient Name: SOFIA PEREZ Admission Status: Urgent Accout number: [id number] Admission Date: 03-09-2018 : 1940 Admission Diagnosis:CELLULITIS, UNSPECIFIED Attending: DEEJAY REYNA Current LOS: 7 Anticipated DC Date: 03-17-2018 Planned Disposition: Detention Facility Primary Insurance: MEDICARE A & B PLANNED EXTERNAL PROVIDER: [facility], MEDICARE REHAB BED Discharge Planning Comments: CM RECEIVED ORDER FOR REHAB. CM MET WITH PT IN ROOM TO DISCUSS DISCHARGE PLANNING AND NEEDS. PT REPORTS LIVING AT HOME INDEPENDENTLY AND ALONE. PT REPORTS HAVING ALL NEEDED MEDICAL EQUIPMENT AT HOME FROM [employer]. PT WAS [facility]ING [facility] BUT WAS MOST RECENTLY IN INPATIENT REHAB AT [place]. PT IS UNSURE IF SHE CAN GO BACK THERE, PT REPORTS "THEY" WERE GETTING READY TO SEND HER TO [facility] WHO ACCEPTED PT FOR REHAB. PT REPORTS THAT IF SHE CANNOT GET BACK INTO INPATIENT REHAB, SHE WANTS TO GO TO [facility] FOR REHAB. CHOICE SIGNED. IMPORTANT MESSAGE FROM MEDICARE PROVIDED AND EXPLAINED. CM SPOKE TO VICKY OF [facility], THEY WILL NOT ACCEPT PT IS TOO LOW FUNCTIONING AND DID NOT PROGRESS WITH THERAPY. CM FAXED REFERRAL INFORMATION TO [facility] AT [phone]. CM CALLED AND NOTIFIED SANDRA OF [facility] OF REFERRAL FOR REHAB SERVICES; [phone]. CM WAITING ADMISSION DETERMINATION FROM [facility] FOR REHAB SERVICES. Rubber Compounder: Nestor Oliveros DCPIA - Discharge Planning Initial Assessment Updated by [email or web address]: Nestor Oliveros on 03/16/18 5:24 pm * Is the patient Alert and Oriented? Yes * How many steps to enter\\exit or inside your home? RAMP * PCP DR. REYNA * Pharmacy [facility]. * Preadmission Environment Acute Inpatient Rehab * Facility Name [facility] * ADLs Partial Dependent * Partial ADLs (Assistance needed) Ambulation Bathing Medication Management Transfers * Equipment Bedside Commode Cane Oxygen Shower Chair Tub Bench Walker * Other Equipment OXYGEN AT [employer] - MEDICAL EQUIPMENT PROVIDER * List name and contact numbers for known caregivers / representatives who currently or will assist patient after discharge: BRYON STEEL DTR, * Verbal permission to speak to the caregivers and representatives has been obtained from the patient. N/A * Community resources currently utilized None * Please name any agencies selected above. NONE * Additional services required to return to the preadmission environment? Yes * Can the patient safely return to the preadmission environment? Yes * Has this patient been hospitalized within the prior 30 days at any hospital? Yes Coverage Notice Reviewer: [id number] Zoe Oliveros Notice Issued Date-Time: 03/16/2018 14:25 Notice Type: Patient Choice Letter Notice Delivered To: Patient Relationship to Patient: Crocodile Farmer Name: Delivery Method: HAND - Hand Delivered [place] Days: Prior Verbal Notification: Recipient Understood Notice: Yes Recipient Signature: Yes Med Rec Note Co-signed by Attending: Coverage Notice Comment: IVETTE Reviewer: [email or web address] Zoe Oliveros Notice Issued Date-Time: 03/16/2018 14:25 Notice Type: IM Discharge Notice Notice Delivered To: Patient Relationship to Patient: Crocodile Farmer Name: Delivery Method: HAND - Hand Delivered [place] Days: Prior Verbal Notification: Recipient Understood Notice: Yes Recipient Signature: Yes Med Rec Note Co-signed by Attending: Coverage Notice Comment: Last DP export: 03/17/18 8:39 a Patient Name: SOFIA PEREZ Page 18724 at 1056 All edits/amendments must be made on the electronic document DICTATION DATE: 03/17/18 105 OPEN WINDER: RITU 03/17/18 105 RPT#: [id number] DC DATE: STATUS: ADM IN [facility] [address] [place] [address] END OF REPORT
--- NOTE | 2018-03-17 11:50 | NUR ---
REPORT CALLED TO ISAAC TREJO AT [facility] ([phone]) PT IS BEING DISCHARGED.
[2018-03-17 12:42] VITALS: BP 105/40
--- NOTE | 2018-03-17 12:57 | NUR ---
PT D/C'D, LEFT VIA WHEELCHAIR WITH [facility]ILY [facility] LONG TERM/REHAB. IV REMOVED FROM RIGHT AC, TELEMETRY REMOVED. D/C INSTRUCTIONS WENT OVER WITH FAMILY AND PT. VERBALIZES UNDERSTANDING.
== END 2018-03-17 13:02 | DRG 602 ==
LOC: D.M2 13:15
PROVIDERS: Emergency Medicine; Internal Medicine Nephrology; ADMIT Family Medicine
DX: L03.116 Cellulitis of left lower limb (principal); I50.33 Acute on chronic diastolic (congestive) heart failure; R53.2 Functional quadriplegia; J96.21 Acute and chronic respiratory failure with hypoxia; N39.0 Urinary tract infection, site not specified; I13.0 Hypertensive heart and chronic kidney disease with heart failure and stage 1 through stage 4 chronic kidney disease, or unspecified chronic kidney disease; Z68.43 Body mass index [BMI] 50.0-59.9, adult; L03.115 Cellulitis of right lower limb; B96.20 Unspecified Escherichia coli [E. coli] as the cause of diseases classified elsewhere; E78.5 Hyperlipidemia, unspecified; I87.8 Other specified disorders of veins; E11.22 Type 2 diabetes mellitus with diabetic chronic kidney disease; E11.51 Type 2 diabetes mellitus with diabetic peripheral angiopathy without gangrene; N18.9 Chronic kidney disease, unspecified; E66.9 Obesity, unspecified; I48.91 Unspecified atrial fibrillation; I25.10 Atherosclerotic heart disease of native coronary artery without angina pectoris; Z86.718 Personal history of other venous thrombosis and embolism

== ENCOUNTER 2018-03-20 13:08 | Inpatient (IN) | payer MEDICARE ==
[~2018-03-20] VITALS: Ht 167.6 cm; Wt 113.8 kg
[~2018-03-20 13:08] MED LIST changes: +K-DUR20 MEQ PO
[2018-03-20 14:53] LABS: BASOPHILS 0.9 % (0-2); EOSINOPHILS 5.8 % (0-7); HEMATOCRIT 30.1 % (36.0-48.0); HEMOGLOBIN 8.8 g/dL (12-16); LYMPHOCYTES 7.6 % (15-50); MCH 26.7 pg (26.0-34.0); MCHC 29.2 g/dL (31.0-37.0); MCV 91.2 fL (80.0-100.0); MEAN PLATELET VOLUME 10.4 fL (7.4-10.4); MONOCYTES 9.4 % (2-11); NEUTROPHILS 76.3 % (40-80); PLATELET COUNT 147 10x3/uL (130-400); RDW 18.8 % (11.5-14.5); WBC 5.5 10x3/uL (4.8-10.8)
[2018-03-20 15:05] LABS: ALBUMIN 2.3 g/dL (3.4-5.0); ALKALINE PHOSPHATASE 81 U/L (46-116); ALT (SGPT) 5 U/L (10-68); BILIRUBIN - TOTAL 0.62 mg/dL (0.2-1.3); CALC OSMOLALITY 282 mosm/kg (275-300); CALCIUM 8.5 mg/dL (8.5-10.1); CARBON DIOXIDE 32.5 mmol/L (21.0-32.0); CHLORIDE - SERUM 103 mmol/L (98-107); CREATININE - SERUM 1.2 mg/dL (0.6-1.3); GLUCOSE 142 mg/dL (74-106); PROTEIN - SERUM 7.3 g/dL (6.4-8.2); SODIUM 140 mmol/L (136-145); UREA NITROGEN 19 mg/dL (7-18); eGFR NON AFRICAN AMERICAN 46 mL/min (90-120)
[2018-03-20 15:18] LABS: CKMB 0.6 U/L (0.0-3.6); CREATINE KINASE 32 UL (21-215); PRO BNP 1764 pg/mL (0-450); TROPONIN-I < 0.017 ng/mL (0.000-0.060)
[2018-03-20 18:16] LABS: % SATURATION 11 % (15-55); IRON 38 ug/dl (35-150); TOTAL IRON BIND CAPACITY 339 ug/dl (260-445); UNSAT IRON BIND CAPACITY 301 ug/dl (150-375)
--- NOTE | 2018-03-20 18:16 | MORECARE ---
CASE MANAGEMENT DISCHARGE SUMMARY PATIENT: SOFIA PEREZ UNIT: [id number] ADM DATE: 03/20/18 AGE: 78 : 39 SEX: F ROOM/BED: D.E08 AUTHOR: PETER BELTRAN PHYSICIAN: REFERRING PHYSICIAN: DERRICK PEREZ DO DATE OF SERVICE: 03/20/18 Discharge Plan Patient Name: SOFIA PEREZ Facility: [facility]:[place] : 1940 Planned Disposition: Assisted Facility Anticipated Discharge Date: 03/22/18 Discharge Date: Expected LOS: 2 Initial Reviewer: [email or web address] Initial Review Date: 03/20/2018 Generated: 03/20/18 7:16 pm DCP- Discharge Planning Updated by [email or web address]: Sofia Benavides on 03/20/18 5:[address] Patient Name: SOFIA PEREZ Admission Status: ER Accout number: [id number] Admission Date: 03-20-2018 : 1940 Admission Diagnosis: Attending: DERRICK PEREZ Current LOS: 1 Anticipated DC Date: 03-22-2018 Planned Disposition: Assisted Facility Primary Insurance: MEDICARE A & B Discharge Planning Comments: CM met with patient to complete initial dc planning assessment. CM educated patient on the CM role and verbal consent given by patient to complete assessment. Patient was currently in rehab at [place]. She plans to return to [place] at discharge to complete her therapy. Patient denied known discharge needs at this time. CM will continue to follow and will assist as needed with dc plans/needs. Thread Cutter: Sofia Benavides RN, [facility] DCPIA - Discharge Planning Initial Assessment Updated by [email or web address]: Sofia Benavides on 03/20/18 6:13 pm * Is the patient Alert and Oriented? Yes * How many steps to enter\exit or inside your home? None * PCP Dr. Chan * [facility]acy [facility] * Preadmission Environment Assisted Facility * Facility Name [facility] * ADLs Partial Dependent * Partial ADLs (Assistance needed) Ambulation Bathing Medication Management * Equipment Bedside Commode Cane Oxygen Power Chair or Electric Scooter Rolling Walker Shower Chair * List name and contact numbers for known caregivers / representatives who currently or will assist patient after discharge: Vidhi Quezada - daughter - [phone] or [phone] * Verbal permission to speak to the caregivers and representatives has been obtained from the patient. Yes * Additional services required to return to the preadmission environment? No * Can the patient safely return to the preadmission environment? Yes * Has this patient been hospitalized within the prior 30 days at any hospital? Yes Patient Name: SOFIA PEREZ Page 30344 at 1816 All edits/amendments must be made on the electronic document DICTATION DATE: 03/20/181814 CENTRIFUGAL DRIER OPERATOR: RITU 03/20/181814 RPT#: [id number] DC DATE: STATUS: ADM IN [facility] [address] [place] [address] END OF REPORT
[2018-03-20 19:00] VITALS: BP 125/59
[2018-03-21 01:11] VITALS: BP 125/59; BMI 40.4
[2018-03-21 04:00] VITALS: BP 118/50
[2018-03-21 06:59] LABS: ALBUMIN 2.1 g/dL (3.4-5.0); ANION GAP 10.6 mmol/L (8-16); BILIRUBIN - TOTAL 0.55 mg/dL (0.2-1.3); CALCIUM 8.2 mg/dL (8.5-10.1); CARBON DIOXIDE 31.9 mmol/L (21.0-32.0); MAGNESIUM - SERUM 1.9 mg/dL (1.8-2.4); POTASSIUM - SERUM 4.5 mmol/L (3.5-5.1); PROTEIN - SERUM 6.5 g/dL (6.4-8.2)
[2018-03-21 07:22] LABS: HEMATOCRIT 29.2 % (36.0-48.0); HEMOGLOBIN 8.6 g/dL (12-16); MCH 26.6 pg (26.0-34.0); MCHC 29.5 g/dL (31.0-37.0); MCV 90.4 fL (80.0-100.0); MEAN PLATELET VOLUME 10.9 fL (7.4-10.4); PLATELET COUNT 130 10x3/uL (130-400); RBC 3.23 10x6/uL (4.00-5.40); RDW 19.3 % (11.5-14.5)
[2018-03-21 07:23] LABS: WBC 3.3 10x3/uL (4.8-10.8)
[2018-03-21 08:15] LABS: EOSINOPHILS 4 % (0-7); LYMPHOCYTES 19 % (15-50); MONOCYTES 4 % (2-11); NEUTROPHILS 73 % (40-80); PLATELET ESTIMATE NORMAL
[2018-03-21 09:47] VITALS: BP 90/42
[2018-03-21 13:07] VITALS: Ht 167.6 cm; Wt 113.8 kg
[2018-03-21 19:00] VITALS: BP 103/75
[2018-03-22] VITALS: BP 139/78
[2018-03-22 04:00] VITALS: BP 143/63
[2018-03-22 06:26] LABS: BASOPHILS 0.6 % (0-2); EOSINOPHILS 7.9 % (0-7); HEMATOCRIT 27.8 % (36.0-48.0); HEMOGLOBIN 8.3 g/dL (12-16); LYMPHOCYTES 13.8 % (15-50); MCH 26.9 pg (26.0-34.0); MCHC 29.9 g/dL (31.0-37.0); MEAN PLATELET VOLUME 10.6 fL (7.4-10.4); MONOCYTES 10.1 % (2-11); NEUTROPHILS 67.6 % (40-80); PLATELET COUNT 137 10x3/uL (130-400); RBC 3.09 10x6/uL (4.00-5.40); RDW 19.5 % (11.5-14.5); WBC 3.2 10x3/uL (4.8-10.8)
[2018-03-22 07:02] LABS: ANION GAP 11.7 mmol/L (8-16); BILIRUBIN - TOTAL 0.56 mg/dL (0.2-1.3); CALCIUM 8.3 mg/dL (8.5-10.1); CARBON DIOXIDE 32.3 mmol/L (21.0-32.0); PROTEIN - SERUM 6.4 g/dL (6.4-8.2)
[2018-03-22 07:04] LABS: CREATININE - SERUM 1.4 mg/dL (0.6-1.3)
[2018-03-22 08:19] VITALS: BP 136/58
[2018-03-22 09:18] LABS: FOLATE (FOLIC ACID) - SERUM 3.9 ng/mL (>3.0)
[2018-03-22 12:04] VITALS: BP 115/61
[2018-03-22 16:41] VITALS: BP 114/57
[2018-03-22 20:41] VITALS: BP 116/66
[2018-03-22 21:16] LABS: APPEARANCE HAZY (CLEAR); BILIRUBIN NEGATIVE (NEGATIVE); COLOR DK YELLOW (YELLOW); GLUCOSE NEGATIVE (NEGATIVE); KETONE NEGATIVE (NEGATIVE); NITRITE NEGATIVE (NEGATIVE); PROTEIN 1+ mg/dL (NEGATIVE); SPECIFIC GRAVITY 1.025 (1.005-1.020); UROBILINOGEN NORMAL (NORMAL)
[2018-03-22 21:19] LABS: BACTERIA MANY /hpf (NONE SEEN); RED CELLS - URINE >50 /hpf (0-5); YEAST >1+ /hpf (NONE SEEN)
[2018-03-23] VITALS: BP 89/44
[2018-03-23 04:55] VITALS: BP 85/34
[2018-03-23 06:14] LABS: BASOPHILS 0.6 % (0-2); EOSINOPHILS 8.6 % (0-7); HEMATOCRIT 29.7 % (36.0-48.0); HEMOGLOBIN 8.7 g/dL (12-16); LYMPHOCYTES 13.7 % (15-50); MCH 26.5 pg (26.0-34.0); MCHC 29.3 g/dL (31.0-37.0); MCV 90.5 fL (80.0-100.0); MONOCYTES 11.1 % (2-11); PLATELET COUNT 127 10x3/uL (130-400); RBC 3.28 10x6/uL (4.00-5.40); RDW 19.8 % (11.5-14.5); WBC 3.5 10x3/uL (4.8-10.8)
[2018-03-23 06:40] LABS: ANION GAP 11.6 mmol/L (8-16); BILIRUBIN - TOTAL 0.62 mg/dL (0.2-1.3); CALCIUM 8.4 mg/dL (8.5-10.1); CARBON DIOXIDE 30.5 mmol/L (21.0-32.0); CREATININE - SERUM 1.4 mg/dL (0.6-1.3); POTASSIUM - SERUM 4.1 mmol/L (3.5-5.1); PROTEIN - SERUM 6.7 g/dL (6.4-8.2)
[2018-03-23 08:12] VITALS: BP 100/49
--- NOTE | 2018-03-23 08:42 | MORECARE ---
CASE MANAGEMENT DISCHARGE SUMMARY PATIENT: SOFIA PEREZ UNIT: [id number] ADM DATE: 03/20/18 AGE: 78 : 39 SEX: F ROOM/BED: D.5493 AUTHOR: PETER BELTRAN PHYSICIAN: REFERRING PHYSICIAN: DERRICK PEREZ DO DATE OF SERVICE: 03/23/18 Discharge Plan Patient Name: SOFIA PEREZ Facility: [facility]:[place] : 1940 Planned Disposition: Snf Facility Anticipated Discharge Date: 03/22/18 Discharge Date: Expected LOS: 2 Initial Reviewer: [email or web address] Initial Review Date: 03/20/2018 Generated: 03/23/18 9:42 am DCP- Discharge Planning Updated by [email or web address]: Sofia Benavides on 03/20/18 5:[address] Patient Name: SOFIA PEREZ Admission Status: ER Accout number: [id number] Admission Date: 03-20-2018 : 1940 Admission Diagnosis: Attending: DERRICK PEREZ Current LOS: 1 Anticipated DC Date: 03-22-2018 Planned Disposition: Snf Facility Primary Insurance: MEDICARE A & B Discharge Planning Comments: CM met with patient to complete initial dc planning assessment. CM educated patient on the CM role and verbal consent given by patient to complete assessment. Patient was currently in rehab at [place]. She plans to return to [facility] at discharge to complete her therapy. Patient denied known discharge needs at this time. CM will continue to follow and will assist as needed with dc plans/needs. Slime Plant Operator: Sofia Benavides RN, [facility] DCPIA - Discharge Planning Initial Assessment Updated by [email or web address]: Sofia Benavides on 03/20/18 6:13 pm * Is the patient Alert and Oriented? Yes * How many steps to enter\exit or inside your home? None * PCP Dr. Chan * Pharmacy [facility]/ * Preadmission Environment Snf Facility * Facility Name [facility] * ADLs Partial Dependent * Partial ADLs (Assistance needed) Ambulation Bathing Medication Management * Equipment Bedside Commode Cane Oxygen Power Chair or Electric Scooter Rolling Walker Shower Chair * List name and contact numbers for known caregivers / representatives who currently or will assist patient after discharge: Vidhi Quezada - daughter - [phone] or [phone] * Verbal permission to speak to the caregivers and representatives has been obtained from the patient. Yes * Additional services required to return to the preadmission environment? No * Can the patient safely return to the preadmission environment? Yes * Has this patient been hospitalized within the prior 30 days at any hospital? Yes External Providers [facility] Next Contact Date: 03/23/2018 Service Request Date: Service Type: Resolution: Reviewer: Comments: Last DP export: 03/20/18 5:16 p Patient Name: SOFIA PEREZ Page 84082 at 0842 All edits/amendments must be made on the electronic document DICTATION DATE: 03/23/18840 CLIN NURSE: RITU 03/23/18840 RPT#: [id number] DC DATE: STATUS: ADM IN [facility] [address] [place] [address] END OF REPORT
--- NOTE | 2018-03-23 08:48 | MORECARE ---
CASE MANAGEMENT DISCHARGE SUMMARY PATIENT: SOFIA PEREZ UNIT: [id number] ADM DATE: 03/20/18 AGE: 78 : 39 SEX: F ROOM/BED: D.2123 AUTHOR: PETER BELTRAN PHYSICIAN: REFERRING PHYSICIAN: DERRICK PEREZ DO DATE OF SERVICE: 03/23/18 Discharge Plan Patient Name: SOFIA PEREZ Facility: [facility]:[place] : 1940 Planned Disposition: Penitentiary Facility Anticipated Discharge Date: 03/22/18 Discharge Date: Expected LOS: 2 Initial Reviewer: [email or web address] Initial Review Date: 03/20/2018 Generated: 03/23/18 9:48 am Comments DCP- Discharge Planning Updated by [email or web address]: Nestor Oliveros on 03/23/18 7:[address] Patient Name: SOFIA PEREZ Encounter No: [id number] : 1940 Primary Insurance: MEDICARE A & B Anticipated DC Date: 03-22-2018 Planned Disposition: Penitentiary Facility External Planned Provider: [facility], MEDICARE REHAB BED DCP follow-up note: CM REVIEWED CHART WHICH INDICATES PT PLANS TO RETURN TO REHAB AT [facility]. CM FAXED UPDATE TO [facility] AT [phone]. FOR DISCHARGE, FAX DISCHARGE INFORMATION TO [facility] AT [phone]. CALL NURSE REPORT TO [facility] AT [phone]. PT WILL REQUIRE AMBULANCE TRANSPORT UNLESS HAVING DEMONSTRATED ABILITY TO TRANSFER TO CHAIR AND SIT SAFELY FOR DURATION OF TRANSPORT. [facility]NA German [facility] D[facility]- Discharge Planning Updated by [email or web address]: Sofia Benavides on 03/20/18 5:[address] Patient Name: SOFIA PEREZ Admission Status: ER Accout number: [id number] Admission Date: 03-20-2018 : 1940 Admission Diagnosis: Attending: DERRICK PEREZ Current LOS: 1 Anticipated DC Date: 03-22-2018 Planned Disposition: Penitentiary Facility Primary Insurance: MEDICARE A & B Discharge Planning Comments: CM met with patient to complete initial dc planning assessment. CM educated patient on the CM role and verbal consent given by patient to complete assessment. Patient was currently in rehab at [place]. She plans to return to [place] at discharge to complete her therapy. Patient denied known discharge needs at this time. CM will continue to follow and will assist as needed with dc plans/needs. Backup Sawyer: Sofia Benavides RN, [facility] DCPIA - Discharge Planning Initial Assessment Updated by [email or web address]: Sofia Benavides on 03/20/18 6:13 pm * Is the patient Alert and Oriented? Yes * How many steps to enter\exit or inside your home? None * PCP Dr. Chan * Pharmacy [facility] * Preadmission Environment Penitentiary Facility * Facility Name [facility] * ADLs Partial Dependent * Partial ADLs (Assistance needed) Ambulation Bathing Medication Management * Equipment Bedside Commode Cane Oxygen Power Chair or Electric Scooter Rolling Walker Shower Chair * List name and contact numbers for known caregivers / representatives who currently or will assist patient after discharge: Vidhi Quezada - [facility] - [phone] or [phone] * Verbal permission to speak to the caregivers and representatives has been obtained from the patient. Yes * Additional services required to return to the preadmission environment? No * Can the patient safely return to the preadmission environment? Yes * Has this patient been hospitalized within the prior 30 days at any hospital? Yes Last DP export: 03/23/18 7:42 a Patient Name: SOFIA PEREZ Page 70859 at 0848 All edits/amendments must be made on the electronic document DICTATION DATE: 03/23/18847 SENIOR WEB SERVICES DEVELOPER: RITU 03/23/18847 RPT#: [id number] DC DATE: STATUS: ADM IN [facility] [address] [place] [address] END OF REPORT
[2018-03-23 11:52] VITALS: BP 97/48
[2018-03-23 15:31] VITALS: BP 100/55
[2018-03-23 20:00] VITALS: BP 120/50
[2018-03-24] VITALS: BP 105/54
[2018-03-24 07:51] LABS: ALBUMIN 1.9 g/dL (3.4-5.0); ANION GAP 11.4 mmol/L (8-16); BILIRUBIN - TOTAL 0.47 mg/dL (0.2-1.3); CALCIUM 7.8 mg/dL (8.5-10.1); CARBON DIOXIDE 31.9 mmol/L (21.0-32.0); CREATININE - SERUM 1.4 mg/dL (0.6-1.3); POTASSIUM - SERUM 4.3 mmol/L (3.5-5.1); PROTEIN - SERUM 6.1 g/dL (6.4-8.2)
[2018-03-24 08:28] LABS: BASOPHILS 0.3 % (0-2); EOSINOPHILS 7.9 % (0-7); HEMATOCRIT 28.1 % (36.0-48.0); HEMOGLOBIN 8.2 g/dL (12-16); IMMATURE GRANULOCYTES 0.8 % (0-5); MCH 26.3 pg (26.0-34.0); MCHC 29.2 g/dL (31.0-37.0); MCV 90.1 fL (80.0-100.0); MEAN PLATELET VOLUME 11.9 fL (7.4-10.4); PLATELET COUNT 120 10x3/uL (130-400); RBC 3.12 10x6/uL (4.00-5.40); RDW 19.6 % (11.5-14.5); WBC 3.6 10x3/uL (4.8-10.8)
[2018-03-24 08:39] VITALS: BP 100/40
[2018-03-24 11:36] VITALS: BP 131/67
[2018-03-24 15:50] VITALS: BP 101/50
[2018-03-24 20:06] VITALS: BP 111/55
[2018-03-25 00:38] VITALS: BP 104/44
[2018-03-25 04:29] VITALS: BP 115/75
[2018-03-25 06:09] LABS: BASOPHILS 0.6 % (0-2); EOSINOPHILS 7.6 % (0-7); HEMATOCRIT 27.9 % (36.0-48.0); HEMOGLOBIN 8.4 g/dL (12-16); IMMATURE GRANULOCYTES 0.6 % (0-5); LYMPHOCYTES 14.8 % (15-50); MCH 26.7 pg (26.0-34.0); MCHC 30.1 g/dL (31.0-37.0); MCV 88.6 fL (80.0-100.0); MONOCYTES 11.8 % (2-11); NEUTROPHILS 64.6 % (40-80); PLATELET COUNT 119 10x3/uL (130-400); RBC 3.15 10x6/uL (4.00-5.40); RDW 19.6 % (11.5-14.5); WBC 3.3 10x3/uL (4.8-10.8)
[2018-03-25 06:42] LABS: ALBUMIN 1.9 g/dL (3.4-5.0); ANION GAP 8.8 mmol/L (8-16); BILIRUBIN - TOTAL 0.52 mg/dL (0.2-1.3); CALCIUM 7.9 mg/dL (8.5-10.1); CARBON DIOXIDE 34.3 mmol/L (21.0-32.0); CREATININE - SERUM 1.3 mg/dL (0.6-1.3); MAGNESIUM - SERUM 1.8 mg/dL (1.8-2.4); POTASSIUM - SERUM 4.1 mmol/L (3.5-5.1); PROTEIN - SERUM 6.4 g/dL (6.4-8.2)
[2018-03-25 13:43] VITALS: BP 105/41
[2018-03-25 20:30] VITALS: BP 108/53
[2018-03-26 00:30] VITALS: BP 102/50
[2018-03-26 04:30] VITALS: BP 106/59
[2018-03-26 07:12] LABS: HEMATOCRIT 29.3 % (36.0-48.0); HEMOGLOBIN 8.6 g/dL (12-16); MCH 26.3 pg (26.0-34.0); MCHC 29.4 g/dL (31.0-37.0); MCV 89.6 fL (80.0-100.0); MEAN PLATELET VOLUME 10.6 fL (7.4-10.4); PLATELET COUNT 121 10x3/uL (130-400); RBC 3.27 10x6/uL (4.00-5.40); RDW 19.4 % (11.5-14.5); WBC 2.9 10x3/uL (4.8-10.8)
[2018-03-26 07:25] VITALS: BP 93/41
[2018-03-26 07:35] LABS: ALBUMIN 1.8 g/dL (3.4-5.0); ANION GAP 9.7 mmol/L (8-16); BILIRUBIN - TOTAL 0.5 mg/dL (0.2-1.3); CALCIUM 8.1 mg/dL (8.5-10.1); CREATININE - SERUM 1.1 mg/dL (0.6-1.3); POTASSIUM - SERUM 3.7 mmol/L (3.5-5.1); PROTEIN - SERUM 6.4 g/dL (6.4-8.2)
[2018-03-26 08:08] LABS: EOSINOPHILS 10 % (0-7); LYMPHOCYTES 14 % (15-50); MONOCYTES 2 % (2-11); NEUTROPHILS 68 % (40-80)
[2018-03-26 08:09] LABS: PLATELET ESTIMATE NORMAL
[2018-03-26 20:00] VITALS: BP 98/46
[2018-03-27] VITALS: BP 94/34
[2018-03-27 04:00] VITALS: BP 98/39
[2018-03-27 06:31] LABS: BASOPHILS 0.3 % (0-2); EOSINOPHILS 11.3 % (0-7); HEMATOCRIT 32.7 % (36.0-48.0); HEMOGLOBIN 9.7 g/dL (12-16); LYMPHOCYTES 16.2 % (15-50); MCH 26.6 pg (26.0-34.0); MCHC 29.7 g/dL (31.0-37.0); MCV 89.8 fL (80.0-100.0); MEAN PLATELET VOLUME 11.1 fL (7.4-10.4); MONOCYTES 9.4 % (2-11); NEUTROPHILS 62.8 % (40-80); PLATELET COUNT 125 10x3/uL (130-400); RBC 3.64 10x6/uL (4.00-5.40); RDW 19.7 % (11.5-14.5); WBC 3.1 10x3/uL (4.8-10.8)
[2018-03-27 07:45] VITALS: BP 104/41
--- NOTE | 2018-03-27 10:57 | MORECARE ---
CASE MANAGEMENT DISCHARGE SUMMARY PATIENT: SOFIA PEREZ UNIT: [id number] ADM DATE: 03/20/18 AGE: 78 : 39 SEX: F ROOM/BED: D.4454 AUTHOR: RUBYDOC PHYSICIAN: REFERRING PHYSICIAN: DERRICK PEREZ DO DATE OF SERVICE: 03/27/18 Discharge Plan Patient Name: SOFIA PEREZ Facility: [facility]:[place] : 1940 Planned Disposition: Residential Facility Anticipated Discharge Date: 03/22/18 Discharge Date: Expected LOS: 2 Initial Reviewer: [email or web address] Initial Review Date: 03/20/2018 Generated: 03/27/18 11:57 am Comments DCP- Discharge Planning Updated by [email or web address]: Nestor Oliveros on 03/27/18 9:[address] Patient Name: SOFIA PEREZ Encounter No: [id number] : 1940 Primary Insurance: MEDICARE A & B Anticipated DC Date: 03-22-2018 Planned Disposition: Residential Facility External Planned Provider: [facility], MEDICARE REHAB BED DCP follow-up note: CM FAXED UPDATE TO [facility] AT [phone]. FOR DISCHARGE, FAX DISCHARGE INFORMATION TO [facility] AT [phone]. CALL NURSE REPORT TO [facility] AT [phone]. PT WILL REQUIRE AMBULANCE TRANSPORT UNLESS HAVING DEMONSTRATED ABILITY TO TRANSFER TO CHAIR AND SIT SAFELY FOR DURATION OF TRANSPORT. GEOVANNA German MANGEMENT DCP- Discharge Planning Updated by [email or web address]: Nestor Oliveros on 03/23/18 7:[address] Patient Name: SOFIA PEREZ Encounter No: [id number] : 1940 Primary Insurance: MEDICARE A & B Anticipated DC Date: 03-22-2018 Planned Disposition: Residential Facility External Planned Provider: [facility], MEDICARE REHAB BED DCP follow-up note: CM REVIEWED CHART WHICH INDICATES PT PLANS TO RETURN TO REHAB AT [facility]. CM FAXED UPDATE TO [facility] AT [phone]. FOR DISCHARGE, FAX DISCHARGE INFORMATION TO [facility] AT [phone]. CALL NURSE REPORT TO [facility] AT [phone]. PT WILL REQUIRE AMBULANCE TRANSPORT UNLESS HAVING DEMONSTRATED ABILITY TO TRANSFER TO CHAIR AND SIT SAFELY FOR DURATION OF TRANSPORT. Nestor Oliveros, GEOVANNA [facility] DCP- Discharge Planning Updated by [email or web address]: Sofia Benavides on 03/20/18 5:[address] Patient Name: SOFIA PEREZ Admission Status: ER Accout number: [id number] Admission Date: 03-20-2018 : 1940 Admission Diagnosis: Attending: DERRICK PEREZ Current LOS: 1 Anticipated DC Date: 03-22-2018 Planned Disposition: Residential Facility Primary Insurance: MEDICARE A & B Discharge Planning Comments: CM met with patient to complete initial dc planning assessment. CM educated patient on the CM role and verbal consent given by patient to complete assessment. Patient was currently in rehab at [place]. She plans to return to [place] at discharge to complete her therapy. Patient denied known discharge needs at this time. CM will continue to follow and will assist as needed with dc plans/needs. Saw Straightener: Sofia Benavides RN, [facility] DCPIA - Discharge Planning Initial Assessment Updated by [email or web address]: Sofia Benavides on 03/20/18 6:13 pm * Is the patient Alert and Oriented? Yes * How many steps to enter\exit or inside your home? None * PCP Dr. Chan * [facility] * Preadmission Environment Residential Facility * Facility Name [facility] * ADLs Partial Dependent * Partial ADLs (Assistance needed) Ambulation Bathing Medication Management * Equipment Bedside Commode Cane Oxygen Power Chair or Electric Scooter Rolling Walker Shower Chair * List name and contact numbers for known caregivers / representatives who currently or will assist patient after discharge: Vidhi Quezada - daughter - [phone] or [phone] * Verbal permission to speak to the caregivers and representatives has been obtained from the patient. Yes * Additional services required to return to the preadmission environment? No * Can the patient safely return to the preadmission environment? Yes * Has this patient been hospitalized within the prior 30 days at any hospital? Yes Last DP export: 03/23/18 7:48 a Patient Name: SOFIA PEREZ Page 99408 at 1057 All edits/amendments must be made on the electronic document DICTATION DATE: 03/27/18 105 MANAGER ANIMATION: RITU 03/27/18 1057 RPT#: [id number] DC DATE: STATUS: ADM IN [facility] [address] [place] [address] END OF REPORT
[2018-03-27 11:28] VITALS: BP 124/74
[2018-03-27 15:43] VITALS: BP 117/60
[2018-03-27 20:00] VITALS: BP 108/42
[2018-03-28] VITALS (7 sets, daily range): BP systolic 94–165; BP diastolic 41–95
[2018-03-28 06:19] LABS: HEMATOCRIT 28.7 % (36.0-48.0); HEMOGLOBIN 8.5 g/dL (12-16); MCH 26.8 pg (26.0-34.0); MCHC 29.6 g/dL (31.0-37.0); MCV 90.5 fL (80.0-100.0); MEAN PLATELET VOLUME 10.7 fL (7.4-10.4); PLATELET COUNT 111 10x3/uL (130-400); RBC 3.17 10x6/uL (4.00-5.40); RDW 19.6 % (11.5-14.5); WBC 2.8 10x3/uL (4.8-10.8)
[2018-03-28 06:41] LABS: ANION GAP 7.4 mmol/L (8-16); CALCIUM 8.2 mg/dL (8.5-10.1); CARBON DIOXIDE 36.9 mmol/L (21.0-32.0); POTASSIUM - SERUM 3.3 mmol/L (3.5-5.1)
[2018-03-28 08:42] LABS: EOSINOPHILS 8 % (0-7); HYPOCHROMASIA OCC; LYMPHOCYTES 13 % (15-50); MONOCYTES 3 % (2-11); NEUTROPHILS 76 % (40-80); PLATELET ESTIMATE DECREASED
[2018-03-29 00:31] VITALS: BP 89/41
[2018-03-29 06:11] LABS: BASOPHILS 0.7 % (0-2); EOSINOPHILS 8.2 % (0-7); HEMATOCRIT 30.3 % (36.0-48.0); HEMOGLOBIN 8.8 g/dL (12-16); MCH 26.4 pg (26.0-34.0); MEAN PLATELET VOLUME 10.8 fL (7.4-10.4); MONOCYTES 9.6 % (2-11); NEUTROPHILS 68.5 % (40-80); PLATELET COUNT 113 10x3/uL (130-400); RBC 3.33 10x6/uL (4.00-5.40); RDW 19.8 % (11.5-14.5); WBC 2.9 10x3/uL (4.8-10.8)
[2018-03-29 06:17] VITALS: BP 91/42
[2018-03-29 06:27] LABS: ANION GAP 6.9 mmol/L (8-16); CALCIUM 8.3 mg/dL (8.5-10.1); CARBON DIOXIDE 36.8 mmol/L (21.0-32.0); CREATININE - SERUM 1.1 mg/dL (0.6-1.3); POTASSIUM - SERUM 3.7 mmol/L (3.5-5.1)
[2018-03-29 08:35] VITALS: BP 109/54
--- NOTE | 2018-03-29 10:44 | MORECARE ---
CASE MANAGEMENT DISCHARGE SUMMARY PATIENT: SOFIA PEREZ UNIT: [id number] ADM DATE: 03/20/18 AGE: 78 : 39 SEX: F ROOM/BED: D.6283 AUTHOR: PETER BELTRAN PHYSICIAN: REFERRING PHYSICIAN: DERRICK PEREZ DO DATE OF SERVICE: 03/29/18 Discharge Plan Patient Name: SOFIA PEREZ Facility: [facility]:[place] : 1940 Planned Disposition: Nursing Home Facility Anticipated Discharge Date: 03/22/18 Discharge Date: Expected LOS: 2 Initial Reviewer: [id number] Initial Review Date: 03/20/2018 Generated: 03/29/18 11:44 am Comments DCP- Discharge Planning Updated by [id number]: Nestor Oliveros on 03/29/18 9:[address] Patient Name: SOFIA PEREZ Encounter No: [id number] : 1940 Primary Insurance: MEDICARE A & B Anticipated DC Date: 03-22-2018 Planned Disposition: Nursing Home Facility External Planned Provider: [facility], MEDICARE REHAB BED DCP follow-up note: CM SPO[facility], , PROVIDED UPDATE VIA PHONE. FAXED UPDATE TO [facility] AT [phone]. FOR DISCHARGE, FAX DISCHARGE INFORMATION TO [facility] AT [phone]. CALL NURSE REPORT TO [facility] AT [phone]. PT WILL REQUIRE AMBULANCE TRANSPORT UNLESS HAVING DEMONSTRATED ABILITY TO TRANSFER TO CHAIR AND SIT SAFELY FOR DURATION OF TRANSPORT. GEOVANNA German DCP- Discharge Planning Updated by [id number]: Nestor Oliveros on 03/27/18 9:[address] Patient Name: SOFIA PEREZ Encounter No: [id number] : 1940 Primary Insurance: MEDICARE A & B Anticipated DC Date: 03-22-2018 Planned Disposition: Nursing Home Facility External Planned Provider: [facility], MEDICARE REHAB BED DCP follow-up note: CM FAXED UPDATE TO [facility] AT [phone]. FOR DISCHARGE, FAX DISCHARGE INFORMATION TO [facility] AT [phone]. CALL NURSE REPORT TO [facility] AT [phone]. PT WILL REQUIRE AMBULANCE TRANSPORT UNLESS HAVING DEMONSTRATED ABILITY TO TRANSFER TO CHAIR AND SIT SAFELY FOR DURATION OF TRANSPORT. GEOVANNA German DCP- Discharge Planning Updated by [id number]: Nestor Oliveros on 03/23/18 7:[address] Patient Name: SOFIA PEREZ Encounter No: [id number] : 1940 Primary Insurance: MEDICARE A & B Anticipated DC Date: 03-22-2018 Planned Disposition: Nursing Home Facility External Planned Provider: [facility], MEDICARE REHAB BED DCP follow-up note: CM REVIEWED CHART WHICH INDICATES PT PLANS TO RETURN TO REHAB AT [facility]. CM FAXED UPDATE TO [facility] AT [phone]. FOR DISCHARGE, FAX DISCHARGE INFORMATION TO [facility] AT [phone]. CALL NURSE REPORT TO [facility] AT [phone]. PT WILL REQUIRE AMBULANCE TRANSPORT UNLESS HAVING DEMONSTRATED ABILITY TO TRANSFER TO CHAIR AND SIT SAFELY FOR DURATION OF TRANSPORT. Nestor GEOVANNA Oliveros DCP- Discharge Planning Updated by [id number]: Sofia Benavides on 03/20/18 5:[address] Patient Name: SOFIA PEREZ Admission Status: ER Accout number: [id number] Admission Date: 03-20-2018 : 1940 Admission Diagnosis: Attending: DERRICK PEREZ Current LOS: 1 Anticipated DC Date: 03-22-2018 Planned Disposition: Nursing Home Facility Primary Insurance: MEDICARE A & B Discharge Planning Comments: CM met with patient to complete initial dc planning assessment. CM educated patient on the CM role and verbal consent given by patient to complete assessment. Patient was currently in rehab at [facility]. She plans to return to [facility] at discharge to complete her therapy. Patient denied known discharge needs at this time. CM will continue to follow and will assist as needed with dc plans/needs. School Counselor: Sofia Benavides RN, [facility] DCPIA - Discharge Planning Initial Assessment Updated by [id number]: Sofia Benaivdes on 03/20/18 6:13 pm * Is the patient Alert and Oriented? Yes * How many steps to enter\exit or inside your home? None * PCP Dr. Chan * Pharmacy [facility]/ * Preadmission Environment Nursing Home Facility * Facility Name [facility] * ADLs Partial Dependent * Partial ADLs (Assistance needed) Ambulation Bathing Medication Management * Equipment Bedside Commode Cane Oxygen Power Chair or Electric Scooter Rolling Walker Shower Chair * List name and contact numbers for known caregivers / representatives who currently or will assist patient after discharge: Vidhi Quezada - brandie - [phone] or [phone] * Verbal permission to speak to the caregivers and representatives has been obtained from the patient. Yes * Additional services required to return to the preadmission environment? No * Can the patient safely return to the preadmission environment? Yes * Has this patient been hospitalized within the prior 30 days at any hospital? Yes Last DP export: 03/27/18 9:57 a Patient Name: SOFIA PEREZ Page 11375 at 1044 All edits/amendments must be made on the electronic document DICTATION DATE: 03/29/18 1043 INTERRELATED SPECIAL EDUCATION TEACHER: RITU 03/29/18 1043 RPT#: [id number] DC DATE: STATUS: ADM IN [facility] [address] [place] [address] END OF REPORT
[2018-03-29 11:36] VITALS: BP 110/57
[2018-03-29 15:51] VITALS: BP 104/46
[2018-03-29 21:11] VITALS: BP 96/44
[2018-03-30 00:15] VITALS: BP 97/41
[2018-03-30 05:52] VITALS: BP 93/41
[2018-03-30 05:55] LABS: HEMATOCRIT 29.7 % (36.0-48.0); HEMOGLOBIN 8.7 g/dL (12-16); MCH 26.5 pg (26.0-34.0); MCHC 29.3 g/dL (31.0-37.0); MCV 90.5 fL (80.0-100.0); MEAN PLATELET VOLUME 10.5 fL (7.4-10.4); PLATELET COUNT 108 10x3/uL (130-400); RBC 3.28 10x6/uL (4.00-5.40); RDW 19.8 % (11.5-14.5); WBC 2.8 10x3/uL (4.8-10.8)
[2018-03-30 06:07] LABS: ANION GAP 7.3 mmol/L (8-16); CALCIUM 8.3 mg/dL (8.5-10.1); CARBON DIOXIDE 35.3 mmol/L (21.0-32.0); CREATININE - SERUM 1.3 mg/dL (0.6-1.3); POTASSIUM - SERUM 3.6 mmol/L (3.5-5.1)
[2018-03-30 07:32] LABS: EOSINOPHILS 5 % (0-7); LYMPHOCYTES 15 % (15-50); MONOCYTES 8 % (2-11); NEUTROPHILS 72 % (40-80); PLATELET ESTIMATE DECREASED
[2018-03-30 08:22] VITALS: BP 117/57
[2018-03-30] MEDS ORDERED: LASIX40 MG PO (08:28)
--- NOTE | 2018-03-30 10:20 | MORECARE ---
CASE MANAGEMENT DISCHARGE SUMMARY PATIENT: SOFIA PEREZ UNIT: [id number] ADM DATE: 03/20/18 AGE: 78 : 39 SEX: F ROOM/BED: D.2003 AUTHOR: RUBYDOC PHYSICIAN: REFERRING PHYSICIAN: DERRICK PEREZ DO DATE OF SERVICE: 03/30/18 Discharge Plan Patient Name: SOFIA PEREZ Facility: [facility]:[place] : 1940 Planned Disposition: Longterm Facility Anticipated Discharge Date: 03/30/18 Discharge Date: Expected LOS: 10 Initial Reviewer: [id number] Initial Review Date: 03/20/2018 Generated: 03/30/18 11:20 am Comments DCP- Discharge Planning Updated by [email or web address]: Nestor Oliveros on 03/29/18 9:[address] Patient Name: SOFIA PEREZ Encounter No: [id number] : 1940 Primary Insurance: MEDICARE A & B Anticipated DC Date: 03-22-2018 Planned Disposition: Longterm Facility External Planned Provider: [facility], MEDICARE REHAB BED DCP follow-up note: [facility], , PROVIDED UPDATE VIA PHONE. FAXED UPDATE TO [facility] AT [phone]. FOR DISCHARGE, FAX DISCHARGE INFORMATION TO [facility] AT [phone]. CALL NURSE REPORT TO [facility] AT [phone]. PT WILL REQUIRE AMBULANCE TRANSPORT UNLESS HAVING DEMONSTRATED ABILITY TO TRANSFER TO CHAIR AND SIT SAFELY FOR DURATION OF TRANSPORT. GEOVANNA Geramn DCP- Discharge Planning Updated by [email or web address]: Nestor Oliveros on 03/27/18 9:[address] Patient Name: SOFIA PEREZ Encounter No: [id number] : 1940 Primary Insurance: MEDICARE A & B Anticipated DC Date: 03-22-2018 Planned Disposition: Longterm Facility External Planned Provider: [facility], MEDICARE REHAB BED DCP follow-up note: CM FAXED UPDATE TO [facility] AT [phone]. FOR DISCHARGE, FAX DISCHARGE INFORMATION TO [facility] AT [phone]. CALL NURSE REPORT TO [facility] AT [phone]. PT WILL REQUIRE AMBULANCE TRANSPORT UNLESS HAVING DEMONSTRATED ABILITY TO TRANSFER TO CHAIR AND SIT SAFELY FOR DURATION OF TRANSPORT. GEOVANNA German DCP- Discharge Planning Updated by [id number]: Nestor Oliveros on 03/23/18 7:[address] Patient Name: SOFIA EPREZ Encounter No: [id number] : 1940 Primary Insurance: MEDICARE A & B Anticipated DC Date: 03-22-2018 Planned Disposition: Longterm Facility External Planned Provider: [facility], MEDICARE REHAB BED DCP follow-up note: CM REVIEWED CHART WHICH INDICATES PT PLANS TO RETURN TO REHAB AT [facility]. CM FAXED UPDATE TO [facility] AT [phone]. FOR DISCHARGE, FAX DISCHARGE INFORMATION TO [facility] AT [phone]. CALL NURSE REPORT TO [facility] AT [phone]. PT WILL REQUIRE AMBULANCE TRANSPORT UNLESS HAVING DEMONSTRATED ABILITY TO TRANSFER TO CHAIR AND SIT SAFELY FOR DURATION OF TRANSPORT. Nestor GEOVANNA Oliveros DCP- Discharge Planning Updated by [email or web address]: Sofia Benavides on 03/20/18 5:[address] Patient Name: SOFIA PEREZ Admission Status: ER Accout number: [id number] Admission Date: 03-20-2018 : 1940 Admission Diagnosis: Attending: DERRICK PEREZ Current LOS: 1 Anticipated DC Date: 03-22-2018 Planned Disposition: Longterm Facility Primary Insurance: MEDICARE A & B Discharge Planning Comments: CM met with patient to complete initial dc planning assessment. CM educated patient on the CM role and verbal consent given by patient to complete assessment. Patient was currently in rehab at [place]. She plans to return to [place] at discharge to complete her therapy. Patient denied known discharge needs at this time. CM will continue to follow and will assist as needed with dc plans/needs. Custody Assistant: Sofia Benavides RN, [facility] DCPIA - Discharge Planning Initial Assessment Updated by [id number]: Sofia Benavides on 03/20/18 6:13 pm * Is the patient Alert and Oriented? Yes * How many steps to enter\exit or inside your home? None * PCP Dr. Chan * Pharmacy [facility]/ * Preadmission Environment Longterm Facility * Facility Name [facility] * ADLs Partial Dependent * Partial ADLs (Assistance needed) Ambulation Bathing Medication Management * Equipment Bedside Commode Cane Oxygen Power Chair or Electric Scooter Rolling Walker Shower Chair * List name and contact numbers for known caregivers / representatives who currently or will assist patient after discharge: Vidhi Quezada - brandie - [phone] or [phone] * Verbal permission to speak to the caregivers and representatives has been obtained from the patient. Yes * Additional services required to return to the preadmission environment? No * Can the patient safely return to the preadmission environment? Yes * Has this patient been hospitalized within the prior 30 days at any hospital? Yes Coverage Notice Reviewer: [id number] Zoe Oliveros Notice Issued Date-Time: 03/30/2018 10:00 Notice Type: IM Discharge Notice Notice Delivered To: Patient Relationship to Patient: Educational Therapist Name: Delivery Method: HAND - Hand Delivered Lima Days: Prior Verbal Notification: Recipient Understood Notice: Yes Recipient Signature: Yes Med Rec Note Co-signed by Attending: Coverage Notice Comment: Last DP export: 03/29/18 9:44 a Patient Name: SOFIA PEREZ Page 09343 at 1020 All edits/amendments must be made on the electronic document DICTATION DATE: 03/30/18 1019 BOBBIN PRESSER: RITU 03/30/18 1019 RPT#: [id number] DC DATE: STATUS: ADM IN [facility] [address] [place] [address] END OF REPORT
--- NOTE | 2018-03-30 10:32 | MORECARE ---
CASE MANAGEMENT DISCHARGE SUMMARY PATIENT: SOFIA PEREZ UNIT: [id number] ADM DATE: 03/20/18 AGE: 78 : 39 SEX: F ROOM/BED: D.8021 AUTHOR: PETER BELTRAN PHYSICIAN: REFERRING PHYSICIAN: DERRICK PEREZ DO DATE OF SERVICE: 03/30/18 Discharge Plan Patient Name: SOFIA PEREZ Facility: [facility]:[place] : 1940 Planned Disposition: [facility] Facility Anticipated Discharge Date: 03/30/18 Discharge Date: Expected LOS: 10 Initial Reviewer: [id number] Initial Review Date: 03/20/2018 Generated: 03/30/18 11:32 am Comments DCP- Discharge Planning Updated by [email or web address]: Nestor Oliveros on 03/30/18 9:[address] Patient Name: SOFIA PEREZ Encounter No: [id number] : 1940 Primary Insurance: MEDICARE A & B Anticipated DC Date: 03-30-2018 Planned Disposition: [facility] Facility External Planned Provider: [facility], MEDICARE REHAB BED DCP follow-up note: CM RECEIVED DISCHARGE ORDER, SPOKE TO [facility], , PROVIDED UPDATE VIA PHONE. FAXED DISCHARGE INFORMATION TO [facility] AT [phone]. CM NOTIFIED PT, PT IN AGREEMENT WITH DISCHARGE TO REHAB TODAY. PT REPORTS HER DAUGHTER WILL BE HERE SHORTLY AND SHE WILL NOTIFY HER THEN. CM PROVIDED AND DISCUSSED IMPORTANT MESSAGE FROM MEDICARE. FOR DISCHARGE, CALL NURSE REPORT TO [facility] AT [phone]. [facility] TO ARRANGE VAN TRANSPORT FOR NOON TODAY. GEOVANNA German DCP- Discharge Planning Updated by [id number]: Nestor Oliveros on 03/29/18 9:[address] Patient Name: SOFIA PEREZ Encounter No: [id number] : 1940 Primary Insurance: MEDICARE A & B Anticipated DC Date: 03-22-2018 Planned Disposition: [facility] Facility External Planned Provider: [facility], MEDICARE REHAB BED DCP follow-up note: CM SPOKE TO [facility] [phone], PROVIDED UPDATE VIA PHONE. FAXED UPDATE TO [facility] AT [phone]. FOR DISCHARGE, FAX DISCHARGE INFORMATION TO [facility] AT [phone]. CALL NURSE REPORT TO [facility] AT [phone]. PT WILL REQUIRE AMBULANCE TRANSPORT UNLESS HAVING DEMONSTRATED ABILITY TO TRANSFER TO CHAIR AND SIT SAFELY FOR DURATION OF TRANSPORT. GEOVANNA German DCP- Discharge Planning Updated by [id number]: Nestor Oliveros on 03/27/18 9:[address] Patient Name: SOFIA PEREZ Encounter No: [id number] : 1940 Primary Insurance: MEDICARE A & B Anticipated DC Date: 03-22-2018 Planned Disposition: [facility] Facility External Planned Provider: [facility], MEDICARE REHAB BED DCP follow-up note: CM FAXED UPDATE TO [facility] AT [phone]. FOR DISCHARGE, FAX DISCHARGE INFORMATION TO [facility] AT [phone]. CALL NURSE REPORT TO [facility] AT [phone]. PT WILL REQUIRE AMBULANCE TRANSPORT UNLESS HAVING DEMONSTRATED ABILITY TO TRANSFER TO CHAIR AND SIT SAFELY FOR DURATION OF TRANSPORT. GEOVANNA German DCP- Discharge Planning Updated by [id number]: Nestor Oliveros on 03/23/18 7:[address] Patient Name: SOFIA PEREZ Encounter No: [id number] : 1940 Primary Insurance: MEDICARE A & B Anticipated DC Date: 03-22-2018 Planned Disposition: [facility] Facility External Planned Provider: [facility], MEDICARE REHAB BED DCP follow-up note: CM REVIEWED CHART WHICH INDICATES PT PLANS TO RETURN TO REHAB AT [facility]. CM FAXED UPDATE TO [facility] AT [phone]. FOR DISCHARGE, FAX DISCHARGE INFORMATION TO [facility] AT [phone]. CALL NURSE REPORT TO [facility] AT [phone]. PT WILL REQUIRE AMBULANCE TRANSPORT UNLESS HAVING DEMONSTRATED ABILITY TO TRANSFER TO CHAIR AND SIT SAFELY FOR DURATION OF TRANSPORT. GEOVANNA German DCP- Discharge Planning Updated by [id number]: Sofia Benavides on 03/20/18 5:[address] Patient Name: SOFIA PEREZ Admission Status: ER Accout number: [id number] Admission Date: 03-20-2018 : 1940 Admission Diagnosis: Attending: DERRICK PEREZ Current LOS: 1 Anticipated DC Date: 03-22-2018 Planned Disposition: [facility] Primary Insurance: MEDICARE A & B Discharge Planning Comments: CM met with patient to complete initial dc planning assessment. CM educated patient on the CM role and verbal consent given by patient to complete assessment. Patient was currently in rehab at [place]. She plans to return to [place] at discharge to complete her therapy. Patient denied known discharge needs at this time. CM will continue to follow and will assist as needed with dc plans/needs. Retail Department Supervisor: Sofia Benavides RN, [facility] DCPIA - Discharge Planning Initial Assessment Updated by [id number]: Sofia Benavides on 03/20/18 6:13 pm * Is the patient Alert and Oriented? Yes * How many steps to enter\exit or inside your home? None * PCP Dr. Chan * Pharmacy [facility] * Preadmission Environment [facility] Facility * Facility Name [facility] * ADLs Partial Dependent * Partial ADLs (Assistance needed) Ambulation Bathing Medication Management * Equipment Bedside Commode Cane Oxygen Power Chair or Electric Scooter Rolling Walker Shower Chair * List name and contact numbers for known caregivers / representatives who currently or will assist patient after discharge: Vidhi diego - [phone] or [phone] * Verbal permission to speak to the caregivers and representatives has been obtained from the patient. Yes * Additional services required to return to the preadmission environment? No * Can the patient safely return to the preadmission environment? Yes * Has this patient been hospitalized within the prior 30 days at any hospital? Yes Coverage Notice Reviewer: [id number] Zoe Oliveros Notice Issued Date-Time: 03/30/2018 10:00 Notice Type: IM Discharge Notice Notice Delivered To: Patient Relationship to Patient: Child And Adolescent Psychiatrist Name: Delivery Method: HAND - Hand Delivered Lima Days: Prior Verbal Notification: Recipient Understood Notice: Yes Recipient Signature: Yes Med Rec Note Co-signed by Attending: Coverage Notice Comment: Last DP export: 03/30/18 9:20 a Patient Name: SOFIA PEREZ Page 50573 at 1032 All edits/amendments must be made on the electronic document DICTATION DATE: 03/30/18 103 DOLLYMAN: RITU 03/30/18 103 RPT#: [id number] DC DATE: STATUS: ADM IN [facility] [address] [place] [address] END OF REPORT
[2018-03-30 11:26] VITALS: BP 131/39
--- NOTE | 2018-03-30 11:30 | MORECARE ---
CASE MANAGEMENT DISCHARGE SUMMARY PATIENT: SOFIA PEREZ UNIT: [id number] ADM DATE: 03/20/18 AGE: 78 : 39 SEX: F ROOM/BED: D.9463 AUTHOR: PETER BELTRAN PHYSICIAN: REFERRING PHYSICIAN: DERRICK PEREZ DO DATE OF SERVICE: 03/30/18 Discharge Plan Patient Name: SOFIA PEREZ Facility: [facility]:[place] : 1940 Planned Disposition: [facility] Facility Anticipated Discharge Date: 03/30/18 Discharge Date: Expected LOS: 10 Initial Reviewer: [id number] Initial Review Date: 03/20/2018 Generated: 03/30/18 12:30 pm Comments DCP- Discharge Planning Updated by [id number]: Nestor Oliveros on 03/30/18 9:[address] Patient Name: SOFIA PEREZ Encounter No: [id number] : 1940 Primary Insurance: MEDICARE A & B Anticipated DC Date: 03-30-2018 Planned Disposition: [facility] Facility External Planned Provider: [facility], MEDICARE REHAB BED DCP follow-up note: CM RECEIVED DISCHARGE ORDER, SPOKE TO [facility], , PROVIDED UPDATE VIA PHONE. FAXED DISCHARGE INFORMATION TO [facility] AT [phone]. CM NOTIFIED PT, PT IN AGREEMENT WITH DISCHARGE TO REHAB TODAY. PT REPORTS HER DAUGHTER WILL BE HERE SHORTLY AND SHE WILL NOTIFY HER THEN. CM PROVIDED AND DISCUSSED IMPORTANT MESSAGE FROM MEDICARE. FOR DISCHARGE, CALL NURSE REPORT TO [facility] AT [phone]. [facility] TO ARRANGE VAN TRANSPORT FOR NOON TODAY. GEOVANNA German DCP- Discharge Planning Updated by [id number]: Nestor Oliveros on 03/29/18 9:[address] Patient Name: SOFIA PEREZ Encounter No: [id number] : 1940 Primary Insurance: MEDICARE A & B Anticipated DC Date: 03-22-2018 Planned Disposition: [facility] Facility External Planned Provider: [facility], MEDICARE REHAB BED DCP follow-up note: CM SPOKE TO [facility] [phone], PROVIDED UPDATE VIA PHONE. FAXED UPDATE TO [facility] AT [phone]. FOR DISCHARGE, FAX DISCHARGE INFORMATION TO [facility] AT [phone]. CALL NURSE REPORT TO [facility] AT [phone]. PT WILL REQUIRE AMBULANCE TRANSPORT UNLESS HAVING DEMONSTRATED ABILITY TO TRANSFER TO CHAIR AND SIT SAFELY FOR DURATION OF TRANSPORT. GEOVANNA German DCP- Discharge Planning Updated by [id number]: Nestor Oliveros on 03/27/18 9:[address] Patient Name: SOFIA PEREZ Encounter No: [id number] : 1940 Primary Insurance: MEDICARE A & B Anticipated DC Date: 03-22-2018 Planned Disposition: [facility] Facility External Planned Provider: [facility], MEDICARE REHAB BED DCP follow-up note: CM FAXED UPDATE TO [facility] AT [phone]. FOR DISCHARGE, FAX DISCHARGE INFORMATION TO [facility] AT [phone]. CALL NURSE REPORT TO [facility] AT [phone]. PT WILL REQUIRE AMBULANCE TRANSPORT UNLESS HAVING DEMONSTRATED ABILITY TO TRANSFER TO CHAIR AND SIT SAFELY FOR DURATION OF TRANSPORT. GEOVANNA German DCP- Discharge Planning Updated by [id number]: Nestor Oliveros on 03/23/18 7:[address] Patient Name: SOFIA PEREZ Encounter No: [id number] : 1940 Primary Insurance: MEDICARE A & B Anticipated DC Date: 03-22-2018 Planned Disposition: [facility] Facility External Planned Provider: [facility], MEDICARE REHAB BED DCP follow-up note: CM REVIEWED CHART WHICH INDICATES PT PLANS TO RETURN TO REHAB AT [facility]. CM FAXED UPDATE TO [facility] AT [phone]. FOR DISCHARGE, FAX DISCHARGE INFORMATION TO [facility] AT [phone]. CALL NURSE REPORT TO [facility] AT [phone]. PT WILL REQUIRE AMBULANCE TRANSPORT UNLESS HAVING DEMONSTRATED ABILITY TO TRANSFER TO CHAIR AND SIT SAFELY FOR DURATION OF TRANSPORT. GEOVANNA German DCP- Discharge Planning Updated by [id number]: Sofia Benavides on 03/20/18 5:[address] Patient Name: SOFIA PEREZ Admission Status: ER Accout number: [id number] Admission Date: 03-20-2018 : 1940 Admission Diagnosis: Attending: DERRICK PEREZ Current LOS: 1 Anticipated DC Date: 03-22-2018 Planned Disposition: [facility] Facility Primary Insurance: MEDICARE A & B Discharge Planning Comments: CM met with patient to complete initial dc planning assessment. CM educated patient on the CM role and verbal consent given by patient to complete assessment. Patient was currently in rehab at [facility]. She plans to return to [facility] at discharge to complete her therapy. Patient denied known discharge needs at this time. CM will continue to follow and will assist as needed with dc plans/needs. Clinical Laboratory Technologist: Sofia Benavides RN, [facility] DCPIA - Discharge Planning Initial Assessment Updated by [email or web address]: Sofia Benavides on 03/20/18 6:13 pm * Is the patient Alert and Oriented? Yes * How many steps to enter\exit or inside your home? None * PCP Dr. Chan * Pharmacy [facility] * Preadmission Environment [facility] Facility * Facility Name [facility] * ADLs Partial Dependent * Partial ADLs (Assistance needed) Ambulation Bathing Medication Management * Equipment Bedside Commode Cane Oxygen Power Chair or Electric Scooter Rolling Walker Shower Chair * List name and contact numbers for known caregivers / representatives who currently or will assist patient after discharge: Vidhi diego - [phone] or [phone] * Verbal permission to speak to the caregivers and representatives has been obtained from the patient. Yes * Additional services required to return to the preadmission environment? No * Can the patient safely return to the preadmission environment? Yes * Has this patient been hospitalized within the prior 30 days at any hospital? Yes Coverage Notice Reviewer: [id number] Zoe Oliveros Notice Issued Date-Time: 03/30/2018 10:00 Notice Type: IM Discharge Notice Notice Delivered To: Patient Relationship to Patient: Sub Master Name: Delivery Method: HAND - Hand Delivered Lima Days: Prior Verbal Notification: Recipient Understood Notice: Yes Recipient Signature: Yes Med Rec Note Co-signed by Attending: Coverage Notice Comment: Last DP export: 03/30/18 9:32 a Patient Name: SOFIA PEREZ Page 17490 at 1130 All edits/amendments must be made on the electronic document DICTATION DATE: 03/30/18 1130 RECEPTIONIST SCHEDULER: RITU 03/30/18 1130 RPT#: [id number] DC DATE: STATUS: ADM IN [facility] [address] [place] [address] END OF REPORT
== END 2018-03-30 13:39 | DRG 291 ==
LOC: D.ER 13:08 → D.EDHOLD 17:47 → D.M2 17:47
PROVIDERS: Emergency Medicine; Internal Medicine Nephrology; ADMIT Family Medicine
DX: I11.0 Hypertensive heart disease with heart failure (principal); J96.21 Acute and chronic respiratory failure with hypoxia; R53.2 Functional quadriplegia; Z68.41 Body mass index [BMI] 40.0-44.9, adult; L03.116 Cellulitis of left lower limb; L03.115 Cellulitis of right lower limb; I50.33 Acute on chronic diastolic (congestive) heart failure; E66.01 Morbid (severe) obesity due to excess calories; I48.91 Unspecified atrial fibrillation; I25.10 Atherosclerotic heart disease of native coronary artery without angina pectoris; G47.33 Obstructive sleep apnea (adult) (pediatric); E11.65 Type 2 diabetes mellitus with hyperglycemia; E11.51 Type 2 diabetes mellitus with diabetic peripheral angiopathy without gangrene; I87.8 Other specified disorders of veins; E78.5 Hyperlipidemia, unspecified

== ENCOUNTER → 2018-08-23 18:05 | Outpatient (CLI) | payer MEDICARE ==
[2018-03-21 13:07] VITALS: BMI 40.3
[2018-08-23 19:06] LABS: APPEARANCE HAZY (CLEAR); BILIRUBIN NEGATIVE (NEGATIVE); COLOR YELLOW (YELLOW); GLUCOSE NEGATIVE (NEGATIVE); KETONE NEGATIVE (NEGATIVE); NITRITE NEGATIVE (NEGATIVE); PROTEIN TRACE mg/dL (NEGATIVE); UROBILINOGEN NORMAL (NORMAL)
[2018-08-23 19:07] LABS: BACTERIA MANY /hpf (NONE SEEN); EPITHELIAL CELLS OCC /hpf (0-5); WHITE CELLS - URINE >50 /hpf (0-5)
== END | disposition home or self-care (01) ==
LOC: D.LABREF 18:05
PROVIDERS: ATTEND Family Medicine
DX: N39.0 Urinary tract infection, site not specified (principal); I50.9 Heart failure, unspecified; E11.9 Type 2 diabetes mellitus without complications; I87.2 Venous insufficiency (chronic) (peripheral)

== ENCOUNTER → 2018-10-27 11:19 | Outpatient (CLI) | payer MEDICARE ==
[2018-03-21 13:07] VITALS: BMI 40.3
[2018-10-27 12:14] LABS: APPEARANCE TURBID (CLEAR); BILIRUBIN NEGATIVE (NEGATIVE); COLOR YELLOW (YELLOW); GLUCOSE NEGATIVE (NEGATIVE); KETONE NEGATIVE (NEGATIVE); NITRITE POSITIVE (NEGATIVE); PROTEIN 1+ mg/dL (NEGATIVE); SPECIFIC GRAVITY 1.015 (1.005-1.020); UROBILINOGEN NORMAL (NORMAL)
[2018-10-27 12:15] LABS: EPITHELIAL CELLS 0-5 /hpf (0-5); RED CELLS - URINE 0-5 /hpf (0-5); WHITE CELLS - URINE >50 /hpf (0-5)
[2018-10-27 12:16] LABS: BACTERIA MANY /hpf (NONE SEEN); MUCUS <1+ /lpf (NONE SEEN)
== END | disposition home or self-care (01) ==
LOC: D.LABREF 11:19
PROVIDERS: ATTEND Family Medicine
DX: N18.9 Chronic kidney disease, unspecified (principal); R53.2 Functional quadriplegia